=== PATIENT | male | born 1935 | race Caucasian/White ===

== ENCOUNTER → 2018-12-22 09:57 | Outpatient (CLI) | payer MEDICARE, SELFPAY ==
--- NOTE | 2018-12-22 10:14 | DI.CT.S_ITS ---
PROCEDURE: CT PEL WO CON INDICATIONS: Contusion of left hip, subsequent encounter TECHNIQUE: Noncontrast 3 mm axial sections acquired through the bony pelvis, with coronal and sagittal reformatting. COMPARISON: [facility], CR, XR PELVIS 1 OR 2 VIEWS, 12/15/2018, 11:18. FINDINGS: Image quality: Excellent. Bones: Lumbosacral fusion hardware is present. Periarticular osteophyte formation at the sacroiliac and hip joints bilaterally. Soft tissues: Bilateral scrotal hydroceles are present. Mildly distended fluid-filled loops of small bowel within the pelvis. IMPRESSION: 1. No fracture. 2. Bilateral sacroiliac and hip joint osteoarthritis. 3. Bilateral hydroceles. Dictated by: Elinor Parikh M.D. on 12/22/2018 at 10:34 Approved by: Elinor Parikh M.D. on 12/22/2018 at 10:38
== END ==
PROVIDERS: Family Provider Internal Medicine; PCP Internal Medicine; Visit Provider Internal Medicine
DX: S70.02XD Contusion of left hip, subsequent encounter (principal); M16.0 Bilateral primary osteoarthritis of hip; M47.898 Other spondylosis, sacral and sacrococcygeal region; N43.3 Hydrocele, unspecified; Z98.1 Arthrodesis status
CPT/HCPCS: 72192

== ENCOUNTER → 2022-01-01 10:55 | Outpatient (CLI) | payer MEDICARE, SELFPAY | PROVIDERS: Family Provider Internal Medicine; PCP Internal Medicine; Referring Provider Internal Medicine; Visit Provider Internal Medicine ==

== ENCOUNTER 2022-01-25 08:35 | Observation (INO) | payer OTHER, SELFPAY ==
[2022-01-25] VITALS (21 sets, daily range): BP systolic 126–225; BP diastolic 76–128; PULSE 40–74; RESP 12–22; TEMP 36–36.6; O2SAT 92–97; BMI 22.7; BMI 22.9
--- NOTE | 2022-01-25 08:39 | DI.RAD.S_ITS ---
PROCEDURE: XR CHEST 1V INDICATIONS: chest pain TECHNIQUE: One view of the chest was acquired. COMPARISON: [facility], , CHEST 1 VIEW, 02/19/2015, 10:54. FINDINGS: Surgical changes and devices: Left shoulder arthroplasty. Partially visualized thoracic neurostimulator leads. Partially visualized cervical thoracic spine fixation hardware. Lungs and pleura: Lungs are clear. No pleural effusions or pneumothorax. Mediastinum: Mediastinal contours appear normal. Heart size is normal. Bones and chest wall: No suspicious bony lesions. Overlying soft tissues appear unremarkable. IMPRESSION: No acute cardiopulmonary disease process. Dictated by: Shweta Mccarty MD, PhD on 01/25/2022 at 8:33 Approved by: Shweta Mccarty MD, PhD on 01/25/2022 at 8:38
--- NOTE | 2022-01-25 08:40 | ED.ARRPALP ---
HPI - Arrhythmia/Palpitations General Chief Complaint: Arrhythmia/Palpitations Stated Complaint: Weakness Time Seen by Provider: 01/25/22 08:38 History of Present Illness HPI narrative: Patient is a 86-year-old male history of hypertension chronic back pain presenting today with weakness and dizziness. He says he woke up this morning felt very lightheaded did not feel quite right. He denies any chest pain or palpitations. No nausea vomiting. EMS was called and found him to be new onset atrial flutter. He denies any history of AFib or a flutter. He has no nausea vomiting. He states that yesterday he was in his normal state of health. 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 He complains of chronic bilateral double vision. He was seen by Ophthalmology after his cataract surgery he has special glasses to help with this. Was suggested by the painter assistant that he may have had a stroke. He has no numbness tingling or weakness certainly no neuro deficit complaints today. Related Data Home Medications Medication Instructions Recorded Confirmed OXYCODONE/ACET 5/325 (bulk)- 1 tab PO Q4HP ##0 01/29/11 01/25/22 (Endocet 5-325 Tablet) nitroglycerin 0.4 mg sublingual 0.4 mg sublingual Q5M PRN Chest 04/05/20 01/25/22 tablet Pain rosuvastatin 5 mg tablet (Crestor) 5 mg PO DAILY 01/25/22 01/25/22 Previous Rx's Medication Instructions Recorded pregabalin 200 mg capsule (Lyrica) 200 mg PO BID #28 caps 10/12/16 Allergies Allergy/AdvReac Type Severity Reaction Status Date / Time niacin [NIACIN] Allergy Unknown Verified 01/25/22 08:47 Review of Systems Review of Systems Narrative: GENERAL: + weakness HEENT: See HPI Denies sinus pain, ear pain, sore throat, difficulty swallowing, neck pain RESPIRATORY: Denies dyspnea, cough, wheezing, hemoptysis, sputum. CARDIOVASCULAR: Denies chest pain, palpitations, orthopnea, edema GASTROINTESTINAL: Denies nausea, vomiting, abdominal pain, diarrhea, constipation, melena. : Denies dysuria, frequency, incontinence, hematuria, urinary retention, flank pain. MUSCULOSKELETAL: Denies weakness, joint pain, or bony pain SKIN: No rash, no erythema, no pruritus NEUROLOGIC: see HPI PSYCHIATRIC: No concerning psychosocial issues. 12 point review of systems is negative except for those stated above and HPI Patient History Medical History BPH (benign prostatic hyperplasia) BPH NOS w/o ur obs/LUTS High blood pressure Hydrocele Nocturia Nocturia Peripheral vascular disease Surgical History History of back surgery S/P TURP Vasectomy status Social History household members: spouse Smoking Status: Never smoker alcohol intake: current Smoking Status: Never smoker Exam Initial Vital Signs Initial Vital Signs: Vital Signs Temperature 97.9 F 01/25/22 08:40 Pulse Rate 65 01/25/22 08:40 Respiratory Rate 22 01/25/22 08:40 Blood Pressure 216/128 H 01/25/22 08:40 Pulse Oximetry 96 01/25/22 08:40 Oxygen Delivery Method 01/25/22 08:40 GENERAL: Alert pleasant 86-year-old male and in no acute distress. HEENT: Head atraumatic,EOMI, pupils reactive, face symmetric, moist mucous membranes CARDIOVASCULAR: Regular no murmur RESPIRATORY: Breath sounds equal bilaterally, no wheezes rales or rhonchi. ABDOMEN: Soft, nontender. Normoactive bowel sounds all 4 quadrants. No guarding or rebound. EXTREMITIES: Normal range of motion, no clubbing or edema. Neurovascularly intact NEUROLOGICAL: Alert and oriented x4.Normal gait and speech. SKIN: Warm, dry, no laceration, no petechiae, no rashes or lesions. Course Orders Ordered: ED Orders 01/25/22 08:39 XR chest 1V Stat 01/25/22 08:44 EKG-12 Lead Stat 01/25/22 08:45 Complete Blood Count AUTO DIFF Stat Comprehensive Metabolic Panel Stat D Dimer Stat Lipase Stat NT-proBNP (BNP-Adult 18+) Stat Partial Thromboplastin Time Stat Prothrombin Time INR Stat Troponin & CK Cardiac Panel Stat 01/25/22 09:42 CT angio chest PE protocol Stat Acetaminophen (Acetaminophen 325 Mg Tablet) 650 mg PO Q6HR PRN PRN Reason: Fever/Mild Pain (1-3) Apixaban (Apixaban 5 Mg Tablet) 5 mg PO BID [facility] Metoprolol Tartrate (Metoprolol Ir 25 Mg Tablet) 25 mg PO BID [facility] Ondansetron HCl (Ondansetron 4 Mg/2 Ml Inj) 4 mg IV Q8HR PRN PRN Reason: Nausea And Vomiting Discontinued Medications Diltiazem HCl (Diltiazem 5 Mg/Ml Sdv) 10 mg IV NOW ONE Stop: 01/25/22 08:57 Last Admin: 01/25/22 09:11 Dose: 10 mg Documented By: ABDULLAHI Sodium Chloride (Normal Saline 0.9%) 1,000 mls @ 150 mls/hr IV CONT [facility] Last Infusion: 01/25/22 11:06 Dose: 0 mls/hr Documented By: Admin: 01/25/22 09:10 Dose: 150 mls/hr Documented By: ABDULLAHI Pregabalin (Pregabalin 50 Mg Capsule) 200 mg PO DAILY [facility] Last Admin: 01/25/22 11:06 Dose: 200 mg Documented By: CHELA Vital Signs Vital signs: Vital Signs - 8 hr 01/25/22 08:40 01/25/22 08:40 01/25/22 08:42 Temperature 97.9 F Pulse Rate 65 60 65 Respiratory Rate 22 Blood Pressure 216/128 H Pulse Oximetry 96 95 93 Oxygen Delivery Method Room Air 01/25/22 08:42 01/25/22 08:53 01/25/22 08:53 Temperature Pulse Rate 62 Respiratory Rate 16 Blood Pressure 216/128 H 225/103 H Pulse Oximetry 95 Oxygen Delivery Method 01/25/22 08:58 01/25/22 08:58 01/25/22 09:00 Temperature Pulse Rate 63 62 Respiratory Rate 21 18 Blood Pressure 197/111 H Pulse Oximetry 96 97 Oxygen Delivery Method 01/25/22 09:01 01/25/22 09:01 01/25/22 09:11 Temperature Pulse Rate 63 67 Respiratory Rate 19 Blood Pressure 201/119 H 201/119 H Pulse Oximetry 92 Oxygen Delivery Method 01/25/22 09:19 01/25/22 09:19 01/25/22 09:30 Temperature Pulse Rate 62 Respiratory Rate 14 Blood Pressure 156/84 H 162/85 H Pulse Oximetry 95 Oxygen Delivery Method 01/25/22 09:30 01/25/22 09:45 01/25/22 09:45 Temperature Pulse Rate 65 Respiratory Rate 16 20 Blood Pressure 186/101 H Pulse Oximetry 95 96 Oxygen Delivery Method 01/25/22 10:00 01/25/22 10:01 01/25/22 10:01 Temperature Pulse Rate 59 L 58 L Respiratory Rate 21 12 Blood Pressure 198/103 H Pulse Oximetry 97 92 Oxygen Delivery Method 01/25/22 10:15 01/25/22 10:15 01/25/22 10:30 Temperature Pulse Rate 59 L Respiratory Rate 20 Blood Pressure 184/86 H 174/95 H Pulse Oximetry 92 Oxygen Delivery Method 01/25/22 10:30 01/25/22 10:45 01/25/22 10:45 Temperature Pulse Rate 51 L 74 Respiratory Rate 15 21 Blood Pressure 192/114 H Pulse Oximetry 95 92 Oxygen Delivery Method 01/25/22 11:00 01/25/22 11:00 Temperature Pulse Rate 48 L Respiratory Rate 16 Blood Pressure 173/95 H Pulse Oximetry 92 Oxygen Delivery Method MDM - Arrhythmia/Palpitations Lab Data Result diagrams: 01/25/22 08:45 01/25/22 08:45 Labs: Lab Results 01/25/22 01/25/22 01/25/22 Range/Units 08:45 08:45 08:45 WBC 3.8 L (4.5-11.0) X10^3/uL RBC 4.52 (4.5-5.9) X10^6/uL Hgb 15.4 (13.5-17.5) g/dL Hct 43.9 (41-53) % MCV 97.2 (80-100) fL MCH 34.0 (26-34) PG MCHC 35.0 (30-36) % RDW 13.2 (11.6-14.8) % Plt Count 116 L (150-400) X10^3/uL Neut % (Auto) 57.0 (50-75) % Lymph % (Auto) 27.3 (25-40) % Daniels % (Auto) 12.1 (3-14) % Eos % (Auto) 2.8 (2-4) % Baso % (Auto) 0.8 (0-2) % Neut # (Auto) 2200 (7150-2874) /uL Lymph # (Auto) 1000 L (7436-6224) /uL Daniels # (Auto) 500 (0-900) /uL Eos # (Auto) 100 (0-450) /uL Baso # (Auto) 0 (0-100) /uL PT 11.8 (10.1-12.7) SECONDS INR 1.0 (0.9-1.3) APTT 34 (26.4-36.2) SECONDS D-Dimer 604 H (<500) ng/ml Sodium 138 (137-145) mmol/L Potassium 4.4 (3.4-5.1) mmol/L Chloride 101 (98-107) mmol/L Carbon Dioxide 32 (22-32) mmol/L BUN 12 (9-20) mg/dL Creatinine 0.77 (0.66-1.25) mg/dL Estimated GFR > 60 (>60) mL/min BUN/Creatinine Ratio 15.6 (6-22) Glucose 90 (80-110) mg/dL Calcium 8.8 (8.4-10.2) mg/dL Total Bilirubin 0.9 (0.2-1.3) mg/dL AST 36 (17-59) IU/L ALT 25 (<50) IU/L Alkaline Phosphatase 43 (38-126) U/L Total Creatine Kinase 103 (55-170) U/L CK-MB (CK-2) 3.10 H (<2.37) ng/mL CK-MB (CK-2) Rel Index 3.0 (1.5-5.0) % Troponin I 0.145 H* (0.01-0.034) ng/mL NT-Pro-B Natriuret Pep 426 (<450) pg/mL Total Protein 7.3 (6.3-8.2) g/dL Albumin 4.1 (3.5-5.0) g/dL Globulin 3.2 (1.7-4.1) g/dL Albumin/Globulin Ratio 1.3 (1.0-2.8) Lipase 72 (23-300) U/L Imaging Data Chest x-ray: Radiologist's Impresson: [address] [id number] XRay Report Signed Patient: Scotty Hester MR#: [id number] : 1935 Acct:[id number] Age/Sex: 86 / M Date of Service: 01/25/22 Loc: ED Accession Number: [id number] ?? Procedure: XR chest 1V Ordering Provider: Ana Epperson D.O. PROCEDURE:? XR CHEST 1V ? INDICATIONS:? chest pain ? TECHNIQUE:? One view of the chest was acquired.? ? COMPARISON:? [facility], CHEST 1 VIEW, 02/19/2015, 10:54. ? FINDINGS:? ? Surgical changes and devices:? Left shoulder arthroplasty.? Partially visualized thoracic neurostimulator leads.? Partially visualized cervical thoracic spine fixation hardware. ? Lungs and pleura:? Lungs are clear.? No pleural effusions or pneumothorax.? ? Mediastinum:? Mediastinal contours appear normal.? Heart size is normal.? ? Bones and chest wall:? No suspicious bony lesions.? Overlying soft tissues appear unremarkable.? ? IMPRESSION:? No acute cardiopulmonary disease process. ? ? Dictated by: Shweta Mccarty MD, PhD on 01/25/2022 at 8:33 ? ? CT scan - chest: Radiologist's Impresson: nt: Scotty Hester MR#: [id number] : 1935 Acct:[id number] Age/Sex: 86 / M Date of Service: 01/25/22 Loc: ED Accession Number: [id number] ?? Procedure: CT angio chest PE protocol Ordering Provider: Ana Epperson D.O. PROCEDURE:? CT ANGIO CHEST PE PROTOCOL ? INDICATIONS:? sob new onset a flutter high dimer ? TECHNIQUE:? After the administration of intravenous contrast, 2 mm thick sections acquired from the pulmonary apices to the posterior costophrenic angles.? 3-dimensional maximum intensity projection (MIP) coronal and sagittal reformats were then acquired through the thorax.? For radiation dose reduction, the following was used:? automated exposure control, adjustment of mA and/or kV according to patient size.? ? COMPARISON:? [facility], XR CHEST 1V, 01/25/2022, 9:11. ? FINDINGS:? Image quality:? Good.? Right shoulder beam hardening artifact.? ? Pulmonary arteries:? Pulmonary arteries are normal in size, and demonstrate no intraluminal filling defects to suggest central pulmonary embolism.? ? Lungs and pleura:? A few pulmonary nodules measuring 0.4 cm or less.? A few calcified granuloma.? Dependent reticular thickening which has the appearance of atelectasis.? No pleural effusions or pneumothorax.? Central and peripheral airways are patent.? ? Mediastinum:? Heart size is normal, without pericardial effusion.? [id number]-[id number] coronary artery calcifications.? No mediastinal or hilar adenopathy.? Thoracic aorta is normal in caliber and enhancement.? Retroesophageal right subclavian artery, variant anatomy.? Esophagus is normal in caliber, without hiatal hernia.? ? Bones and chest wall:? Spine fixation hardware partially visualized.? ACDF. Thecal spine leads.? No suspicious bony lesions.? Ribs and thoracic spine appear intact throughout.? Thyroid gland is unremarkable.? No axillary or supraclavicular adenopathy.? Gynecomastia. ? ? Abdomen:? Multiple low-density bilateral renal cysts.? No adrenal nodule. ? IMPRESSION:? 1. No pulmonary embolism. ? 2. Suspect bibasilar atelectasis.? No pleural effusion. ? ? ? Dictated by: Lanre Bruce M.D. on 01/25/2022 at 10:25? ECG Data Interpretation: Atrial flutter rate 63 and new from previous EKG no ST changes stimulator noted MDM Narrative Medical decision making narrative: Patient presents today complaining of a lightheadedness. Found to be extremely hypertensive and in atrial flutter. Rate seems to be controlled. No prior history of atrial flutter however patient really does not have chest pain shortness of breath or fluttering. His previous EKGs from 2015 difficult to tell if the lightheadedness is from hypertension versus atrial flutter. He is given 1 small dose of Cardizem 10 mg which brought his blood pressure down really did not do much for his rate which is fairly well controlled. He remains in atrial flutter. He overall is feeling better. Difficult to tell when he went into atrial flutter not a good candidate for cardioversion. Troponin is found to be elevated possibly hypertensive emergency versus atrial flutter. Dr. Hernandez cardiology consulted agrees no need for heparin drip for cardioversion. Recommend blood pressure control anticoagulation with Eliquis echocardiogram and follow-up as an outpatient. Discharge Plan Departure Patient Disposition: Admitted as Observation Clinical Impression: Hypertensive emergency, Atrial fibrillation/flutter Admit Date/Time: 01/25/22 11:05 Admit Provider: Vidya Wright
[2022-01-25 08:55] LABS: Add Manual Diff / Slide Review NO; Basophils Absolute Auto 0 /uL (0-100); Basophils Percent Auto 0.8 % (0-2); Eosinophils Absolute Auto 100 /uL (0-450); Eosinophils Percent Auto 2.8 % (2-4); Hematocrit 43.9 % (41-53); Hemoglobin 15.4 g/dL (13.5-17.5); Lymphocytes Absolute Auto 1000 /uL (1100-4500); Lymphocytes Percent Auto 27.3 % (25-40); Mean Corpuscular Volume 97.2 fL (80-100); Monocytes Absolute Auto 500 /uL (0-900); Monocytes Percent Auto 12.1 % (3-14); Neutrophils Absolute Auto 2200 /uL (1500-7000); Platelet Count 116 X10^3/uL (150-400); Red Blood Cell Count 4.52 X10^6/uL (4.5-5.9); Red Cell Distribution Width 13.2 % (11.6-14.8); White Blood Cell Count 3.8 X10^3/uL (4.5-11.0)
[2022-01-25 09:05] LABS: Prothrombin Time 11.8 SECONDS (10.1-12.7)
[2022-01-25 09:06] LABS: D Dimer 604 ng/ml (<500)
[2022-01-25 09:07] LABS: PTT Partial Thromboplastin Tim 34 SECONDS (26.4-36.2)
[2022-01-25 09:09] LABS: Alanine Aminotransferase 25 IU/L (<50); Albumin 4.1 g/dL (3.5-5.0); Albumin Globulin Ratio 1.3 (1.0-2.8); Alkaline Phosphatase 43 U/L (38-126); Aspartate Aminotransferase 36 IU/L (17-59); BUN Creatinine Ratio 15.6 (6-22); Bilirubin Total 0.9 mg/dL (0.2-1.3); Blood Urea Nitrogen 12 mg/dL (9-20); Calcium 8.8 mg/dL (8.4-10.2); Carbon Dioxide 32 mmol/L (22-32); Chloride 101 mmol/L (98-107); Creatine Kinase 103 U/L (55-170); Estimated Glomerular Filt Rate > 60 mL/min (>60); Globulin 3.2 g/dL (1.7-4.1); Glucose 90 mg/dL (80-110); Lipase 72 U/L (23-300); Potassium 4.4 mmol/L (3.4-5.1); Sodium 138 mmol/L (137-145); Total Protein 7.3 g/dL (6.3-8.2)
[2022-01-25] MEDS: SODIUM CHLORIDE 0.9% 1,000 ML 150 ML IV (09:10)
[2022-01-25] MEDS: dilTIAZem 5 MG/ML SDV 10 MG IV (09:11)
[2022-01-25 09:21] LABS: NT-proBNP (BNP-Adult 18+) 426 pg/mL (<450)
--- NOTE | 2022-01-25 09:42 | DI.CT.S_ITS ---
PROCEDURE: CT ANGIO CHEST PE PROTOCOL INDICATIONS: sob new onset a flutter high dimer TECHNIQUE: After the administration of intravenous contrast, 2 mm thick sections acquired from the pulmonary apices to the posterior costophrenic angles. 3-dimensional maximum intensity projection (MIP) coronal and sagittal reformats were then acquired through the thorax. For radiation dose reduction, the following was used: automated exposure control, adjustment of mA and/or kV according to patient size. COMPARISON: [facility], CR, XR CHEST 1V, 01/25/2022, 9:11. FINDINGS: Image quality: Good. Right shoulder beam hardening artifact. Pulmonary arteries: Pulmonary arteries are normal in size, and demonstrate no intraluminal filling defects to suggest central pulmonary embolism. Lungs and pleura: A few pulmonary nodules measuring 0.4 cm or less. A few calcified granuloma. Dependent reticular thickening which has the appearance of atelectasis. No pleural effusions or pneumothorax. Central and peripheral airways are patent. Mediastinum: Heart size is normal, without pericardial effusion. Gozl-cu-[id number] coronary artery calcifications. No mediastinal or hilar adenopathy. Thoracic aorta is normal in caliber and enhancement. Retroesophageal right subclavian artery, variant anatomy. Esophagus is normal in caliber, without hiatal hernia. Bones and chest wall: Spine fixation hardware partially visualized. ACDF. Thecal spine leads. No suspicious bony lesions. Ribs and thoracic spine appear intact throughout. Thyroid gland is unremarkable. No axillary or supraclavicular adenopathy. Gynecomastia. Abdomen: Multiple low-density bilateral renal cysts. No adrenal nodule. IMPRESSION: 1. No pulmonary embolism. 2. Suspect bibasilar atelectasis. No pleural effusion. Dictated by: Lanre Bruce M.D. on 01/25/2022 at 10:25 Approved by: Lanre Bruce M.D. on 01/25/2022 at 10:40
[2022-01-25 09:50] LABS: HEMOLYSIS 18 (0-50)
[2022-01-25 09:52] LABS: Troponin I 0.145 ng/mL (0.01-0.034)
--- NOTE | 2022-01-25 10:19 | PC.NURSE ---
Dr. Epperson aware of HR 43-63 and HTN
[2022-01-25] MEDS: PREGABALIN 50 MG CAPSULE 200 MG PO ×2 (11:06→20:28)
--- NOTE | 2022-01-25 11:51 | DI.ECHO.S_ITS ---
[facility] +---------+ : : [id number] : : : : [id number] : : : : Phone: [phone] Echocardiogram Report + + :Name: ANEL OLVERA Study Date: 01/25/2022 Height: 74 in : :[facility] ReadingLocation: Weight: 178 lb : : Gender: Male BSA: 2.1 m2 : :: 1935 Age: 86 yrs BP: 194/111 mmHg: :Reason For Study: AFLUTTER, ELEVATED TROPONIN : : Performed By: Jeffrey Anaya : :Referring: MANDI IBRAHIM : + + Interpretation Summary The left ventricle is normal in size. Left ventricular systolic function appears normal without focal wall motion abnormalities. The ejection fraction is estimated to be 60-65%.LVEF has not changed. The right ventricle is mildly dilated. The right ventricular systolic function is normal. The right ventricular systolic pressure is estimated to be at least 43 mmHg based on an estimated right atrial pressure of 8 mm Hg. The left atrium is mildly dilated. The right atrium is severely dilated. There is mild to moderate mitral regurgitation. There is no other significant valvular heart disease. The ascending aorta is mild-moderately enlarged. Procedure: A two-dimensional transthoracic echocardiogram with color flow and Doppler was performed. The study quality was technically good. Comparison is made with the echocardiogram of 01/30/17. The patient was in atrial fibrillation with controlled ventricular rate during the exam. The patient had occasional PACs during the exam. The patient had occasional PVCs during the exam. Left Ventricle: The left ventricle is normal in size. There is normal left ventricular wall thickness. Left ventricular systolic function appears normal without focal wall motion abnormalities. The ejection fraction is estimated to be 60-65%. Diastolic parameters suggest probable elevated filling pressures. Right Ventricle: The right ventricle is mildly dilated. The right ventricular systolic function is normal. Atria: The left atrium is mildly dilated. The right atrium is severely dilated. There is no Doppler evidence for an atrial septal defect. Mitral Valve: The mitral valve leaflets appear normal. There is no evidence of stenosis, fluttering, or prolapse. There is mild to moderate mitral regurgitation. Aortic Valve: The aortic valve is trileaflet. The aortic valve opens well. There is trace aortic regurgitation. Tricuspid Valve: The tricuspid valve is normal in structure and function. There is mild tricuspid regurgitation. The right ventricular systolic pressure is estimated to be at least 43 mmHg based on an estimated right atrial pressure of 8 mm Hg. Pulmonic Valve: The pulmonic valve is normal in structure and function. There is trace pulmonic regurgitation. There is no other significant valvular heart disease. Great Vessels: The aortic root is normal size. The ascending aorta is mild- moderately enlarged. The pulmonary artery is normal size. The IVC is dilated (diameter is greater than 2.1 cm) yet it collapses greater than 50% with a sniff. This suggests a right atrial pressure of 8 mm Hg. Pericardium/ Pleura There is no pericardial effusion. There is no pleural effusion. MMode/2D Measurements & Calculations LVIDd: 4.3 cm LVOT diam: 2.4 cm LVIDs: 2.8 cm Ao root diam: 3.9 cm FS: 34.4 % asc Aorta Diam: 4.1 cm EPSS: 0.25 cm Ao Arch Diam (Prox Trans): 3.1 cm IVSd: 1.00 cm LVPWd: 0.80 cm LV mahmood. diameter/BSA (cm/m^2): 2.1 LV sys. diameter/BSA (cm/m^2): 1.4 LA A2 area: 25.0 cm2 RA long axis: 6.0 cm LA A4 area: 26.5 cm2 RA area: 33.0 cm2 LA length (vol): 7.3 cm RA vol: 154.0 ml LA vol: 77.4 ml RA : 74.5 ml/m2 LA vol index: 37.4 ml/m2 IVC diam: 2.4 cm RVD1 (basal): 4.7 cm RVD2 (mid): 4.1 cm TAPSE: 1.8 cm Doppler Measurements & Calculations Ao V2 max: 115.5 cm/sec LVOT Max Lucio: 65.5 cm/sec Ao V2 mean: 92.1 cm/sec LV V1 max P.7 mmHg Ao max P.3 mmHg LV V1 VTI: 16.4 cm Ao mean P.5 mmHg COREY(I,D): 2.7 cm2 Ao V2 VTI: 27.0 cm COREY(V,D): 2.5 cm2 sev ratio: 0.61 COREY indexed to BSA (cm^2/m^2): 1.3 MV E max lucio: 97.4 cm/sec TR max lucio: 293.5 cm/sec MV A max lucio: 56.8 cm/sec TR max P.5 mmHg MV E/A: 1.7 PA V2 max: 76.6 cm/sec Med Peak E' Lucio: 5.7 cm/sec PA V2 mean: 56.4 cm/sec E/E' med: 17.0 PA mean P.4 mmHg Lat Peak E' Lucio: 7.9 cm/sec PA pr(Accel): 44.7 mmHg E/E' lat: 12.3 E/e' average: 14.6 MV dec time: 0.13 sec SV(LVOT): 71.7 ml Reading Physician:03:24 PM
[2022-01-25 11:55] LABS: COVID19 -Nasal RAPID Negative (Negative)
[2022-01-25] MEDS: METOPROLOL IR 25 MG TABLET PO (12:41)
--- NOTE | 2022-01-25 14:37 | P.HP_ITS ---
History of Present Illness History of Present Illness Date Patient Seen: 01/25/22 Chief complaint: Weakness Narrative: 86-year-old gentleman with hypertension, hyperlipidemia, peripheral neuropathy related to multiple previous back surgeries presented to the emergency department complaining of lightheadedness. Patient states he underwent bilateral cataract surgery earlier this year. He reports he had great results with the 1st 1, but 10 days after the 2nd 1 developed difficulties. He states he developed double vision. He followed up with an inspector eyeglass frames and follow-up surgery was not recommended. He states he was ultimately given glasses to correct his diplopia. He notes after going through that, he noticed he did have balance issues related to the double vision so he has been very attentive about the symptoms. He states due to his neuropathy he frequently gets up at night and walks around in his home and then will sit his recliner. This morning, when he got up he felt lightheaded. He thought it was related to his eyes, but even after putting his glasses on the s ymptoms persisted. He states he felt he was ?unsure footed. He reports multiple friends of his have had cardiac issues so he is aware potential symptoms. He subsequently presented to the emergency department for further evaluation. He denies any chest pain or tightness. Has no previous history of arrhythmia. He does report earlier in the morning between 3 and 5, he noted a little bit of difficulty catching his breath. Denies any recent no symptoms. No fevers, chills, nausea, vomiting, abdominal pain, has had normal urine output and normal bowel movements. He states he has been eating and drinking well. He does have chronic lower extremity edema. Patient History Medical History BPH (benign prostatic hyperplasia) BPH NOS w/o ur obs/LUTS High blood pressure Hydrocele Nocturia Nocturia Peripheral vascular disease Surgical History History of back surgery S/P TURP Vasectomy status Comment: Past medical history: In addition to the above, he reports previous back surgeries x5, he has an implanted neurostimulator Peripheral neuropathy Hyperlipidemia Family history: Father had coronary disease and strokes Mother at age 97 from advanced age Brother had heart disease and Parkinson's Family & Social History Social History: household members spouse Prior Living Arrangements House Safety & Behavioral: Feels Safe in Current Yes Environment Been Physically Hurt or No Threatened By a Person Tobacco & Substance use: Smoking Status Never smoker alcohol intake current alcohol intake frequency 0-2 drinks per day Substance Use Type does not use Comment: Social history: He is and lives in [place] with his Retired outdoor sports min Lifelong nonsmoker. He does drink a cocktail each evening Meds Home Medications and Allergies Home Medications Medication Instructions Recorded Confirmed Type OXYCODONE/ACET 5/325 (bulk)- 1 tab PO Q4HP ##0 01/29/11 01/25/22 History (Endocet 5-325 Tablet) pregabalin 200 mg capsule (Lyrica) 200 mg PO BID #28 caps 10/12/16 01/25/22 Rx nitroglycerin 0.4 mg sublingual 0.4 mg sublingual Q5M PRN Chest 04/05/20 01/25/22 History tablet Pain rosuvastatin 5 mg tablet (Crestor) 5 mg PO DAILY 01/25/22 01/25/22 History Allergies Allergy/AdvReac Type Severity Reaction Status Date / Time niacin [NIACIN] Allergy Unknown Verified 01/25/22 08:47 Review of Systems Review of Systems Narrative: All other systems were reviewed negative Exam Vital Signs (past 8 hours): - 01/25/22 08:40 01/25/22 08:40 01/25/22 08:42 Temperature 97.9 F Pulse Rate 65 60 65 Respiratory Rate 22 Blood Pressure 216/128 H Pulse Oximetry 96 95 93 Oxygen Delivery Method Room Air Oxygen Flow Rate 01/25/22 08:42 01/25/22 08:53 01/25/22 08:53 Temperature Pulse Rate 62 Respiratory Rate 16 Blood Pressure 216/128 H 225/103 H Pulse Oximetry 95 Oxygen Delivery Method Oxygen Flow Rate 01/25/22 08:58 01/25/22 08:58 01/25/22 09:00 Temperature Pulse Rate 63 62 Respiratory Rate 21 18 Blood Pressure 197/111 H Pulse Oximetry 96 97 Oxygen Delivery Method Oxygen Flow Rate 01/25/22 09:01 01/25/22 09:01 01/25/22 09:11 Temperature Pulse Rate 63 67 Respiratory Rate 19 Blood Pressure 201/119 H 201/119 H Pulse Oximetry 92 Oxygen Delivery Method Oxygen Flow Rate 01/25/22 09:19 01/25/22 09:19 01/25/22 09:30 Temperature Pulse Rate 62 Respiratory Rate 14 Blood Pressure 156/84 H 162/85 H Pulse Oximetry 95 Oxygen Delivery Method Oxygen Flow Rate 01/25/22 09:30 01/25/22 09:45 01/25/22 09:45 Temperature Pulse Rate 65 Respiratory Rate 16 20 Blood Pressure 186/101 H Pulse Oximetry 95 96 Oxygen Delivery Method Oxygen Flow Rate 01/25/22 10:00 01/25/22 10:01 01/25/22 10:01 Temperature Pulse Rate 59 L 58 L Respiratory Rate 21 12 Blood Pressure 198/103 H Pulse Oximetry 97 92 Oxygen Delivery Method Oxygen Flow Rate 01/25/22 10:15 01/25/22 10:15 01/25/22 10:30 Temperature Pulse Rate 59 L Respiratory Rate 20 Blood Pressure 184/86 H 174/95 H Pulse Oximetry 92 Oxygen Delivery Method Oxygen Flow Rate 01/25/22 10:30 01/25/22 10:45 01/25/22 10:45 Temperature Pulse Rate 51 L 74 Respiratory Rate 15 21 Blood Pressure 192/114 H Pulse Oximetry 95 92 Oxygen Delivery Method Oxygen Flow Rate 01/25/22 11:00 01/25/22 11:00 01/25/22 11:25 Temperature 96.9 F L Pulse Rate 48 L 57 L Respiratory Rate 16 20 Blood Pressure 173/95 H 194/111 H Pulse Oximetry 92 97 Oxygen Delivery Method Oxygen Flow Rate 0 01/25/22 12:00 Temperature 96.9 F L Pulse Rate 57 L Respiratory Rate 20 Blood Pressure 194/111 H Pulse Oximetry 97 Oxygen Delivery Method Oxygen Flow Rate 0 Oxygen Delivery Method Room Air Oxygen Flow Rate 0 Narrative Exam Narrative: GEN: Elderly male, very pleasant, Alert and oriented x3, no acute distress HEENT: Normocephalic, face symmetric, pupils equal round reactive to light, extraocular movements intact, sclerae anicteric, conjunctiva clear, nares patent , oropharynx reveals an intact soft and hard palate with moist mucous membranes, dentition is fair NECK: Supple, no lymphadenopathy, thyroid without enlargement or nodularity, carotids no bruits CHEST: Respiratory excursions symmetric, clear to auscultation bilaterally CV: Regularly irregular, no murmurs, rubs, gallops, PMI nondisplaced ABD: Soft, nontender, nondistended, bowel sounds present in all 4 quadrants, no organomegaly or masses appreciated EXTR: Warm, well perfused, no clubbing/cyanosis, 2+ bilateral lower extremity edema with venous stasis changes SKIN: Warm and dry, without rash NEURO: Alert and oriented x3, cranial nerves 2 through 12 are intact and symmetric bilaterally, motor strength 5/5 throughout, sensation intact throughout PSYCH: Mood and affect is within normal limits, judgment and insight are appropriate Objective Labs Result Diagrams: 01/25/22 08:45 01/25/22 08:45 Labs: Laboratory Results - last 24 hr 01/25/22 01/25/22 01/25/22 08:45 08:45 08:45 WBC 3.8 L RBC 4.52 Hgb 15.4 Hct 43.9 MCV 97.2 MCH 34.0 MCHC 35.0 RDW 13.2 Plt Count 116 L Neut % (Auto) 57.0 Lymph % (Auto) 27.3 [place] % (Auto) 12.1 Eos % (Auto) 2.8 Baso % (Auto) 0.8 Neut # (Auto) 2200 Lymph # (Auto) 1000 L [place] # (Auto) 500 Eos # (Auto) 100 Baso # (Auto) 0 PT 11.8 INR 1.0 APTT 34 D-Dimer 604 H Sodium 138 Potassium 4.4 Chloride 101 Carbon Dioxide 32 BUN 12 Creatinine 0.77 Estimated GFR > 60 BUN/Creatinine Ratio 15.6 Glucose 90 Calcium 8.8 Total Bilirubin 0.9 AST 36 ALT 25 Alkaline Phosphatase 43 Total Creatine Kinase 103 CK-MB (CK-2) 3.10 H CK-MB (CK-2) Rel Index 3.0 Troponin I 0.145 H* NT-Pro-B Natriuret Pep 426 Total Protein 7.3 Albumin 4.1 Globulin 3.2 Albumin/Globulin Ratio 1.3 Lipase 72 SARS-CoV-2 (PCR) 01/25/22 11:18 WBC RBC Hgb Hct MCV MCH MCHC RDW Plt Count Neut % (Auto) Lymph % (Auto) [place] % (Auto) Eos % (Auto) Baso % (Auto) Neut # (Auto) Lymph # (Auto) [place] # (Auto) Eos # (Auto) Baso # (Auto) PT INR APTT D-Dimer Sodium Potassium Chloride Carbon Dioxide BUN Creatinine Estimated GFR BUN/Creatinine Ratio Glucose Calcium Total Bilirubin AST ALT Alkaline Phosphatase Total Creatine Kinase CK-MB (CK-2) CK-MB (CK-2) Rel Index Troponin I NT-Pro-B Natriuret Pep Total Protein Albumin Globulin Albumin/Globulin Ratio Lipase SARS-CoV-2 (PCR) Negative Assessment & Plan Assessment & Plan narrative: 1. Atrial flutter, rate controlled Patient presented with rate controlled flutter with rates in the low 60s initially. Heart rates were in the 50s after IV diltiazem. Heart rate came back up to the 70s but again dropped down to the high 40s after metoprolol. Will give lower dose metoprolol at 12.5 mg twice daily. Will initiate Eliquis b.i.d.. Discussed risk and benefits with patient. Echocardiogram will be obtained as well. TSH will be checked. Patient has no hard awareness, sodas on certain how long he has had atrial flutter. 2. Hypertension On arrival in the emergency department, blood pressure was 216/128. After receiving 10 mg of diltiazem, it did come down to 156/84. Subsequently increased to the 190s over 114. Blood pressure did normalize with metoprolol 25 mg PO. Unfortunately, he developed some asymptomatic bradycardia. Will continue metoprolol 12.5 mg twice daily and monitor. 3. Lightheadedness Likely secondary to his atrial flutter and severe hypertension. Will continue to monitor. 4. Elevated troponin Patient has not had any chest pain or anginal equivalent symptoms. Initial troponin was 0.145. Follow-up is presently pending. Will monitor. Suspect this is related to his significant hypertension. 5. Leukopenia This also appears to be somewhat chronic. White blood cell count is 3.8 today. It was 4.2 on last check in 2017. 6. Thrombocytopenia Platelet count is 116. It appears he has had some chronic mild thrombocytopenia dating back to 2016. At that time, his platelets were 125. Since then platelet counts have ranged from [id number]. Last labs in our system is in 2017. 7. Elevated D-dimer No evidence of pneumonia or pulmonary emboli on CT PA. 8. Chronic peripheral neuropathy He has an implanted neurostimulator. Continue Lyrica. 9. 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 Code status DNR per patient Prophylaxis Will place on Eliquis Disposition Admit under observation status Time Spent With Patient Critical Care time: I spent a total of [] minutes of critical care time on this patient's care today; this time is exclusive of procedural time. Quality VTE Deep Vein Thrombosis/Pulmonary Embolism Present on Admission: No
[2022-01-25 15:33] LABS: Troponin I 0.107 ng/mL (0.01-0.034)
[2022-01-25 16:09] LABS: Thyroid Stimulating Hormone 0.584 uIU/mL (0.47-4.68)
[2022-01-25 18:26] LABS: Troponin I 0.098 ng/mL (0.01-0.034)
[2022-01-25] MEDS: APIXABAN 5 MG TABLET PO (20:28)
[2022-01-25] MEDS: OXYCODONE/ACETAMINOPHEN 5/325 TABLET 1 TAB PO (22:19)
[2022-01-26 00:54] VITALS: BP 153/97; PULSE 48; O2SAT 96
[2022-01-26 05:41] VITALS: BP 152/89; PULSE 58; RESP 18; TEMP 35.7; O2SAT 93
[2022-01-26 06:57] LABS: Add Manual Diff / Slide Review NO; Basophils Absolute Auto 0 /uL (0-100); Basophils Percent Auto 0.7 % (0-2); Eosinophils Absolute Auto 200 /uL (0-450); Hematocrit 40.2 % (41-53); Hemoglobin 13.9 g/dL (13.5-17.5); Lymphocytes Absolute Auto 1400 /uL (1100-4500); Lymphocytes Percent Auto 33.4 % (25-40); Mean Corpuscular HGB Conc 34.6 % (30-36); Mean Corpuscular Hemoglobin 33.6 PG (26-34); Mean Corpuscular Volume 97.2 fL (80-100); Monocytes Absolute Auto 600 /uL (0-900); Monocytes Percent Auto 13.6 % (3-14); Neutrophils Absolute Auto 2100 /uL (1500-7000); Neutrophils Percent Auto 48.3 % (50-75); Platelet Count 120 X10^3/uL (150-400); Red Blood Cell Count 4.13 X10^6/uL (4.5-5.9); Red Cell Distribution Width 13.4 % (11.6-14.8); White Blood Cell Count 4.3 X10^3/uL (4.5-11.0)
[2022-01-26 07:08] LABS: BUN Creatinine Ratio 17.9 (6-22); Blood Urea Nitrogen 15 mg/dL (9-20); Calcium 8.3 mg/dL (8.4-10.2); Carbon Dioxide 33 mmol/L (22-32); Chloride 105 mmol/L (98-107); Estimated Glomerular Filt Rate > 60 mL/min (>60); Glucose 82 mg/dL (80-110); HEMOLYSIS 18 (0-50); Potassium 4.2 mmol/L (3.4-5.1); Sodium 138 mmol/L (137-145)
[2022-01-26] MEDS: OXYCODONE/ACETAMINOPHEN 5/325 TABLET 1 TAB PO (07:50)
[2022-01-26] MEDS: ATORVASTATIN 20 MG TABLET 10 MG PO (08:04)
[2022-01-26] MEDS: APIXABAN 5 MG TABLET PO (08:06)
[2022-01-26] MEDS: PREGABALIN 50 MG CAPSULE 200 MG PO (08:06)
[2022-01-26 08:38] VITALS: BP 150/90; PULSE 47; RESP 17; TEMP 35.6; O2SAT 95
[2022-01-26] MEDS: SODIUM CHLORIDE 0.9% FLUSH 10 ML IV (08:42)
[2022-01-26 08:43] VITALS: O2SAT 95
--- NOTE | 2022-01-26 09:24 | CM.DANOTE ---
PETER Assessment: Payor: [employer] PCP: MD Edinson Pt is a 86 y.o. M who presented to the ED for weakness and dizziness. Pt has a history of hypertension and chronic back pain. Pt told the ED physician that he woke up yesterday morning and did not feel right. EMS found pt to be in new onset atrial flutter upon arrival to [facility] home. Pt recently had cataract surgery and it was suggested to pt by his Electronics Technician Apprentice that he may have had a stroke. Pt was admitted under observation for further management and evaluation of his symptoms. DCP met with pt this morning to discuss further discharge needs. Pt sitting up in bed. DCP introduced herself and role. Pt stated that he lives in [facility] with his spouse, Cathy, in a single story house. Pt states that he is normally independent at baseline but sometimes uses a walking stick to get around if there are hills or uneven surfaces. Pt states that he recently had cataract surgery and his vision was not quite right but his eye doctor provided him with specialized glasses to help. Pt states that he still drives POV but tries to only stay close to his home. Pt spouse also drives POV. Pt states that his vision does not impair his driving to the point where he needs to give up driving. Pt denies any home health use in the past. Pt denies any discharge resources at this time. WIP does not identify any needs for pt at this time. Whiteboard updated and instructed to call with any other questions that might arise. Pt thankful for the discussion. Spouse is on standby in case pt gets discharged today. P: Once pt is medically stable for discharge, pt to discharge home via spouse POV. Ashley Lowery RN/PETER Discharge Planning/Care Management CM Discharge Assessment Start: 01/26/22 09:22 Freq: Status: Active Protocol: Document 01/26/22 09:22 RAVI (Rec: 01/26/22 09:22 RAVI [id number]) Discharge Planning Assessment Assigned Direct Support Worker Ashley Lowery RN/PETER Advance Directives? Yes Advance Directives on File No History Provided By Patient,Medical Record Prior Living Arrangements House Household Members spouse Type of transporation used prior to Drives own vehicle admit Independent with ADL's Yes Is patient alert and oriented? Yes Caregiver for Another No DME Already Rented / Owned Other Comment walking stick Barriers to Discharge No Discharge Plan Home Referrals Initiated None needed Whiteboard Updated in Patient Room with Yes name and ext. # of Direct Support Worker Comment Instructed to call Review Status In Process Please Provide Date Initial DC 01/26/22 Assessment Was Performed Next Review Type Continued Stay Review
--- NOTE | 2022-01-26 18:11 | P.DS_ITS ---
History of Present Illness History of Present Illness Chief complaint: Weakness Narrative: 86-year-old gentleman with hypertension, hyperlipidemia, peripheral neuropathy related to multiple previous back surgeries presented to the emergency department complaining of lightheadedness. Patient states he underwent bilateral cataract surgery earlier this year. He reports he had great results with the 1st 1, but 10 days after the 2nd 1 developed difficulties. He states he developed double vision. He followed up with an strategic communications specialist and follow-up surgery was not recommended. He states he was ultimately given glasses to correct his diplopia. He notes after going through that, he noticed he did have balance issues related to the double vision so he has been very attentive about the symptoms. He states due to his neuropathy he frequently gets up at night and walks around in his home and then will sit his recliner. This morning, when he got up he felt lightheaded. He thought it was related to his eyes, but even after putting his glasses on the symptoms persisted. He states he felt he was ?unsure footed. He reports multiple friends of his have had cardiac issues so he is aware potential sympt oms. He subsequently presented to the emergency department for further evaluation. He denies any chest pain or tightness. Has no previous history of arrhythmia. He does report earlier in the morning between 3 and 5, he noted a little bit of difficulty catching his breath. Denies any recent no symptoms. No fevers, chills, nausea, vomiting, abdominal pain, has had normal urine output and normal bowel movements. He states he has been eating and drinking well. He does have chronic lower extremity edema. 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 This was unusual for him. He had also had some very mild shortness of breath earlier in the morning while in bed. He presented to the emergency department was found to have rate controlled atrial flutter. He had significant hypertension. Received IV diltiazem with good improvement. Mild elevation of his troponin but had no cardiac symptoms. Was admitted for further observation. Metoprolol 25 mg p.o. was ordered and given. Although his blood pressure had great improvement, he did become mildly bradycardic though was not symptomatic. Subsequently attempts were made to give a lower dose of metoprolol in the evening, 12.5 mg, but he again had a mildly bradycardic rate and the metoprolol was held. He remained bradycardic enough that even on the date of discharge, he did not meet criteria to give a 3.125 mg dose. Therefore he is being discharged with lisinopril 10 mg orally daily for hypertensive control. He was additionally placed on apixaban. TSH was within normal limits. Echocardiogram did reveal biatrial enlargement, normal ejection fraction, [id number] mitral regurgitation. He is encouraged to follow-up with his PCP, monitor his blood pressures, and to be evaluated by Cardiology on an outpatient basis. Patient is discharged in stable condition with complete resolution of his symptoms. Status at Discharge Cognitive/behavioral status at discharge: at baseline, oriented Exam Vital Signs (past 8 hours): Oxygen Delivery Method Room Air Oxygen Flow Rate 0 Narrative Exam Narrative: GEN: Very pleasant elderly gentleman, Alert and oriented x 3, NAD HEENT:NC, Face symmetric CHEST: Respiratory excursions symmetric, CTAB CV: Mildly bradycardic, regularly irregular, no M/R/G ABD: Soft, NT/ND, BT present in all 4 quadrants, no organomegaly or masses EXTR: warm, well perfused, no C/C/E SKIN: warm and dry, no rash NEURO: Alert and oriented x 3, nonfocal Objective Labs Result Diagrams: 01/26/22 06:29 01/26/22 06:29 Labs: Laboratory Results - last 24 hr 01/25/22 01/26/22 01/26/22 17:50 06:29 06:29 WBC 4.3 L RBC 4.13 L Hgb 13.9 Hct 40.2 L MCV 97.2 MCH 33.6 MCHC 34.6 RDW 13.4 Plt Count 120 L Neut % (Auto) 48.3 L Lymph % (Auto) 33.4 [place] % (Auto) 13.6 Eos % (Auto) 4.0 Baso % (Auto) 0.7 Neut # (Auto) 2100 Lymph # (Auto) 1400 [place] # (Auto) 600 Eos # (Auto) 200 Baso # (Auto) 0 Sodium 138 Potassium 4.2 Chloride 105 Carbon Dioxide 33 H BUN 15 Creatinine 0.84 Estimated GFR > 60 BUN/Creatinine Ratio 17.9 Glucose 82 Calcium 8.3 L Troponin I 0.098 H [facility] Medical History BPH (benign prostatic hyperplasia) BPH NOS w/o ur obs/LUTS High blood pressure Hydrocele Nocturia Nocturia Peripheral vascular disease Surgical History History of back surgery S/P TURP Vasectomy status Social History household members: spouse Smoking Status: Never smoker alcohol intake: current Discharge Plan Discharge Plan Patient Disposition: Home Provider Discharge Comment: You were found to have atrial flutter- although usually this is associated with a fast heart rate, yours is slightly slow to normal. As we discussed, this rhythm puts you at an increased risk for a stroke, which is why you were prescribed apixiban (Eliquis), which is an anticoagulant. As part of your evaluation, your thyroid was checked and was normal. Your blood pressure has been high during your hospital stay. You are being discharged on lisinopril 10 mg daily for better blood pressure control. Please monitor your blood pressures twice daily and bring the log to your next appointment with your primary care provider Your slower heart rate can cause lightheadedness/dizziness. If you have any recurrent dizziness or feeling your equilibrium is impaired, check your heart rate. If you have a heart rate less than 50 and you are dizzy, please return to the ER (call EMS, do not drive yourself) Your cardiac enzymes were slightly elevated, likely from the atrial flutter and elevated blood pressures, rather than a heart attack. As you will be on an anticoagulant, I do not recommend a baby aspirin at this time. Your chest CT showed no abnormalities. Your echocardiogram (heart ultrasound) showed a bit of dilation of your heart chambers, which is probably what caused the atrial flutter. You also have a bit of a leaky mitral valve. I recommend you call [facility] for a consultation Discharge orders & Medications Prescriptions: New Eliquis 5 mg Tablet 5 mg PO BID Qty: 60 0RF lisinopril 10 mg tablet 10 mg PO DAILY Qty: 30 0RF Continued OXYCODONE/ACET 5/325 (bulk)- (Endocet 5-325 Tablet) 1 tab PO Q4HP Qty: 0 pregabalin [Lyrica] 200 MG capsule 200 mg PO BID Qty: 28 0RF rosuvastatin [Crestor] 5 mg Tablet 5 mg PO DAILY nitroglycerin 0.4 mg tablet, sublingual 0.4 mg SL Q5M PRN (Reason: Chest Pain) Rx Instructions: do not exceed 3 doses per episode Follow up/Referrals: Scotty Neves MD [Primary Care Provider] - Diet/Activity/Treatments Diet: Regular Activity: As tolerated Visit Report/Discharge Packet Instructions: DI for Atrial Flutter, Direct Oral Anticoagulants (Alternative Therapy) Discharge Data Primary Care Provider: Scotty Neves Quality VTE Deep Vein Thrombosis/Pulmonary Embolism Present on Admission: No
== END 2022-01-26 11:55 | disposition home or self-care (01) ==
LOC: ED 10:39 → AC 11:53
PROVIDERS: Admitting Provider Family Medicine; Emergency Provider Emergency Medicine; Family Provider Internal Medicine; PCP Internal Medicine; Referring Provider Emergency Medicine; Visit Provider Family Medicine
DX: I48.92 Unspecified atrial flutter (principal); R53.1 Weakness; R42 Dizziness and giddiness; R06.02 Shortness of breath; R77.8 Other specified abnormalities of plasma proteins; D72.819 Decreased white blood cell count, unspecified; D69.6 Thrombocytopenia, unspecified; I10 Essential (primary) hypertension; G62.9 Polyneuropathy, unspecified; H53.2 Diplopia; Z20.822 Contact with and (suspected) exposure to COVID-19
CPT/HCPCS: 36415; 71045; 71275; 80048; 80053; 82550; 82553; 83690; 83880; 84443; 84484; 85025; 85379; 85610; 85730; 87635; 93005; 93010; 93306; 96361; 96374; 99284; C9803; G0378; Q9967

== ENCOUNTER → 2022-04-04 15:48 | Outpatient (CLI) | payer OTHER, SELFPAY ==
[2022-01-25 11:57] VITALS: BMI 22.9
--- NOTE | 2022-04-04 15:50 | DI.US.S_ITS ---
PROCEDURE: US PERIPH VENOUS LOW EXTREM BI INDICATIONS: SWELLING TECHNIQUE: Real-time imaging, as well as color and pulse Doppler interrogation, were performed of the deep veins of both legs from the inguinal ligament to the popliteal fossa. COMPARISON: None. FINDINGS: Right: The common femoral, femoral and popliteal veins are normally compressible, and free of intraluminal thrombus. Color and pulse Doppler demonstrate normal phasic intravascular flow. There is normal augmentation response to distal compression maneuver. Minor right calf subcutaneous edema. Left: The common femoral, femoral and popliteal veins are normally compressible, and free of intraluminal thrombus. Color and pulse Doppler demonstrate normal phasic intravascular flow. There is normal augmentation response to distal compression maneuver. IMPRESSION: 1. No DVT in either lower extremity. 2. Mild right calf subcutaneous edema. Dictated by: Radha Horton M.D. on 04/04/2022 at 17:59 Approved by: Radha Horton M.D. on 04/04/2022 at 18:00
== END ==
PROVIDERS: Family Provider Internal Medicine; PCP Internal Medicine; Referring Provider Physical Medicine & Rehabilitation; Visit Provider Physical Medicine & Rehabilitation
DX: R22.43 Localized swelling, mass and lump, lower limb, bilateral (principal)
CPT/HCPCS: 93970

== ENCOUNTER 2022-04-22 04:33 | Emergency (ER) | payer OTHER, SELFPAY ==
[2022-01-25 11:57] VITALS: BMI 22.9
[2022-04-22 04:45] VITALS: BP 171/92; PULSE 70; RESP 28; TEMP 36.5; O2SAT 97; BMI 24.1
--- NOTE | 2022-04-22 04:48 | DI.RAD.S_ITS ---
PROCEDURE: XR CHEST 1V INDICATIONS: SOB TECHNIQUE: One view of the chest was acquired. COMPARISON: [facility], CR, XR CHEST 1V, 01/25/2022, 9:11. FINDINGS: Surgical changes and devices: Post fusion changes in lower cervical spine are seen. Stimulator leads are seen projecting in mid thoracic spine. Lungs and pleura: Lungs are clear. No pleural effusions or pneumothorax. Mediastinum: Mediastinal contours appear normal. Heart size is normal. Bones and chest wall: No suspicious bony lesions. Overlying soft tissues appear unremarkable. IMPRESSION: No acute cardiopulmonary pathology. No discrepancies. Dictated by: Seamus Mejia M.D. on 04/22/2022 at 8:15 Approved by: Seamus Mejia M.D. on 04/22/2022 at 8:16
--- NOTE | 2022-04-22 04:48 | ED_ITS ---
HPI - SOB/Dyspnea General Chief Complaint: Shortness of Breath/Dyspnea Stated Complaint: SOB, leg pain Time Seen by Provider: 04/22/22 04:35 Source: patient Mode of arrival: Wheelchair History of Present Illness HPI Narrative: 87-year-old male nonsmoker with history of atrial fibrillation on Eliquis, hyperlipidemia, hypertension presents with his in the chief complaint of increasing shortness of breath over the course of the night. He states he went to bed in what he feels like was his normal state of health and has become incre asingly short of breath. He states it is unclear if exertion makes it more short of breath but he thinks laying flat probably does. He has increasing pain and swelling in both legs and thinks he is probably gained at least a few lb. He denies fever or chills. He is not dizzy nor weak or lightheaded. He denies any chest pain or palpitations. He is had no nausea, vomiting or diarrhea. He denies any recent medication changes or dietary indiscretions. Related Data Home Medications Medication Instructions Recorded Confirmed nitroglycerin 0.4 mg sublingual 0.4 mg sublingual Q5M PRN Chest 04/05/20 04/19/22 tablet Pain rosuvastatin 5 mg tablet (Crestor) 5 mg PO DAILY 01/25/22 04/19/22 Previous Rx's Medication Instructions Recorded pregabalin 200 mg capsule (Lyrica) 200 mg PO BID #28 caps 10/12/16 apixaban 5 mg tablet (Eliquis) 5 mg PO BID #60 tabs 01/26/22 lisinopril 10 mg tablet 10 mg PO DAILY #30 tabs 01/26/22 Allergies Allergy/AdvReac Type Severity Reaction Status Date / Time niacin [NIACIN] Allergy Unknown Verified 04/22/22 04:45 Review of Systems Review of Systems Narrative: GENERAL: Denies chills, fatigue, malaise, fever, sweats. HEENT: Denies sinus pain, ear pain, sore throat, difficulty swallowing, dizziness. RESPIRATORY: See HPI CARDIOVASCULAR: See HPI GASTROINTESTINAL: Denies nausea, vomiting, abdominal pain, diarrhea, cons tipation, melena. : Denies dysuria, frequency, incontinence, hematuria, urinary retention. MUSCULOSKELETAL: See HPI SKIN: Denies rash, skin lesions, or other NEUROLOGIC: Denies weakness, headache, numbness, change in speech, confusion, seizures, incoordination. PSYCHIATRIC: No concerning psychosocial issues. 12 point review of systems is negative except for those stated above Patient History Medical History Allergic rhinitis BPH (benign prostatic hyperplasia) BPH NOS w/o ur obs/LUTS Chronic anticoagulation Chronic low back pain Chronic, continuous use of opioids Coronary artery disease Do not resuscitate Essential hypertension High blood pressure Hydrocele Hypertrophy of breast Medicare annual wellness visit, initial Mixed hyperlipidemia Nocturia Peripheral arterial disease Peripheral vascular disease Polyneuropathy, unspecified Spinal stenosis, lumbar region without neurogenic claudication Umbilical hernia without obstruction or gangrene Venous (peripheral) insufficiency Surgical History History of back surgery S/P TURP Vasectomy status Social History Smoking Status: Never smoker alcohol intake: current Smoking Status: Never smoker alcohol intake frequency: 0-2 drinks per day Substance Use Type: does not use Exam Narrative Exam Narrative: GENERAL: [87] year old patient appears stated age. Well-developed patient, in mild distress. Appears uncomfortable, complaining of leg pain HEAD: Atraumatic. Normocephalic. EYES: Pupils equal round and reactive. Extraocular motions intact. No scleral icterus. No injection or drainage. ENT: Nose without bleeding, purulent drainage. Throat without erythema, tonsillar hypertrophy or exudate. Airway patent. NECK: Trachea midline. Non tender CARDIOVASCULAR: Regular rate and rhythm without murmurs, gallops, or rubs. RESPIRATORY: Faint crackles in bilateral bases, no significant work of breat guille though there is some suggestion of conversational dyspnea EXTREMITIES: 2+ pitting edema bilateral lower extremities up to at least the knees BACK: Nontender without deformity or crepitance. No flank tenderness. NEURO: AOx3. SKIN: No rash or erythema of visible areas Initial Vital Signs Initial Vital Signs: Vital Signs Temperature 97.7 F 04/22/22 04:45 Pulse Rate 70 04/22/22 04:45 Respiratory Rate 28 H 04/22/22 04:45 Blood Pressure 171/92 H 04/22/22 04:45 Pulse Oximetry 97 04/22/22 04:45 Oxygen Delivery Method 04/22/22 04:45 Course Course Course Narrative: Patient given Lasix through the IV and over the course of his visit makes 1200 mL of dilute urine. Orders Ordered: ED Orders 04/22/22 04:47 Comprehensive Metabolic Panel Stat 04/22/22 04:48 Chest [XR chest 1V] Stat Magnesium Stat NT-proBNP (BNP-Adult 18+) Stat Prothrombin Time INR Stat Troponin & CK Cardiac Panel Stat EKG-12 Lead Stat 04/22/22 04:52 Complete Blood Count AUTO DIFF Stat Covid-19 + FLU A/B + RSV - PCR Stat 04/22/22 05:26 Blood Culture Stat 04/22/22 05:34 D Dimer Stat Discontinued Medications Furosemide (Furosemide 40 Mg/4 Ml Vial) 40 mg IV NOW ONE Stop: 04/22/22 04:47 Last Admin: 04/22/22 05:03 Dose: 40 mg Vital Signs Vital signs: Vital Signs - 8 hr 04/22/22 04:45 04/22/22 05:11 04/22/22 05:30 Temperature 97.7 F Pulse Rate 70 62 90 Respiratory Rate 28 H 20 36 H Blood Pressure 171/92 H Pulse Oximetry 97 93 94 Oxygen Delivery Method Room Air 04/22/22 05:33 04/22/22 05:33 04/22/22 06:00 Temperature Pulse Rate 55 L Respiratory Rate 16 Blood Pressure 138/76 127/70 Pulse Oximetry 95 Oxygen Delivery Method 04/22/22 06:00 Temperature Pulse Rate 60 Respiratory Rate 23 Blood Pressure Pulse Oximetry 97 Oxygen Delivery Method MDM - SOB/Dyspnea Lab Data Result diagrams: 04/22/22 04:52 04/22/22 04:52 Labs: Lab Results 04/22/22 04/22/22 04/22/22 Range/Units 04:52 04:52 04:52 WBC 3.7 L (4.5-11.0) X10^3/uL RBC 4.03 L (4.5-5.9) X10^6/uL Hgb 13.3 L (13.5-17.5) g/dL Hct 38.8 L (41-53) % MCV 96.1 (80-100) fL MCH 33.1 (26-34) PG MCHC 34.4 (30-36) % RDW 13.7 (11.6-14.8) % Plt Count 106 L (150-400) X10^3/uL Neut % (Auto) Not Reportable Lymph % (Auto) Not Reportable [place] % (Auto) Not Reportable Eos % (Auto) Not Reportable Baso % (Auto) Not Reportable Lymph # (Auto) Not Reportable [place] # (Auto) Not Reportable Baso # (Auto) Not Reportable Total Counted 100 Seg Neutrophils % 51.0 (38-70) % Band Neutrophils % 4.0 (3-7) % Lymphocytes % (Manual) 23.0 L (25-45) % Atypical Lymphs % 6.0 H ( - 0) % Monocytes % (Manual) 15.0 H (2-11) % Eosinophils % (Manual) 1.0 L (2-4) % Neutrophils # (Manual) 2035 L (3437-8897) /uL Platelet Estimate Decreased on smear RBC Morphology Normal morphology PT 17.2 H (10.1-12.7) SECONDS INR 1.5 H (0.9-1.3) D-Dimer (<500) ng/ml Sodium 137 (137-145) mmol/L Potassium 3.9 (3.4-5.1) mmol/L Chloride 100 (98-107) mmol/L Carbon Dioxide 30 (22-32) mmol/L BUN 18 (9-20) mg/dL Creatinine 0.78 (0.66-1.25) mg/dL Estimated GFR > 60 (>60) mL/min BUN/Creatinine Ratio 23.1 H (6-22) Glucose 87 (80-110) mg/dL Calcium 8.8 (8.4-10.2) mg/dL Magnesium (1.6-2.3) mg/dL Total Bilirubin 1.2 (0.2-1.3) mg/dL AST 36 (17-59) IU/L ALT 32 (<50) IU/L Alkaline Phosphatase 46 (38-126) U/L Total Creatine Kinase (55-170) U/L CK-MB (CK-2) (<2.37) ng/mL CK-MB (CK-2) Rel Index (1.5-5.0) % Troponin I (0.01-0.034) ng/mL NT-Pro-B Natriuret Pep (<450) pg/mL Total Protein 6.6 (6.3-8.2) g/dL Albumin 3.7 (3.5-5.0) g/dL Globulin 2.9 (1.7-4.1) g/dL Albumin/Globulin Ratio 1.3 (1.0-2.8) SARS-CoV-2 (PCR) (Negative) Influenza A (RT-PCR) (NEGATIVE) Influenza B (RT-PCR) (NEGATIVE) RSV (PCR) (Negative) 04/22/22 04/22/22 04/22/22 Range/Units 04:52 04:52 04:52 WBC (4.5-11.0) X10^3/uL RBC (4.5-5.9) X10^6/uL Hgb (13.5-17.5) g/dL Hct (41-53) % MCV (80-100) fL MCH (26-34) PG MCHC (30-36) % RDW (11.6-14.8) % Plt Count (150-400) X10^3/uL Neut % (Auto) Lymph % (Auto) [place] % (Auto) Eos % (Auto) Baso % (Auto) Lymph # (Auto) [place] # (Auto) Baso # (Auto) Total Counted Seg Neutrophils % (38-70) % Band Neutrophils % (3-7) % Lymphocytes % (Manual) (25-45) % Atypical Lymphs % ( - 0) % Monocytes % (Manual) (2-11) % Eosinophils % (Manual) (2-4) % Neutrophils # (Manual) (3244-9063) /uL Platelet Estimate RBC Morphology PT (10.1-12.7) SECONDS INR (0.9-1.3) D-Dimer < 215 (<500) ng/ml Sodium (137-145) mmol/L Potassium (3.4-5.1) mmol/L Chloride (98-107) mmol/L Carbon Dioxide (22-32) mmol/L BUN (9-20) mg/dL Creatinine (0.66-1.25) mg/dL Estimated GFR (>60) mL/min BUN/Creatinine Ratio (6-22) Glucose (80-110) mg/dL Calcium (8.4-10.2) mg/dL Magnesium 2.0 (1.6-2.3) mg/dL Total Bilirubin (0.2-1.3) mg/dL AST (17-59) IU/L ALT (<50) IU/L Alkaline Phosphatase (38-126) U/L Total Creatine Kinase 225 H (55-170) U/L CK-MB (CK-2) 5.05 H (<2.37) ng/mL CK-MB (CK-2) Rel Index 2.2 (1.5-5.0) % Troponin I 0.028 (0.01-0.034) ng/mL NT-Pro-B Natriuret Pep 941 H (<450) pg/mL Total Protein (6.3-8.2) g/dL Albumin (3.5-5.0) g/dL Globulin (1.7-4.1) g/dL Albumin/Globulin Ratio (1.0-2.8) SARS-CoV-2 (PCR) Negative (Negative) Influenza A (RT-PCR) Flu a negative (NEGATIVE) Influenza B (RT-PCR) Flu b negative (NEGATIVE) RSV (PCR) Negative (Negative) Imaging Data Chest x-ray: Radiologist's Impression: No acute cardiopulmonary abnormality is identified MDM Narrative Medical decision making narrative: Multiple etiologies for patient's symptoms considered including: [CHF exacerbation versus pneumonia versus COVID versus] Patient's symptoms improved over duration of stay with above-stated therapies. Patient upright with nonlabored breathing, saturations in the mid to upper 90s on room air. History, physical exam and labs are consistent with CHF exacerbation, however he is not hypoxemic, demonstrates no conversational dyspnea and has no significant findings on imaging. There is no indication for hospitalization. No evidence of an infectious process. Pulmonary embolism cons idered to be unlikely, especially given his use of anticoagulants, however D- dimer came back well below the cutoff and there is no indication for advanced imaging to pursue a large central pulmonary embolus Findings and discharge diagnosis discussed with patient/family followed by verbalization of understanding Return precautions discussed with patient/family whom verbalize understanding. Discharge Plan Departure Patient Disposition: Home Clinical Impression: Congestive heart failure Instructions: DI for Heart Failure Activity Restrictions/Additional Instructions: *You have been diagnosed with [Acute CHF Exacerbation] *What to do: *Please increase your dose of Lasix (Furosemide) to 40mg dailiy on Friday, Friday, and and then resume previous dosing. *Please follow up with your primary care provider in 2-3 days, call for an appointment. Let them know you were seen in the Emergency Department and that we ask that you be seen in follow up. We will electronically transmit a record of today's note if your PCP is in our system *If you do not have a primary care provider please contact the [facility] Resource line at [phone]. They will ask some questions about your medical history and help get you set up with a doctor in the community. *Return to Emergency Department if you should have any new, worsening or concerning symptoms, such as [fever greater than 101 F, shaking chills, worsening pain, persistent vomiting or other bothersome symptoms] Prescriptions: No Action pregabalin [Lyrica] 200 MG capsule 200 mg PO BID Qty: 28 0RF rosuvastatin [Crestor] 5 mg Tablet 5 mg PO DAILY Eliquis 5 mg Tablet 5 mg PO BID Qty: 60 0RF lisinopril 10 mg tablet 10 mg PO DAILY Qty: 30 0RF nitroglycerin 0.4 mg tablet, sublingual 0.4 mg SL Q5M PRN (Reason: Chest Pain) Rx Instructions: do not exceed 3 doses per episode Referrals: Scotty Neves MD [Primary Care Provider] - Visit Report Forms: Patient Portal/API
[2022-04-22] MEDS: FUROSEMIDE 40 MG/4 ML VIAL IV (05:03)
[2022-04-22 05:10] LABS: INR 1.5 (0.9-1.3); Prothrombin Time 17.2 SECONDS (10.1-12.7)
[2022-04-22 05:11] VITALS: PULSE 62; RESP 20; O2SAT 93
[2022-04-22 05:11] LABS: Hematocrit 38.8 % (41-53); Hemoglobin 13.3 g/dL (13.5-17.5); Mean Corpuscular HGB Conc 34.4 % (30-36); Mean Corpuscular Hemoglobin 33.1 PG (26-34); Mean Corpuscular Volume 96.1 fL (80-100); Platelet Count 106 X10^3/uL (150-400); Red Blood Cell Count 4.03 X10^6/uL (4.5-5.9); Red Cell Distribution Width 13.7 % (11.6-14.8); White Blood Cell Count 3.7 X10^3/uL (4.5-11.0)
[2022-04-22 05:13] LABS: Add Manual Diff / Slide Review YES
[2022-04-22 05:16] LABS: Alanine Aminotransferase 32 IU/L (<50); Albumin 3.7 g/dL (3.5-5.0); Albumin Globulin Ratio 1.3 (1.0-2.8); Alkaline Phosphatase 46 U/L (38-126); Aspartate Aminotransferase 36 IU/L (17-59); BUN Creatinine Ratio 23.1 (6-22); Bilirubin Total 1.2 mg/dL (0.2-1.3); Blood Urea Nitrogen 18 mg/dL (9-20); Calcium 8.8 mg/dL (8.4-10.2); Carbon Dioxide 30 mmol/L (22-32); Chloride 100 mmol/L (98-107); Creatine Kinase 225 U/L (55-170); Estimated Glomerular Filt Rate > 60 mL/min (>60); Globulin 2.9 g/dL (1.7-4.1); Glucose 87 mg/dL (80-110); HEMOLYSIS < 15 (0-50); Potassium 3.9 mmol/L (3.4-5.1); Sodium 137 mmol/L (137-145); Total Protein 6.6 g/dL (6.3-8.2)
[2022-04-22 05:29] LABS: NT-proBNP (BNP-Adult 18+) 941 pg/mL (<450); Troponin I 0.028 ng/mL (0.01-0.034)
[2022-04-22 05:30] VITALS: PULSE 90; RESP 36; O2SAT 94
[2022-04-22 05:31] LABS: CKMB % Relative Index 2.2 % (1.5-5.0); Creatine Kinase MB 5.05 ng/mL (<2.37)
[2022-04-22 05:33] VITALS: BP 138/76; PULSE 55; RESP 16; O2SAT 95
[2022-04-22 05:42] LABS: Influenza A - CEPHEID Flu A NEGATIVE (NEGATIVE); Influenza B - CEPHEID Flu B NEGATIVE (NEGATIVE); Respiratory Syncytial Virus Negative (Negative)
[2022-04-22 05:44] LABS: D Dimer < 215 ng/ml (<500)
[2022-04-22 05:53] LABS: COVID-19 CEPHEID 4-PLEX PCR Negative (Negative)
[2022-04-22 06:00] VITALS: BP 127/70; PULSE 60; RESP 23; O2SAT 97
[2022-04-22 06:33] LABS: Neutrophils Absolute Manual 2035 /uL (3000-5900); Total Cells Counted 100
[2022-04-22 06:34] LABS: Platelet Estimate Decreased on smear; RBC Morphology Normal Morphology
[2022-04-22 19:27] LABS: Acinetobacter baumannii Not Detected (Not Detect); Candida albicans Not Detected (Not Detect); Candida glabrata Not Detected (Not Detect); Candida krusei Not Detected (Not Detect); Candida parapsilosis Not Detected (Not Detect); Candida tropicalis Not Detected (Not Detect); E. coli Detected (Not Detect); Enterobacter cloacae complex Not Detected (Not Detect); Enterobacteriaceae species Detected (Not Detect); Enterococcus species Not Detected (Not Detect); Haemophilus influenzae Not Detected (Not Detect); KPC (carbapenem-resist gene) Not Detected (Not Detect); Listeria monocytogenes Not Detected (Not Detect); Neisseria meningitidis Not Detected (Not Detect); Proteus species Not Detected (Not Detect); Pseudomonas aeruginosa Not Detected (Not Detect); Serratia marcescens Not Detected (Not Detect); Staphylococcus species Not Detected (Not Detect); Streptococcus agalactiae (Gr B Not Detected (Not Detect); Streptococcus pneumonia Not Detected (Not Detect); Streptococcus pyogenes (Gr A) Not Detected (Not Detect); Streptococcus species Not Detected (Not Detect)
== END 2022-04-22 06:32 | disposition home or self-care (01) ==
PROVIDERS: Emergency Provider Emergency Medicine; Family Provider Internal Medicine; PCP Internal Medicine
DX: I50.9 Heart failure, unspecified (principal); R06.02 Shortness of breath; Z20.822 Contact with and (suspected) exposure to COVID-19
CPT/HCPCS: 0241U; 36415; 71045; 80053; 82550; 82553; 83735; 83880; 84484; 85007; 85025; 85379; 85610; 87040; 87150; 87186; 93005; 93010; 96374; 99284; J1940

== ENCOUNTER 2022-04-24 12:37 | Emergency (ER) | payer OTHER, SELFPAY ==
[2022-01-25 11:57] VITALS: BMI 22.9
[2022-04-24] VITALS (9 sets, daily range): BP systolic 99–150; BP diastolic 55–71; PULSE 43–144; RESP 17–27; TEMP 36.2; O2SAT 95–100
--- NOTE | 2022-04-24 12:59 | DI.RAD.S_ITS ---
PROCEDURE: XR CHEST 1V INDICATIONS: eval for pna TECHNIQUE: One view of the chest was acquired. COMPARISON: [facility], CR, XR CHEST 1V, 04/22/2022, 4:46. FINDINGS: Surgical changes and devices: Presumed neurostimulator leads, cervical fusion hardware and partially visualized right shoulder arthroplasty are present. Lungs and pleura: Very minimal appearance of slight increased right basilar opacity. Mediastinum: Mediastinal contours appear normal. Heart size is enlarged. Bones and chest wall: No suspicious bony lesions. Overlying soft tissues appear unremarkable. IMPRESSION: Very minimal interval right basilar opacity. This could represent atelectasis versus developing pneumonia. Dictated by: Chani Sylvester M.D. on 04/24/2022 at 13:49 Approved by: Chani Sylvester M.D. on 04/24/2022 at 13:50
--- NOTE | 2022-04-24 13:07 | ED.RECABL ---
HPI - Recheck/Abnormal Lab/Rx General Chief Complaint: Recheck/Abnormal Lab/Rx Stated Complaint: recheck in Time Seen by Provider: 04/24/22 12:44 Source: patient and family Mode of arrival: Ambulatory Limitations: no limitations History of Present Illness HPI narrative: 87-year-old male. Was here in the emergency department a couple days ago for shortness of breath. Discharge with a diagnosis of congestive heart failure. During that visit he had lab performed and also blood cultures. One of the blood cultures which was isolated in the aerobic bottle only was positive for Enterobacter and E coli. The patient was contacted when the results were made known to the department however he did not call the emergency department back until today. He was instructed to come back to the ER. Here in the ER he states that he feels much better than what he did the other day. He is still having some shortness of breath but it is much improved. He denies chest pain. No abdominal pain. No skin rashes. No headaches. No urinary symptoms. Some issues with constipation but this is not new for him. No diarrhea. Related Data Home Medications Medication Instructions Recorded Confirmed nitroglycerin 0.4 mg sublingual 0.4 mg sublingual Q5M PRN Chest 04/05/20 04/19/22 tablet Pain rosuvastatin 5 mg tablet (Crestor) 5 mg PO DAILY 01/25/22 04/19/22 Previous Rx's Medication Instructions Recorded pregabalin 200 mg capsule (Lyrica) 200 mg PO BID #28 caps 10/12/16 apixaban 5 mg tablet (Eliquis) 5 mg PO BID #60 tabs 01/26/22 lisinopril 10 mg tablet 10 mg PO DAILY #30 tabs 01/26/22 levofloxacin 750 mg tablet 750 mg PO DAILY 5 days #5 tabs 04/24/22 Allergies Allergy/AdvReac Type Severity Reaction Status Date / Time niacin [NIACIN] Allergy Unknown Verified 04/22/22 04:45 Review of Systems Review of Systems ROS Unobtainable: All systems reviewed & are unremarkable except as noted in HPI and below Patient History Medical History Allergic rhinitis BPH (benign prostatic hyperplasia) BPH NOS w/o ur obs/LUTS Chronic anticoagulation Chronic low back pain Chronic, continuous use of opioids Coronary artery disease Do not resuscitate Essential hypertension High blood pressure Hydrocele Hypertrophy of breast Medicare annual wellness visit, initial Mixed hyperlipidemia Nocturia Peripheral arterial disease Peripheral vascular disease Polyneuropathy, unspecified Spinal stenosis, lumbar region without neurogenic claudication Umbilical hernia without obstruction or gangrene Venous (peripheral) insufficiency Surgical History History of back surgery S/P TURP Vasectomy status Social History Smoking Status: Never smoker alcohol intake: current Smoking Status: Never smoker alcohol intake frequency: 0-2 drinks per day Substance Use Type: does not use Exam Initial Vital Signs Initial Vital Signs: Vital Signs Temperature 97.1 F L 04/24/22 12:40 Pulse Rate 48 L 04/24/22 12:40 Respiratory Rate 20 04/24/22 12:40 Blood Pressure 150/71 H 04/24/22 12:40 Pulse Oximetry 99 04/24/22 12:40 Oxygen Delivery Method 04/24/22 12:40 Const General: cooperative, comfortable, well developed and No ill appearing HENVT Head: normal to inspection and normocephalic Resp Effort & Inspection: normal respiratory effort Auscultation: clear to auscultation bilaterally Cardio Rate: regular rate GI Inspection: normal to inspection and non-distended Back/Spine/Pelvis Back: normal to inspection Skin General: no rashes or lesions noted Lesions: no lesions Neuro General: patient alert, patient awake and moves all extremities Extrem General: normal to inspection and capillary refill normal Psych Appearance: grossly normal and well kempt Course Orders Ordered: ED Orders 04/24/22 12:58 Complete Blood Count AUTO DIFF Stat Comprehensive Metabolic Panel Stat Lactate (Lactic Acid) Stat Lipase Stat Procalcitonin Stat 04/24/22 12:59 XR chest 1V Stat 04/24/22 13:50 Blood Culture Stat Vital Signs Vital signs: Vital Signs - 8 hr 04/24/22 12:40 04/24/22 12:47 04/24/22 13:00 Temperature 97.1 F L Pulse Rate 48 L 52 L 43 L Respiratory Rate 20 22 24 Blood Pressure 150/71 H Pulse Oximetry 99 98 100 Oxygen Delivery Method Room Air 04/24/22 13:30 04/24/22 13:49 04/24/22 13:49 Temperature Pulse Rate 44 L 57 L Respiratory Rate 17 23 Blood Pressure 120/60 Pulse Oximetry 97 96 Oxygen Delivery Method 04/24/22 14:00 04/24/22 14:00 04/24/22 14:30 Temperature Pulse Rate 54 L Respiratory Rate 27 H Blood Pressure 99/55 L 110/59 L Pulse Oximetry 95 Oxygen Delivery Method 04/24/22 14:30 04/24/22 14:45 04/24/22 14:45 Temperature Pulse Rate 44 L 48 L Respiratory Rate 24 17 Blood Pressure 115/64 Pulse Oximetry 95 97 Oxygen Delivery Method 04/24/22 14:50 04/24/22 14:50 Temperature Pulse Rate 144 H Respiratory Rate 21 Blood Pressure 120/56 L Pulse Oximetry Oxygen Delivery Method MDM - Recheck/Abnormal Lab/Rx Lab Data Attestation: I reviewed the patient's lab results. Result diagrams: 04/24/22 12:58 04/24/22 12:58 Labs: Lab Results 04/24/22 04/24/22 04/24/22 Range/Units 12:58 12:58 12:58 WBC 4.6 (4.5-11.0) X10^3/uL RBC 4.18 L (4.5-5.9) X10^6/uL Hgb 13.9 (13.5-17.5) g/dL Hct 40.7 L (41-53) % MCV 97.5 (80-100) fL MCH 33.2 (26-34) PG MCHC 34.1 (30-36) % RDW 13.8 (11.6-14.8) % Plt Count 118 L (150-400) X10^3/uL Neut % (Auto) 55.7 (50-75) % Lymph % (Auto) 25.6 (25-40) % Carbon % (Auto) 15.4 H (3-14) % Eos % (Auto) 2.3 (2-4) % Baso % (Auto) 1.0 (0-2) % Neut # (Auto) 2600 (2324-9162) /uL Lymph # (Auto) 1200 (0504-3830) /uL Carbon # (Auto) 700 (0-900) /uL Eos # (Auto) 100 (0-450) /uL Baso # (Auto) 0 (0-100) /uL Sodium 138 (137-145) mmol/L Potassium 3.9 (3.4-5.1) mmol/L Chloride 98 (98-107) mmol/L Carbon Dioxide 33 H (22-32) mmol/L BUN 23 H (9-20) mg/dL Creatinine 0.96 (0.66-1.25) mg/dL Estimated GFR > 60 (>60) mL/min BUN/Creatinine Ratio 24.0 H (6-22) Glucose 65 L (80-110) mg/dL Lactate 1.2 (0.7-2.1) mmol/L Calcium 8.7 (8.4-10.2) mg/dL Total Bilirubin 1.3 (0.2-1.3) mg/dL AST 42 (17-59) IU/L ALT 32 (<50) IU/L Alkaline Phosphatase 43 (38-126) U/L Total Protein 7.1 (6.3-8.2) g/dL Albumin 4.0 (3.5-5.0) g/dL Globulin 3.1 (1.7-4.1) g/dL Albumin/Globulin Ratio 1.3 (1.0-2.8) Lipase (23-300) U/L Procalcitonin (<0.5) ng/mL 04/24/22 Range/Units 12:58 WBC (4.5-11.0) X10^3/uL RBC (4.5-5.9) X10^6/uL Hgb (13.5-17.5) g/dL Hct (41-53) % MCV (80-100) fL MCH (26-34) PG MCHC (30-36) % RDW (11.6-14.8) % Plt Count (150-400) X10^3/uL Neut % (Auto) (50-75) % Lymph % (Auto) (25-40) % Carbon % (Auto) (3-14) % Eos % (Auto) (2-4) % Baso % (Auto) (0-2) % Neut # (Auto) (9489-8451) /uL Lymph # (Auto) (4269-2216) /uL Carbon # (Auto) (0-900) /uL Eos # (Auto) (0-450) /uL Baso # (Auto) (0-100) /uL Sodium (137-145) mmol/L Potassium (3.4-5.1) mmol/L Chloride (98-107) mmol/L Carbon Dioxide (22-32) mmol/L BUN (9-20) mg/dL Creatinine (0.66-1.25) mg/dL Estimated GFR (>60) mL/min BUN/Creatinine Ratio (6-22) Glucose (80-110) mg/dL Lactate (0.7-2.1) mmol/L Calcium (8.4-10.2) mg/dL Total Bilirubin (0.2-1.3) mg/dL AST (17-59) IU/L ALT (<50) IU/L Alkaline Phosphatase (38-126) U/L Total Protein (6.3-8.2) g/dL Albumin (3.5-5.0) g/dL Globulin (1.7-4.1) g/dL Albumin/Globulin Ratio (1.0-2.8) Lipase 125 (23-300) U/L Procalcitonin 0.12 (<0.5) ng/mL Point of Care Testing Glucose POC 72 Imaging Data Chest x-ray: Radiologist's Impression: [address] [address] XRay Report Signed Patient: Scotty Hester MR#: [id number] : 1935 Acct:[id number] Age/Sex: 87 / M Date of Service: 04/24/22 Loc: ED Accession Number: [id number] ?? Procedure: XR chest 1V Ordering Provider: Abdoul Milan D.O. PROCEDURE:? XR CHEST 1V ? INDICATIONS:? eval for pna ? TECHNIQUE:? One view of the chest was acquired.? ? COMPARISON:? [facility], CR, XR CHEST 1V, 04/22/2022, 4:46. ? FINDINGS:? ? Surgical changes and devices:? Presumed neurostimulator leads, cervical fusion hardware and partially visualized right shoulder arthroplasty are present. ? Lungs and pleura:? Very minimal appearance of slight increased right basilar opacity. ? Mediastinum:? Mediastinal contours appear normal.? Heart size is enlarged. ? Bones and chest wall:? No suspicious bony lesions.? Overlying soft tissues appear unremarkable.? ? IMPRESSION:? Very minimal interval right basilar opacity.? This could represent atelectasis versus developing pneumonia. ? ? Dictated by: Chani Sylvester M.D. on 04/24/2022 at 13:49 ? ? Approved by: Chani Sylvester M.D. on 04/24/2022 at 13:50 MDM Narrative Medical decision making narrative: Patient states that he feels better today compared to 2 days ago. He is not been on any antibiotics. He is no skin changes concerning for cellulitis. He is no abdominal tenderness. No urinary symptoms. No change in bowel habits. No chest pain. No shortness of breath. He is afebrile. His blood cultures do show Gram-negative however it was only in 1 bottle. I do have a suspicion that this was not a contaminant however given his labs today his appearance his improvement of symptoms I would have suspected that he would be worse. His chest x-ray does have some concerning findings for pneumonia however clinically does not have pneumonia. His cultures were pansensitive. The plan will be is to discharge him home on Levaquin. This would cover any potential pneumonia and also the bacteremia. Repeat cultures were obtained today. Will discharge patient home. He was given strict return precautions. He expressed understanding and agreement. Discharge Plan Departure Patient Disposition: Home Clinical Impression: Bacteremia, Pneumonia Activity Restrictions/Additional Instructions: A prescription for some antibiotics was sent to the pharmacy of your choice. Please start taking them as directed. Take the rest of your medication as directed. Return to the emergency department for any new or worsening symptoms. Prescriptions: New levofloxacin 750 mg tablet 750 mg PO DAILY 5 Days Qty: 5 0RF No Action pregabalin [Lyrica] 200 MG capsule 200 mg PO BID Qty: 28 0RF rosuvastatin [Crestor] 5 mg Tablet 5 mg PO DAILY Eliquis 5 mg Tablet 5 mg PO BID Qty: 60 0RF lisinopril 10 mg tablet 10 mg PO DAILY Qty: 30 0RF nitroglycerin 0.4 mg tablet, sublingual 0.4 mg SL Q5M PRN (Reason: Chest Pain) Rx Instructions: do not exceed 3 doses per episode Referrals: Scotty Neves MD [Primary Care Provider] - Visit Report Forms: Patient Portal/API
[2022-04-24 13:12] LABS: Add Manual Diff / Slide Review NO; Basophils Absolute Auto 0 /uL (0-100); Eosinophils Absolute Auto 100 /uL (0-450); Eosinophils Percent Auto 2.3 % (2-4); Hematocrit 40.7 % (41-53); Hemoglobin 13.9 g/dL (13.5-17.5); Lymphocytes Absolute Auto 1200 /uL (1100-4500); Lymphocytes Percent Auto 25.6 % (25-40); Mean Corpuscular HGB Conc 34.1 % (30-36); Mean Corpuscular Hemoglobin 33.2 PG (26-34); Mean Corpuscular Volume 97.5 fL (80-100); Monocytes Absolute Auto 700 /uL (0-900); Monocytes Percent Auto 15.4 % (3-14); Neutrophils Absolute Auto 2600 /uL (1500-7000); Neutrophils Percent Auto 55.7 % (50-75); Platelet Count 118 X10^3/uL (150-400); Red Blood Cell Count 4.18 X10^6/uL (4.5-5.9); Red Cell Distribution Width 13.8 % (11.6-14.8); White Blood Cell Count 4.6 X10^3/uL (4.5-11.0)
[2022-04-24 13:23] LABS: Alanine Aminotransferase 32 IU/L (<50); Albumin Globulin Ratio 1.3 (1.0-2.8); Alkaline Phosphatase 43 U/L (38-126); Aspartate Aminotransferase 42 IU/L (17-59); Bilirubin Total 1.3 mg/dL (0.2-1.3); Blood Urea Nitrogen 23 mg/dL (9-20); Calcium 8.7 mg/dL (8.4-10.2); Carbon Dioxide 33 mmol/L (22-32); Chloride 98 mmol/L (98-107); Estimated Glomerular Filt Rate > 60 mL/min (>60); Globulin 3.1 g/dL (1.7-4.1); Glucose 65 mg/dL (80-110); HEMOLYSIS 23 (0-50); Lipase 125 U/L (23-300); Potassium 3.9 mmol/L (3.4-5.1); Sodium 138 mmol/L (137-145); Total Protein 7.1 g/dL (6.3-8.2)
[2022-04-24 13:24] LABS: Lactate (Lactic Acid) 1.2 mmol/L (0.7-2.1)
[2022-04-24 13:53] LABS: Procalcitonin 0.12 ng/mL (<0.5)
== END 2022-04-24 15:02 | disposition home or self-care (01) ==
PROVIDERS: Emergency Provider Emergency Medicine; Family Provider Internal Medicine; PCP Internal Medicine
DX: R78.81 Bacteremia (principal); J18.9 Pneumonia, unspecified organism; I50.9 Heart failure, unspecified
CPT/HCPCS: 36415; 71045; 80053; 82962; 83605; 83690; 84145; 85025; 87040; 99284

== ENCOUNTER → 2022-05-03 09:17 | Outpatient (CLI) | payer OTHER, SELFPAY ==
[2022-01-25 11:57] VITALS: BMI 22.9
--- NOTE | 2022-05-03 | DI.ECHO.S_ITS ---
[facility] +---------+ : : [address] : [address] : : : : [id number] : : : : Phone: [phone]---------+ Echocardiogram Report + + :Name: PHILLYANEL REDDY Study Date: 05/03/2022 Height: 74 in : :[facility] ReadingLocation: Weight: 178 lb : : Gender: Male BSA: 2.1 m2 : :: 1935 Age: 87 yrs BP: 119/66 mmHg: :Reason For Study: Congestive Heart Failure : :Ordering Physician: MARCELLA, : :ANEL Tang Performed By: Valerio John : :Referring: ANEL NARANJO : + + Interpretation Summary Afib with controlled rate. Normal LV size and wall thickness; normal wall motion and LV systolic function. EF is 60-65%. Borderline RV enlargement. Moderate biatrial enlargement. Aortic valve leaflets are mildly calcified with mild associated aortic regurgitation. Moderately dilated aortic root (4.1 cm diameter) and moderately dilated ascending aorta (4.4 cm diameter). Compared to prior study 01/25/2022 no significant changes have occurred. Previously ascending aorta was measured at 4.1 cm diameter. However, likely the reason for the discrepancy is better visualization of the ascending aorta on current study. Procedure: A two-dimensional transthoracic echocardiogram with color flow and Doppler was performed. The study quality was technically adequate. Comparison is made with the echocardiogram of 01/25/2022. Left Ventricle: The left ventricle is normal in size and wall thickness. Left ventricular systolic function is normal. The ejection fraction is estimated to be 60-65%. There are no focal wall motion abnormalities. Diastolic function could not be accurately assessed due to unobtainable data. Right Ventricle: The right ventricle is borderline dilated. The right ventricular systolic function is normal. Atria: Both atria are moderately dilated. The interatrial septum grossly appears intact with no obvious evidence for an atrial septal defect. Mitral Valve: The mitral valve is normal in structure and function. There is mild mitral regurgitation. Aortic Valve: There is mild aortic valve sclerosis. There is mild aortic regurgitation. Tricuspid Valve: The tricuspid valve is normal in structure and function. There is mild tricuspid regurgitation. The right ventricular systolic pressure is estimated to be at least 29 mmHg based on an estimated right atrial pressure of 3 mm Hg. Pulmonic Valve: The pulmonic valve is normal in structure and function. There is mild pulmonic regurgitation. Great Vessels: The aortic root is mildly dilated. The ascending aorta is moderately enlarged. The IVC is of normal diameter and collapses greater than 50% with a sniff. This suggests a low right atrial pressure of 3 mm Hg. Pericardium/ Pleura There is no pericardial effusion. There is no pleural effusion. MMode/2D Measurements & Calculations LVIDd: 4.7 cm LVOT diam: 2.4 cm LVIDs: 2.9 cm Ao root diam: 4.1 cm FS: 38.3 % asc Aorta Diam: 4.4 cm IVSd: 0.99 cm LVPWd: 0.94 cm LV mahmood. diameter/BSA (cm/m^2): 2.3 LV sys. diameter/BSA (cm/m^2): 1.4 LA A2 area: 28.3 cm2 RA long axis: 6.4 cm LA A4 area: 24.9 cm2 RA area: 22.4 cm2 LA length (vol): 6.4 cm RA vol: 66.3 ml LA vol: 92.8 ml RA : 32.1 ml/m2 LA vol index: 44.9 ml/m2 RVD1 (basal): 4.1 cm TAPSE: 1.8 cm Doppler Measurements & Calculations Ao V2 max: 125.1 cm/sec LVOT Max Lucio: 98.0 cm/sec Ao V2 mean: 93.9 cm/sec LV V1 max P.8 mmHg Ao max P.3 mmHg LV V1 VTI: 21.5 cm Ao mean P.8 mmHg COREY(I,D): 3.9 cm2 Ao V2 VTI: 25.0 cm COREY(V,D): 3.5 cm2 sev ratio: 0.86 COREY indexed to BSA (cm^2/m^2): 1.9 TR max lucio: 256.8 cm/sec SV(LVOT): 97.0 ml TR max P.4 mmHg Electronically signed by: Mitzy Nguyen M.D. on Reading Physician:05/04/2022 04:31 AM
== END ==
PROVIDERS: Family Provider Internal Medicine; PCP Internal Medicine; Referring Provider Internal Medicine; Visit Provider Internal Medicine
DX: I50.32 Chronic diastolic (congestive) heart failure (principal); I08.3 Combined rheumatic disorders of mitral, aortic and tricuspid valves; I77.810 Thoracic aortic ectasia; I77.89 Other specified disorders of arteries and arterioles
CPT/HCPCS: 93306

== ENCOUNTER → 2022-08-09 11:19 | Outpatient (CLI) | payer OTHER, SELFPAY ==
[2022-01-25 11:57] VITALS: BMI 22.9
--- NOTE | 2022-08-09 | DI.MRI.S_ITS ---
PROCEDURE: MR LUMBAR SPINE WO CON INDICATIONS: Radiculopathy, lumbar region TECHNIQUE: Noncontrast sagittal T1 spin echo and T2 fast echo, sagittal STIR, and T2 fast spin echo through the lumbar spine. In cases with scoliosis, additional coronal T2 fast spin echo may be performed. COMPARISON: , MR, L-SPINE W&WO CONTRAST, 02/01/2013, 17:24. [facility] , MR, LUMBAR SPINE W&W/O CONTRAST, 05/08/2011, 14:32. [facility] , MR, LUMBAR SPINE W/O CONTRAST, 12/28/2010, 13:09. , MR, L-SPINE WITHOUT CONTRAST, 09/08/2013, 17:27. [facility], CR, XR LUMBAR SPINE 2 OR 3 VIEWS, 04/04/2022, 11:26. FINDINGS: Image quality: There is artifact associated with the metallic hardware. Alignment and Curvature: There is minimal retrolisthesis seen at L1-L2 and L5-S1. Bone Marrow: Marrow is of normal overall signal. No acute vertebral body compression fractures. Spinal Cord: Conus medullaris terminates at the L1 level. Visualized cord demonstrates normal signal and size. Paraspinous Soft Tissues: No paravertebral masses. Bilateral renal cysts are incidentally noted. Extensive postoperative hardware is seen extending from L2 through S1. Disc spacers are seen at L2-L3, L3-L4, L4-L5, and L5-S1. The hardware itself is better seen on the recent prior plain film study. There has been removal of portions of the posterior elements. T12-L1: Mild loss of disc height is seen. Loss of disc signal is seen. Mild to moderate disc bulge is seen. Moderate facet joint hypertrophy is seen. To the limits of this study, no definite central canal or neural foraminal narrowing can be seen. When comparison is made with the prior images, these findings are similar. L1-L2: Moderate loss of disc height is seen. Loss of disc signal is seen. 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 Moderate disc bulge is seen, which is eccentric to the left. Mild to moderate facet hypertrophy is seen. There is at least moderate bilateral neural foraminal narrowing seen, left worse than right. There is a degree of compression seen upon the exiting nerve roots. Moderate central canal narrowing is seen. These imaging findings have progressed compared to the prior study. L2-L3: Mild loss of disc height is seen. Loss of disc signal is seen. Mild to moderate disc bulge is seen. Reactive marrow endplate changes are seen, which are hyperintense on T1-weighted and T2-weighted imaging and most consistent with fatty metaplasia (Modic type II changes). Moderate facet joint hypertrophy is seen. There is at least moderate bilateral neural foraminal narrowing seen, right worse than left. Moderate central canal narrowing is seen. There is slight progression of degenerative change compared to 2014. L3-L4: Mild loss of disc height is seen. Loss of disc signal is seen. Moderate generalized disc bulge is seen. Moderate facet joint hypertrophy is seen. Mild bilateral neural foraminal narrowing is seen. Mild central canal narrowing is seen. When comparison is made with the prior images, these findings are similar. L4-L5: Moderate loss of disc height is seen. Loss of disc signal is seen. Mild to moderate disc bulge is seen. Moderate facet joint hypertrophy is seen. There is mild right-sided and moderate left-sided neural foraminal narrowing. No significant central canal narrowing is seen. When comparison is made with the prior images, these findings are similar. L5-S1: Mild generalized disc bulge is seen. Mild facet joint hypertrophy is seen. Mild bilateral neural foraminal narrowing is seen. No central canal narrowing is seen. Stable from the prior study. IMPRESSION: Multiple levels of lumbar spine degenerative change are seen, which are mildly progressed compared to 2014 at the L1-L2 level. Otherwise, stable degenerative changes. Extensive postoperative change can be seen. Dictated by: Art Herzog M.D. on 08/09/2022 at 13:27 Approved by: Art Herzog M.D. on 08/09/2022 at 13:34
== END ==
PROVIDERS: Family Provider Internal Medicine; PCP Internal Medicine; Referring Provider Physical Medicine & Rehabilitation; Visit Provider Physical Medicine & Rehabilitation
DX: M47.26 Other spondylosis with radiculopathy, lumbar region (principal)
CPT/HCPCS: 72148

== ENCOUNTER 2022-08-14 16:11 | Inpatient (IN) | payer OTHER, SELFPAY ==
[2022-01-25 11:57] VITALS: BMI 22.9
[2022-08-14] VITALS (81 sets, daily range): BP systolic 107–179; BP diastolic 56–97; PULSE 61–109; RESP 14–26; TEMP 36.8–39.3; O2SAT 92–98; BMI 32.5; BMI 32.7
--- NOTE | 2022-08-14 16:17 | DI.RAD.S_ITS ---
PROCEDURE: XR CHEST 1V INDICATIONS: suspected sepsis TECHNIQUE: One view of the chest was acquired. COMPARISON: [facility], CR, XR CHEST 1V, 04/24/2022, 13:15. FINDINGS: Surgical changes and devices: Cervical fixation plate, right humeral arthroplasty in stimulator wires are again noted. Lungs and pleura: Mild appearance of retrocardiac as well as right basilar opacities. Mediastinum: Mediastinal contours appear normal. Heart size is enlarged. Bones and chest wall: No suspicious bony lesions. Overlying soft tissues appear unremarkable. IMPRESSION: Bibasilar opacities most suspicious for developing pneumonia. Dictated by: Chani Sylvester M.D. on 08/14/2022 at 16:37 Approved by: Chani Sylvester M.D. on 08/14/2022 at 16:38
[2022-08-14 16:30] LABS: Add Manual Diff / Slide Review NO; Basophils Absolute Auto 0 /uL (0-100); Basophils Percent Auto 0.2 % (0-2); Eosinophils Absolute Auto 0 /uL (0-450); Hematocrit 42.5 % (41-53); Hemoglobin 14.3 g/dL (13.5-17.5); Lymphocytes Absolute Auto 300 /uL (1100-4500); Lymphocytes Percent Auto 3.3 % (25-40); Mean Corpuscular HGB Conc 33.8 % (30-36); Mean Corpuscular Hemoglobin 33.1 PG (26-34); Mean Corpuscular Volume 97.9 fL (80-100); Monocytes Absolute Auto 700 /uL (0-900); Monocytes Percent Auto 7.8 % (3-14); Neutrophils Absolute Auto 8000 /uL (1500-7000); Neutrophils Percent Auto 88.7 % (50-75); Platelet Count 93 X10^3/uL (150-400); Red Blood Cell Count 4.34 X10^6/uL (4.5-5.9); Red Cell Distribution Width 13.5 % (11.6-14.8); White Blood Cell Count 9.1 X10^3/uL (4.5-11.0)
[2022-08-14] MEDS: SODIUM CHLORIDE 0.9% 1,000 ML 1000 ML IV ×2 (16:31→23:03)
[2022-08-14] MEDS: LIDOCAINE 2% (GLYDO) 6 ML GEL TOP (16:36)
[2022-08-14 16:40] LABS: INR 1.4 (0.9-1.3)
[2022-08-14 16:42] LABS: Creatine Kinase 138 U/L (55-170)
[2022-08-14 16:43] LABS: Alanine Aminotransferase 30 IU/L (<50); Albumin 3.9 g/dL (3.5-5.0); Albumin Globulin Ratio 1.2 (1.0-2.8); Alkaline Phosphatase 58 U/L (38-126); Aspartate Aminotransferase 39 IU/L (17-59); BUN Creatinine Ratio 18.4 (6-22); Bilirubin Total 2.7 mg/dL (0.2-1.3); Blood Urea Nitrogen 14 mg/dL (9-20); Calcium 8.5 mg/dL (8.4-10.2); Carbon Dioxide 29 mmol/L (22-32); Chloride 102 mmol/L (98-107); Estimated Glomerular Filt Rate > 60 mL/min (>60); Globulin 3.2 g/dL (1.7-4.1); Glucose 87 mg/dL (80-110); HEMOLYSIS < 15 (0-50); Lactate (Lactic Acid) 1.8 mmol/L (0.7-2.1); Lipase 57 U/L (23-300); PTT Partial Thromboplastin Tim 34 SECONDS (26-36); Potassium 3.6 mmol/L (3.4-5.1); Sodium 139 mmol/L (137-145); Total Protein 7.1 g/dL (6.3-8.2)
[2022-08-14 16:55] LABS: NT-proBNP (BNP-Adult 18+) 976 pg/mL (<450)
[2022-08-14 16:58] LABS: Creatine Kinase MB 1.44 ng/mL (<2.37)
[2022-08-14 16:59] LABS: Procalcitonin 0.75 ng/mL (<0.5)
[2022-08-14] MEDS: ACETAMINOPHEN 650 MG SUPP PR (17:36)
[2022-08-14 17:47] LABS: Adenovirus Not Detected (Not Detect); B. parapertussis Not Detected (Not Detecte); Bordetella pertussis Not Detected (Not Detecte); Chlamydophila pneumoniae Not Detected (Not Detect); Coronavirus 229E Not Detected (Not Detect); Coronavirus HKU1 Not Detected (Not Detect); Coronavirus NL 63 Not Detected (Not Detect); Coronavirus OC43 Not Detected (Not Detect); Human Metapneumovirus Not Detected (Not Detect); Human Rhinovirus/Enterovirus Not Detected (Not Detect); Influenza A Not Detected (Not Detect); Influenza B Not Detected (Not Detect); Mycoplasma pneumoniae Not Detected (Not Detect); Parainfluenza Virus 1 Not Detected (Not Detect); Parainfluenza Virus 2 Not Detected (Not Detect); Parainfluenza Virus 3 Not Detected (Not Detect); Parainfluenza Virus 4 Not Detected (Not Detect); Respiratory Syncytial Virus Not Detected (Not Detect); SARS- CoV-2 Not Detected (Not Detecte)
[2022-08-14] MEDS: SODIUM CHLORIDE 0.9% 1,000 ML 250 ML IV (18:00)
[2022-08-14 18:05] LABS: Troponin I 0.068 ng/mL (0.01-0.034)
--- NOTE | 2022-08-14 18:22 | ED_ITS ---
HPI - Altered Mental Status General Chief Complaint: Altered Mental Status Stated Complaint: Altered Mental Status Time Seen by Provider: 08/14/22 16:33 Source: patient and EMS Mode of arrival: EMS History of Present Illness HPI narrative: 87M nonsmoker is a DNR with history AFib on Eliquis and bilateral peripheral neuropathy presents by EMS for evaluation of altered mental status. is the primary historian and states that he had been in his normal state of health until this morning stating that he had been having increasing cough over the past few days but this morning was acting confused and not his self with less energy than normal. There is no report of any change in medications or diet. He is had no report of headache or blurred vision nor trouble with speech, he has had shaking chills. He is had trouble with swelling in his bilateral legs for quite some time and typically ambulates with a cane they have becoming increasingly red over the past few days. There are no obvious focal neurologic findings. Patient is hypoxemic on arrival and requires oxygen by nasal cannula. Related Data Home Medications Medication Instructions Recorded Confirmed nitroglycerin 0.4 mg sublingual 0.4 mg sublingual Q5M PRN Chest 04/05/20 08/14/22 tablet Pain rosuvastatin 5 mg tablet (Crestor) 5 mg PO DAILY 01/25/22 08/14/22 Previous Rx's Medication Instructions Recorded pregabalin 200 mg capsule (Lyrica) 200 mg PO BID #28 caps 10/12/16 apixaban 5 mg tablet (Eliquis) 5 mg PO BID #60 tabs 01/26/22 lisinopril 10 mg tablet 10 mg PO DAILY #30 tabs 01/26/22 Allergies Allergy/AdvReac Type Severity Reaction Status Date / Time niacin [NIACIN] Allergy Unknown Verified 04/22/22 04:45 Review of Systems Review of Systems ROS Unobtainable: Unobtainable due to mental status/LOC Patient History Medical History Allergic rhinitis BPH (benign prostatic hyperplasia) BPH NOS w/o ur obs/LUTS Chronic anticoagulation Chronic low back pain Chronic, continuous use of opioids Coronary artery disease Do not resuscitate Essential hypertension High blood pressure Hydrocele Hypertrophy of breast Medicare annual wellness visit, initial Mixed hyperlipidemia Nocturia Peripheral arterial disease Peripheral vascular disease Polyneuropathy, unspecified Spinal stenosis, lumbar region without neurogenic claudication Umbilical hernia without obstruction or gangrene Venous (peripheral) insufficiency Surgical History History of back surgery S/P TURP Vasectomy status Social History household members: spouse Smoking Status: Never smoker alcohol intake: current Smoking Status: Never smoker alcohol intake frequency: 0-2 drinks per day Substance Use Type: does not use Exam Narrative Exam Narrative: GENERAL: [87] year old patient appears stated age. Well-developed patient, in moderate distress, sleeping but easily arousable HEAD: Atraumatic. Normocephalic. EYES: Pupils equal round and reactive. Extraocular motions intact. No scleral icterus. No injection or drainage. ENT: Nose without bleeding, purulent drainage. Throat without erythema, tonsillar hypertrophy or exudate. Airway patent. NECK: Trachea midline. Non tender CARDIOVASCULAR: Irregular rhythm, regular rate rhythm without murmurs, gallops, or rubs. RESPIRATORY: Faint crackles in bilateral bases, no obvious or significant work of breathing GASTROINTESTINAL: Abdomen soft, non-tender, nondistended. EXTREMITIES: Bilateral lower extremity edema, mild erythema BACK: Nontender without deformity or crepitance. No flank tenderness. NEURO: AOx3. SKIN: No rash or erythema of visible areas Initial Vital Signs Initial Vital Signs: Vital Signs Blood Pressure 158/97 H 08/14/22 16:18 Course Orders Ordered: Acetaminophen (Acetaminophen 325 Mg Tablet) 650 mg PO Q6H PRN PRN Reason: Fever/Mild Pain (1-3) Last Admin: 08/15/22 16:15 Dose: 650 mg Documented By: Admin: 08/15/22 09:31 Dose: 650 mg Documented By: Admin: 08/15/22 00:28 Dose: 650 mg Documented By: FLORY Apixaban (Apixaban 5 Mg Tablet) 5 mg PO BID [facility] Last Admin: 08/15/22 09:23 Dose: 5 mg Documented By: CLARA Atorvastatin Calcium (Atorvastatin 20 Mg Tablet) 10 mg PO BEDTIME [facility] Ceftriaxone Sodium 1,000 mg/ (Sodium Chloride) 100 mls @ 200 mls/hr IV Q24H [facility] Last Admin: 08/15/22 17:16 Dose: 200 mls/hr Documented By: CLARA Azithromycin 500 mg/ Dextrose 250 mls @ 250 mls/hr IV Q24H [facility] Sodium Chloride (Normal Saline 0.9%) 250 mls @ 21 mls/hr IV Q24H PRN PRN Reason: Flush Naloxone HCl (Naloxone 0.4 Mg/Ml Vial) 0.2 mg IV Q2MIN PRN PRN Reason: Opiate Reversal Ondansetron HCl (Ondansetron 4 Mg/2 Ml Inj) 4 mg IV Q8HR PRN PRN Reason: Nausea And Vomiting Oxycodone HCl (Oxycodone Ir 5 Mg Tablet) 5 mg PO Q4HR PRN PRN Reason: Pain, Moderate (4-6) Pregabalin (Pregabalin 50 Mg Capsule) 200 mg PO BID [facility] Last Admin: 08/15/22 17:12 Dose: 200 mg Documented By: CLARA Sodium Chloride (Sodium Chloride 0.9% Flush) 10 ml IV PRN PRN PRN Reason: Flush Sodium Chloride (Sodium Chloride 0.9% Flush) 10 ml IV BID [facility] Last Admin: 08/15/22 09:23 Dose: 10 ml Documented By: CLARA Discontinued Medications Acetaminophen (Acetaminophen 650 Mg Supp) 650 mg CA NOW ONE Stop: 08/14/22 17:35 Last Admin: 08/14/22 17:36 Dose: 650 mg Documented By: RB Acetaminophen (Acetaminophen 325 Mg Tablet) 650 mg PO NOW ONE Stop: 08/14/22 17:49 Last Admin: 08/14/22 17:52 Dose: Not Given Documented By: RB Sodium Chloride (Normal Saline 0.9%) 1,000 mls @ 1,000 mls/hr IV BOLUS ONE Stop: 08/14/22 17:16 Last Infusion: 08/14/22 17:36 Dose: 0 mls/hr Documented By: Admin: 08/14/22 16:31 Dose: 1,000 mls/hr Documented By: RB Sodium Chloride (Normal Saline 0.9%) 1,000 mls @ 250 mls/hr IV CONT DEACON Last Infusion: 08/14/22 22:01 Dose: 0 mls/hr Documented By: Admin: 08/14/22 18:00 Dose: 250 mls/hr Documented By: DADA Ceftriaxone Sodium 2,000 mg/ (Sodium Chloride) 100 mls @ 200 mls/hr IV NOW ONE Stop: 08/14/22 18:24 Last Infusion: 08/14/22 19:54 Dose: 0 mls/hr Documented By: Admin: 08/14/22 19:15 Dose: 200 mls/hr Documented By: FANNIE Azithromycin 500 mg/ Dextrose 250 mls @ 250 mls/hr IV NOW ONE Stop: 08/14/22 18:24 Last Infusion: 08/14/22 21:06 Dose: 0 mls/hr Documented By: Admin: 08/14/22 19:54 Dose: 250 mls/hr Documented By: FANNIE Sodium Chloride (Normal Saline 0.9%) 1,914 mls @ 638 mls/hr 30 ml/kg infuse over 3 hr (1914 ml) IV NOW ONE Stop: 08/15/22 00:46 Last Admin: 08/14/22 22:54 Dose: Not Given Documented By: FLORY Sodium Chloride (Normal Saline 0.9%) 1,000 mls @ 1,000 mls/hr IV BOLUS ONE Stop: 08/14/22 23:48 Last Infusion: 08/15/22 00:03 Dose: 0 mls/hr Documented By: Admin: 08/14/22 23:03 Dose: 1,000 mls/hr Documented By: FLORY Lidocaine HCl (Lidocaine 2% (Glydo) 6 Ml Gel) 6 ml TOP NOW ONE Stop: 08/14/22 16:25 Last Admin: 08/14/22 16:36 Dose: 6 ml Documented By: FANNIE Ondansetron HCl (Ondansetron 4 Mg Odt) 4 mg SL NOW PRN PRN Reason: Nausea And Vomiting Ondansetron HCl (Ondansetron 4 Mg/2 Ml Inj) 4 mg IV NOW PRN PRN Reason: Nausea And Vomiting Vital Signs Vital signs: Vital Signs - 8 hr 08/14/22 16:22 08/14/22 16:18 08/14/22 16:19 Temperature 102.7 F H Pulse Rate 106 H 93 H Respiratory Rate 20 Blood Pressure 158/97 H 158/97 H Pulse Oximetry 96 98 Oxygen Delivery Method Room Air Nasal Cannula Oxygen Flow Rate 4 08/14/22 16:20 08/14/22 16:25 08/14/22 16:30 Temperature Pulse Rate 104 H 95 H Respiratory Rate Blood Pressure 165/82 H Pulse Oximetry 96 Oxygen Delivery Method Nasal Cannula Oxygen Flow Rate 4 08/14/22 16:30 08/14/22 16:35 08/14/22 16:40 Temperature Pulse Rate 92 H 98 H 86 Respiratory Rate 21 20 Blood Pressure Pulse Oximetry 95 Oxygen Delivery Method Nasal Cannula Oxygen Flow Rate 4 08/14/22 16:45 08/14/22 16:46 08/14/22 16:46 Temperature Pulse Rate 91 H 83 Respiratory Rate Blood Pressure 179/87 H Pulse Oximetry 95 Oxygen Delivery Method Nasal Cannula Oxygen Flow Rate 4 08/14/22 16:50 08/14/22 16:50 08/14/22 16:55 Temperature Pulse Rate 104 H Respiratory Rate Blood Pressure 169/89 H 149/78 H Pulse Oximetry Oxygen Delivery Method Oxygen Flow Rate 08/14/22 16:55 08/14/22 17:00 08/14/22 17:00 Temperature 101.8 F H 102.2 F H Pulse Rate 109 H 85 Respiratory Rate 19 20 Blood Pressure 152/73 H Pulse Oximetry 92 94 Oxygen Delivery Method Nasal Cannula Nasal Cannula Oxygen Flow Rate 4 3 08/14/22 17:05 08/14/22 17:05 08/14/22 17:10 Temperature 102.4 F H 102.6 F H Pulse Rate 80 81 Respiratory Rate 18 18 Blood Pressure 144/78 H Pulse Oximetry 94 93 Oxygen Delivery Method Room Air Nasal Cannula Oxygen Flow Rate 3 3 08/14/22 17:11 08/14/22 17:11 08/14/22 17:15 Temperature 102.6 F H Pulse Rate 81 Respiratory Rate 19 Blood Pressure 145/83 H 147/65 H Pulse Oximetry 92 Oxygen Delivery Method Nasal Cannula Oxygen Flow Rate 3 08/14/22 17:15 08/14/22 17:36 08/14/22 18:06 Temperature 102.6 F H 102.2 F H 102.0 F H Pulse Rate 85 Respiratory Rate 20 Blood Pressure Pulse Oximetry 93 Oxygen Delivery Method Nasal Cannula Oxygen Flow Rate 3 08/14/22 17:20 08/14/22 17:25 08/14/22 17:30 Temperature 102.6 F H 102.6 F H 102.6 F H Pulse Rate 87 86 98 H Respiratory Rate 18 17 18 Blood Pressure Pulse Oximetry 93 93 95 Oxygen Delivery Method Oxygen Flow Rate 08/14/22 17:35 08/14/22 17:35 08/14/22 17:40 Temperature 102.6 F H Pulse Rate 81 Respiratory Rate 20 Blood Pressure 153/70 H 148/66 H Pulse Oximetry 92 Oxygen Delivery Method Oxygen Flow Rate 08/14/22 17:40 08/14/22 17:45 08/14/22 17:45 Temperature 102.4 F H 102.4 F H Pulse Rate 91 H 93 H Respiratory Rate 19 18 Blood Pressure 135/65 Pulse Oximetry 94 95 Oxygen Delivery Method Oxygen Flow Rate 08/14/22 17:50 08/14/22 17:51 08/14/22 17:51 Temperature 102.2 F H 102.2 F H Pulse Rate 90 91 H Respiratory Rate 23 20 Blood Pressure 127/77 Pulse Oximetry 94 94 Oxygen Delivery Method Oxygen Flow Rate 08/14/22 17:55 08/14/22 17:55 08/14/22 18:00 Temperature 102.2 F H Pulse Rate 87 Respiratory Rate 20 Blood Pressure 119/75 133/71 Pulse Oximetry 94 Oxygen Delivery Method Oxygen Flow Rate 08/14/22 18:00 08/14/22 18:05 08/14/22 18:05 Temperature 102.2 F H 102.0 F H Pulse Rate 90 87 Respiratory Rate 18 18 Blood Pressure 125/72 Pulse Oximetry 94 94 Oxygen Delivery Method Oxygen Flow Rate 08/14/22 18:10 08/14/22 18:10 08/14/22 18:15 Temperature 102.0 F H Pulse Rate 83 Respiratory Rate 17 Blood Pressure 127/78 128/61 Pulse Oximetry 95 Oxygen Delivery Method Oxygen Flow Rate 08/14/22 18:15 08/14/22 18:20 08/14/22 18:20 Temperature 102.0 F H 102.0 F H Pulse Rate 84 77 Respiratory Rate 18 20 Blood Pressure 128/59 L Pulse Oximetry 94 94 Oxygen Delivery Method Oxygen Flow Rate 08/14/22 18:25 08/14/22 18:25 08/14/22 18:30 Temperature 102.0 F H Pulse Rate 78 Respiratory Rate 17 Blood Pressure 125/59 L 124/59 L Pulse Oximetry 94 Oxygen Delivery Method Oxygen Flow Rate 08/14/22 18:30 08/14/22 18:35 08/14/22 18:35 Temperature 102.0 F H 102.0 F H Pulse Rate 76 79 Respiratory Rate 17 14 Blood Pressure 126/60 Pulse Oximetry 95 95 Oxygen Delivery Method Oxygen Flow Rate 08/14/22 18:40 08/14/22 18:40 08/14/22 18:45 Temperature 102.0 F H Pulse Rate 76 Respiratory Rate 18 Blood Pressure 122/61 113/61 Pulse Oximetry 95 Oxygen Delivery Method Oxygen Flow Rate 08/14/22 18:45 08/14/22 18:50 08/14/22 18:50 Temperature 101.8 F H 101.8 F H Pulse Rate 80 83 Respiratory Rate 19 17 Blood Pressure 115/63 Pulse Oximetry 95 95 Oxygen Delivery Method Oxygen Flow Rate 08/14/22 18:55 08/14/22 18:55 08/14/22 19:00 Temperature 101.8 F H Pulse Rate 76 Respiratory Rate 17 Blood Pressure 122/62 124/60 Pulse Oximetry 95 Oxygen Delivery Method Oxygen Flow Rate 08/14/22 19:00 08/14/22 19:05 08/14/22 19:05 Temperature 101.8 F H 101.7 F H Pulse Rate 86 84 Respiratory Rate 20 18 Blood Pressure 125/63 Pulse Oximetry 93 95 Oxygen Delivery Method Oxygen Flow Rate 08/14/22 19:10 08/14/22 19:10 08/14/22 19:15 Temperature 101.7 F H Pulse Rate 76 Respiratory Rate 20 Blood Pressure 118/58 L 125/61 Pulse Oximetry 95 Oxygen Delivery Method Oxygen Flow Rate 08/14/22 19:15 Temperature 101.5 F H Pulse Rate 85 Respiratory Rate 18 Blood Pressure Pulse Oximetry 94 Oxygen Delivery Method Oxygen Flow Rate MDM - Altered Mental Status Lab Data 08/15/22 05:32 08/15/22 05:32 Labs: Lab Results 08/14/22 08/14/22 08/14/22 Range/Units 16:20 16:20 16:20 WBC 9.1 (4.5-11.0) X10^3/uL RBC 4.34 L (4.5-5.9) X10^6/uL Hgb 14.3 (13.5-17.5) g/dL Hct 42.5 (41-53) % MCV 97.9 (80-100) fL MCH 33.1 (26-34) PG MCHC 33.8 (30-36) % RDW 13.5 (11.6-14.8) % Plt Count 93 L (150-400) X10^3/uL Neut % (Auto) 88.7 H (50-75) % Lymph % (Auto) 3.3 L (25-40) % [place] % (Auto) 7.8 (3-14) % Eos % (Auto) 0.0 L (2-4) % Baso % (Auto) 0.2 (0-2) % Neut # (Auto) 8000 H (2470-5173) /uL Lymph # (Auto) 300 L (8851-0588) /uL [place] # (Auto) 700 (0-900) /uL Eos # (Auto) 0 (0-450) /uL Baso # (Auto) 0 (0-100) /uL PT 16.0 H (10.1-12.7) SECONDS INR 1.4 H (0.9-1.3) APTT 34 (26-36) SECONDS ABG pH (7.35-7.45) ABG pCO2 (35-45) mmHg ABG pO2 (80-100) mmHg ABG HCO3 (23-27) mmol/L ABG Total CO2 (23-27) mmol/L ABG O2 Saturation (95-100) % ABG Base Excess (-2-3) mmol/L FiO2 Sodium 139 (137-145) mmol/L Potassium 3.6 (3.4-5.1) mmol/L Chloride 102 (98-107) mmol/L Carbon Dioxide 29 (22-32) mmol/L BUN 14 (9-20) mg/dL Creatinine 0.76 (0.66-1.25) mg/dL Estimated GFR > 60 (>60) mL/min BUN/Creatinine Ratio 18.4 (6-22) Glucose 87 (80-110) mg/dL Lactate (0.7-2.1) mmol/L Calcium 8.5 (8.4-10.2) mg/dL Total Bilirubin 2.7 H (0.2-1.3) mg/dL AST 39 (17-59) IU/L ALT 30 (<50) IU/L Alkaline Phosphatase 58 (38-126) U/L Total Creatine Kinase (55-170) U/L CK-MB (CK-2) (<2.37) ng/mL CK-MB (CK-2) Rel Index (1.5-5.0) % Troponin I (0.01-0.034) ng/mL NT-Pro-B Natriuret Pep (<450) pg/mL Total Protein 7.1 (6.3-8.2) g/dL Albumin 3.9 (3.5-5.0) g/dL Globulin 3.2 (1.7-4.1) g/dL Albumin/Globulin Ratio 1.2 (1.0-2.8) Lipase 57 (23-300) U/L Procalcitonin 0.75 H (<0.5) ng/mL A. baumannii (PCR) (Not Detect) Chlamy pneumoniae PCR (Not Detect) Adenovirus (PCR) (Not Detect) B. pertussis DNA (PCR) (Not Detecte) B.parapertussis DNA PCR (Not Detecte) Denise albicans (PCR) (Not Detect) C. glabrata (PCR) (Not Detect) C. krusei (PCR) (Not Detect) C. parapsilosis (PCR) (Not Detect) C. tropicalis (PCR) (Not Detect) Coronavirus OC43 (PCR) (Not Detect) Coronavirus HKU1 (PCR) (Not Detect) Coronavirus 229E (PCR) (Not Detect) SARS-CoV-2 (PCR) (Not Detecte) Coronavirus NL63 (PCR) (Not Detect) Enterobacteriac sp PCR (Not Detect) E. cloacae complex PCR (Not Detect) Enterococcus sp PCR (Not Detect) E. coli (PCR) (Not Detect) H. influenzae (PCR) (Not Detect) Human Metapneumovir PCR (Not Detect) Influenza Type A (PCR) (Not Detect) Influenza Type B (PCR) (Not Detect) Klebsiella oxytoca PCR (Not Detect) Klebsiella pneumoniae (Not Detect) List. monocytogenes PCR (Not Detect) M. pneumoniae (PCR) (Not Detect) N. meningitidis (PCR) (Not Detect) Parainfluenza 1 (PCR) (Not Detect) Parainfluenza 2 (PCR) (Not Detect) Parainfluenza 3 (PCR) (Not Detect) Parainfluenza 4 (PCR) (Not Detect) Proteus species (PCR) (Not Detect) RSV (PCR) (Not Detect) Entero/Rhino (PCR) (Not Detect) Serratia marcescens PCR (Not Detect) Staphylococcus sp PCR (Not Detect) Staph aureus (PCR) (Not Detect) mecA-Methicil Res Gene Streptococcus sp PCR (Not Detect) Group A Strep (PCR) (Not Detect) Strep agalactiae (PCR) (Not Detect) Strep pneumoniae (PCR) (Not Detect) P. aeruginosa (PCR) (Not Detect) KPC-Carbap Res Gene PCR 08/14/22 08/14/22 08/14/22 Range/Units 16:20 16:20 16:20 WBC (4.5-11.0) X10^3/uL RBC (4.5-5.9) X10^6/uL Hgb (13.5-17.5) g/dL Hct (41-53) % MCV (80-100) fL MCH (26-34) PG MCHC (30-36) % RDW (11.6-14.8) % Plt Count (150-400) X10^3/uL Neut % (Auto) (50-75) % Lymph % (Auto) (25-40) % [place] % (Auto) (3-14) % Eos % (Auto) (2-4) % Baso % (Auto) (0-2) % Neut # (Auto) (2370-1473) /uL Lymph # (Auto) (3016-8982) /uL [place] # (Auto) (0-900) /uL Eos # (Auto) (0-450) /uL Baso # (Auto) (0-100) /uL PT (10.1-12.7) SECONDS INR (0.9-1.3) APTT (26-36) SECONDS ABG pH (7.35-7.45) ABG pCO2 (35-45) mmHg ABG pO2 (80-100) mmHg ABG HCO3 (23-27) mmol/L ABG Total CO2 (23-27) mmol/L ABG O2 Saturation (95-100) % ABG Base Excess (-2-3) mmol/L FiO2 Sodium (137-145) mmol/L Potassium (3.4-5.1) mmol/L Chloride (98-107) mmol/L Carbon Dioxide (22-32) mmol/L BUN (9-20) mg/dL Creatinine (0.66-1.25) mg/dL Estimated GFR (>60) mL/min BUN/Creatinine Ratio (6-22) Glucose (80-110) mg/dL Lactate 1.8 (0.7-2.1) mmol/L Calcium (8.4-10.2) mg/dL Total Bilirubin (0.2-1.3) mg/dL AST (17-59) IU/L ALT (<50) IU/L Alkaline Phosphatase (38-126) U/L Total Creatine Kinase 138 (55-170) U/L CK-MB (CK-2) 1.44 (<2.37) ng/mL CK-MB (CK-2) Rel Index 1.0 L (1.5-5.0) % Troponin I 0.070 H 0.068 H (0.01-0.034) ng/mL NT-Pro-B Natriuret Pep 976 H (<450) pg/mL Total Protein (6.3-8.2) g/dL Albumin (3.5-5.0) g/dL Globulin (1.7-4.1) g/dL Albumin/Globulin Ratio (1.0-2.8) Lipase (23-300) U/L Procalcitonin (<0.5) ng/mL A. baumannii (PCR) (Not Detect) Chlamy pneumoniae PCR (Not Detect) Adenovirus (PCR) (Not Detect) B. pertussis DNA (PCR) (Not Detecte) B.parapertussis DNA PCR (Not Detecte) Denise albicans (PCR) (Not Detect) C. glabrata (PCR) (Not Detect) C. krusei (PCR) (Not Detect) C. parapsilosis (PCR) (Not Detect) C. tropicalis (PCR) (Not Detect) Coronavirus OC43 (PCR) (Not Detect) Coronavirus HKU1 (PCR) (Not Detect) Coronavirus 229E (PCR) (Not Detect) SARS-CoV-2 (PCR) (Not Detecte) Coronavirus NL63 (PCR) (Not Detect) Enterobacteriac sp PCR (Not Detect) E. cloacae complex PCR (Not Detect) Enterococcus sp PCR (Not Detect) E. coli (PCR) (Not Detect) H. influenzae (PCR) (Not Detect) Human Metapneumovir PCR (Not Detect) Influenza Type A (PCR) (Not Detect) Influenza Type B (PCR) (Not Detect) Klebsiella oxytoca PCR (Not Detect) Klebsiella pneumoniae (Not Detect) List. monocytogenes PCR (Not Detect) M. pneumoniae (PCR) (Not Detect) N. meningitidis (PCR) (Not Detect) Parainfluenza 1 (PCR) (Not Detect) Parainfluenza 2 (PCR) (Not Detect) Parainfluenza 3 (PCR) (Not Detect) Parainfluenza 4 (PCR) (Not Detect) Proteus species (PCR) (Not Detect) RSV (PCR) (Not Detect) Entero/Rhino (PCR) (Not Detect) Serratia marcescens PCR (Not Detect) Staphylococcus sp PCR (Not Detect) Staph aureus (PCR) (Not Detect) mecA-Methicil Res Gene Streptococcus sp PCR (Not Detect) Group A Strep (PCR) (Not Detect) Strep agalactiae (PCR) (Not Detect) Strep pneumoniae (PCR) (Not Detect) P. aeruginosa (PCR) (Not Detect) KPC-Carbap Res Gene PCR 08/14/22 08/14/22 08/14/22 Range/Units 16:21 17:30 21:03 WBC (4.5-11.0) X10^3/uL RBC (4.5-5.9) X10^6/uL Hgb (13.5-17.5) g/dL Hct (41-53) % MCV (80-100) fL MCH (26-34) PG MCHC (30-36) % RDW (11.6-14.8) % Plt Count (150-400) X10^3/uL Neut % (Auto) (50-75) % Lymph % (Auto) (25-40) % [place] % (Auto) (3-14) % Eos % (Auto) (2-4) % Baso % (Auto) (0-2) % Neut # (Auto) (1039-3577) /uL Lymph # (Auto) (0101-8101) /uL [place] # (Auto) (0-900) /uL Eos # (Auto) (0-450) /uL Baso # (Auto) (0-100) /uL PT (10.1-12.7) SECONDS INR (0.9-1.3) APTT (26-36) SECONDS ABG pH 7.42 (7.35-7.45) ABG pCO2 35.3 (35-45) mmHg ABG pO2 69 L (80-100) mmHg ABG HCO3 23 (23-27) mmol/L ABG Total CO2 24 (23-27) mmol/L ABG O2 Saturation 94 L (95-100) % ABG Base Excess -1.0 (-2-3) mmol/L FiO2 32 Sodium (137-145) mmol/L Potassium (3.4-5.1) mmol/L Chloride (98-107) mmol/L Carbon Dioxide (22-32) mmol/L BUN (9-20) mg/dL Creatinine (0.66-1.25) mg/dL Estimated GFR (>60) mL/min BUN/Creatinine Ratio (6-22) Glucose (80-110) mg/dL Lactate (0.7-2.1) mmol/L Calcium (8.4-10.2) mg/dL Total Bilirubin (0.2-1.3) mg/dL AST (17-59) IU/L ALT (<50) IU/L Alkaline Phosphatase (38-126) U/L Total Creatine Kinase (55-170) U/L CK-MB (CK-2) (<2.37) ng/mL CK-MB (CK-2) Rel Index (1.5-5.0) % Troponin I (0.01-0.034) ng/mL NT-Pro-B Natriuret Pep (<450) pg/mL Total Protein (6.3-8.2) g/dL Albumin (3.5-5.0) g/dL Globulin (1.7-4.1) g/dL Albumin/Globulin Ratio (1.0-2.8) Lipase (23-300) U/L Procalcitonin (<0.5) ng/mL A. baumannii (PCR) Not detected (Not Detect) Chlamy pneumoniae PCR Not detected (Not Detect) Adenovirus (PCR) Not detected (Not Detect) B. pertussis DNA (PCR) Not detected (Not Detecte) B.parapertussis DNA PCR Not detected (Not Detecte) Denise albicans (PCR) Not detected (Not Detect) C. glabrata (PCR) Not detected (Not Detect) C. krusei (PCR) Not detected (Not Detect) C. parapsilosis (PCR) Not detected (Not Detect) C. tropicalis (PCR) Not detected (Not Detect) Coronavirus OC43 (PCR) Not detected (Not Detect) Coronavirus HKU1 (PCR) Not detected (Not Detect) Coronavirus 229E (PCR) Not detected (Not Detect) SARS-CoV-2 (PCR) Not detected (Not Detecte) Coronavirus NL63 (PCR) Not detected (Not Detect) Enterobacteriac sp PCR Not detected (Not Detect) E. cloacae complex PCR Not detected (Not Detect) Enterococcus sp PCR Not detected (Not Detect) E. coli (PCR) Not detected (Not Detect) H. influenzae (PCR) Not detected (Not Detect) Human Metapneumovir PCR Not detected (Not Detect) Influenza Type A (PCR) Not detected (Not Detect) Influenza Type B (PCR) Not detected (Not Detect) Klebsiella oxytoca PCR Not detected (Not Detect) Klebsiella pneumoniae Not detected (Not Detect) List. monocytogenes PCR Not detected (Not Detect) M. pneumoniae (PCR) Not detected (Not Detect) N. meningitidis (PCR) Not detected (Not Detect) Parainfluenza 1 (PCR) Not detected (Not Detect) Parainfluenza 2 (PCR) Not detected (Not Detect) Parainfluenza 3 (PCR) Not detected (Not Detect) Parainfluenza 4 (PCR) Not detected (Not Detect) Proteus species (PCR) Not detected (Not Detect) RSV (PCR) Not detected (Not Detect) Entero/Rhino (PCR) Not detected (Not Detect) Serratia marcescens PCR Not detected (Not Detect) Staphylococcus sp PCR Not detected (Not Detect) Staph aureus (PCR) Not detected (Not Detect) mecA-Methicil Res Gene Not Reportable Streptococcus sp PCR Detected H (Not Detect) Group A Strep (PCR) Not detected (Not Detect) Strep agalactiae (PCR) Detected H (Not Detect) Strep pneumoniae (PCR) Not detected (Not Detect) P. aeruginosa (PCR) Not detected (Not Detect) KPC-Carbap Res Gene PCR Not Reportable Imaging Data Chest x-ray: Radiologist's Impression: Bibasilar pneumonia [facility] Narrative Medical decision making narrative: [87] year old patient presents with generalized weakness, altered mental status and low oxygen Multiple etiologies for patient's symptoms considered including, but not limited to: [Sepsis due to pneumonia, urine infection versus other] Prior Charts reviewed in our EMR Primary Historian: Labs reviewed and interpreted by myself: No significant leukocytosis, there is left shift, H&H stable, electrolytes and renal function at baseline, troponin slightly increased at 0.068, BNP elevated at 9 7 6, procalcitonin elevated at 0.75 Imaging reviewed: Chest x-ray with bilateral pneumonia 87-year-old male with toxic or metabolic encephalopathy presents with fever and shaking chills, hypoxemia and altered mental status. Imaging demonstrates bilateral pneumonia, he is requiring 3-4 L by nasal cannula which is apart from his baseline. Patient requires hospitalization for further management and stabilization Discharge Plan Departure Patient Disposition: Admitted As Inpatient Clinical Impression: Acute metabolic encephalopathy, Community acquired pneumonia, bilateral, Acute hypoxemic respiratory failure Admit Date/Time: 08/14/22 21:18 Admit Provider: Fortunato Blake
[2022-08-14] MEDS: cefTRIAXone 2,000 MG in SODIUM CHLORIDE 0.9% 100 ML 200 MG IV (19:15)
[2022-08-14] MEDS: AZITHROMYCIN 500 MG in DEXTROSE 5% IN WATER 250 ML 250 MG IV (19:54)
[2022-08-14 21:28] LABS: PCO2 ABG 35.3 mmHg (35-45); PO2 ABG 69 mmHg (80-100); pH ABG 7.42 (7.35-7.45)
[2022-08-14 21:29] LABS: Fractionated Inspired Oxygen 32; HCO3 ABG 23 mmol/L (23-27); Oxygen Saturation ABG 94 % (95-100); TCO2 ABG 24 mmol/L (23-27)
--- NOTE | 2022-08-14 21:50 | PM.HP.1 ---
History of Present Illness History of Present Illness Date Patient Seen: 08/14/22 Time Patient Seen: 21:30 Chief complaint: Altered Mental Status Narrative: Mr. Hester is an 87M with PMH afib, peripheral neuropathy who presents to the hospital with confusion. Per history obtained by family the patient had been having cough for the last few days. Today he was noted to be confused. He was fatigued. He has chronic lower extremity edema. He was hypoxemic in the 80s on room air per EMS In the ED workup was done, vitals notable for fever 102.7, hr 106, bp 150s/90s, sat in the 90s on 4L. Labs notable for WBC 9.1, hgb 14.3, plts 93, creatinine 0.76. Bili 2.7. Procal 0.75. Lactate 1.8. Trop 0.07. BNP 976. Chest xray notable for bilateral consolidations. He was given IV fluids and antibiotics and admitted for further treatment. Patient History Medical History Allergic rhinitis BPH (benign prostatic hyperplasia) BPH NOS w/o ur obs/LUTS Chronic anticoagulation Chronic low back pain Chronic, continuous use of opioids Coronary artery disease Do not resuscitate Essential hypertension High blood pressure Hydrocele Hypertrophy of breast Medicare annual wellness visit, initial Mixed hyperlipidemia Nocturia Peripheral arterial disease Peripheral vascular disease Polyneuropathy, unspecified Spinal stenosis, lumbar region without neurogenic claudication Umbilical hernia without obstruction or gangrene Venous (peripheral) insufficiency Surgical History History of back surgery S/P TURP Vasectomy status Family & Social History Social History: household members Safety & Behavioral: Feels Safe in Current Yes Environment Been Physically Hurt or No Threatened By a Person Tobacco & Substance use: Smoking Status Never smoker alcohol intake frequency 0-2 drinks per day Substance Use Type does not use Meds Home Medications and Allergies Home Medications Medication Instructions Recorded Confirmed Type pregabalin 200 mg capsule (Lyrica) 200 mg PO BID #28 caps 10/12/16 04/19/22 Rx nitroglycerin 0.4 mg sublingual 0.4 mg sublingual Q5M PRN Chest 04/05/20 04/19/22 History tablet Pain rosuvastatin 5 mg tablet (Crestor) 5 mg PO DAILY 01/25/22 04/19/22 History apixaban 5 mg tablet (Eliquis) 5 mg PO BID #60 tabs 01/26/22 04/19/22 Rx lisinopril 10 mg tablet 10 mg PO DAILY #30 tabs 01/26/22 04/19/22 Rx Allergies Allergy/AdvReac Type Severity Reaction Status Date / Time niacin [NIACIN] Allergy Unknown Verified 04/22/22 04:45 Review of Systems Review of Systems Narrative: 14 systems reviewed and negative aside from what is noted in HPI Exam Vital Signs (past 8 hours): - 08/14/22 16:22 08/14/22 16:18 08/14/22 16:19 Temperature 102.7 F H Pulse Rate 106 H 93 H Respiratory Rate 20 Blood Pressure 158/97 H 158/97 H Pulse Oximetry 96 98 Oxygen Delivery Method Room Air Nasal Cannula Oxygen Flow Rate 4 08/14/22 16:20 08/14/22 16:25 08/14/22 16:30 Temperature Pulse Rate 104 H 95 H Respiratory Rate Blood Pressure 165/82 H Pulse Oximetry 96 Oxygen Delivery Method Nasal Cannula Oxygen Flow Rate 4 08/14/22 16:30 08/14/22 16:35 08/14/22 16:40 Temperature Pulse Rate 92 H 98 H 86 Respiratory Rate 21 20 Blood Pressure Pulse Oximetry 95 Oxygen Delivery Method Nasal Cannula Oxygen Flow Rate 4 08/14/22 16:45 08/14/22 16:46 08/14/22 16:46 Temperature Pulse Rate 91 H 83 Respiratory Rate Blood Pressure 179/87 H Pulse Oximetry 95 Oxygen Delivery Method Nasal Cannula Oxygen Flow Rate 4 08/14/22 16:50 08/14/22 16:50 08/14/22 16:55 Temperature Pulse Rate 104 H Respiratory Rate Blood Pressure 169/89 H 149/78 H Pulse Oximetry Oxygen Delivery Method Oxygen Flow Rate 08/14/22 16:55 08/14/22 17:00 08/14/22 17:00 Temperature 101.8 F H 102.2 F H Pulse Rate 109 H 85 Respiratory Rate 19 20 Blood Pressure 152/73 H Pulse Oximetry 92 94 Oxygen Delivery Method Nasal Cannula Nasal Cannula Oxygen Flow Rate 4 3 08/14/22 17:05 08/14/22 17:05 08/14/22 17:10 Temperature 102.4 F H 102.6 F H Pulse Rate 80 81 Respiratory Rate 18 18 Blood Pressure 144/78 H Pulse Oximetry 94 93 Oxygen Delivery Method Room Air Nasal Cannula Oxygen Flow Rate 3 3 08/14/22 17:11 08/14/22 17:11 08/14/22 17:15 Temperature 102.6 F H Pulse Rate 81 Respiratory Rate 19 Blood Pressure 145/83 H 147/65 H Pulse Oximetry 92 Oxygen Delivery Method Nasal Cannula Oxygen Flow Rate 3 08/14/22 17:15 08/14/22 17:36 08/14/22 18:06 Temperature 102.6 F H 102.2 F H 102.0 F H Pulse Rate 85 Respiratory Rate 20 Blood Pressure Pulse Oximetry 93 Oxygen Delivery Method Nasal Cannula Oxygen Flow Rate 3 08/14/22 17:20 08/14/22 17:25 08/14/22 17:30 Temperature 102.6 F H 102.6 F H 102.6 F H Pulse Rate 87 86 98 H Respiratory Rate 18 17 18 Blood Pressure Pulse Oximetry 93 93 95 Oxygen Delivery Method Oxygen Flow Rate 08/14/22 17:35 08/14/22 17:35 08/14/22 17:40 Temperature 102.6 F H Pulse Rate 81 Respiratory Rate 20 Blood Pressure 153/70 H 148/66 H Pulse Oximetry 92 Oxygen Delivery Method Oxygen Flow Rate 08/14/22 17:40 08/14/22 17:45 08/14/22 17:45 Temperature 102.4 F H 102.4 F H Pulse Rate 91 H 93 H Respiratory Rate 19 18 Blood Pressure 135/65 Pulse Oximetry 94 95 Oxygen Delivery Method Oxygen Flow Rate 08/14/22 17:50 08/14/22 17:51 08/14/22 17:51 Temperature 102.2 F H 102.2 F H Pulse Rate 90 91 H Respiratory Rate 23 20 Blood Pressure 127/77 Pulse Oximetry 94 94 Oxygen Delivery Method Oxygen Flow Rate 08/14/22 17:55 08/14/22 17:55 08/14/22 18:00 Temperature 102.2 F H Pulse Rate 87 Respiratory Rate 20 Blood Pressure 119/75 133/71 Pulse Oximetry 94 Oxygen Delivery Method Oxygen Flow Rate 08/14/22 18:00 08/14/22 18:05 08/14/22 18:05 Temperature 102.2 F H 102.0 F H Pulse Rate 90 87 Respiratory Rate 18 18 Blood Pressure 125/72 Pulse Oximetry 94 94 Oxygen Delivery Method Oxygen Flow Rate 08/14/22 18:10 08/14/22 18:10 08/14/22 18:15 Temperature 102.0 F H Pulse Rate 83 Respiratory Rate 17 Blood Pressure 127/78 128/61 Pulse Oximetry 95 Oxygen Delivery Method Oxygen Flow Rate 08/14/22 18:15 08/14/22 18:20 08/14/22 18:20 Temperature 102.0 F H 102.0 F H Pulse Rate 84 77 Respiratory Rate 18 20 Blood Pressure 128/59 L Pulse Oximetry 94 94 Oxygen Delivery Method Oxygen Flow Rate 08/14/22 18:25 08/14/22 18:25 08/14/22 18:30 Temperature 102.0 F H Pulse Rate 78 Respiratory Rate 17 Blood Pressure 125/59 L 124/59 L Pulse Oximetry 94 Oxygen Delivery Method Oxygen Flow Rate 08/14/22 18:30 08/14/22 18:35 08/14/22 18:35 Temperature 102.0 F H 102.0 F H Pulse Rate 76 79 Respiratory Rate 17 14 Blood Pressure 126/60 Pulse Oximetry 95 95 Oxygen Delivery Method Oxygen Flow Rate 08/14/22 18:40 08/14/22 18:40 08/14/22 18:45 Temperature 102.0 F H Pulse Rate 76 Respiratory Rate 18 Blood Pressure 122/61 113/61 Pulse Oximetry 95 Oxygen Delivery Method Oxygen Flow Rate 08/14/22 18:45 08/14/22 18:50 08/14/22 18:50 Temperature 101.8 F H 101.8 F H Pulse Rate 80 83 Respiratory Rate 19 17 Blood Pressure 115/63 Pulse Oximetry 95 95 Oxygen Delivery Method Oxygen Flow Rate 08/14/22 18:55 08/14/22 18:55 08/14/22 19:00 Temperature 101.8 F H Pulse Rate 76 Respiratory Rate 17 Blood Pressure 122/62 124/60 Pulse Oximetry 95 Oxygen Delivery Method Oxygen Flow Rate 08/14/22 19:00 08/14/22 19:05 08/14/22 19:05 Temperature 101.8 F H 101.7 F H Pulse Rate 86 84 Respiratory Rate 20 18 Blood Pressure 125/63 Pulse Oximetry 93 95 Oxygen Delivery Method Oxygen Flow Rate 08/14/22 19:10 08/14/22 19:10 08/14/22 19:15 Temperature 101.7 F H Pulse Rate 76 Respiratory Rate 20 Blood Pressure 118/58 L 125/61 Pulse Oximetry 95 Oxygen Delivery Method Oxygen Flow Rate 08/14/22 19:15 08/14/22 19:20 08/14/22 19:20 Temperature 101.5 F H 101.7 F H Pulse Rate 85 85 Respiratory Rate 18 18 Blood Pressure 118/61 Pulse Oximetry 94 94 Oxygen Delivery Method Oxygen Flow Rate 08/14/22 19:25 08/14/22 19:25 08/14/22 19:30 Temperature 101.5 F H Pulse Rate 85 Respiratory Rate 18 Blood Pressure 127/65 131/61 Pulse Oximetry 93 Oxygen Delivery Method Oxygen Flow Rate 08/14/22 19:30 08/14/22 19:35 08/14/22 19:35 Temperature 101.5 F H 101.5 F H Pulse Rate 88 81 Respiratory Rate 21 19 Blood Pressure 116/66 Pulse Oximetry 94 93 Oxygen Delivery Method Oxygen Flow Rate 08/14/22 19:40 08/14/22 19:40 08/14/22 19:45 Temperature 101.3 F H Pulse Rate 78 Respiratory Rate 18 Blood Pressure 132/62 118/62 Pulse Oximetry 94 Oxygen Delivery Method Oxygen Flow Rate 08/14/22 19:45 08/14/22 19:50 08/14/22 19:50 Temperature 101.3 F H 101.1 F H Pulse Rate 77 77 Respiratory Rate 19 17 Blood Pressure 125/67 Pulse Oximetry 94 94 Oxygen Delivery Method Oxygen Flow Rate 08/14/22 19:55 08/14/22 19:55 08/14/22 20:00 Temperature 100.9 F H Pulse Rate 75 Respiratory Rate 20 Blood Pressure 119/62 124/69 Pulse Oximetry 95 Oxygen Delivery Method Oxygen Flow Rate 08/14/22 20:00 08/14/22 20:05 08/14/22 20:05 Temperature 101.1 F H 100.9 F H Pulse Rate 75 84 Respiratory Rate 19 18 Blood Pressure 127/68 Pulse Oximetry 94 94 Oxygen Delivery Method Oxygen Flow Rate 08/14/22 20:10 08/14/22 20:10 08/14/22 20:15 Temperature 100.9 F H Pulse Rate 83 Respiratory Rate 17 Blood Pressure 115/56 L 107/63 Pulse Oximetry 94 Oxygen Delivery Method Oxygen Flow Rate 08/14/22 20:15 08/14/22 20:20 08/14/22 20:20 Temperature 100.9 F H 100.9 F H Pulse Rate 78 83 Respiratory Rate 23 23 Blood Pressure 117/71 Pulse Oximetry 93 92 Oxygen Delivery Method Oxygen Flow Rate 08/14/22 20:25 08/14/22 20:26 08/14/22 20:26 Temperature 100.8 F H 100.8 F H Pulse Rate 76 81 Respiratory Rate 25 H 24 Blood Pressure 128/76 Pulse Oximetry 93 92 Oxygen Delivery Method Oxygen Flow Rate 08/14/22 20:30 08/14/22 20:30 08/14/22 20:35 Temperature 100.8 F H 100.6 F H Pulse Rate 79 76 Respiratory Rate 26 H 21 Blood Pressure 145/66 H Pulse Oximetry 93 94 Oxygen Delivery Method Oxygen Flow Rate 08/14/22 20:36 08/14/22 20:36 08/14/22 20:40 Temperature 100.6 F H Pulse Rate 73 Respiratory Rate 21 Blood Pressure 112/56 L 129/66 Pulse Oximetry 93 Oxygen Delivery Method Oxygen Flow Rate 08/14/22 20:40 08/14/22 20:45 08/14/22 20:45 Temperature 100.6 F H 100.6 F H Pulse Rate 75 76 Respiratory Rate 16 17 Blood Pressure 145/68 H Pulse Oximetry 94 93 Oxygen Delivery Method Oxygen Flow Rate 08/14/22 20:50 08/14/22 20:50 08/14/22 20:55 Temperature 100.4 F H Pulse Rate 74 Respiratory Rate 17 Blood Pressure 139/72 121/76 Pulse Oximetry 95 Oxygen Delivery Method Oxygen Flow Rate 08/14/22 20:55 08/14/22 21:00 08/14/22 21:00 Temperature 100.4 F H 100.4 F H Pulse Rate 75 71 Respiratory Rate 16 22 Blood Pressure 117/69 Pulse Oximetry 94 96 Oxygen Delivery Method Oxygen Flow Rate 08/14/22 21:05 08/14/22 21:05 08/14/22 21:10 Temperature 100.4 F H Pulse Rate 72 Respiratory Rate 17 Blood Pressure 128/65 117/69 Pulse Oximetry 95 Oxygen Delivery Method Oxygen Flow Rate 08/14/22 21:10 08/14/22 21:15 08/14/22 21:15 Temperature 100.2 F H 100.2 F H Pulse Rate 72 75 Respiratory Rate 19 19 Blood Pressure 119/74 Pulse Oximetry 94 94 Oxygen Delivery Method Oxygen Flow Rate 08/14/22 21:20 08/14/22 21:20 08/14/22 21:25 Temperature 100.2 F H Pulse Rate 67 Respiratory Rate 15 Blood Pressure 114/69 118/70 Pulse Oximetry 93 Oxygen Delivery Method Oxygen Flow Rate 08/14/22 21:25 08/14/22 21:30 08/14/22 21:30 Temperature 100.2 F H 100.0 F H Pulse Rate 67 67 Respiratory Rate 20 19 Blood Pressure 117/72 Pulse Oximetry 96 96 Oxygen Delivery Method Oxygen Flow Rate 08/14/22 21:35 08/14/22 21:35 08/14/22 21:40 Temperature 100.0 F H Pulse Rate 61 Respiratory Rate 16 Blood Pressure 116/67 124/71 Pulse Oximetry 96 Oxygen Delivery Method Oxygen Flow Rate 08/14/22 21:40 Temperature 100.0 F H Pulse Rate 75 Respiratory Rate 26 H Blood Pressure Pulse Oximetry 94 Oxygen Delivery Method Oxygen Flow Rate Oxygen Delivery Method Nasal Cannula Oxygen Flow Rate 3 Narrative Exam Narrative: GEN: confused, in respiratory distress HEENT: moist mucous membranes, PERRL NECK: trachea midlne, no jvd PULM: coarse breath sounds bilaterally, no wheezes, rhonchi ABD: soft, nontender, nondistended, no organomegaly, normal bowel sounds CV: regular rate and rhythm, no murmurs EXT: warm and well perfused, 1+ edema, chronic venous stasis changes with no warmth NEURO: confused, sleepy, moving all extremities Objective Labs 08/14/22 16:20 08/14/22 16:20 Labs: Laboratory Results - last 24 hr 08/14/22 08/14/22 08/14/22 16:20 16:20 16:20 WBC 9.1 RBC 4.34 L Hgb 14.3 Hct 42.5 MCV 97.9 MCH 33.1 MCHC 33.8 RDW 13.5 Plt Count 93 L Neut % (Auto) 88.7 H Lymph % (Auto) 3.3 L [place] % (Auto) 7.8 Eos % (Auto) 0.0 L Baso % (Auto) 0.2 Neut # (Auto) 8000 H Lymph # (Auto) 300 L [place] # (Auto) 700 Eos # (Auto) 0 Baso # (Auto) 0 PT 16.0 H INR 1.4 H APTT 34 ABG pH ABG pCO2 ABG pO2 ABG HCO3 ABG Total CO2 ABG O2 Saturation ABG Base Excess FiO2 Sodium 139 Potassium 3.6 Chloride 102 Carbon Dioxide 29 BUN 14 Creatinine 0.76 Estimated GFR > 60 BUN/Creatinine Ratio 18.4 Glucose 87 Lactate Calcium 8.5 Total Bilirubin 2.7 H AST 39 ALT 30 Alkaline Phosphatase 58 Total Creatine Kinase CK-MB (CK-2) CK-MB (CK-2) Rel Index Troponin I NT-Pro-B Natriuret Pep Total Protein 7.1 Albumin 3.9 Globulin 3.2 Albumin/Globulin Ratio 1.2 Lipase 57 Procalcitonin 0.75 H Chlamy pneumoniae PCR Adenovirus (PCR) B. pertussis DNA (PCR) B.parapertussis DNA PCR Coronavirus OC43 (PCR) Coronavirus HKU1 (PCR) Coronavirus 229E (PCR) SARS-CoV-2 (PCR) Coronavirus NL63 (PCR) Human Metapneumovir PCR Influenza Type A (PCR) Influenza Type B (PCR) M. pneumoniae (PCR) Parainfluenza 1 (PCR) Parainfluenza 2 (PCR) Parainfluenza 3 (PCR) Parainfluenza 4 (PCR) RSV (PCR) Entero/Rhino (PCR) 08/14/22 08/14/22 08/14/22 16:20 16:20 16:20 WBC RBC Hgb Hct MCV MCH MCHC RDW Plt Count Neut % (Auto) Lymph % (Auto) [place] % (Auto) Eos % (Auto) Baso % (Auto) Neut # (Auto) Lymph # (Auto) [place] # (Auto) Eos # (Auto) Baso # (Auto) PT INR APTT ABG pH ABG pCO2 ABG pO2 ABG HCO3 ABG Total CO2 ABG O2 Saturation ABG Base Excess FiO2 Sodium Potassium Chloride Carbon Dioxide BUN Creatinine Estimated GFR BUN/Creatinine Ratio Glucose Lactate 1.8 Calcium Total Bilirubin AST ALT Alkaline Phosphatase Total Creatine Kinase 138 CK-MB (CK-2) 1.44 CK-MB (CK-2) Rel Index 1.0 L Troponin I 0.070 H 0.068 H NT-Pro-B Natriuret Pep 976 H Total Protein Albumin Globulin Albumin/Globulin Ratio Lipase Procalcitonin Chlamy pneumoniae PCR Adenovirus (PCR) B. pertussis DNA (PCR) B.parapertussis DNA PCR Coronavirus OC43 (PCR) Coronavirus HKU1 (PCR) Coronavirus 229E (PCR) SARS-CoV-2 (PCR) Coronavirus NL63 (PCR) Human Metapneumovir PCR Influenza Type A (PCR) Influenza Type B (PCR) M. pneumoniae (PCR) Parainfluenza 1 (PCR) Parainfluenza 2 (PCR) Parainfluenza 3 (PCR) Parainfluenza 4 (PCR) RSV (PCR) Entero/Rhino (PCR) 08/14/22 08/14/22 16:21 21:03 WBC RBC Hgb Hct MCV MCH MCHC RDW Plt Count Neut % (Auto) Lymph % (Auto) [place] % (Auto) Eos % (Auto) Baso % (Auto) Neut # (Auto) Lymph # (Auto) [place] # (Auto) Eos # (Auto) Baso # (Auto) PT INR APTT ABG pH 7.42 ABG pCO2 35.3 ABG pO2 69 L ABG HCO3 23 ABG Total CO2 24 ABG O2 Saturation 94 L ABG Base Excess -1.0 FiO2 32 Sodium Potassium Chloride Carbon Dioxide BUN Creatinine Estimated GFR BUN/Creatinine Ratio Glucose Lactate Calcium Total Bilirubin AST ALT Alkaline Phosphatase Total Creatine Kinase CK-MB (CK-2) CK-MB (CK-2) Rel Index Troponin I NT-Pro-B Natriuret Pep Total Protein Albumin Globulin Albumin/Globulin Ratio Lipase Procalcitonin Chlamy pneumoniae PCR Not detected Adenovirus (PCR) Not detected B. pertussis DNA (PCR) Not detected B.parapertussis DNA PCR Not detected Coronavirus OC43 (PCR) Not detected Coronavirus HKU1 (PCR) Not detected Coronavirus 229E (PCR) Not detected SARS-CoV-2 (PCR) Not detected Coronavirus NL63 (PCR) Not detected Human Metapneumovir PCR Not detected Influenza Type A (PCR) Not detected Influenza Type B (PCR) Not detected M. pneumoniae (PCR) Not detected Parainfluenza 1 (PCR) Not detected Parainfluenza 2 (PCR) Not detected Parainfluenza 3 (PCR) Not detected Parainfluenza 4 (PCR) Not detected RSV (PCR) Not detected Entero/Rhino (PCR) Not detected Assessment & Plan Assessment & Plan narrative: 1. Pneumonia causing sepsis and acute respiratory failure and acute metabolic encephalopathy -presented with tachycardia and fever -O2 sats in the 80s off oxygen initially -organ failure with new o2 requirement on 3-4L, and also bilirubin 2.7 consistent with severe sepsis -chest xray consistent with pneumonia -lactate normal, procal elevated -ordered for antibiotics with ceftriaxone and azithromycin, and ordered for 30cc/kg IVF adjusted for ideal body weight -improved fever and improved heart rate with fluids 2. Atrial fibrillation -continue eliquis 3. Peripheral neuropathy -hold home medications for now as he is confused and septic 4. Hypertension -hold anti-hypertensives due to sepsis I have discussed the plan with patient. I have discussed the plan of care with bedside nurse and ED physician. I have reviewed the labs and chest xray. CODE: DNR/DNI Time Spent With Patient Critical Care time: I spent a total of [] minutes of critical care time on this patient's care today; this time is exclusive of procedural time. Quality [facility] - Meds 'Current medications' to include all prescriptions, [id number] products, herbals, cannabis/cannabidiol products, and vitamin/mineral/dietary (nutritional) supplements. I have utilized all available resources to obtain, update, or review the patient?s current medications. [If Yes, STOP here]: Yes
--- NOTE | 2022-08-14 23:31 | PC.NURSE ---
Pt. admitted to room 205 from ER @ 2240. Alert & oriented to self, place & year,. Instructed not to get OOB with out any assistance. Call light with in reach & bed alarm activated. Bolus of 1 liter NS infusing, liang placed draining dark yellow urine. 3 liters of SPO2 96 %, will cont. POC & monitor.
--- NOTE | 2022-08-14 23:37 | PC.NURSE ---
Pt. reported [facility] Losartan not able to tell me how many mg. he's taking. States my know will ask her in the morning. Will report to day RN to follow up with patient's spouse in the morning.
[2022-08-15] VITALS (7 sets, daily range): BP systolic 107–127; BP diastolic 67–80; PULSE 56–74; RESP 16–20; TEMP 35.9–36.7; O2SAT 94–99
[2022-08-15] MEDS: ACETAMINOPHEN 325 MG TABLET 650 MG PO ×3 (00:28→16:15)
--- NOTE | 2022-08-15 03:52 | PC.NURSE ---
Pt. C/O penile pain & bladder spasms. States I want this thing out it's hurting me. Pt. referring to his liang catheter, Dr. Blake notified ordered to DC liang catheter. Will monitor.
[2022-08-15 05:52] LABS: Add Manual Diff / Slide Review NO; Basophils Absolute Auto 100 /uL (0-100); Basophils Percent Auto 0.7 % (0-2); Eosinophils Absolute Auto 0 /uL (0-450); Hematocrit 38.3 % (41-53); Lymphocytes Absolute Auto 400 /uL (1100-4500); Lymphocytes Percent Auto 4.4 % (25-40); Mean Corpuscular HGB Conc 33.8 % (30-36); Mean Corpuscular Hemoglobin 33.2 PG (26-34); Mean Corpuscular Volume 98.3 fL (80-100); Monocytes Absolute Auto 400 /uL (0-900); Monocytes Percent Auto 4.9 % (3-14); Neutrophils Absolute Auto 7700 /uL (1500-7000); Platelet Count 78 X10^3/uL (150-400); Red Cell Distribution Width 13.9 % (11.6-14.8); White Blood Cell Count 8.5 X10^3/uL (4.5-11.0)
[2022-08-15 06:04] LABS: Alanine Aminotransferase 27 IU/L (<50); Albumin 2.9 g/dL (3.5-5.0); Albumin Globulin Ratio 1.1 (1.0-2.8); Alkaline Phosphatase 41 U/L (38-126); Aspartate Aminotransferase 39 IU/L (17-59); BUN Creatinine Ratio 22.4 (6-22); Bilirubin Total 1.7 mg/dL (0.2-1.3); Blood Urea Nitrogen 19 mg/dL (9-20); Calcium 7.2 mg/dL (8.4-10.2); Carbon Dioxide 24 mmol/L (22-32); Chloride 105 mmol/L (98-107); Estimated Glomerular Filt Rate > 60 mL/min (>60); Globulin 2.7 g/dL (1.7-4.1); Glucose 96 mg/dL (80-110); HEMOLYSIS < 15 (0-50); Potassium 3.8 mmol/L (3.4-5.1); Sodium 136 mmol/L (137-145); Total Protein 5.6 g/dL (6.3-8.2)
--- NOTE | 2022-08-15 06:37 | PC.NURSE ---
Pt. finally quite down after liang catheter was discontinued. Stood up @ the bedside & voided 10 of bloody urine. Bladder scanned noted only 30 cc in the bladder. Will report to day RN.
[2022-08-15] MEDS: SODIUM CHLORIDE 0.9% FLUSH 10 ML IV ×2 (09:23→20:29)
[2022-08-15] MEDS: APIXABAN 5 MG TABLET PO ×2 (09:23→20:29)
[2022-08-15 09:43] LABS: Enterococcus species Not Detected (Not Detect); Listeria monocytogenes Not Detected (Not Detect); Staphylococcus species Not Detected (Not Detect)
[2022-08-15 09:44] LABS: Acinetobacter baumannii Not Detected (Not Detect); Candida albicans Not Detected (Not Detect); Candida glabrata Not Detected (Not Detect); Candida krusei Not Detected (Not Detect); Candida parapsilosis Not Detected (Not Detect); Candida tropicalis Not Detected (Not Detect); E. coli Not Detected (Not Detect); Enterobacter cloacae complex Not Detected (Not Detect); Enterobacteriaceae species Not Detected (Not Detect); Haemophilus influenzae Not Detected (Not Detect); Neisseria meningitidis Not Detected (Not Detect); Proteus species Not Detected (Not Detect); Pseudomonas aeruginosa Not Detected (Not Detect); Serratia marcescens Not Detected (Not Detect); Streptococcus agalactiae (Gr B Detected (Not Detect); Streptococcus pneumonia Not Detected (Not Detect); Streptococcus pyogenes (Gr A) Not Detected (Not Detect); Streptococcus species Detected (Not Detect)
--- NOTE | 2022-08-15 11:23 | OT.IP.EVAL ---
Current Diagnoses Sepsis, unspecified organism (08/14/22) Past Medical History (Last Reviewed 08/14/22 @ 22:36 by Fortunato Blake MD) Allergic rhinitis BPH (benign prostatic hyperplasia) BPH NOS w/o ur obs/LUTS Chronic anticoagulation Chronic low back pain Chronic, continuous use of opioids Coronary artery disease Do not resuscitate Essential hypertension High blood pressure Hydrocele Hypertrophy of breast Medicare annual wellness visit, initial Mixed hyperlipidemia Nocturia Peripheral arterial disease Peripheral vascular disease Polyneuropathy, unspecified Spinal stenosis, lumbar region without neurogenic claudication Umbilical hernia without obstruction or gangrene Venous (peripheral) insufficiency Surgical History (Last Reviewed 08/14/22 @ 22:36 by Fortunato Blake MD) History of back surgery S/P TURP Vasectomy status Occupational Therapy Inpatient Evaluation/Re-Eval M1 PT/OT-IP Prior Functional Status Start: 08/15/22 13:33 Freq: NEEDED Status: Active Protocol: Document 08/15/22 11:23 [facility] (Rec: 08/15/22 13:58 [facility] [id number]) Medical Review Prior Functional Status Communication independent Mobility and Gait Pt states just recently in the last month just stated using a walking stick due to being a little unsteady on his feet. Activities of Daily Living and IADL's Pt states is completely independent with all ADL and IADL needs. Social History Household Members spouse Living Arrangements House Number of Floors (Floors) One Floor Number of Stairs To Enter/Railing? 2 steps with left rail Home Environment Standard Height Toilet,Walk in Shower,Tub/Shower Home Equipment Straight Cane Additional Social History Comment Pt prior into [employer] 2 water sports. M2 OT-IP Current Condition Start: 08/15/22 13:33 Freq: Status: Active Protocol: Document 08/15/22 11:23 [facility] (Rec: 08/15/22 13:58 [facility] [id number]) Occupational Therapy Current Condition Current Condition Evaluation Date 08/15/22 Treatment Diagnosis Altered mental Status, PNA, acuter respiratory failure Diagnosis Onset Date M3 OT- IP Subjective and Pain Start: 08/15/22 13:33 Freq: Status: Active Protocol: Document 08/15/22 11:23 [facility] (Rec: 08/15/22 13:58 [facility] [id number]) OT- Subjective Occupational Therapy Visit Type Type Initial Evaluation Visit Start Time 11:23 Visit Stop Time 12:00 Total Visit Minutes 37 Occupational Therapy Visit Comments Patient Comments Pt agreed to get up to brush his teeth and sit up for lunch . Patient/Caregiver Goals TO go home. OT Pain Assessment Pain When Pain Assessed At Rest Pain Present Pain Present Pain Reported M4 OT- IP ADL's Start: 08/15/22 13:33 Freq: Status: Active Protocol: Document 08/15/22 11:23 [facility] (Rec: 08/15/22 13:58 [facility] [id number]) OT [id number] Comments OT Self-Feeding Comments not at meal time OT ADL-Grooming Comments OT Grooming Comments not performed OT ADL-Oral Care Comments Oral Care Comments not performed as too tired to try at this time OT ADL-Dressing General Eval Lower Body Dressing Ability Maximum Assistance Comments OT Dressing Comments Pt not able to bend over to joselyn/doff his socks in addition his right foot >left foot swelling making it difficulty for LB dressing needs. OT ADL-Toileting Comments OT Toileting Comments Pt not having to go at this time. OT ADL-Bathing Comments OT Bathing Comments Pt would benefit from use of a shower chair at home. M5 OT- IP IADL's Start: 08/15/22 13:33 Freq: Status: Active Protocol: Document 08/15/22 11:23 [facility] (Rec: 08/15/22 13:58 [facility] [id number]) OT-Instrumental Activities of Daily Living Deficits IADL Deficits Identified Deficits Home Safety Awareness Awareness of Need for Assistance at Home Good Awareness Ability to Problem Solve Emergency Able to Problem Solve Situations Home Safety Comments Pt needing slight increased time to answer home safety situations. Medication Management Medication Management Comments Pt states did prior. Money Management Money Management Comments Pt states did prior. Meal Preparation Meal Preparation Comments Pt states shares tasks with his . Java Security Engineer Java Security Engineer Comments Pt states shares task with his . M6 OT- IP Functional Cognition Start: 08/15/22 13:33 Freq: Status: Active Protocol: Document 08/15/22 11:23 [facility] (Rec: 08/15/22 13:58 [facility] [id number]) Cognitive Factors Limiting Selfcare Function Cognitive Ability Level of Alertness Alert Patient Orientation Name,Age,Birthday,Month,Date, Year,Day of Week,Place, Situation Attention Span Ability Capable of Focused Attention, Capable of Sustained Attention Ability to Follow Commands Able to Follow One Step Commands Cognitive Comments Cognitive Assessment Comments Pt usually wears hearing aid but not in place. Pt needing increased time to follow commands at times. Pt states did not sleep well which may also be affecting his thinking . OT- Vision and Hearing OT- Hearing Assessment OT- Hearing Assessment WFL OT- Vision Assessment Visual Acuity WFL Visual Attentiveness WFL Occular Pursuits WFL Visual Convergence WFL Visual Gibbs WFL M7 OT- IP Mobility and Balance Start: 08/15/22 13:33 Freq: Status: Active Protocol: Document 08/15/22 11:23 [facility] (Rec: 08/15/22 13:58 [facility] [id number]) OT- Bed Mobility Assessment Supine to Sit Supine to Sit Assist Standby Assistance OT-Transfer Assessment Sit to and From Stand Sit to and from Stand Standby Assistance Transfers Transfer Ability Standby Assistance Technique Transfer Destination Bed,Chair Transfer Technique Stand Step Pivot Devices Transfer Assistive Devices Gait Belt,Front Wheeled Walker Comments Mobility Comments Pt able to do bed mobility and transfer with close SBA and use of the FWW. O2 on 3L at 95 % and decreased to 85% after walking around the bed with the FWW and needing 30 seconds to get back to 95%. Pt a bit SOB and tired and just able to do OT- Balance Assessment Sitting Balance and Reactions Static Sitting Balance Ability Good Dynamic Sitting Balance Ability Fair Standing Balance and Reactions Static Standing Balance Ability Fair Dynamic Standing Balance Ability Fair M8 OT- IP Objective Assessments Start: 08/15/22 13:33 Freq: Status: Active Protocol: Document 08/15/22 11:23 [facility] (Rec: 08/15/22 13:58 [facility] [id number]) OT Gross Range of Motion Upper Extremity Range of Motion Assessment Right Impaired OT Strength Upper Extremity Strength Assessment Right Impaired OT- Coordination Assessment Upper Extremity Finger to Nose Test Bilateral UE Impaired Comments Coordination Comments Left hand a little more impaired that right hand. Pt has peripheral neuropathy. OT Sensation Assessment Comments Summary Comments Decreased proprioception and kinesthesia for bilateral arms from elbow to distal. Pt states he tends to bump into objects on the right side but attributes it to wearing a cap . M9 OT- IP Assessment and Plan Start: 08/15/22 13:33 Freq: Status: Active Protocol: Document 08/15/22 11:23 [facility] (Rec: 08/15/22 13:58 [facility] [id number]) OT Summary Assessment and Plan Potential Rehabilitation Potential Good Analytic Complexity at Evaluation Moderate Summary OT Impairments Pain,Strength,Balance, Sensation,Functional Cognition ,Functional Mobility,Dressing, Toileting,Bathing,Toilet Transfers,Shower Transfers, Activity Tolerance Progress Towards Goals Slow Progress due to Pain,Slow Progress due to Medical Issues,Slow Progress due to Activity Tolerance Assessment Summary Pt MOD complexity and main barriers are now new onset of O2, swelling and pain in LE, now needing assist for LB dressing needs, and use of FWW . Pt hoping to go home and would benefit from assist at home and pulmonary rehab. Goals Self-Feeding Goal Independent Grooming Goal Independent Dressing Goal Independent Toileting Goal Independent Bathing Goal Independent Toilet Transfer Goal Independent Shower Transfer Goal Independent Patient/Caregiver Education Goal Demonstrate Energy Conservation and Pacing Days to Meet Goals 15 Frequency of Treatment Frequency Of Treatment Once a Day Treatment Plan OT Treatment Plan ADL Training,Functional Mobility,Patient/Family Education,Discharge Planning Other Treatment Recommendations and Next Pt to be able to pot liner from Treatment Focus of the sink for ADL's with FWW Discharge Recommendations OT Discharge Recommendations Home with Assistance Other Discharge Recommendations Pt would benefit from possible pulmonary rehab Home Equipment Needs fww, shower chair Transportation Needs at Discharge Private Vehicle
--- NOTE | 2022-08-15 15:05 | PT.IIE ---
Current Diagnoses Sepsis, unspecified organism (08/14/22) Surgical History (Last Reviewed 08/14/22 @ 22:36 by Fortunato Blake MD) History of back surgery S/P TURP Vasectomy status Medical History (Last Reviewed 08/14/22 @ 22:36 by Fortunato Blake MD) Allergic rhinitis BPH (benign prostatic hyperplasia) BPH NOS w/o ur obs/LUTS Chronic anticoagulation Chronic low back pain Chronic, continuous use of opioids Coronary artery disease Do not resuscitate Essential hypertension High blood pressure Hydrocele Hypertrophy of breast Medicare annual wellness visit, initial Mixed hyperlipidemia Nocturia Peripheral arterial disease Peripheral vascular disease Polyneuropathy, unspecified Spinal stenosis, lumbar region without neurogenic claudication Umbilical hernia without obstruction or gangrene Venous (peripheral) insufficiency Physical Therapy Inpatient Evaluation/Re-Eval M1 PT/OT-IP Prior Functional Status Start: 08/15/22 13:33 Freq: NEEDED Status: Active Protocol: Document 08/15/22 14:35 [facility] (Rec: 08/15/22 15:16 [facility] [id number]) Medical Review Prior Functional Status Communication independent Mobility and Gait Pt states just recently in the last month just stated using a walking stick due to being a little unsteady on his feet. Activities of Daily Living and IADL's Pt states is completely independent with all ADL and IADL needs. Social History Household Members spouse Living Arrangements House Number of Floors (Floors) One Floor Number of Stairs To Enter/Railing? 2 steps with left rail Home Environment Standard Height Toilet,Walk in Shower,Tub/Shower Home Equipment Straight Cane Additional Social History Comment Pt prior into [employer] 2 water sports. M2 PT-IP Current Condition Start: 08/15/22 15:02 Freq: NEEDED Status: Active Protocol: Document 08/15/22 14:35 [facility] (Rec: 08/15/22 15:16 [facility] [id number]) Physical Therapy Current Condition Current Condition Evaluation Date 08/15/22 Treatment Diagnosis Fatigue, SOB Onset Date 08/14/22 M3 PT-IP Subjective Start: 08/15/22 15:02 Freq: NEEDED Status: Active Protocol: Document 08/15/22 14:35 [facility] (Rec: 08/15/22 15:16 [facility] [id number]) Subjective Physical Therapy Visit Type Type Initial Evaluation Visit Start Time 14:35 Visit Stop Time 15:05 Total Visit Minutes 30 Notes Pt presented to ED 08/14/22 with weakness, SOB, hypoxia, and altered mental state. O2 sats in 80s on RA, placed on 3L O2 via nc. Chest x-ray suggestive of bilateral pneumonia, placed on IV antibiotics. Pt feeling better today, although notes he had a terrible night last night due to discomfort from his Dixon cath. Has already been up multiple times today with nursing for restroom, notes he was up in recliner most of the day while his was visiting. Number of ELECTRIC BLANKET PACKER Visits 0 Physical Therapy Visit Comments Patient Comments I'm not having pain, its more discomfort. I really just feel wiped out. Therapy Pain Assessment Pain When Pain Assessed At Rest Pain Present Pain Present Denied Pain M4 PT-IP Mobility and Gait Start: 08/15/22 15:02 Freq: NEEDED Status: Active Protocol: Document 08/15/22 14:35 [facility] (Rec: 08/15/22 15:16 [facility] [id number]) PT-Bed Mobility Assessment Rolling Type of Rolling Roll to Left Level of Assist Standby Assistance Supine to Sit Supine to Sit Standby Assistance Sit to Supine Sit to Supine Standby Assistance Scooting Scooting to Edge of Bed Standby Assistance Scooting Up and Down in Bed Standby Assistance PT-Transfer Assessment Sit to and From Stand Sit to and from Stand Standby Assistance Equipment Transfer Assistive Device Bed Rail,Gait Belt,Front Wheeled Walker Transfer Ability Level of Assist Standby Assistance Gait Assessment Gait Gait Assistance Required: Standby Assistance Distance (Feet) 15 Able to Maintain Weight Bearing Status Yes During Gait Assistive Devices Assistive Device Gait Belt,Front Wheeled Walker Orthotic/Prosthetic Devices or Brace: No Gait Deviations General Gait Pattern Flexed Trunk Factors Limiting Gait Function Factors Limiting Gait Function Decreased Activity Tolerance Comments Gait Comments Pt performed bed mobility and transfers SBA on 3L O2, both supine and sitting EOB O2 sat remained 96%. Pt stood and ambulated around room 15' using FWW, SBA, O2 sat improved to 98% during walk. PT-Balance Assessment Sitting Balance and Reactions Static Sitting Balance Ability Normal Dynamic Sitting Balance Ability Normal Standing Balance and Reactions Static Standing Balance Ability Good Dynamic Standing Balance Ability Good Device Used FWW M5 PT-IP Objective Assessments Start: 08/15/22 15:02 Freq: NEEDED Status: Active Protocol: Document 08/15/22 14:35 [facility] (Rec: 08/15/22 15:16 [facility] [id number]) Orientation Orientation/Cognition Level of Alertness Alert Orientation Name,Birthday,Date,Place, Situation Language Function Ability No Deficits Noted Safety Awareness Understands Safety Issues Memory Description No Deficits Noted Gross Range of Motion Lower Extremity ROM Assessment Within Functional Limits Strength Lower Extremity Strength Assessment Within Functional Limits Comments Strength Comments Pt able to move limbs against gravity and did not struggle with any functional movements M7 PT-IP Assessment and Plan Start: 08/15/22 15:02 Freq: NEEDED Status: Active Protocol: Document 08/15/22 14:35 [facility] (Rec: 08/15/22 15:16 [facility] [id number]) PT Summary Assessment and Plan Potential Rehabilitation Potential Good Status of Condition at Evaluation Unstable Summary Impairments Strength,Gait,Activity Tolerance Assessment Summary Pt tolerated activity well on 3L O2, pt O2 sat improved from 96% at rest to 98% with ambulation. Pt reported no SOB , however felt very fatigued. Pt had been up earlier to recliner, requested return to bed after brief ambulation. Pt will likely do well with return home when medically cleared if pt can continue to do well after weaning back to room air. Pt will likely need to be tested on stairs tomorrow since he has 2 ARIANE. Goals Gait Goal Independent Gait Distance 100' Other Goals Ascend/descend 3 steps using left ascending rail Days to Meet Goals 2 Frequency of Treatment Frequency Of Treatment Once a Day Treatment Plan Physical Therapy Treatment Plan Gait Training,Therapeutic Exercise,Balance Retraining, Discharge Planning Recommendations To Nursing Amount of Assist Needed Standby Assistance Discharge Recommendations PT Discharge Recommendations Home with Assistance Transportation Needs at Discharge Private Vehicle
--- NOTE | 2022-08-15 15:21 | DI.US.S_ITS ---
PROCEDURE: [facility] VENOUS LOW EXTREM BI INDICATIONS: RULE OUT DVT TECHNIQUE: Real-time imaging, as well as color and pulse Doppler interrogation, were performed of the deep veins of both legs from the inguinal ligament to the popliteal fossa. COMPARISON: [facility], , [facility] VENOUS LOW EXTREM BI, 04/04/2022, 16:42. FINDINGS: Right: The common femoral, femoral and popliteal veins are normally compressible, and free of intraluminal thrombus. Color and pulse Doppler demonstrate normal phasic intravascular flow. There is normal augmentation response to distal compression maneuver. Left: The common femoral, femoral and popliteal veins are normally compressible, and free of intraluminal thrombus. Color and pulse Doppler demonstrate normal phasic intravascular flow. There is normal augmentation response to distal compression maneuver. IMPRESSION: Negative bilateral lower extremity duplex venous ultrasound for DVT. Dictated by: Yoseph Liao M.D. on 08/15/2022 at 17:02 Approved by: Yoseph Liao M.D. on 08/15/2022 at 17:03
[2022-08-15] MEDS: PREGABALIN 50 MG CAPSULE 200 MG PO (17:12)
[2022-08-15] MEDS: cefTRIAXone 1,000 MG in SODIUM CHLORIDE 0.9% 100 ML 200 MG IV (17:16)
--- NOTE | 2022-08-15 18:59 | P.PN_ITS ---
Subjective Subjective Interval history: 87 M admitted with sepsis secondary to pneumonia. He is feeling improved. Still a bit short of breath but no nausea or vomting, tolerating food well and improved confusion today per spouse at bedside. Exam Vital Signs (past 8 hours): - 08/15/22 14:00 Temperature 98.0 F Pulse Rate 56 L Respiratory Rate 16 Blood Pressure 127/67 Pulse Oximetry 99 Oxygen Flow Rate 3 Oxygen Delivery Method Room Air Oxygen Flow Rate 3 Narrative Exam Narrative: GEN: confused, in respiratory distress HEENT: moist mucous membranes, PERRL NECK: trachea midlne, no jvd PULM: coarse breath sounds bilaterally, no wheezes, rhonchi ABD: soft, nontender, nondistended, no organomegaly, normal bowel sounds CV: regular rate and rhythm, no murmurs EXT: warm and well perfused, 1+ edema, chronic venous stasis changes with no warmth NEURO: confused, sleepy, moving all extremities Objective Labs 08/15/22 05:32 08/15/22 05:32 Labs: Laboratory Results - last 24 hr 08/14/22 08/14/22 08/15/22 17:30 21:03 05:32 WBC 8.5 RBC 3.90 L Hgb 13.0 L Hct 38.3 L MCV 98.3 MCH 33.2 MCHC 33.8 RDW 13.9 Plt Count 78 L Neut % (Auto) 90.0 H Lymph % (Auto) 4.4 L [place] % (Auto) 4.9 Eos % (Auto) 0.0 L Baso % (Auto) 0.7 Neut # (Auto) 7700 H Lymph # (Auto) 400 L [place] # (Auto) 400 Eos # (Auto) 0 Baso # (Auto) 100 ABG pH 7.42 ABG pCO2 35.3 ABG pO2 69 L ABG HCO3 23 ABG Total CO2 24 ABG O2 Saturation 94 L ABG Base Excess -1.0 FiO2 32 Sodium Potassium Chloride Carbon Dioxide BUN Creatinine Estimated GFR BUN/Creatinine Ratio Glucose Calcium Total Bilirubin AST ALT Alkaline Phosphatase Total Protein Albumin Globulin Albumin/Globulin Ratio A. baumannii (PCR) Not detected Denies albicans (PCR) Not detected C. glabrata (PCR) Not detected C. krusei (PCR) Not detected C. parapsilosis (PCR) Not detected C. tropicalis (PCR) Not detected Enterobacteriac sp PCR Not detected E. cloacae complex PCR Not detected Enterococcus sp PCR Not detected E. coli (PCR) Not detected H. influenzae (PCR) Not detected Klebsiella oxytoca PCR Not detected Klebsiella pneumoniae Not detected List. monocytogenes PCR Not detected N. meningitidis (PCR) Not detected Proteus species (PCR) Not detected Serratia marcescens PCR Not detected Staphylococcus sp PCR Not detected Staph aureus (PCR) Not detected mecA-Methicil Res Gene Not Reportable Streptococcus sp PCR Detected H Group A Strep (PCR) Not detected Strep agalactiae (PCR) Detected H Strep pneumoniae (PCR) Not detected P. aeruginosa (PCR) Not detected KPC-Carbap Res Gene PCR Not Reportable 08/15/22 05:32 WBC RBC Hgb Hct MCV MCH MCHC RDW Plt Count Neut % (Auto) Lymph % (Auto) [place] % (Auto) Eos % (Auto) Baso % (Auto) Neut # (Auto) Lymph # (Auto) [place] # (Auto) Eos # (Auto) Baso # (Auto) ABG pH ABG pCO2 ABG pO2 ABG HCO3 ABG Total CO2 ABG O2 Saturation ABG Base Excess FiO2 Sodium 136 L Potassium 3.8 Chloride 105 Carbon Dioxide 24 BUN 19 Creatinine 0.85 Estimated GFR > 60 BUN/Creatinine Ratio 22.4 H Glucose 96 Calcium 7.2 L Total Bilirubin 1.7 H AST 39 ALT 27 Alkaline Phosphatase 41 Total Protein 5.6 L Albumin 2.9 L Globulin 2.7 Albumin/Globulin Ratio 1.1 A. baumannii (PCR) Denise albicans (PCR) C. glabrata (PCR) C. krusei (PCR) C. parapsilosis (PCR) C. tropicalis (PCR) Enterobacteriac sp PCR E. cloacae complex PCR Enterococcus sp PCR E. coli (PCR) H. influenzae (PCR) Klebsiella oxytoca PCR Klebsiella pneumoniae List. monocytogenes PCR N. meningitidis (PCR) Proteus species (PCR) Serratia marcescens PCR Staphylococcus sp PCR Staph aureus (PCR) mecA-Methicil Res Gene Streptococcus sp PCR Group A Strep (PCR) Strep agalactiae (PCR) Strep pneumoniae (PCR) P. aeruginosa (PCR) KPC-Carbap Res Gene PCR PFSH Medical History Allergic rhinitis BPH (benign prostatic hyperplasia) BPH NOS w/o ur obs/LUTS Chronic anticoagulation Chronic low back pain Chronic, continuous use of opioids Coronary artery disease Do not resuscitate Essential hypertension High blood pressure Hydrocele Hypertrophy of breast Medicare annual wellness visit, initial Mixed hyperlipidemia Nocturia Peripheral arterial disease Peripheral vascular disease Polyneuropathy, unspecified Spinal stenosis, lumbar region without neurogenic claudication Umbilical hernia without obstruction or gangrene Venous (peripheral) insufficiency Surgical History History of back surgery S/P TURP Vasectomy status Social History household members: spouse Smoking Status: Never smoker alcohol intake: current Assessment & Plan Assessment & Plan narrative: 1. Pneumonia causing sepsis and acute respiratory failure and acute metabolic encephalopathy -improving today, continue ceftriaxone and azithro -bilateral leg edema today, DVT study negative -BP to 127/67, will hold on diuretic at this time to avoid hypotension in the setting of sepsis. -wean from O2 as tolerated, goal O2 >90% 2. Atrial fibrillation -continue eliquis 3. Peripheral neuropathy -can resume home home lyrica today with improved confusion today. 4. Hypertension -hold anti-hypertensives due to sepsis I have discussed the plan with patient. I have discussed the plan of care with bedside nurse and spouse. I have reviewed the labs and chest xray. CODE: DNR/DNI Time Spent With Patient Critical Care time: I spent a total of [] minutes of critical care time on this patient's care today; this time is exclusive of procedural time. Quality VTE Deep Vein Thrombosis/Pulmonary Embolism Present on Admission: No
[2022-08-15] MEDS: AZITHROMYCIN 500 MG in DEXTROSE 5% IN WATER 250 ML 250 MG IV (20:15)
[2022-08-15] MEDS: OXYCODONE IR 5 MG TABLET PO (20:29)
[2022-08-15] MEDS: ATORVASTATIN 20 MG TABLET 10 MG PO (20:29)
[2022-08-16] VITALS (7 sets, daily range): BP systolic 110–154; BP diastolic 65–81; PULSE 57–73; RESP 16–18; TEMP 36–36.6; O2SAT 93–100
[2022-08-16 08:13] LABS: Add Manual Diff / Slide Review NO; Basophils Absolute Auto 0 /uL (0-100); Basophils Percent Auto 0.6 % (0-2); Eosinophils Absolute Auto 100 /uL (0-450); Eosinophils Percent Auto 2.1 % (2-4); Hematocrit 41.5 % (41-53); Hemoglobin 14.1 g/dL (13.5-17.5); Lymphocytes Absolute Auto 800 /uL (1100-4500); Lymphocytes Percent Auto 12.6 % (25-40); Mean Corpuscular HGB Conc 33.9 % (30-36); Mean Corpuscular Hemoglobin 33.2 PG (26-34); Mean Corpuscular Volume 97.8 fL (80-100); Monocytes Absolute Auto 700 /uL (0-900); Monocytes Percent Auto 10.2 % (3-14); Neutrophils Absolute Auto 4900 /uL (1500-7000); Neutrophils Percent Auto 74.5 % (50-75); Platelet Count 86 X10^3/uL (150-400); Red Blood Cell Count 4.24 X10^6/uL (4.5-5.9); Red Cell Distribution Width 13.8 % (11.6-14.8); White Blood Cell Count 6.6 X10^3/uL (4.5-11.0)
[2022-08-16 08:26] LABS: Alanine Aminotransferase 34 IU/L (<50); Albumin 3.1 g/dL (3.5-5.0); Alkaline Phosphatase 46 U/L (38-126); Aspartate Aminotransferase 60 IU/L (17-59); BUN Creatinine Ratio 24.4 (6-22); Blood Urea Nitrogen 20 mg/dL (9-20); Calcium 7.6 mg/dL (8.4-10.2); Carbon Dioxide 29 mmol/L (22-32); Chloride 103 mmol/L (98-107); Estimated Glomerular Filt Rate > 60 mL/min (>60); Glucose 92 mg/dL (80-110); HEMOLYSIS 16 (0-50); Potassium 3.8 mmol/L (3.4-5.1); Sodium 136 mmol/L (137-145); Total Protein 6.1 g/dL (6.3-8.2)
[2022-08-16] MEDS: APIXABAN 5 MG TABLET PO ×2 (08:50→20:09)
[2022-08-16] MEDS: PREGABALIN 50 MG CAPSULE 200 MG PO ×2 (08:58→20:11)
[2022-08-16] MEDS: SODIUM CHLORIDE 0.9% FLUSH 10 ML IV ×2 (09:01→20:11)
--- NOTE | 2022-08-16 10:21 | OT.IP.TRT ---
Current Diagnoses Sepsis, unspecified organism (08/14/22) Occupational Therapy Treatment Note M2 OT-IP Current Condition Start: 08/15/22 13:33 Freq: Status: Active Protocol: Document 08/15/22 11:23 [facility] (Rec: 08/15/22 13:58 [facility] [id number]) Occupational Therapy Current Condition Current Condition Evaluation Date 08/15/22 Treatment Diagnosis Altered mental Status, PNA, acuter respiratory failure Diagnosis Onset Date M3 OT- IP Subjective and Pain Start: 08/15/22 13:33 Freq: Status: Active Protocol: Document 08/16/22 09:32 [facility] (Rec: 08/16/22 09:47 [facility] [id number]) OT- Subjective Occupational Therapy Visit Type Type Treatment Note Visit Start Time 09:07 Visit Stop Time 09:33 Total Visit Minutes 26 Occupational Therapy Visit Comments Patient Comments Pt wanting to get up to brush his teeth. Patient/Caregiver Goals Pt on the fence of either going home or to rehab as pt does not want to burden his and also not close to his baseline on not O2 needs and did not use a FWW prior. OT Pain Assessment Pain When Pain Assessed At Rest Pain Present Pain Present Denied Pain M4 OT- IP ADL's Start: 08/15/22 13:33 Freq: Status: Active Protocol: Document 08/16/22 09:32 [facility] (Rec: 08/16/22 09:47 [facility] [id number]) OT [id number] Comments OT Self-Feeding Comments Pt states finally had a little appetite today OT ADL-Grooming General Evaluation Grooming Ability Independent Comments OT Grooming Comments Able to do while standing with FWW OT ADL-Oral Care General Eval Oral Care Ability Independent Comments Oral Care Comments Able t do while standing with FWW OT ADL-Dressing General Eval Lower Body Dressing Ability Maximum Assistance Comments OT Dressing Comments Pt able to reach his feet but unable to doff his socks at this time and and will need assist. OT ADL-Toileting Comments OT Toileting Comments Pt not having to go at this time. OT ADL-Bathing Comments OT Bathing Comments Pt would benefit from use of a shower chair at home. M5 OT- IP IADL's Start: 08/15/22 13:33 Freq: Status: Active Protocol: Document 08/15/22 11:23 [facility] (Rec: 08/15/22 13:58 [facility] [id number]) OT-Instrumental Activities of Daily Living Deficits IADL Deficits Identified Deficits Home Safety Awareness Awareness of Need for Assistance at Home Good Awareness Ability to Problem Solve Emergency Able to Problem Solve Situations Home Safety Comments Pt needing slight increased time to answer hoem safety situations. Medication Management Medication Management Comments Pt states did prior. Money Management Money Management Comments Pt states did prior. Meal Preparation Meal Preparation Comments Pt states shares tasks with his . Process Controller Process Controller Comments Pt states shares task with his . M6 OT- IP Functional Cognition Start: 08/15/22 13:33 Freq: Status: Active Protocol: Document 08/16/22 09:32 [facility] (Rec: 08/16/22 09:47 [facility] [id number]) Cognitive Factors Limiting Selfcare Function Cognitive Ability Level of Alertness Alert Patient Orientation Name,Age,Birthday,Month,Date, Year,Day of Week,Place, Situation Attention Span Ability Capable of Focused Attention, Capable of Sustained Attention Ability to Follow Commands Able to Follow Multi-Step Commands Cognitive Comments Cognitive Assessment Comments Pt able to follow commands well and able to make list of items needed at the hospital. M7 OT- IP Mobility and Balance Start: 08/15/22 13:33 Freq: Status: Active Protocol: Document 08/16/22 09:32 [facility] (Rec: 08/16/22 09:47 [facility] [id number]) OT-Transfer Assessment Sit to and From Stand Sit to and from Stand Standby Assistance Transfers Transfer Ability Standby Assistance Technique Transfer Destination Chair Transfer Technique Stand Step Pivot Devices Transfer Assistive Devices Gait Belt,Front Wheeled Walker Comments Mobility Comments Pt's O2 on RA as O2 tubing not on his nose and reading at 95 %. Able to walk to the sink and back and O2 dropped to 87% and needing several minutes to recover back to 95%. Able to do sit to stands x6 and O2 dropped to 89% and recovered after 1 minute and 45 seconds to 95%. Pt able to attempt LB dressing and dropped to 91% hovering there and O2 replace back on the pt. Spoke to RT regarding a spirometer would be beneficial for pt to work on in his room. OT- Balance Assessment Sitting Balance and Reactions Static Sitting Balance Ability Normal Dynamic Sitting Balance Ability Good Standing Balance and Reactions Static Standing Balance Ability Good Dynamic Standing Balance Ability Fair M8 OT- IP Objective Assessments Start: 03/02/23 13:33 Freq: Status: Active Protocol: Document 08/15/22 11:23 [facility] (Rec: 08/15/22 13:58 [facility] [id number]) OT Gross Range of Motion Upper Extremity Range of Motion Assessment Right Impaired OT Strength Upper Extremity Strength Assessment Right Impaired OT- Coordination Assessment Upper Extremity Finger to Nose Test Bilateral UE Impaired Comments Coordination Comments Left hand a little more impaired that right hand. Pt has peripheral neuropathy. OT Sensation Assessment Comments Summary Comments Decreased proprioception and kinesthesia for bilateral arms from elbow to distal. Pt states he tends to bump into objects on the right side but attributes it to wearing a cap . M9 OT- IP Assessment and Plan Start: 08/15/22 13:33 Freq: Status: Active Protocol: Document 08/16/22 09:32 [facility] (Rec: 08/16/22 09:47 [facility] [id number]) OT Summary Assessment and Plan Potential Rehabilitation Potential Good Analytic Complexity at Evaluation Moderate Summary OT Impairments Pain,Strength,Balance, Sensation,Functional Cognition ,Functional Mobility,Dressing, Toileting,Bathing,Toilet Transfers,Shower Transfers, Activity Tolerance Progress Towards Goals Progressing Toward Goals Assessment Summary Pt still having decreased activity tolerance and O2 on RA started on 95% and dropped to 87% and able to recover after several minutes to 95%. Pt at the end of the session at 91% and O2 replaced on and requested RT to look into giving pt a spirometer to work on in the room. Pt would benefit from short skilled rehab. Self-Feeding Goal Independent Grooming Goal Independent Dressing Goal Independent Toileting Goal Independent Bathing Goal Independent Toilet Transfer Goal Independent Shower Transfer Goal Independent Patient/Caregiver Education Goal Demonstrate Energy Conservation and Pacing Days to Meet Goals 14 Frequency of Treatment Frequency Of Treatment Once a Day Treatment Plan OT Treatment Plan ADL Training,Functional Mobility,Patient/Family Education,Discharge Planning Discharge Recommendations OT Discharge Recommendations Home with Assistance,Home Health,SNF Rehab,Home vs SNF Home Equipment Needs fww, shower chair Transportation Needs at Discharge Private Vehicle
--- NOTE | 2022-08-16 11:11 | CM.DANOTE ---
Initial DCP Assessment Note Pt is an 87 yo male, resident of [facility],arrive w/altered mental status and admitted for management of Pneumonia causing sepsis and acute respiratory failure and acute metabolic encephalopathy According to Dr Wong, patient has + blood cultures and will need two weeks of IV Ceftriaxone 2mg Q24 PT has been working w/patient, patient cleared for home, however according to conversation in multi disciplinary rounds- patient is still deconditioned w/labile blood pressure and would benefit from SNF stay PCP: Pooja Oliver Payer: [facility] Met with patient to introduce self and role; discussed dispo options. 1. Home w/spouse and home infusion- patient says that sounds too complicated and worried about his being able to assist with this 2. SNF stay for IV abx and therapies- patient agreeable to this, says the following would be his SNF choices: 1. [facility] 2. [facility] and [facility] Patient hopes to remain in [place] if possible Placed call to November at [facility]; reviewed this referral. [facility] is not in contract with patient's [employer] and so patient would have a higher out of pocket cost MAXIMILIANO Miller, kindly agreed to send SNF referrals to [facility], [facility] and [facility]. PASRR completed in anticipation of SNF stay Plan: Anticipate DC to SNF for IV abx course and additional time w/therapies, need to secure a SNF and then auth from [facility] needs to be obtained before patient can discharge. If the in network SNFs all deny, [facility] willing to review again Keep patient updated re plan and DC planning efforts HEAVENLY Robison Discharge Planning/Care Management CM Discharge Assessment Start: 08/15/22 12:43 Freq: Status: Active Protocol: Document 08/16/22 11:06 LUCY (Rec: 08/16/22 11:11 LUCY [id number]) Discharge Planning Assessment Assigned [employer] HEAVENLY Hollingsworth DPOA/Assigned Designee Name Cathy Hester, spouse Contact Information [phone] Advance Directives? Yes Advance Directives on File No History Provided By Patient,Medical Record Prior Living Arrangements House Household Members spouse Type of transporation used prior to Drives own vehicle admit Willing to Return to Facility? No Independent with ADL's Yes Is patient alert and oriented? Yes Comment walking stick Patient/Family Preference Custodial Facility Barriers to Discharge Yes Comment Patient needs two weeks IV Ceftrixone 2g Q24 Discharge Plan Custodial Facility Transportation Arrangement Likely w/c Referrals Initiated Custodial Additional Comment 1. [facility] 2. [facility] , [facility] 3. [facility] Medicare Choice List Provided Yes Medicare choice list reviewed on patient electronic tablet with SNF/HH Preference 1. [facility] 2. [facility] 3. [facility] Patient has [employer] Has Agency SNF been contacted Yes
--- NOTE | 2022-08-16 14:05 | CM.DPC ---
DCP SNF Planning Return call from Irina at [facility] confirming that she can accept pt at their facility for IV-Abx and will initiate submitting [employer] insurance auth today Friday08/16/22 but that [employer] can sometimes take a while to make determination and therefore she may not get auth until Friday but will keep SW updated once she receives auth. SW unable to update pt on acceptance yet at this time, will need to update them tomorrow. Kath Joseph MSW
--- NOTE | 2022-08-16 14:44 | P.PN_ITS ---
Subjective Subjective Interval history: 87 M admitted with sepsis secondary to pneumonia, 2/4 bottles positive for group B strep. Suspect this is real. repeat cultures pending. He is feeling improved. Still a bit short of breath but no nausea or vomiting and he is moving around much better today. Exam Vital Signs (past 8 hours): - 08/16/22 10:02 08/16/22 10:00 Temperature 97.4 F L Pulse Rate 58 L Respiratory Rate 16 Blood Pressure 131/65 Pulse Oximetry 96 99 Oxygen Delivery Method Room Air Oxygen Delivery Method Room Air Oxygen Flow Rate 3 Narrative Exam Narrative: GEN: confused, in respiratory distress HEENT: moist mucous membranes, PERRL NECK: trachea midlne, no jvd PULM: coarse breath sounds bilaterally, no wheezes, rhonchi ABD: soft, nontender, nondistended, no organomegaly, normal bowel sounds CV: regular rate and rhythm, no murmurs EXT: warm and well perfused, 1+ edema, chronic venous stasis changes with no warmth NEURO: confused, sleepy, moving all extremities Objective Labs 08/16/22 08:00 08/16/22 08:00 Labs: Laboratory Results - last 24 hr 08/16/22 08/16/22 08:00 08:00 WBC 6.6 RBC 4.24 L Hgb 14.1 Hct 41.5 MCV 97.8 MCH 33.2 MCHC 33.9 RDW 13.8 Plt Count 86 L Neut % (Auto) 74.5 Lymph % (Auto) 12.6 L [place] % (Auto) 10.2 Eos % (Auto) 2.1 Baso % (Auto) 0.6 Neut # (Auto) 4900 Lymph # (Auto) 800 L [place] # (Auto) 700 Eos # (Auto) 100 Baso # (Auto) 0 Sodium 136 L Potassium 3.8 Chloride 103 Carbon Dioxide 29 BUN 20 Creatinine 0.82 Estimated GFR > 60 BUN/Creatinine Ratio 24.4 H Glucose 92 Calcium 7.6 L Magnesium 2.0 Total Bilirubin 1.0 AST 60 H ALT 34 Alkaline Phosphatase 46 Total Protein 6.1 L Albumin 3.1 L Globulin 3.0 Albumin/Globulin Ratio 1.0 PFSH Medical History Allergic rhinitis BPH (benign prostatic hyperplasia) BPH NOS w/o ur obs/LUTS Chronic anticoagulation Chronic low back pain Chronic, continuous use of opioids Coronary artery disease Do not resuscitate Essential hypertension High blood pressure Hydrocele Hypertrophy of breast Medicare annual wellness visit, initial Mixed hyperlipidemia Nocturia Peripheral arterial disease Peripheral vascular disease Polyneuropathy, unspecified Spinal stenosis, lumbar region without neurogenic claudication Umbilical hernia without obstruction or gangrene Venous (peripheral) insufficiency Surgical History History of back surgery S/P TURP Vasectomy status Social History household members: spouse Smoking Status: Never smoker alcohol intake: current Assessment & Plan Assessment & Plan narrative: 1. Pneumonia with corresponding Group B strep bacteremia causing sepsis and acute respiratory failure and acute metabolic encephalopathy and th rombocytopenia -improving today, continued ceftriaxone and azithro for first 3 days. Can stop Azithro. Continue 2 g IV ceftriaxone for Group B strep bacteremia. Will need 2 weeks of IV therapy from 1st negative culture, which may be from 08/15/22 but yesterday's culture is pending. -bilateral leg edema today, likely from fluids, DVT study negative. Start furosemide with improvement in BP today. -wean from O2 as tolerated, goal O2 >90% 2. Atrial fibrillation -continue eliquis, rate controlled 3. Peripheral neuropathy -can resume home home lyrica today with improved confusion. It was held initia lly. 4. Hypertension -held anti-hypertensives due to sepsis, in favor of diuresis today will continue to hold home lisinopril. I have discussed the plan with patient. I have discussed the plan of care with bedside nurse and spouse. I have reviewed the labs and chest xray. CODE: DNR/DNI Dispo: Will need 2 weeks of IV antibiotics. Midline ordered today. Patient and spouse deciding between infusion clinic, home infusion, or SNF for remainder of antibiotic therapy. Still awaiting negative blood cultures from yesterday. Possible discharge in 1-2 days. Time Spent With Patient Critical Care time: I spent a total of [] minutes of critical care time on this patient's care today; this time is exclusive of procedural time. Quality VTE Deep Vein Thrombosis/Pulmonary Embolism Present on Admission: No
--- NOTE | 2022-08-16 15:28 | PT.IPTN ---
Current Diagnoses Sepsis, unspecified organism (08/14/22) Physical Therapy Treatment Note M2 PT-IP Current Condition Start: 08/15/22 15:02 Freq: NEEDED Status: Active Protocol: Document 08/15/22 14:35 DCW (Rec: 08/15/22 15:16 DC[facility] [id number]) Physical Therapy Current Condition Current Condition Evaluation Date 08/15/22 Treatment Diagnosis Fatigue, SOB Onset Date 08/14/22 M3 PT-IP Subjective Start: 08/15/22 15:02 Freq: NEEDED Status: Active Protocol: Document 08/16/22 14:59 LJ (Rec: 08/16/22 15:28 LJ [id number]) Subjective Physical Therapy Visit Type Type Treatment Note Visit Start Time 14:26 Visit Stop Time 14:51 Total Visit Minutes 25 Notes in room with pt. Initiating CGT Number of OUTPATIENT DIETITIAN Visits 1 M4 PT-IP Mobility and Gait Start: 08/15/22 15:02 Freq: NEEDED Status: Active Protocol: Document 08/16/22 14:59 LJ (Rec: 08/16/22 15:28 LJ [id number]) PT-Transfer Assessment Sit to and From Stand Sit to and from Stand Standby Assistance Equipment Transfer Assistive Device Gait Belt,Front Wheeled Walker Transfers Transfer Destination Chair,Toilet Transfer Technique ambulated Transfer Ability Level of Assist Standby Assistance Comments Mobility Comments SBA for transfer from sit> stand from chair. Independent in bathroom with all tioleting and pericare. Pt ambulated down hallway to stairs then returned to room to luse bathroom. SBA with cues for proximity to FWW x2. Flexed trunk. Pt states she can't stand all the way up due to nerve pain in neck and back. Good walker management after cues. Gait Assessment Gait Gait Assistance Required: Standby Assistance Distance (Feet) 100 Able to Maintain Weight Bearing Status Yes During Gait Assistive Devices Assistive Device Gait Belt,Front Wheeled Walker Orthotic/Prosthetic Devices or Brace: No Gait Deviations General Gait Pattern Flexed Trunk Factors Limiting Gait Function Factors Limiting Gait Function Decreased Activity Tolerance Comments Gait Comments Pt ambulated to stairs. Flexed trunk with FWW. Pt fatigued after stair training. WC back to room Stair Climbing Assessment Evaluation Level of Assist On Stairs Standby Assistance Devices Stair Climbing Assistive Devices Left Railing Technique/Endurance Stair Climbing Direction Ascend and Descend Stair Climbing Technique Step Over Step,Step to Step Number of Steps Climbed 3 Stair Climbing Set # Repetitions (reps) 1 Comments Stair Climbing Comments Pt safely able to complete stairs step-to ascending and step-thru descending. PT-Balance Assessment Sitting Balance and Reactions Static Sitting Balance Ability Normal Dynamic Sitting Balance Ability Good Standing Balance and Reactions Static Standing Balance Ability Good Dynamic Standing Balance Ability Fair Device Used FWW M5 PT-IP Objective Assessments Start: 08/15/22 15:02 Freq: NEEDED Status: Active Protocol: Document 08/15/22 14:35 DCW (Rec: 08/15/22 15:16 DCW [id number]) Orientation Orientation/Cognition Level of Alertness Alert Orientation Name,Birthday,Date,Place, Situation Language Function Ability No Deficits Noted Safety Awareness Understands Safety Issues Memory Description No Deficits Noted Gross Range of Motion Lower Extremity ROM Assessment Within Functional Limits Strength Lower Extremity Strength Assessment Within Functional Limits Comments Strength Comments Pt able to move limbs against gravity and did not struggle with any functional movements M6 PT-IP Treatment Start: 08/15/22 15:02 Freq: NEEDED Status: Active Protocol: Document 08/16/22 14:59 LJ (Rec: 08/16/22 15:28 LJ [id number]) Physical Therapy Treatment Education Education Provided Safety M7 PT-IP Assessment and Plan Start: 08/15/22 15:02 Freq: NEEDED Status: Active Protocol: Document 08/16/22 14:59 LJ (Rec: 08/16/22 15:28 LJ [id number]) PT Summary Assessment and Plan Potential Rehabilitation Potential Good Status of Condition at Evaluation Unstable Summary Impairments Strength,Gait,Activity Tolerance Progress Towards Goals Progressing Toward Goals,Slow Progress due to Activity Tolerance Assessment Summary Pt moving well. Tolerated limited activity but increased gait distance and completed stair training safely. Independent with toileting and transfers to/from toilet. SBA transfers and gait. Completed stairs safely. Pt will be safe for MT home with 24/7 assist from when medically stable. Goals Gait Goal Independent Gait Distance 100' Other Goals Ascend/descend 3 steps using left ascending rail Days to Meet Goals 2 Frequency of Treatment Frequency Of Treatment Once a Day Treatment Plan Physical Therapy Treatment Plan Gait Training,Therapeutic Exercise,Balance Retraining, Discharge Planning Recommendations To Nursing Amount of Assist Needed Standby Assistance Discharge Recommendations PT Discharge Recommendations Home with Assistance Transportation Needs at Discharge Private Vehicle
[2022-08-16] MEDS: FUROSEMIDE 20 MG TABLET PO (15:49)
[2022-08-16] MEDS: cefTRIAXone 1,000 MG in SODIUM CHLORIDE 0.9% 100 ML 200 MG IV (17:47)
[2022-08-16] MEDS: ATORVASTATIN 20 MG TABLET 10 MG PO (20:10)
--- NOTE | 2022-08-16 21:47 | PC.NURSE ---
Patient is alert and mostly oriented; off on date by 1 day and does not remember why he was brought to the ER. Breath sounds diminished and coarse with scattered late expiratory wheezes; RA sat is 97%. Denies SOB w/without activity. HR irregular; hx of afib. Denies nausea. BT present and abdomen is soft. Voiding without dysuria or incontinence. Is able to turn himself in bed although does not turn to right side related to chronic back issues. Is up to bathroom with walker and SBA. 2+ bilateral LE edema and also appears to have swelling in scrotum. Denied pain at time of assessment. SCD's not ordered. Fall risk score is high and bed alarm is activated.
[2022-08-17] VITALS (9 sets, daily range): BP systolic 123–151; BP diastolic 65–77; PULSE 57–70; RESP 15–19; TEMP 35.7–36.3; O2SAT 94–97
[2022-08-17] MEDS: OXYCODONE IR 5 MG TABLET PO ×4 (02:31→14:41)
[2022-08-17] MEDS: SODIUM CHLORIDE 0.9% FLUSH 10 ML IV ×3 (06:00→20:40)
[2022-08-17 07:05] LABS: Alanine Aminotransferase 36 IU/L (<50); Albumin 2.9 g/dL (3.5-5.0); Alkaline Phosphatase 46 U/L (38-126); Aspartate Aminotransferase 55 IU/L (17-59); BUN Creatinine Ratio 19.7 (6-22); Bilirubin Total 0.8 mg/dL (0.2-1.3); Blood Urea Nitrogen 15 mg/dL (9-20); Calcium 7.6 mg/dL (8.4-10.2); Carbon Dioxide 29 mmol/L (22-32); Chloride 103 mmol/L (98-107); Estimated Glomerular Filt Rate > 60 mL/min (>60); Globulin 2.8 g/dL (1.7-4.1); Glucose 89 mg/dL (80-110); HEMOLYSIS < 15 (0-50); Magnesium 1.9 mg/dL (1.6-2.3); Potassium 3.7 mmol/L (3.4-5.1); Sodium 136 mmol/L (137-145); Total Protein 5.7 g/dL (6.3-8.2)
[2022-08-17 07:13] LABS: Add Manual Diff / Slide Review NO; Basophils Absolute Auto 0 /uL (0-100); Basophils Percent Auto 0.5 % (0-2); Eosinophils Absolute Auto 300 /uL (0-450); Eosinophils Percent Auto 4.2 % (2-4); Hematocrit 39.3 % (41-53); Hemoglobin 13.4 g/dL (13.5-17.5); Lymphocytes Absolute Auto 1200 /uL (1100-4500); Lymphocytes Percent Auto 19.8 % (25-40); Mean Corpuscular HGB Conc 34.2 % (30-36); Mean Corpuscular Hemoglobin 33.5 PG (26-34); Mean Corpuscular Volume 97.8 fL (80-100); Monocytes Absolute Auto 900 /uL (0-900); Monocytes Percent Auto 13.9 % (3-14); Neutrophils Absolute Auto 3800 /uL (1500-7000); Neutrophils Percent Auto 61.6 % (50-75); Platelet Count 95 X10^3/uL (150-400); Red Blood Cell Count 4.01 X10^6/uL (4.5-5.9); Red Cell Distribution Width 13.7 % (11.6-14.8); White Blood Cell Count 6.2 X10^3/uL (4.5-11.0)
[2022-08-17] MEDS: FUROSEMIDE 20 MG TABLET PO (08:33)
[2022-08-17] MEDS: PREGABALIN 50 MG CAPSULE 200 MG PO ×2 (08:33→20:40)
[2022-08-17] MEDS: ACETAMINOPHEN 325 MG TABLET 650 MG PO ×2 (08:33→14:41)
[2022-08-17] MEDS: APIXABAN 5 MG TABLET PO ×2 (08:33→20:38)
--- NOTE | 2022-08-17 10:16 | P.PN_ITS ---
Subjective Subjective Interval history: 87 M admitted with sepsis secondary to pneumonia, 2/4 bottles positive for group B strep. Suspect this is real. repeat cultures are negative and plan is 2 weeks IV antibiotics post these negative results. He is feeling improved. He is moving around much better today. Eager to go home and have community IV antibiotics when stable enough. Exam Vital Signs (past 8 hours): - 08/17/22 05:37 08/17/22 05:37 08/17/22 08:48 Temperature 96.9 F L 96.7 F L Pulse Rate 62 59 L Respiratory Rate 15 19 Blood Pressure 134/65 128/70 Pulse Oximetry 94 94 94 Oxygen Delivery Method Room Air Oxygen Flow Rate 0 0 0 Oxygen Delivery Method Room Air Oxygen Flow Rate 0 Narrative Exam Narrative: GEN: Alert, in no distress. HEENT: moist mucous membranes, PERRL NECK: trachea midlne, no jvd PULM: coarse breath sounds bilaterally still a little course, no wheezes, rhonchi ABD: soft, nontender, nondistended, no organomegaly, normal bowel sounds CV: regular rate and rhythm, no murmurs EXT: warm and well perfused, 1+ edema, chronic venous stasis changes with no warmth NEURO: moving all extremities and normal sensation of extremities Objective Labs 08/17/22 06:08 08/17/22 06:08 Labs: Laboratory Results - last 24 hr 08/17/22 08/17/22 06:08 06:08 WBC 6.2 RBC 4.01 L Hgb 13.4 L Hct 39.3 L MCV 97.8 MCH 33.5 MCHC 34.2 RDW 13.7 Plt Count 95 L Neut % (Auto) 61.6 Lymph % (Auto) 19.8 L [place] % (Auto) 13.9 Eos % (Auto) 4.2 H Baso % (Auto) 0.5 Neut # (Auto) 3800 Lymph # (Auto) 1200 [place] # (Auto) 900 Eos # (Auto) 300 Baso # (Auto) 0 Sodium 136 L Potassium 3.7 Chloride 103 Carbon Dioxide 29 BUN 15 Creatinine 0.76 Estimated GFR > 60 BUN/Creatinine Ratio 19.7 Glucose 89 Calcium 7.6 L Magnesium 1.9 Total Bilirubin 0.8 AST 55 ALT 36 Alkaline Phosphatase 46 Total Protein 5.7 L Albumin 2.9 L Globulin 2.8 Albumin/Globulin Ratio 1.0 [facility] Medical History Allergic rhinitis BPH (benign prostatic hyperplasia) BPH NOS w/o ur obs/LUTS Chronic anticoagulation Chronic low back pain Chronic, continuous use of opioids Coronary artery disease Do not resuscitate Essential hypertension High blood pressure Hydrocele Hypertrophy of breast Medicare annual wellness visit, initial Mixed hyperlipidemia Nocturia Peripheral arterial disease Peripheral vascular disease Polyneuropathy, unspecified Spinal stenosis, lumbar region without neurogenic claudication Umbilical hernia without obstruction or gangrene Venous (peripheral) insufficiency Surgical History History of back surgery S/P TURP Vasectomy status Social History household members: spouse Smoking Status: Never smoker alcohol intake: current Assessment & Plan Assessment & Plan narrative: 1. Pneumonia with corresponding Group B strep bacteremia causing sepsis and acute respiratory failure and acute metabolic encephalopathy and thrombocytopenia. Encephalopathy clearing and thrombocytopenia improving, continue to follow both. -improving today, Continue 2 g IV ceftriaxone for Group B strep bacteremia. Will need 2 weeks of IV therapy from 1st negative culture, ordered today. -bilateral leg edema today, likely from fluids, DVT study negative. Start f urosemide with improvement in BP today. -wean from O2 as tolerated, goal O2 >90% - has been weaned to o2 sat of 94% room air. 2. Atrial fibrillation -continue eliquis, rate controlled 3. Peripheral neuropathy - resumed home home lyrica. It was held initially. 4. Hypertension -held anti-hypertensives due to sepsis, in favor of diuresis and on furosemide, will continue to hold home lisinopril and follow. I have discussed the plan with patient. CODE: DNR/DNI Dispo: Will need 2 weeks of IV antibiotics. Midline ordered yesterday.. Patient and spouse deciding between infusion clinic, home infusion, or SNF for remainder of antibiotic therapy. Possible discharge in 1-2 days once confirmed stability and community IV place established. Time Spent With Patient Critical Care time: I spent a total of [] minutes of critical care time on this patient's care today; this time is exclusive of procedural time. Quality VTE Deep Vein Thrombosis/Pulmonary Embolism Present on Admission: No
--- NOTE | 2022-08-17 10:45 | CM.DPNOTE ---
Discharge Planning Note: Received voicemail from [employer] from yesterday, 3/3 pm. His Auth is approved for [facility], [id number]. Called and spoke with Sanna at [facility] and provided the Auth number. She states they can accept Friday, possibly Friday. Plan: Contact [facility] tomorrow to verify acceptance date. Soni Small RN/DCP
--- NOTE | 2022-08-17 13:45 | PT.IPTN ---
Current Diagnoses Sepsis, unspecified organism (08/14/22) Physical Therapy Treatment Note M2 PT-IP Current Condition Start: 08/15/22 15:02 Freq: NEEDED Status: Active Protocol: Document 08/15/22 14:35 DCW (Rec: 08/15/22 15:16 DCW [id number]) Physical Therapy Current Condition Current Condition Evaluation Date 08/15/22 Treatment Diagnosis Fatigue, SOB Onset Date 08/14/22 M3 PT-IP Subjective Start: 08/15/22 15:02 Freq: NEEDED Status: Active Protocol: Document 08/17/22 13:30 LJ (Rec: 08/17/22 13:45 LJ [id number]) Subjective Physical Therapy Visit Type Type Treatment Note Visit Start Time 13:01 Visit Stop Time 13:16 Total Visit Minutes 15 Notes Pt asking about being able to go home when medically stable. Does not want to go to SNF. Physical Therapy Visit Comments Patient Goals Go home and arrange getting infusion antibiotics at a community center rather than go to SNF M4 PT-IP Mobility and Gait Start: 08/15/22 15:02 Freq: NEEDED Status: Active Protocol: Document 08/17/22 13:30 LJ (Rec: 08/17/22 13:45 LJ [id number]) PT-Bed Mobility Assessment Supine to Sit Supine to Sit Independent Sit to Supine Sit to Supine Independent Scooting Scooting to Edge of Bed Independent Scooting Up and Down in Bed Independent PT-Transfer Assessment Sit to and From Stand Sit to and from Stand Standby Assistance,1 Person Assistance Equipment Transfer Assistive Device Gait Belt,Front Wheeled Walker Transfers Transfer Destination Bed,Toilet Transfer Ability Level of Assist Standby Assistance Comments Mobility Comments Pt independent with bed mobility and SBA-independent transfers and gait. He does not normally use a FWW therefore not entirely back to baseline but very close. He ambulated around N nurse station with normal gait pattern and speed. Returned to room, used toilet independently and returned to bed independently. Gait Assessment Gait Gait Assistance Required: Standby Assistance Distance (Feet) 240 Able to Maintain Weight Bearing Status Yes During Gait Assistive Devices Assistive Device Gait Belt,Front Wheeled Walker Orthotic/Prosthetic Devices or Brace: No Gait Deviations General Gait Pattern Flexed Trunk Factors Limiting Gait Function Factors Limiting Gait Function Decreased Activity Tolerance Comments Gait Comments Pt ambulated around N nurse station SBA. Flexed trunk is baseline for pt due to neck pathology. No LOB or SOB PT-Balance Assessment Sitting Balance and Reactions Static Sitting Balance Ability Normal Dynamic Sitting Balance Ability Good Standing Balance and Reactions Static Standing Balance Ability Good Dynamic Standing Balance Ability Good Device Used FWW M5 PT-IP Objective Assessments Start: 08/15/22 15:02 Freq: NEEDED Status: Active Protocol: Document 08/15/22 14:35 DCW (Rec: 08/15/22 15:16 DCW [id number]) Orientation Orientation/Cognition Level of Alertness Alert Orientation Name,Birthday,Date,Place, Situation Language Function Ability No Deficits Noted Safety Awareness Understands Safety Issues Memory Description No Deficits Noted Gross Range of Motion Lower Extremity ROM Assessment Within Functional Limits Strength Lower Extremity Strength Assessment Within Functional Limits Comments Strength Comments Pt able to move limbs against gravity and did not struggle with any functional movements M6 PT-IP Treatment Start: 08/15/22 15:02 Freq: NEEDED Status: Active Protocol: Document 08/17/22 13:30 LJ (Rec: 08/17/22 13:45 LJ [id number]) Physical Therapy Treatment Education Education Provided Safety M7 PT-IP Assessment and Plan Start: 08/15/22 15:02 Freq: NEEDED Status: Active Protocol: Document 08/17/22 13:30 LJ (Rec: 08/17/22 13:45 LJ [id number]) PT Summary Assessment and Plan Potential Status of Condition at Evaluation Evolving Summary Impairments Strength,Gait,Activity Tolerance Progress Towards Goals Safe For Discharge Assessment Summary Pt has met goals of 100' gait and stairs. Will return to baseline of trekking pole for AD when home and able to practice safely using counter and/or table for support. Discussed transitioning to trekking pole when strength returns. Pt in agreement. Pt left in bed with all needs within reach. Safe for DC from PT Goals Gait Goal Independent Gait Distance 100' Other Goals Ascend/descend 3 steps using left ascending rail Days to Meet Goals 2 Frequency of Treatment Frequency Of Treatment Once a Day Treatment Plan Physical Therapy Treatment Plan Gait Training,Therapeutic Exercise,Balance Retraining, Discharge Planning Recommendations To Nursing Amount of Assist Needed Standby Assistance Discharge Recommendations PT Discharge Recommendations Home with Assistance Transportation Needs at Discharge Private Vehicle
[2022-08-17] MEDS: cefTRIAXone 2,000 MG in SODIUM CHLORIDE 0.9% 100 ML 200 MG IV (14:26)
[2022-08-17] MEDS: FUROSEMIDE 40 MG TABLET PO (16:19)
[2022-08-17] MEDS: ATORVASTATIN 20 MG TABLET 10 MG PO (20:38)
--- NOTE | 2022-08-17 23:12 | PC.NURSE ---
Patient is alert and oriented although states he still can't remember coming into the hospital. Breath sounds coarse but CTA with RA sat of 96%; denies SOB. Continues to have a harsh sounding non-productive cough which is exacerbated by cold. HRR w/BP of 144/76. Denied nausea. BT hyperactive and reports he had a BM earlier today. Is voiding frequency likely related to diuretic but denies dysuria. Is able to turn himself in bed. Up to bathroom with walker and SBA. 2+ bilateral LE edema right > left noted. Right LE appears erythemic and warm to touch with scattered abrasions on wahl. Neuropathy chronic in bilateral ankles. Denied pain at time of assessment. Fall risk score is high and bed alarm is activated.
[2022-08-18] VITALS (11 sets, daily range): BP systolic 133–161; BP diastolic 70–86; PULSE 54–103; RESP 16–19; TEMP 35.7–36.9; O2SAT 93–97
[2022-08-18] MEDS: OXYCODONE IR 5 MG TABLET PO ×2 (01:05→03:40)
[2022-08-18] MEDS: ACETAMINOPHEN 325 MG TABLET 650 MG PO (01:05)
[2022-08-18] MEDS: SODIUM CHLORIDE 0.9% FLUSH 10 ML IV ×3 (05:48→20:18)
[2022-08-18 08:33] LABS: Add Manual Diff / Slide Review NO; Basophils Absolute Auto 0 /uL (0-100); Basophils Percent Auto 0.8 % (0-2); Eosinophils Absolute Auto 300 /uL (0-450); Eosinophils Percent Auto 5.7 % (2-4); Hematocrit 42.8 % (41-53); Hemoglobin 14.6 g/dL (13.5-17.5); Lymphocytes Absolute Auto 1400 /uL (1100-4500); Lymphocytes Percent Auto 26.5 % (25-40); Mean Corpuscular Hemoglobin 33.3 PG (26-34); Mean Corpuscular Volume 97.9 fL (80-100); Monocytes Absolute Auto 700 /uL (0-900); Monocytes Percent Auto 12.7 % (3-14); Neutrophils Absolute Auto 2900 /uL (1500-7000); Neutrophils Percent Auto 54.3 % (50-75); Platelet Count 108 X10^3/uL (150-400); Red Blood Cell Count 4.37 X10^6/uL (4.5-5.9); Red Cell Distribution Width 13.8 % (11.6-14.8); White Blood Cell Count 5.4 X10^3/uL (4.5-11.0)
[2022-08-18 08:53] LABS: Alanine Aminotransferase 37 IU/L (<50); Albumin 3.1 g/dL (3.5-5.0); Alkaline Phosphatase 50 U/L (38-126); Aspartate Aminotransferase 50 IU/L (17-59); BUN Creatinine Ratio 14.9 (6-22); Bilirubin Total 1.1 mg/dL (0.2-1.3); Blood Urea Nitrogen 11 mg/dL (9-20); Calcium 7.8 mg/dL (8.4-10.2); Carbon Dioxide 31 mmol/L (22-32); Chloride 101 mmol/L (98-107); Estimated Glomerular Filt Rate > 60 mL/min (>60); Globulin 3.1 g/dL (1.7-4.1); Glucose 90 mg/dL (80-110); HEMOLYSIS < 15 (0-50); Magnesium 1.8 mg/dL (1.6-2.3); Potassium 3.9 mmol/L (3.4-5.1); Sodium 136 mmol/L (137-145); Total Protein 6.2 g/dL (6.3-8.2)
[2022-08-18] MEDS: PREGABALIN 50 MG CAPSULE 200 MG PO ×2 (09:25→20:13)
[2022-08-18] MEDS: APIXABAN 5 MG TABLET PO ×2 (09:25→20:19)
[2022-08-18] MEDS: FUROSEMIDE 40 MG TABLET PO (09:25)
--- NOTE | 2022-08-18 09:40 | PM.PN.1 ---
Subjective Subjective Interval history: 87 M admitted with sepsis secondary to pneumonia, 2/4 bottles positive for group B strep. Suspect this is real. repeat cultures are negative and plan is 2 weeks IV antibiotics post these negative results. Today the patient feels good other than cough and associated wheezing with sense of chest tightness when he coughs and wheezes. Exam Vital Signs (past 8 hours): - 08/18/22 05:13 08/18/22 05:13 08/18/22 08:40 Temperature 97.3 F L 96.2 F L Pulse Rate 78 54 L Respiratory Rate 16 19 Blood Pressure 151/84 H 144/70 H Pulse Oximetry 97 97 97 Oxygen Delivery Method Room Air Oxygen Flow Rate 0 0 0 Oxygen Delivery Method Room Air Oxygen Flow Rate 0 Narrative Exam Narrative: GEN: Alert, in no distress. HEENT: moist mucous membranes, PERRL NECK: trachea midlne, no jvd PULM: coarse breath sounds bilaterally still a little course, tight expiratory wheezes when coughs. ABD: soft, nontender, nondistended, no organomegaly, normal bowel sounds CV: regular rate and rhythm, no murmurs EXT: warm and well perfused, 1+ edema, chronic venous stasis changes with no warmth NEURO: moving all extremities and normal sensation of extremities Objective Labs 08/18/22 08:06 08/18/22 08:06 Labs: Laboratory Results - last 24 hr 08/18/22 08/18/22 08:06 08:06 WBC 5.4 RBC 4.37 L Hgb 14.6 Hct 42.8 MCV 97.9 MCH 33.3 MCHC 34.0 RDW 13.8 Plt Count 108 L Neut % (Auto) 54.3 Lymph % (Auto) 26.5 [place] % (Auto) 12.7 Eos % (Auto) 5.7 H Baso % (Auto) 0.8 Neut # (Auto) 2900 Lymph # (Auto) 1400 [place] # (Auto) 700 Eos # (Auto) 300 Baso # (Auto) 0 Sodium 136 L Potassium 3.9 Chloride 101 Carbon Dioxide 31 BUN 11 Creatinine 0.74 Estimated GFR > 60 BUN/Creatinine Ratio 14.9 Glucose 90 Calcium 7.8 L Magnesium 1.8 Total Bilirubin 1.1 AST 50 ALT 37 Alkaline Phosphatase 50 Total Protein 6.2 L Albumin 3.1 L Globulin 3.1 Albumin/Globulin Ratio 1.0 [facility] Medical History Allergic rhinitis BPH (benign prostatic hyperplasia) BPH NOS w/o ur obs/LUTS Chronic anticoagulation Chronic low back pain Chronic, continuous use of opioids Coronary artery disease Do not resuscitate Essential hypertension High blood pressure Hydrocele Hypertrophy of breast Medicare annual wellness visit, initial Mixed hyperlipidemia Nocturia Peripheral arterial disease Peripheral vascular disease Polyneuropathy, unspecified Spinal stenosis, lumbar region without neurogenic claudication Umbilical hernia without obstruction or gangrene Venous (peripheral) insufficiency Surgical History History of back surgery S/P TURP Vasectomy status Social History household members: spouse Smoking Status: Never smoker alcohol intake: current Assessment & Plan Assessment & Plan narrative: 1. Pneumonia with corresponding Group B strep bacteremia causing sepsis and acute respiratory failure and acute metabolic encephalopathy and thrombocytopenia. Encephalopathy clearing and thrombocytopenia improving, continue to follow both. -improving today,? Continue 2 g IV ceftriaxone for Group B strep bacteremia. Will need 2 weeks of IV therapy from 1st negative culture, ordered today. -bilateral leg edema today, likely from fluids, DVT study negative. Start furosemide with improvement in BP today. -wean from O2 as tolerated, goal O2 >90% - has been weaned to o2 sat of 94% room air. -labs are stable 2. Atrial fibrillation -continue eliquis, rate controlled 3. Peripheral neuropathy - resumed home home lyrica. It was held initially. 4. Hypertension -held anti-hypertensives due to sepsis, in favor of diuresis and on furosemide,? will continue to hold home lisinopril and follow. 5. Cough with expiratory wheezes. Consistent with reactive airway associated with the patient's underlying pneumonia. Patient possibly has underlying COPD as well and this is exacerbation. Will treat with prednisone 40 mg daily for 5 days. 6. Thrombocytopenia. Continues to improve. Platelets 108 today. I have discussed the plan with patient. CODE: DNR/DNI Dispo: Will need 2 weeks of IV antibiotics. Midline placed. Patient and spouse deciding between infusion clinic, home infusion, or SNF for remainder of antibiotic therapy.? Possible discharge in 1-2 days once confirmed stability and community IV place established. Time Spent With Patient Critical Care time: I spent a total of [] minutes of critical care time on this patient's care today; this time is exclusive of procedural time. Quality VTE Deep Vein Thrombosis/Pulmonary Embolism Present on Admission: No
[2022-08-18] MEDS: cefTRIAXone 2,000 MG in SODIUM CHLORIDE 0.9% 100 ML 200 MG IV (12:20)
[2022-08-18] MEDS: predniSONE 20 MG TABLET 40 MG PO (12:30)
--- NOTE | 2022-08-18 13:30 | CM.DPNOTE ---
Discharge Planning Note: Patient continues to refuse SNF even though had been accepted but insisting on going to Infusion Center at for his 2 weeks of IV antibiotics. He does not want home infusion due to doesn't want to have to administer antibiotics. He developed cough and wheezing yesterday, started on Prednisone. LM for to call for update. Spoke with Sanna at [facility] and informed that patient refusing SNF. Plan: When medically cleared, discharge home to care of spouse. Give Referral to Infusion Center, has [employer] insurance. Call spouse for update. Soni Small RN/DCP
--- NOTE | 2022-08-18 16:26 | PC.NURSE ---
Pt refused lunch.Daughter came in and persisted the patient eat. she feed pt while laying down and pt started vomiting.
[2022-08-18] MEDS: ATORVASTATIN 20 MG TABLET 10 MG PO (20:13)
[2022-08-19] VITALS: BP 133/73; PULSE 63; TEMP 36.4; O2SAT 94
[2022-08-19 02:00] VITALS: O2SAT 93
[2022-08-19 03:50] VITALS: BP 153/79; PULSE 70; RESP 19; TEMP 36.2; O2SAT 93
[2022-08-19 05:33] LABS: Add Manual Diff / Slide Review NO; Basophils Absolute Auto 0 /uL (0-100); Basophils Percent Auto 0.5 % (0-2); Eosinophils Absolute Auto 0 /uL (0-450); Eosinophils Percent Auto 0.6 % (2-4); Hemoglobin 13.1 g/dL (13.5-17.5); Lymphocytes Absolute Auto 900 /uL (1100-4500); Lymphocytes Percent Auto 17.8 % (25-40); Mean Corpuscular HGB Conc 34.5 % (30-36); Mean Corpuscular Hemoglobin 33.1 PG (26-34); Mean Corpuscular Volume 96.1 fL (80-100); Monocytes Absolute Auto 700 /uL (0-900); Monocytes Percent Auto 12.2 % (3-14); Neutrophils Absolute Auto 3700 /uL (1500-7000); Neutrophils Percent Auto 68.9 % (50-75); Platelet Count 119 X10^3/uL (150-400); Red Blood Cell Count 3.95 X10^6/uL (4.5-5.9); Red Cell Distribution Width 13.6 % (11.6-14.8); White Blood Cell Count 5.3 X10^3/uL (4.5-11.0)
[2022-08-19 05:55] VITALS: O2SAT 93
[2022-08-19 05:55] LABS: Alanine Aminotransferase 34 IU/L (<50); Albumin 2.9 g/dL (3.5-5.0); Alkaline Phosphatase 47 U/L (38-126); Aspartate Aminotransferase 42 IU/L (17-59); BUN Creatinine Ratio 17.2 (6-22); Bilirubin Total 0.8 mg/dL (0.2-1.3); Blood Urea Nitrogen 11 mg/dL (9-20); Calcium 7.9 mg/dL (8.4-10.2); Carbon Dioxide 31 mmol/L (22-32); Chloride 102 mmol/L (98-107); Estimated Glomerular Filt Rate > 60 mL/min (>60); Globulin 2.9 g/dL (1.7-4.1); Glucose 103 mg/dL (80-110); HEMOLYSIS 18 (0-50); Magnesium 1.9 mg/dL (1.6-2.3); Potassium 3.9 mmol/L (3.4-5.1); Sodium 135 mmol/L (137-145); Total Protein 5.8 g/dL (6.3-8.2)
[2022-08-19 08:00] VITALS: BP 152/92; PULSE 57; RESP 22; TEMP 36; O2SAT 95
--- NOTE | 2022-08-19 08:32 | CM.DPNOTE ---
Addendum entered by HEAVENLY Roman 08/19/22 12:35: ADD: LAZARO spoke to Xochilt at Infusion clinic and confirmed she received MD order form and confirms they have what they need to get pt set up for dose tomorrow and will call pt/spouse to set up time for tomorrow and MD can d/c pt today now that he has received his IV-Abx dose. LAZARO spoke to spouse who is so appreciative and confirms she can transport pt home today and to and from infusion clinic and does not feel HH needed and agreeable for pt to go home today. SW updated MD and she will work on discharge to home today. BF Original Note: DCP Outpt Infusion LAZARO faxed clinicals to [facility] to review for outpt infusion needs as pt currently refusing SNF and SW left [facility] [place] the facilities locator at the [facility]. LAZARO called [employer] insurance and provided MD NPI, infusion clinic information, and IV abx needs and they state no preauth needed and Infusion Clinic is in-network. Plan: LAZARO to follow for return call from [facility] to determine if they can accept pt for IV-Abx Q24 Ceftriaxone at d/c. HEAVENLY Roman
--- NOTE | 2022-08-19 09:29 | OT.IP.TRT ---
Current Diagnoses Sepsis, unspecified organism (08/14/22) Occupational Therapy Treatment Note M2 OT-IP Current Condition Start: 08/15/22 13:33 Freq: Status: Active Protocol: Document 08/15/22 11:23 [facility] (Rec: 08/15/22 13:58 [facility] [id number]) Occupational Therapy Current Condition Current Condition Evaluation Date 08/15/22 Treatment Diagnosis Altered mental Status, PNA, acuter respiratory failure Diagnosis Onset Date M3 OT- IP Subjective and Pain Start: 08/15/22 13:33 Freq: Status: Active Protocol: Document 08/19/22 10:24 [facility] (Rec: 08/19/22 10:29 [facility] [id number]) OT- Subjective Occupational Therapy Visit Type Type Treatment Note Visit Start Time 09:29 Visit Stop Time 09:45 Total Visit Minutes 16 Occupational Therapy Visit Comments Patient Comments Pt wanting to use the bathroom and do oral care needs. Patient/Caregiver Goals To go home OT Pain Assessment Pain When Pain Assessed At Rest Pain Present Pain Present Denied Pain M4 OT- IP ADL's Start: 08/15/22 13:33 Freq: Status: Active Protocol: Document 08/19/22 10:24 [facility] (Rec: 08/19/22 10:29 [facility] [id number]) OT ADL-Grooming General Evaluation Grooming Ability Independent Comments OT Grooming Comments Able to do while standing with FWW OT ADL-Oral Care General Eval Oral Care Ability Independent Comments Oral Care Comments Able t do while standing with FWW OT ADL-Dressing Comments OT Dressing Comments Pt still needing assist for socks due to swelling in his feet. OT ADL-Toileting General Evaluation Toileting Ability Independent Comments OT Toileting Comments Pt able to sit and urinate in the toilet on his own. OT ADL-Bathing Comments OT Bathing Comments Pt states to shower at home. M6 OT- IP Functional Cognition Start: 08/15/22 13:33 Freq: Status: Active Protocol: Document 08/19/22 10:24 [facility] (Rec: 08/19/22 10:29 [facility] [id number]) Cognitive Factors Limiting Selfcare Function Cognitive Comments Cognitive Assessment Comments Pt needing occasional reminders to keep the FWW in front of him at all times. M7 OT- IP Mobility and Balance Start: 08/15/22 13:33 Freq: Status: Active Protocol: Document 08/19/22 10:24 [facility] (Rec: 08/19/22 10:29 [facility] [id number]) OT-Transfer Assessment Sit to and From Stand Sit to and from Stand Independent Transfers Transfer Ability Independent,Standby Assistance Technique Transfer Destination Bed,Chair,Toilet Transfer Technique Stand Step Pivot Devices Transfer Assistive Devices Gait Belt,Front Wheeled Walker Comments Mobility Comments Pt's RA on RA 98% and after walking in the room and use of the toilet at 94%. Distant SBA to independent with the FWW. OT- Balance Assessment Sitting Balance and Reactions Static Sitting Balance Ability Normal Dynamic Sitting Balance Ability Good Standing Balance and Reactions Static Standing Balance Ability Good Dynamic Standing Balance Ability Fair M9 OT- IP Assessment and Plan Start: 08/15/22 13:33 Freq: Status: Active Protocol: Document 08/19/22 10:24 [facility] (Rec: 08/19/22 10:29 [facility] [id number]) OT Summary Assessment and Plan Potential Rehabilitation Potential Good Analytic Complexity at Evaluation Moderate Summary OT Impairments Pain,Strength,Balance, Sensation,Functional Cognition ,Functional Mobility,Dressing, Toileting,Bathing,Toilet Transfers,Shower Transfers, Activity Tolerance Progress Towards Goals Progressing Toward Goals Assessment Summary Pt now on RA and and 94% after moving in the room. Pt to go home today. Discharge Recommendations OT Discharge Recommendations Home with Assistance Home Equipment Needs shower chair Transportation Needs at Discharge Private Vehicle
[2022-08-19] MEDS: cefTRIAXone 2,000 MG in SODIUM CHLORIDE 0.9% 100 ML 200 MG IV (10:00)
[2022-08-19] MEDS: predniSONE 20 MG TABLET 40 MG PO (10:02)
[2022-08-19] MEDS: APIXABAN 5 MG TABLET PO (10:02)
[2022-08-19] MEDS: PREGABALIN 50 MG CAPSULE 200 MG PO (10:02)
[2022-08-19] MEDS: SODIUM CHLORIDE 0.9% FLUSH 10 ML IV ×2 (10:03→11:30)
[2022-08-19] MEDS: FUROSEMIDE 40 MG TABLET PO (10:03)
--- NOTE | 2022-08-19 10:14 | PM.PN.1 ---
Subjective Subjective Interval history: Feels fine. Able to do activities of daily living without distress. No new concerns. Still coughing up slight sputum with yellow-tinged color. Exam Vital Signs (past 8 hours): - 08/19/22 03:50 08/19/22 05:55 Temperature 97.1 F L Pulse Rate 70 Respiratory Rate 19 Blood Pressure 153/79 H Pulse Oximetry 93 93 Oxygen Delivery Method Room Air Oxygen Flow Rate 0 0 Oxygen Delivery Method Room Air Oxygen Flow Rate 0 Narrative Exam Narrative: GEN: Alert, in no distress. HEENT: moist mucous membranes, PERRL NECK: trachea midlne, no jvd PULM: Chest clear. No wheezes or crackles. Adequate air entry. ABD: soft, nontender, nondistended, no organomegaly, normal bowel sounds CV: regular rate and rhythm, no murmurs EXT: warm and well perfused, 1+ edema, chronic venous stasis changes with no warmth NEURO: moving all extremities and normal sensation of extremities Objective Labs 08/19/22 05:20 08/19/22 05:20 Labs: Laboratory Results - last 24 hr 08/19/22 08/19/22 05:20 05:20 WBC 5.3 RBC 3.95 L Hgb 13.1 L Hct 38.0 L MCV 96.1 MCH 33.1 MCHC 34.5 RDW 13.6 Plt Count 119 L Neut % (Auto) 68.9 Lymph % (Auto) 17.8 L [place] % (Auto) 12.2 Eos % (Auto) 0.6 L Baso % (Auto) 0.5 Neut # (Auto) 3700 Lymph # (Auto) 900 L [place] # (Auto) 700 Eos # (Auto) 0 Baso # (Auto) 0 Sodium 135 L Potassium 3.9 Chloride 102 Carbon Dioxide 31 BUN 11 Creatinine 0.64 L Estimated GFR > 60 BUN/Creatinine Ratio 17.2 Glucose 103 Calcium 7.9 L Magnesium 1.9 Total Bilirubin 0.8 AST 42 ALT 34 Alkaline Phosphatase 47 Total Protein 5.8 L Albumin 2.9 L Globulin 2.9 Albumin/Globulin Ratio 1.0 [facility] Medical History Allergic rhinitis BPH (benign prostatic hyperplasia) BPH NOS w/o ur obs/LUTS Chronic anticoagulation Chronic low back pain Chronic, continuous use of opioids Coronary artery disease Do not resuscitate Essential hypertension High blood pressure Hydrocele Hypertrophy of breast Medicare annual wellness visit, initial Mixed hyperlipidemia Nocturia Peripheral arterial disease Peripheral vascular disease Polyneuropathy, unspecified Spinal stenosis, lumbar region without neurogenic claudication Umbilical hernia without obstruction or gangrene Venous (peripheral) insufficiency Surgical History History of back surgery S/P TURP Vasectomy status Social History household members: spouse Smoking Status: Never smoker alcohol intake: current Assessment & Plan Assessment & Plan narrative: 1. Pneumonia with corresponding Group B strep bacteremia causing sepsis and acute respiratory failure and acute metabolic encephalopathy and thrombocytopenia. Encephalopathy clearing and thrombocytopenia improving, continue to follow both. -improving today,? Continue 2 g IV ceftriaxone for Group B strep bacteremia. Will need 2 weeks of IV therapy from 1st negative culture, ordered today. -bilateral leg edema today, likely from fluids, DVT study negative. Start furosemide with improvement in BP today. Continue furosemide in his patient with normal renal function and normal potassium level. -wean from O2 as tolerated, goal O2 >90% - has been weaned to o2 sat of 94% room air. -labs are stable, WBC normal 2. Atrial fibrillation -continue eliquis, rate controlled 3. Peripheral neuropathy - on home home lyrica. It was held initially. 4. Hypertension -held anti-hypertensives due to sepsis, in favor of diuresis and on furosemide,?home lisinopril has been held. Due to the blood pressure today of 153/79 will initiate this. 5. Cough with expiratory wheezes.? Consistent with reactive airway associated with the patient's underlying pneumonia.? Patient possibly has underlying COPD as well and this is exacerbation.? Will treat with prednisone 40 mg daily for 5 days. This is benefitting patient's since chest is clear today. 6. Thrombocytopenia.? Continues to improve.? Platelets 119 today. CODE: DNR/DNI Dispo: Will need 2 weeks of IV antibiotics. Midline placed. Patient and spouse deciding between infusion clinic, home infusion, or SNF for remainder of antibiotic therapy.? Possible discharge in 1-2 days once confirmed community IV place established. Time Spent With Patient Critical Care time: I spent a total of [] minutes of critical care time on this patient's care today; this time is exclusive of procedural time. Quality VTE Deep Vein Thrombosis/Pulmonary Embolism Present on Admission: No
--- NOTE | 2022-08-19 12:47 | P.DS_ITS ---
History of Present Illness History of Present Illness Date Patient Seen: 08/19/22 Chief complaint: Altered Mental Status Discharge Providers Provider Date of admission: 08/14/22 21:18 Discharge Date: 08/19/22 Primary care physician: Pooja Oliver PA-C Consults: 08/14/22 22:28 Consult to Occupational Therapy Evaluate & Treat Comment: Physician Instructions: Evaluate and treat Consult to Physical Therapy Evaluate & Treat Comment: Physician Instructions: Evaluate and Treat Discharge provider: Susanna Jaime MD Summary Hospital Course Discharge Diagnosis: Pneumonia with corresponding Group B strep Bacteremia concern for sepsis Acute respiratory failure Acute metabolic encephalopathy Thrombocytopenia Bilateral leg edema Atrial fibrillation Peripheral neuropathy Hypertension Cough with expiratory wheezes Reactive airway Concern for underlying COPD as well as exacerbation Allergic rhinitis BPH (benign prostatic hyperplasia) Chronic anticoagulation Chronic low back pain Chronic, continuous use of opioids history Coronary artery disease Hydrocele Hypertrophy of breast Mixed hyperlipidemia Nocturia Peripheral vascular disease Polyneuropathy Spinal stenosis, lumbar region without neurogenic claudication Umbilical hernia without obstruction or gangrene Venous (peripheral) insufficiency Hospital Course: Mr. Hester is an 87M with PMH afib, peripheral neuropathy who presents to the hospital with confusion. Per history obtained by family the patient had been hav ing cough for the last few days. Today he was noted to be confused. He was fatigued. He has chronic lower extremity edema. He was hypoxemic in the 80s on room air per EMS In the ED workup was done, vitals notable for fever 102.7, hr 106, bp 150s/90s, sat in the 90s on 4L. Labs notable for WBC 9.1, hgb 14.3, plts 93, creatinine 0.76. Bili 2.7. Procal 0.75. Lactate 1.8. Trop 0.07. BNP 976. Chest xray notable for bilateral consolidations. He was given IV fluids and antibiotics and admitted for further treatment. Chest x-ray was consistent with bibasilar pneumonia and blood cultures were positive for strep agalactiae Group B. Patient was treated with ceftriaxone 2 g IV every day as well as azithromycin 500 mg for the 1st 3 days and ceftriaxone will be continued with outpatient treatment until the end of August 31, 2022. Patient did have problems with reactive airway wheezing and possibly an exacerbation of an underlying COPD, this is treated with oral prednisone for course totally 5 days 40 mg. The course was not finish at the time of discharge and will be continued as an outpatient. To help with blood pressure control and any component of pulmonary edema into wheezing, the patient was initiated on furosemide 40 mg daily and this will be continued on discharge. At the time of discharge patient was on his regular medication as well of losartan 100 mg daily. Status at Discharge Cognitive/behavioral status at discharge: oriented Functional status at discharge: independent ambulation Overall status at discharge: patient is progressing back to baseline Exam Vital Signs (past 8 hours): - 08/19/22 05:55 08/19/22 08:00 Temperature 96.8 F L Pulse Rate 57 L Respiratory Rate 22 Blood Pressure 152/92 H Pulse Oximetry 93 95 Oxygen Delivery Method Room Air Oxygen Flow Rate 0 0 Oxygen Delivery Method Room Air Oxygen Flow Rate 0 Narrative Exam Narrative: GEN: Alert, in no distress. HEENT: moist mucous membranes, PERRL NECK: trachea midlne, no jvd PULM:? Chest clear.? No wheezes or crackles.? Adequate air entry. ABD: soft, nontender, nondistended, no organomegaly, normal bowel sounds CV: regular rate and rhythm, no murmurs EXT: warm and well perfused, 1+ edema, chronic venous stasis changes with no warmth NEURO: moving all extremities and normal sensation of extremities Objective Labs 08/19/22 05:20 08/19/22 05:20 Labs: Laboratory Results - last 24 hr 08/19/22 08/19/22 05:20 05:20 WBC 5.3 RBC 3.95 L Hgb 13.1 L Hct 38.0 L MCV 96.1 MCH 33.1 MCHC 34.5 RDW 13.6 Plt Count 119 L Neut % (Auto) 68.9 Lymph % (Auto) 17.8 L [place] % (Auto) 12.2 Eos % (Auto) 0.6 L Baso % (Auto) 0.5 Neut # (Auto) 3700 Lymph # (Auto) 900 L [place] # (Auto) 700 Eos # (Auto) 0 Baso # (Auto) 0 Sodium 135 L Potassium 3.9 Chloride 102 Carbon Dioxide 31 BUN 11 Creatinine 0.64 L Estimated GFR > 60 BUN/Creatinine Ratio 17.2 Glucose 103 Calcium 7.9 L Magnesium 1.9 Total Bilirubin 0.8 AST 42 ALT 34 Alkaline Phosphatase 47 Total Protein 5.8 L Albumin 2.9 L Globulin 2.9 Albumin/Globulin Ratio 1.0 PFSH Medical History Allergic rhinitis BPH (benign prostatic hyperplasia) BPH NOS w/o ur obs/LUTS Chronic anticoagulation Chronic low back pain Chronic, continuous use of opioids Coronary artery disease Do not resuscitate Essential hypertension High blood pressure Hydrocele Hypertrophy of breast Medicare annual wellness visit, initial Mixed hyperlipidemia Nocturia Peripheral arterial disease Peripheral vascular disease Polyneuropathy, unspecified Spinal stenosis, lumbar region without neurogenic claudication Umbilical hernia without obstruction or gangrene Venous (peripheral) insufficiency Surgical History History of back surgery S/P TURP Vasectomy status Social History household members: spouse Smoking Status: Never smoker alcohol intake: current Discharge Plan Discharge Plan Patient Disposition: Home Provider Discharge Comment: Patient has been set up for outpatient IV antibiotics of ceftriaxone 2 g daily and this should continue through the end of August 31, 2022. Discharge orders & Medications Prescriptions: New furosemide 40 mg Tablet 40 mg PO DAILY Qty: 30 0RF losartan 50 mg Tablet 100 mg PO DAILY Qty: 30 0RF Continued pregabalin [Lyrica] 200 MG capsule 200 mg PO BID Qty: 28 0RF rosuvastatin [Crestor] 5 mg Tablet 5 mg PO DAILY Eliquis 5 mg Tablet 5 mg PO BID Qty: 60 0RF losartan 100 mg Tablet 100 mg PO DAILY nitroglycerin 0.4 mg tablet, sublingual 0.4 mg SL Q5M PRN (Reason: Chest Pain) Rx Instructions: do not exceed 3 doses per episode Follow up/Referrals: Pooja Oliver PA-C [Primary Care Provider] - Visit Report/Discharge Packet Stand Alone Forms: Patient Portal/API, Stroke Signs & Symptoms Discharge Data Primary Care Provider: Pooja Oliver Quality VTE Deep Vein Thrombosis/Pulmonary Embolism Present on Admission: No
[2022-08-19 14:19] VITALS: BP 152/92
[2022-08-19] MEDS: LOSARTAN 50 MG TABLET 100 MG PO (14:19)
== END 2022-08-19 14:35 | disposition home or self-care (01) | DRG 871 ==
LOC: ED 20:17 → AC 21:19
PROVIDERS: Emergency Medicine; Internal Medicine; Admitting Provider Internal Medicine; Emergency Provider Emergency Medicine; Family Provider Internal Medicine; PCP Student in an Organized Health Care Education/Training Program; Referring Provider Emergency Medicine; Visit Provider Internal Medicine
DX: A41.9 Sepsis, unspecified organism (principal); G93.41 Metabolic encephalopathy; J18.9 Pneumonia, unspecified organism; J96.00 Acute respiratory failure, unspecified whether with hypoxia or hypercapnia; J44.1 Chronic obstructive pulmonary disease with (acute) exacerbation; I48.91 Unspecified atrial fibrillation; G62.9 Polyneuropathy, unspecified; I10 Essential (primary) hypertension; D69.6 Thrombocytopenia, unspecified; B95.1 Streptococcus, group B, as the cause of diseases classified elsewhere; Z66 Do not resuscitate; Z79.01 Long term (current) use of anticoagulants; Z20.822 Contact with and (suspected) exposure to COVID-19
CPT/HCPCS: 36415; 36592; 36600; 71045; 80053; 82550; 82553; 82805; 83605; 83690; 83735; 83880; 84145; 84484; 85025; 85610; 85730; 87040; 87077; 87147; 87150; 87186; 87633; 93005; 93970; 94760; 96365; 96367; 97116; 97161; 97166; 97530; 97535; 99285; J0696; J1642

== ENCOUNTER → 2022-09-02 13:01 | Outpatient (CLI) | payer OTHER, SELFPAY ==
[2022-08-14 22:19] VITALS: BMI 32.7
--- NOTE | 2022-09-02 | DI.RAD.S_ITS ---
PROCEDURE: XR CHEST 2V INDICATIONS: Pneumonia due to streptococcus, group B TECHNIQUE: 2 views of the chest were acquired. COMPARISON: [facility], CR, XR CHEST 1V, 04/24/2022, 13:15. [facility], CR, XR CHEST 1V, 08/14/2022, 16:17. FINDINGS: Surgical changes and devices: None. Lungs and pleura: Decreased bibasilar infiltrate. There is small left pleural effusion.. No pneumothorax. Mediastinum: Mediastinal contours are normal. Heart size is normal. Bones and chest wall: Lower cervical spine fusion. There is right shoulder arthroplasty. No suspicious bony abnormalities. Soft tissues appear unremarkable. IMPRESSION: 1. Decreased bibasilar infiltrates. 2. Small left pleural effusion. Dictated by: Lupe Gan M.D. on 09/02/2022 at 14:52 Approved by: Lupe Gan M.D. on 09/02/2022 at 14:54
== END ==
PROVIDERS: Family Provider Internal Medicine; PCP Student in an Organized Health Care Education/Training Program; Referring Provider Student in an Organized Health Care Education/Training Program; Visit Provider Student in an Organized Health Care Education/Training Program
DX: J15.3 Pneumonia due to streptococcus, group B (principal); R78.81 Bacteremia; J90 Pleural effusion, not elsewhere classified
CPT/HCPCS: 36415; 71046; 80048; 85025

== ENCOUNTER → 2022-09-02 13:06 | Outpatient (CLI) | payer OTHER, SELFPAY ==
[2022-08-14 22:19] VITALS: BMI 32.7
[2022-09-02 13:34] LABS: Add Manual Diff / Slide Review NO; Basophils Absolute Auto 0 /uL (0-100); Basophils Percent Auto 0.5 % (0-2); Eosinophils Absolute Auto 200 /uL (0-450); Eosinophils Percent Auto 3.8 % (2-4); Hematocrit 40.5 % (41-53); Hemoglobin 13.5 g/dL (13.5-17.5); Lymphocytes Absolute Auto 1300 /uL (1100-4500); Lymphocytes Percent Auto 31.8 % (25-40); Mean Corpuscular HGB Conc 33.3 % (30-36); Mean Corpuscular Hemoglobin 32.3 PG (26-34); Mean Corpuscular Volume 97.1 fL (80-100); Monocytes Absolute Auto 600 /uL (0-900); Monocytes Percent Auto 14.5 % (3-14); Neutrophils Absolute Auto 2100 /uL (1500-7000); Neutrophils Percent Auto 49.4 % (50-75); Platelet Count 128 X10^3/uL (150-400); Red Blood Cell Count 4.17 X10^6/uL (4.5-5.9); Red Cell Distribution Width 13.4 % (11.6-14.8); White Blood Cell Count 4.2 X10^3/uL (4.5-11.0)
[2022-09-02 13:39] LABS: BUN Creatinine Ratio 22.2 (6-22); Blood Urea Nitrogen 16 mg/dL (9-20); Calcium 8.5 mg/dL (8.4-10.2); Carbon Dioxide 33 mmol/L (22-32); Chloride 103 mmol/L (98-107); Estimated Glomerular Filt Rate > 60 mL/min (>60); Glucose 95 mg/dL (80-110); HEMOLYSIS 23 (0-50); Potassium 4.8 mmol/L (3.4-5.1); Sodium 140 mmol/L (137-145)
== END ==
PROVIDERS: Family Provider Internal Medicine; PCP Student in an Organized Health Care Education/Training Program; Referring Provider Neuromusculoskeletal Medicine, Sports Medicine; Visit Provider Neuromusculoskeletal Medicine, Sports Medicine
DX: J18.9 Pneumonia, unspecified organism (principal); R78.81 Bacteremia
CPT/HCPCS: 36415; 80048; 85025

== ENCOUNTER → 2022-09-09 09:11 | Outpatient (CLI) | payer OTHER, SELFPAY ==
[2022-08-14 22:19] VITALS: BMI 32.7
[2022-09-09 09:57] LABS: Add Manual Diff / Slide Review NO; Basophils Absolute Auto 0 /uL (0-100); Basophils Percent Auto 1.2 % (0-2); Eosinophils Absolute Auto 200 /uL (0-450); Eosinophils Percent Auto 6.5 % (2-4); Hematocrit 38.9 % (41-53); Hemoglobin 13.4 g/dL (13.5-17.5); Lymphocytes Absolute Auto 1700 /uL (1100-4500); Lymphocytes Percent Auto 43.8 % (25-40); Mean Corpuscular HGB Conc 34.4 % (30-36); Mean Corpuscular Hemoglobin 33.1 PG (26-34); Mean Corpuscular Volume 96.3 fL (80-100); Monocytes Absolute Auto 600 /uL (0-900); Monocytes Percent Auto 16.4 % (3-14); Neutrophils Absolute Auto 1200 /uL (1500-7000); Neutrophils Percent Auto 32.1 % (50-75); Platelet Count 118 X10^3/uL (150-400); Red Blood Cell Count 4.04 X10^6/uL (4.5-5.9); Red Cell Distribution Width 13.4 % (11.6-14.8); White Blood Cell Count 3.8 X10^3/uL (4.5-11.0)
[2022-09-09 11:01] LABS: BUN Creatinine Ratio 16.8 (6-22); Blood Urea Nitrogen 16 mg/dL (9-20); Calcium 8.5 mg/dL (8.4-10.2); Carbon Dioxide 35 mmol/L (22-32); Chloride 100 mmol/L (98-107); Estimated Glomerular Filt Rate > 60 mL/min (>60); Glucose 81 mg/dL (80-110); HEMOLYSIS < 15 (0-50); Potassium 4.3 mmol/L (3.4-5.1); Sodium 139 mmol/L (137-145)
== END ==
PROVIDERS: Family Provider Internal Medicine; PCP Student in an Organized Health Care Education/Training Program; Referring Provider Neuromusculoskeletal Medicine, Sports Medicine; Visit Provider Neuromusculoskeletal Medicine, Sports Medicine
DX: J18.9 Pneumonia, unspecified organism (principal); R78.81 Bacteremia
CPT/HCPCS: 36415; 80048; 85025

== ENCOUNTER 2022-11-22 17:16 | Inpatient (IN) | payer OTHER, SELFPAY ==
[2022-08-14 22:19] VITALS: BMI 32.7
[2022-11-22] VITALS (17 sets, daily range): BP systolic 102–161; BP diastolic 59–82; PULSE 52–77; RESP 15–29; TEMP 36.4–36.8; O2SAT 92–96; BMI 23.5; BMI 25.1
--- NOTE | 2022-11-22 17:58 | DI.RAD.S_ITS ---
PROCEDURE: XR CHEST 1V INDICATIONS: suspected sepsis TECHNIQUE: One view of the chest was acquired. COMPARISON: [facility], CR, XR CHEST 1V, 04/24/2022, 13:15. [facility], CR, XR CHEST 1V, 08/14/2022, 16:17. [facility], CR, XR CHEST 2V, 09/02/2022, 13:31. FINDINGS: Surgical changes and devices: Cervical spine fixation hardware is partially seen. There is right shoulder arthroplasty hardware. Thoracic spine stimulator leads are seen. Lungs and pleura: On this semiupright portable chest examination, no large pneumothorax or large pleural effusions are seen. No focal infiltrates are seen. Mediastinum: The cardiac contours are at the upper limits of normal. The aorta demonstrates calcification and tortuosity. Bones and chest wall: No suspicious bony lesions. Age-appropriate bony degenerative changes are seen. Overlying soft tissues appear unremarkable. IMPRESSION: No haley focal infiltrates are seen. Heart size at the upper limits of normal. Postoperative and degenerative changes are seen. Dictated by: Art Herzog M.D. on 11/22/2022 at 17:36 Approved by: Art Herzog M.D. on 11/22/2022 at 17:39
--- NOTE | 2022-11-22 18:20 | ED_ITS ---
HPI - General Adult General Chief complaint: Weakness Stated complaint: Legs giving out, Nosebleed Time Seen by Provider: 11/22/22 18:07 Source: patient and family Mode of arrival: Wheelchair History of Present Illness HPI narrative: 87-year-old gentleman who was discharged from the hospital in August of this year with a stay for group B strep pneumonia with bacteremia and sepsis, acute respiratory failure, history of atrial fibrillation, hypertension, congestive heart failure, COPD and chronic lower extremity edema presents with complaints home with fever to 104 ? yesterday increasing fatigue with 2 falls today secondary to ?legs just giving out?. Incidentally noted to also have episode of epistaxis lasting approximately 30 minutes, currently anticoagulated on Eliquis, self-resolved. He notes that he has chronic hoarseness secondary to his chronic cough. He also has lower extremity swelling intermittent typically not symmet rical. Related Data Home Medications Medication Instructions Recorded Confirmed nitroglycerin 0.4 mg sublingual 0.4 mg sublingual Q5M PRN Chest 04/05/20 08/14/22 tablet Pain rosuvastatin 5 mg tablet (Crestor) 5 mg PO DAILY 01/25/22 08/14/22 losartan 100 mg tablet 100 mg PO DAILY 08/19/22 11/22/22 Previous Rx's Medication Instructions Recorded pregabalin 200 mg capsule (Lyrica) 200 mg PO BID #28 caps 10/12/16 apixaban 5 mg tablet (Eliquis) 5 mg PO BID #60 tabs 01/26/22 furosemide 40 mg tablet 40 mg PO DAILY #30 tabs 08/19/22 losartan 50 mg tablet 100 mg PO DAILY #30 tabs 08/19/22 Allergies Allergy/AdvReac Type Severity Reaction Status Date / Time niacin [NIACIN] Allergy Unknown Verified 11/22/22 17:50 Review of Systems Review of Systems Narrative: Pertinent positive and negative findings as per HPI Patient History Medical History Allergic rhinitis BPH (benign prostatic hyperplasia) BPH NOS w/o ur obs/LUTS Chronic anticoagulation Chronic low back pain Chronic, continuous use of opioids Coronary artery disease Do not resuscitate Essential hypertension High blood pressure Hydrocele Hypertrophy of breast Medicare annual wellness visit, initial Mixed hyperlipidemia Nocturia Peripheral arterial disease Peripheral vascular disease Polyneuropathy, unspecified Spinal stenosis, lumbar region without neurogenic claudication Umbilical hernia without obstruction or gangrene Venous (peripheral) insufficiency Surgical History History of back surgery S/P TURP Vasectomy status Social History household members: spouse Smoking Status: Never smoker alcohol intake: current Smoking Status: Never smoker alcohol intake frequency: 0-2 drinks per day Substance Use Type: does not use Exam Initial Vital Signs Initial Vital Signs: Vital Signs Temperature 98.3 F 11/22/22 17:42 Pulse Rate 72 11/22/22 17:42 Respiratory Rate 16 11/22/22 17:42 Blood Pressure 137/78 11/22/22 17:42 Pulse Oximetry 95 11/22/22 17:42 Oxygen Delivery Method Room Air 11/22/22 17:42 General: Older appearing, fatigued able to participate fully with physical exam HEENT: Moist mucous membranes, normal sclera with reactive pupils, Neck: No JVD, supple, Respiratory: Lungs are clear to auscultation, no wheezing no rales no rhonchi. Full and symmetrical air movement, no respiratory distress Cardiac: Regular rate and rhythm no murmurs no bruits Abdomen: Soft, nontender, good bowel tones, no flank pain Skin: Warm and dry, no rashes, skin is warm to the touch suggesting fever is increasing again Neurologic: Globally weak but otherwise Grossly neurologically intact with no obvious asymmetries or abnormalities Extremities: No trauma, right lower extremity significantly more swollen than left. Patient feels that this is close to his baseline. He does have bilateral chronic venous stasis changes. Psych: Cooperative, appropriate insight and affect Course Orders Ordered: Acetaminophen (Acetaminophen 325 Mg Tablet) 975 mg PO Q6H PRN PRN Reason: Fever/Mild Pain 1-5 Hydrocodone Bitart/Acetaminophen (Hydrocodone/Acet 5/325 Tablet) 2 tab PO Q4H PRN PRN Reason: Pain, Severe (5-10) Al Hydrox/Mg Hydrox/Simethicone (Mag Hydrox/Alum/Simeth 30 Ml Udc) 30 ml PO Q6HR PRN PRN Reason: Dyspepsia Apixaban (Apixaban 5 Mg Tablet) 5 mg PO BID [facility] Atorvastatin Calcium (Atorvastatin 20 Mg Tablet) 10 mg PO DAILY DEACON Calcium Carbonate (Calcium Carbonate 500 Mg Tab) 1,000 mg PO Q4HR PRN PRN Reason: Dyspepsia Sodium Chloride (Normal Saline 0.9%) 1,000 mls @ 84 mls/hr IV CONT [facility] Last Admin: 11/22/22 21:54 Dose: 84 mls/hr Documented By: Cefepime HCl 1 gm/ Sodium (Chloride) 100 mls @ 200 mls/hr IV Q12H [facility] Last Admin: 11/23/22 03:24 Dose: 200 mls/hr Documented By: Vancomycin HCl/Dextrose (Vancomycin) 1,500 mg in 300 mls @ 200 mls/hr IV Q18H [facility] Naloxone HCl (Naloxone 0.4 Mg/Ml Vial) 0.2 mg IV Q2MIN PRN PRN Reason: Opiate Reversal Ondansetron HCl (Ondansetron 4 Mg/2 Ml Inj) 4 mg IV NOW PRN PRN Reason: Nausea And Vomiting Ondansetron HCl (Ondansetron 4 Mg Odt) 4 mg SL NOW PRN PRN Reason: Nausea And Vomiting Ondansetron HCl (Ondansetron 4 Mg Odt) 4 mg PO Q4HR PRN PRN Reason: Nausea And Vomiting Pregabalin (Pregabalin 50 Mg Capsule) 200 mg PO BID [facility] Last Admin: 11/22/22 23:25 Dose: 200 mg Documented By: VALERIA Sennosides (Sennosides 8.6 Mg Tablet) 17.2 mg PO BEDTIME [facility] Vancomycin HCl (Vancomycin Per Pharmacy) 1 request MISC NOW ONE Stop: 11/23/22 02:03 Discontinued Medications Acetaminophen (Acetaminophen 325 Mg Tablet) 975 mg PO NOW ONE Stop: 11/22/22 18:41 Last Admin: 11/22/22 19:01 Dose: 975 mg Documented By: KATHY Sodium Chloride (Normal Saline 0.9%) 1,000 mls @ 1,000 mls/hr IV BOLUS ONE Stop: 11/22/22 18:55 Last Infusion: 11/22/22 19:37 Dose: 0 mls/hr Documented By: Admin: 11/22/22 18:37 Dose: 1,000 mls/hr Documented By: KATHY Ceftriaxone Sodium 2,000 mg/ (Sodium Chloride) 100 mls @ 200 mls/hr IV NOW ONE Stop: 11/22/22 18:37 Last Infusion: 11/22/22 19:36 Dose: 0 mls/hr Documented By: Admin: 11/22/22 19:01 Dose: 200 mls/hr Documented By: KATHY Sodium Chloride (Normal Saline 0.9%) 500 mls @ 1,000 mls/hr IV BOLUS ONE Stop: 11/22/22 21:39 Last Admin: 11/22/22 21:54 Dose: Not Given Documented By: Ceftriaxone Sodium 1,000 mg/ (Sodium Chloride) 100 mls @ 200 mls/hr IV Q24H [facility] Vancomycin HCl/Dextrose (Vancomycin) 2,000 mg in 400 mls @ 200 mls/hr IV Q24H [facility] Stop: 11/23/22 05:14 Last Admin: 11/23/22 03:44 Dose: 200 mls/hr Documented By: Vital Signs Vital signs: Vital Signs - 8 hr 11/22/22 17:42 11/22/22 18:23 11/22/22 18:25 Temperature 98.3 F Pulse Rate 72 66 Respiratory Rate 16 15 Blood Pressure 137/78 153/79 H Pulse Oximetry 95 93 Oxygen Delivery Method Room Air 11/22/22 18:30 11/22/22 18:30 11/22/22 19:00 Temperature Pulse Rate 72 77 Respiratory Rate 20 18 Blood Pressure 161/82 H Pulse Oximetry 93 93 Oxygen Delivery Method 11/22/22 19:30 11/22/22 19:30 11/22/22 20:00 Temperature Pulse Rate 70 77 Respiratory Rate 19 22 Blood Pressure 136/75 Pulse Oximetry 94 94 Oxygen Delivery Method Medical Decision Making Lab Data 11/23/22 04:10 11/23/22 04:10 Labs: Lab Results 11/22/22 11/22/22 11/22/22 Range/Units 18:15 18:25 18:25 WBC 9.3 (4.5-11.0) X10^3/uL RBC 4.17 L (4.5-5.9) X10^6/uL Hgb 13.9 (13.5-17.5) g/dL Hct 40.5 L (41-53) % MCV 97.3 (80-100) fL MCH 33.4 (26-34) PG MCHC 34.4 (30-36) % RDW 14.9 H (11.6-14.8) % Plt Count 91 L (150-400) X10^3/uL Neut % (Auto) 88.5 H (50-75) % Lymph % (Auto) 5.8 L (25-40) % [place] % (Auto) 5.3 (3-14) % Eos % (Auto) 0.0 L (2-4) % Baso % (Auto) 0.4 (0-2) % Neut # (Auto) 8200 H (0104-8278) /uL Lymph # (Auto) 500 L (1844-4406) /uL [place] # (Auto) 500 (0-900) /uL Eos # (Auto) 0 (0-450) /uL Baso # (Auto) 0 (0-100) /uL PT 26.4 H (10.1-12.7) SECONDS INR 2.3 H (0.9-1.3) APTT 40 H (26-36) SECONDS D-Dimer (<500) ng/ml Sodium (137-145) mmol/L Potassium (3.4-5.1) mmol/L Chloride (98-107) mmol/L Carbon Dioxide (22-32) mmol/L BUN (9-20) mg/dL Creatinine (0.66-1.25) mg/dL Estimated GFR (>60) mL/min BUN/Creatinine Ratio (6-22) Glucose (80-110) mg/dL Lactate (0.7-2.1) mmol/L Calcium (8.4-10.2) mg/dL Magnesium (1.6-2.3) mg/dL Total Bilirubin (0.2-1.3) mg/dL AST (17-59) IU/L ALT (<50) IU/L Alkaline Phosphatase (38-126) U/L C-Reactive Protein (<1.0) mg/dL NT-Pro-B Natriuret Pep (<450) pg/mL Total Protein (6.3-8.2) g/dL Albumin (3.5-5.0) g/dL Globulin (1.7-4.1) g/dL Albumin/Globulin Ratio (1.0-2.8) Lipase (23-300) U/L Procalcitonin (<0.5) ng/mL Urine RBC (0-5/HPF) Urine WBC (0-5/HPF) Ur Squamous Epith Cells (0-5/HPF) Urine Bacteria (None) Ur Culture Indicated? Micro UA Comment Chlamy pneumoniae PCR (Not Detect) Adenovirus (PCR) (Not Detect) B. pertussis DNA (PCR) (Not Detecte) B.parapertussis DNA PCR (Not Detecte) Coronavirus OC43 (PCR) (Not Detect) Coronavirus HKU1 (PCR) (Not Detect) Coronavirus 229E (PCR) (Not Detect) SARS-CoV-2 (PCR) Negative (Negative) Coronavirus NL63 (PCR) (Not Detect) Human Metapneumovir PCR (Not Detect) Influenza Type A (PCR) (Not Detect) Influenza Type B (PCR) (Not Detect) M. pneumoniae (PCR) (Not Detect) Parainfluenza 1 (PCR) (Not Detect) Parainfluenza 2 (PCR) (Not Detect) Parainfluenza 3 (PCR) (Not Detect) Parainfluenza 4 (PCR) (Not Detect) RSV (PCR) (Not Detect) Entero/Rhino (PCR) (Not Detect) 11/22/22 11/22/22 11/22/22 Range/Units 18:25 18:25 18:25 WBC (4.5-11.0) X10^3/uL RBC (4.5-5.9) X10^6/uL Hgb (13.5-17.5) g/dL Hct (41-53) % MCV (80-100) fL MCH (26-34) PG MCHC (30-36) % RDW (11.6-14.8) % Plt Count (150-400) X10^3/uL Neut % (Auto) (50-75) % Lymph % (Auto) (25-40) % [place] % (Auto) (3-14) % Eos % (Auto) (2-4) % Baso % (Auto) (0-2) % Neut # (Auto) (5563-0758) /uL Lymph # (Auto) (2611-9553) /uL [place] # (Auto) (0-900) /uL Eos # (Auto) (0-450) /uL Baso # (Auto) (0-100) /uL PT (10.1-12.7) SECONDS INR (0.9-1.3) APTT (26-36) SECONDS D-Dimer 678 H (<500) ng/ml Sodium 131 L (137-145) mmol/L Potassium 3.8 (3.4-5.1) mmol/L Chloride 96 L (98-107) mmol/L Carbon Dioxide 30 (22-32) mmol/L BUN 26 H (9-20) mg/dL Creatinine 1.05 (0.66-1.25) mg/dL Estimated GFR > 60 (>60) mL/min BUN/Creatinine Ratio 24.8 H (6-22) Glucose 97 (80-110) mg/dL Lactate 1.4 (0.7-2.1) mmol/L Calcium 8.3 L (8.4-10.2) mg/dL Magnesium (1.6-2.3) mg/dL Total Bilirubin 1.8 H (0.2-1.3) mg/dL AST 42 (17-59) IU/L ALT 29 (<50) IU/L Alkaline Phosphatase 42 (38-126) U/L C-Reactive Protein (<1.0) mg/dL NT-Pro-B Natriuret Pep (<450) pg/mL Total Protein 6.7 (6.3-8.2) g/dL Albumin 3.6 (3.5-5.0) g/dL Globulin 3.1 (1.7-4.1) g/dL Albumin/Globulin Ratio 1.2 (1.0-2.8) Lipase 63 (23-300) U/L Procalcitonin 13.7 H (<0.5) ng/mL Urine RBC (0-5/HPF) Urine WBC (0-5/HPF) Ur Squamous Epith Cells (0-5/HPF) Urine Bacteria (None) Ur Culture Indicated? Micro UA Comment Chlamy pneumoniae PCR (Not Detect) Adenovirus (PCR) (Not Detect) B. pertussis DNA (PCR) (Not Detecte) B.parapertussis DNA PCR (Not Detecte) Coronavirus OC43 (PCR) (Not Detect) Coronavirus HKU1 (PCR) (Not Detect) Coronavirus 229E (PCR) (Not Detect) SARS-CoV-2 (PCR) (Negative) Coronavirus NL63 (PCR) (Not Detect) Human Metapneumovir PCR (Not Detect) Influenza Type A (PCR) (Not Detect) Influenza Type B (PCR) (Not Detect) M. pneumoniae (PCR) (Not Detect) Parainfluenza 1 (PCR) (Not Detect) Parainfluenza 2 (PCR) (Not Detect) Parainfluenza 3 (PCR) (Not Detect) Parainfluenza 4 (PCR) (Not Detect) RSV (PCR) (Not Detect) Entero/Rhino (PCR) (Not Detect) 11/22/22 11/22/22 11/22/22 Range/Units 18:25 18:25 18:25 WBC (4.5-11.0) X10^3/uL RBC (4.5-5.9) X10^6/uL Hgb (13.5-17.5) g/dL Hct (41-53) % MCV (80-100) fL MCH (26-34) PG MCHC (30-36) % RDW (11.6-14.8) % Plt Count (150-400) X10^3/uL Neut % (Auto) (50-75) % Lymph % (Auto) (25-40) % [place] % (Auto) (3-14) % Eos % (Auto) (2-4) % Baso % (Auto) (0-2) % Neut # (Auto) (7389-4239) /uL Lymph # (Auto) (9107-1449) /uL [place] # (Auto) (0-900) /uL Eos # (Auto) (0-450) /uL Baso # (Auto) (0-100) /uL PT (10.1-12.7) SECONDS INR (0.9-1.3) APTT (26-36) SECONDS D-Dimer (<500) ng/ml Sodium (137-145) mmol/L Potassium (3.4-5.1) mmol/L Chloride (98-107) mmol/L Carbon Dioxide (22-32) mmol/L BUN (9-20) mg/dL Creatinine (0.66-1.25) mg/dL Estimated GFR (>60) mL/min BUN/Creatinine Ratio (6-22) Glucose (80-110) mg/dL Lactate (0.7-2.1) mmol/L Calcium (8.4-10.2) mg/dL Magnesium 2.1 (1.6-2.3) mg/dL Total Bilirubin (0.2-1.3) mg/dL AST (17-59) IU/L ALT (<50) IU/L Alkaline Phosphatase (38-126) U/L C-Reactive Protein 15.9 H (<1.0) mg/dL NT-Pro-B Natriuret Pep 2360 H (<450) pg/mL Total Protein (6.3-8.2) g/dL Albumin (3.5-5.0) g/dL Globulin (1.7-4.1) g/dL Albumin/Globulin Ratio (1.0-2.8) Lipase (23-300) U/L Procalcitonin (<0.5) ng/mL Urine RBC (0-5/HPF) Urine WBC (0-5/HPF) Ur Squamous Epith Cells (0-5/HPF) Urine Bacteria (None) Ur Culture Indicated? Micro UA Comment Chlamy pneumoniae PCR (Not Detect) Adenovirus (PCR) (Not Detect) B. pertussis DNA (PCR) (Not Detecte) B.parapertussis DNA PCR (Not Detecte) Coronavirus OC43 (PCR) (Not Detect) Coronavirus HKU1 (PCR) (Not Detect) Coronavirus 229E (PCR) (Not Detect) SARS-CoV-2 (PCR) (Negative) Coronavirus NL63 (PCR) (Not Detect) Human Metapneumovir PCR (Not Detect) Influenza Type A (PCR) (Not Detect) Influenza Type B (PCR) (Not Detect) M. pneumoniae (PCR) (Not Detect) Parainfluenza 1 (PCR) (Not Detect) Parainfluenza 2 (PCR) (Not Detect) Parainfluenza 3 (PCR) (Not Detect) Parainfluenza 4 (PCR) (Not Detect) RSV (PCR) (Not Detect) Entero/Rhino (PCR) (Not Detect) 11/22/22 11/22/22 Range/Units 19:06 19:22 WBC (4.5-11.0) X10^3/uL RBC (4.5-5.9) X10^6/uL Hgb (13.5-17.5) g/dL Hct (41-53) % MCV (80-100) fL MCH (26-34) PG MCHC (30-36) % RDW (11.6-14.8) % Plt Count (150-400) X10^3/uL Neut % (Auto) (50-75) % Lymph % (Auto) (25-40) % [place] % (Auto) (3-14) % Eos % (Auto) (2-4) % Baso % (Auto) (0-2) % Neut # (Auto) (1115-0349) /uL Lymph # (Auto) (3103-5058) /uL [place] # (Auto) (0-900) /uL Eos # (Auto) (0-450) /uL Baso # (Auto) (0-100) /uL PT (10.1-12.7) SECONDS INR (0.9-1.3) APTT (26-36) SECONDS D-Dimer (<500) ng/ml Sodium (137-145) mmol/L Potassium (3.4-5.1) mmol/L Chloride (98-107) mmol/L Carbon Dioxide (22-32) mmol/L BUN (9-20) mg/dL Creatinine (0.66-1.25) mg/dL Estimated GFR (>60) mL/min BUN/Creatinine Ratio (6-22) Glucose (80-110) mg/dL Lactate (0.7-2.1) mmol/L Calcium (8.4-10.2) mg/dL Magnesium (1.6-2.3) mg/dL Total Bilirubin (0.2-1.3) mg/dL AST (17-59) IU/L ALT (<50) IU/L Alkaline Phosphatase (38-126) U/L C-Reactive Protein (<1.0) mg/dL NT-Pro-B Natriuret Pep (<450) pg/mL Total Protein (6.3-8.2) g/dL Albumin (3.5-5.0) g/dL Globulin (1.7-4.1) g/dL Albumin/Globulin Ratio (1.0-2.8) Lipase (23-300) U/L Procalcitonin (<0.5) ng/mL Urine RBC 0-1/hpf (0-5/HPF) Urine WBC 0-1/hpf (0-5/HPF) Ur Squamous Epith Cells 1-5 /hpf (0-5/HPF) Urine Bacteria Occasional (0-1) (None) Ur Culture Indicated? Cult not indicated Micro UA Comment Chlamy pneumoniae PCR Not detected (Not Detect) Adenovirus (PCR) Not detected (Not Detect) B. pertussis DNA (PCR) Not detected (Not Detecte) B.parapertussis DNA PCR Not detected (Not Detecte) Coronavirus OC43 (PCR) Not detected (Not Detect) Coronavirus HKU1 (PCR) Not detected (Not Detect) Coronavirus 229E (PCR) Not detected (Not Detect) SARS-CoV-2 (PCR) Not detected (Negative) Coronavirus NL63 (PCR) Not detected (Not Detect) Human Metapneumovir PCR Not detected (Not Detect) Influenza Type A (PCR) Not detected (Not Detect) Influenza Type B (PCR) Not detected (Not Detect) M. pneumoniae (PCR) Not detected (Not Detect) Parainfluenza 1 (PCR) Not detected (Not Detect) Parainfluenza 2 (PCR) Not detected (Not Detect) Parainfluenza 3 (PCR) Not detected (Not Detect) Parainfluenza 4 (PCR) Not detected (Not Detect) RSV (PCR) Not detected (Not Detect) Entero/Rhino (PCR) Not detected (Not Detect) Urine Dip Bedside Urine Glucose Negative Bedside Urine Bilirubin - Negative Bedside Urine Ketone - Negative Urine Specific [place] 1.025 Bedside Urine Occult Blood ++ Bedside Urine pH 6.0 Bedside Urine Protein + 30 Bedside Urine Urobilinogen - Negative Bedside Urine Nitrite - Negative Bedside Urine Leukocytes - Negative Esterase Point of care testing: Urine Dip Bedside Urine Glucose Negative Bedside Urine Bilirubin - Negative Bedside Urine Ketone - Negative Urine Specific [place] 1.025 Bedside Urine Occult Blood ++ Bedside Urine pH 6.0 Bedside Urine Protein + 30 Bedside Urine Urobilinogen - Negative Bedside Urine Nitrite - Negative Bedside Urine Leukocytes - Negative Esterase MDM Narrative Medical decision making narrative: CC: Fever to 104? within the last 24 hours with increasing weakness and 2 falls today. Complicating co-morbidities: Admitted with group B strep bacteremia in August, congestive heart failure, atrial fib flutter anticoagulated Data collected from: patient, Social determinants of health that may influence the patients condition: Age Medical records reviewed: Hospital admission from August of 2022 in January of 2022 are both reviewed Differential considered: Bacteremia, sepsis, viral syndrome, pneumonia, urinary tract infection, pulmonary embolism, DVT, acute coronary syndrome Exam documented above, pertinent findings include: Globally weak but exam is otherwise fairly benign. His right leg is significantly more swollen than the l eft but he feels that this is close to his baseline. He is not altered. His skin is warm to the touch. Lab Test results independently reviewed as above. Pertinent findings: CBC has a white count of 9.3 which is moderately higher than his baseline and associated with a left shift of 88.5. Mild thrombocytopenia that appears to be chronic. No acute anemia. INR is elevated at 2.3 D-dimer is 678 which is within normal range when corrected for age Chemistries are reassuring. Calcium is slightly low but appears at his baseline. Total bilirubin is slightly elevated which is similar to his prior presentation with bacteremia no other liver studies are abnormal ProBNP is elevated at 2360. Procalcitonin is significantly elevated at 13.7. Independently reviewed EKG shows chronic atrial fibrillation at a rate of 69. No significant ischemic changes. Leftward axis. Imaging studies independently reviewed: Chest x-ray shows no significant abnormalities or consolidated findings. Consultations: Hospitalist at 8:38pm, will admit Treatments: Patient is given Zofran, a L of fluid, started on ceftriaxone and given a g of Tylenol. Re-evaluations:830pm patient feels like he did when he came in. He is having no new findings. Blood pressure seems to be trending down slightly. It is curr ently 110/66 and this is after a L of fluid. Discussion: 87-year-old gentleman with fever to 104 yesterday and global weakness to the point that he is had 2 falls today. I am concerned for develo ping bacteremia. He is not currently meeting any criteria for sepsis. There is no respiratory distress, no pneumonia, no cellulitis, no evidence of altered mental status or concerns for meningitis, is minimal symptoms for congestive heart failure but will need to follow this closely as gentle rehydration continues due to concerns for blood pressure. Based on recent hospitalization with group B strep bacteremia he is started on ceftriaxone. Discussed with the hospital service. Patient and his were informed of concerns and reason for admission. Patient will be admitted for further evaluation of presumed bacteremia Discharge Plan Departure Patient Disposition: Admitted As Inpatient Clinical Impression: Bacteremia, Weakness Fall Qualifiers: Encounter type: initial encounter Qualified Code(s): W19.XXXA - Unspecified fall, initial encounter Admit Date/Time: 11/22/22 20:52 Admit Provider: Molly Stuart
[2022-11-22 18:32] LABS: Add Manual Diff / Slide Review NO; Basophils Absolute Auto 0 /uL (0-100); Basophils Percent Auto 0.4 % (0-2); Eosinophils Absolute Auto 0 /uL (0-450); Hematocrit 40.5 % (41-53); Hemoglobin 13.9 g/dL (13.5-17.5); Lymphocytes Absolute Auto 500 /uL (1100-4500); Lymphocytes Percent Auto 5.8 % (25-40); Mean Corpuscular HGB Conc 34.4 % (30-36); Mean Corpuscular Hemoglobin 33.4 PG (26-34); Mean Corpuscular Volume 97.3 fL (80-100); Monocytes Absolute Auto 500 /uL (0-900); Monocytes Percent Auto 5.3 % (3-14); Neutrophils Absolute Auto 8200 /uL (1500-7000); Neutrophils Percent Auto 88.5 % (50-75); Platelet Count 91 X10^3/uL (150-400); Red Blood Cell Count 4.17 X10^6/uL (4.5-5.9); Red Cell Distribution Width 14.9 % (11.6-14.8); White Blood Cell Count 9.3 X10^3/uL (4.5-11.0)
[2022-11-22] MEDS: SODIUM CHLORIDE 0.9% 1,000 ML 1000 ML IV (18:37)
[2022-11-22 18:40] LABS: INR 2.3 (0.9-1.3); Prothrombin Time 26.4 SECONDS (10.1-12.7)
[2022-11-22 18:43] LABS: Lactate (Lactic Acid) 1.4 mmol/L (0.7-2.1); PTT Partial Thromboplastin Tim 40 SECONDS (26-36)
[2022-11-22 18:44] LABS: Alanine Aminotransferase 29 IU/L (<50); Albumin 3.6 g/dL (3.5-5.0); Albumin Globulin Ratio 1.2 (1.0-2.8); Alkaline Phosphatase 42 U/L (38-126); Aspartate Aminotransferase 42 IU/L (17-59); BUN Creatinine Ratio 24.8 (6-22); Bilirubin Total 1.8 mg/dL (0.2-1.3); Blood Urea Nitrogen 26 mg/dL (9-20); Calcium 8.3 mg/dL (8.4-10.2); Carbon Dioxide 30 mmol/L (22-32); Chloride 96 mmol/L (98-107); Estimated Glomerular Filt Rate > 60 mL/min (>60); Globulin 3.1 g/dL (1.7-4.1); Glucose 97 mg/dL (80-110); HEMOLYSIS < 15 (0-50); Lipase 63 U/L (23-300); Potassium 3.8 mmol/L (3.4-5.1); Sodium 131 mmol/L (137-145); Total Protein 6.7 g/dL (6.3-8.2)
[2022-11-22 18:55] LABS: D Dimer 678 ng/ml (<500)
[2022-11-22 18:59] LABS: COVID19 -Nasal RAPID Negative (Negative)
[2022-11-22 19:01] LABS: Procalcitonin 13.7 ng/mL (<0.5)
[2022-11-22] MEDS: cefTRIAXone 2,000 MG in SODIUM CHLORIDE 0.9% 100 ML 200 MG IV (19:01)
[2022-11-22] MEDS: ACETAMINOPHEN 325 MG TABLET 975 MG PO (19:01)
[2022-11-22 19:19] LABS: NT-proBNP (BNP-Adult 18+) 2360 pg/mL (<450)
[2022-11-22 19:33] LABS: Bacteria Urine Occasional (0-1); Culture Indicated Urine Cult Not Indicated; RBC Urine 0-1/HPF (0-5/HPF); Squamous Epithelial Cell Urine 1-5 /HPF (0-5/HPF); WBC Urine 0-1/HPF (0-5/HPF)
[2022-11-22 20:24] LABS: Adenovirus Not Detected (Not Detect); B. parapertussis Not Detected (Not Detecte); Bordetella pertussis Not Detected (Not Detecte); Chlamydophila pneumoniae Not Detected (Not Detect); Coronavirus 229E Not Detected (Not Detect); Coronavirus HKU1 Not Detected (Not Detect); Coronavirus NL 63 Not Detected (Not Detect); Coronavirus OC43 Not Detected (Not Detect); Human Metapneumovirus Not Detected (Not Detect); Human Rhinovirus/Enterovirus Not Detected (Not Detect); Influenza A Not Detected (Not Detect); Influenza B Not Detected (Not Detect); Mycoplasma pneumoniae Not Detected (Not Detect); Parainfluenza Virus 1 Not Detected (Not Detect); Parainfluenza Virus 2 Not Detected (Not Detect); Parainfluenza Virus 3 Not Detected (Not Detect); Parainfluenza Virus 4 Not Detected (Not Detect); Respiratory Syncytial Virus Not Detected (Not Detect); SARS- CoV-2 Not Detected (Not Detecte)
--- NOTE | 2022-11-22 21:28 | P.HP_ITS ---
History of Present Illness History of Present Illness Date Patient Seen: 11/22/22 Time Patient Seen: 21:28 Chief complaint: Sepsis, fever, thrombocytopenia of unknown etiolog Narrative: Scotty Hester is 87-year-old male who recently was admitted on 08/2022 to [facility] for acute respiratory failure secondary to pneumonia group B strep, septic shock from bacteremia, HTN, mixed HLD, peripheral neuropathy, HX multiple back surgeries, with thoracic stimulator, AFib/flutter on Eliquis, CAD, PAD, and BPH patient was brought in today by his family due to 2 days of fevers of 104 at home to falls due to lower extremity weakness, global weakness and increasing fatigue. Patient denies chest pain, shortness in breath, headache, changes in vision, difficulty swallowing, speech impairment, weakness, numbness, tingling, difficulty with ambulation, recent falls, head injury, LOC, cough, recent exposure to illness, abdominal pain, nausea, vomiting, urinary incontinen ce/retention, dysuria, frequency, urgency, hematuria, bowel changes, constipation, incontinence, melena, rashes, recent changes to medication, illness, injury, or trauma. Patient is resting comfortably in no distress. Patient initially presented to the ED b/p 153/79, 161/82, at the time of admit p ressure dropped to 110/66, repeat 102/59. WBC 9.3 is normal, but this is elevated for the patient who is normally WBC:3.8-4.2, has a mild left shift 8200, platelets 91 (plt 118-186, sodium 131, chloride 96, BUN 26, lactate negative, bili 1.8, BNP 2360, procalcitonin 13.7, urinalysis negative, respi ratory panel negative, chest x-ray negative for any acute changes, PT 26.4, INR 2.3, PTT 40, EKG noted to be in AFib with a rate of [address] or T-wave changes. Sofa score: 4 patient admitted for sepsis without shock, hypotension, thrombocytopenia, of unknown etiology. [facility]LY [facility] Medical History Allergic rhinitis BPH (benign prostatic hyperplasia) BPH NOS w/o ur obs/LUTS Chronic anticoagulation Chronic low back pain Chronic, continuous use of opioids Coronary artery disease Do not resuscitate Essential hypertension High blood pressure Hydrocele Hypertrophy of breast Medicare annual wellness visit, initial Mixed hyperlipidemia Nocturia Peripheral arterial disease Peripheral vascular disease Polyneuropathy, unspecified Spinal stenosis, lumbar region without neurogenic claudication Umbilical hernia without obstruction or gangrene Venous (peripheral) insufficiency Surgical History History of back surgery S/P TURP Vasectomy status Social History household members: spouse Smoking Status: Never smoker alcohol intake: current Meds Home Medications and Allergies Home Medications Medication Instructions Recorded Confirmed Type pregabalin 200 mg capsule (Lyrica) 200 mg PO BID #28 caps 10/12/16 08/14/22 Rx nitroglycerin 0.4 mg sublingual 0.4 mg sublingual Q5M PRN Chest 04/05/20 08/14/22 History tablet Pain rosuvastatin 5 mg tablet (Crestor) 5 mg PO DAILY 01/25/22 08/14/22 History apixaban 5 mg tablet (Eliquis) 5 mg PO BID #60 tabs 01/26/22 11/22/22 Rx furosemide 40 mg tablet 40 mg PO DAILY #30 tabs 08/19/22 11/22/22 Rx losartan 100 mg tablet 100 mg PO DAILY 08/19/22 11/22/22 History losartan 50 mg tablet 100 mg PO DAILY #30 tabs 08/19/22 Rx Allergies Allergy/AdvReac Type Severity Reaction Status Date / Time niacin [NIACIN] Allergy Unknown Verified 11/22/22 17:50 Review of Systems Review of Systems Narrative: All 12 point systems reviewed with the patient and are negative except otherwise documented. Exam Vital Signs (past 8 hours): - 11/22/22 17:42 11/22/22 18:23 11/22/22 18:25 Temperature 98.3 F Pulse Rate 72 66 Respiratory Rate 16 15 Blood Pressure 137/78 153/79 H Pulse Oximetry 95 93 Oxygen Delivery Method Room Air 11/22/22 18:30 11/22/22 18:30 11/22/22 19:00 Temperature Pulse Rate 72 77 Respiratory Rate 20 18 Blood Pressure 161/82 H Pulse Oximetry 93 93 Oxygen Delivery Method 11/22/22 19:30 11/22/22 19:30 11/22/22 20:00 Temperature Pulse Rate 70 77 Respiratory Rate 19 22 Blood Pressure 136/75 Pulse Oximetry 94 94 Oxygen Delivery Method 11/22/22 20:01 11/22/22 20:01 11/22/22 20:30 Temperature Pulse Rate 71 72 Respiratory Rate 22 29 H Blood Pressure 124/79 Pulse Oximetry 94 93 Oxygen Delivery Method 11/22/22 20:31 11/22/22 20:31 11/22/22 20:34 Temperature Pulse Rate 74 70 Respiratory Rate 26 H 19 Blood Pressure 102/59 L Pulse Oximetry 94 94 Oxygen Delivery Method 11/22/22 20:34 Temperature Pulse Rate Respiratory Rate Blood Pressure 110/66 Pulse Oximetry Oxygen Delivery Method Oxygen Delivery Method Room Air Narrative Exam Narrative: General: Patient is a thin elderly male in no distress at this time. HEENT: Normocephalic, atraumatic, extraocular muscles intact, oral pharynx is clear and mucous membranes are dry. Neck is supple and symmetric, trachea is midline, no adenopathy, no thyroid enlargement, nontender, no masses palpated. Negative for JVD Chest: Equal chest rise without nasal flaring, retractions, tachypneic or l abored breathing. Lungs: Auscultation of all lung betts are clear without adventitious sounds, wheezes, rhonchi, or rales. Cardio: irregular rate and rhythm AFib without murmur, rubs, or gallops, no carotid bruit, no cardiac pulsations present. Patient appears euvolemic. Abdomen: Soft nontender, negative for organomegaly, or masses. Bowel sounds are present in all 4 quadrants without guarding or rebound, no CVA tenderness. Musculoskeletal: Muscle strength and tone are equal, no deformity, crepitus, effusions, cyanosis, clubbing present. Bilateral chronic venous stasis to lower extremities, +1 edema to left ankle/foot. Full range of motion intact radial and pedal pulses are normal. Patient has thoracic stimulator in place for pain management. Right lower extremity: Noted increased erythema, inflammation and warmth to touch extending all the way up to the knee +2 edema, cellulitis, no open wounds or drainage. Skin: Warm dry and intact without rashes, ulcerations or petechiae.- see above Neuro: Alert and orientated x3, moves all extremities, sensation to touch intact, no gross deficits noted of cranial nerves. Psych: Patient has a well-kept appearance, appropriate affect, mental status attitude thought context and judgment are appropriate for age. Objective Labs 11/22/22 18:25 11/22/22 18:25 Labs: Laboratory Results - last 24 hr 11/22/22 11/22/22 11/22/22 18:15 18:25 18:25 WBC 9.3 RBC 4.17 L Hgb 13.9 Hct 40.5 L MCV 97.3 MCH 33.4 MCHC 34.4 RDW 14.9 H Plt Count 91 L Neut % (Auto) 88.5 H Lymph % (Auto) 5.8 L Kingfisher % (Auto) 5.3 Eos % (Auto) 0.0 L Baso % (Auto) 0.4 Neut # (Auto) 8200 H Lymph # (Auto) 500 L Kingfisher # (Auto) 500 Eos # (Auto) 0 Baso # (Auto) 0 PT 26.4 H INR 2.3 H APTT 40 H D-Dimer Sodium Potassium Chloride Carbon Dioxide BUN Creatinine Estimated GFR BUN/Creatinine Ratio Glucose Lactate Calcium Total Bilirubin AST ALT Alkaline Phosphatase NT-Pro-B Natriuret Pep Total Protein Albumin Globulin Albumin/Globulin Ratio Lipase Procalcitonin Urine RBC Urine WBC Ur Squamous Epith Cells Urine Bacteria Ur Culture Indicated? Micro UA Comment Chlamy pneumoniae PCR Adenovirus (PCR) B. pertussis DNA (PCR) B.parapertussis DNA PCR Coronavirus OC43 (PCR) Coronavirus HKU1 (PCR) Coronavirus 229E (PCR) SARS-CoV-2 (PCR) Negative Coronavirus NL63 (PCR) Human Metapneumovir PCR Influenza Type A (PCR) Influenza Type B (PCR) M. pneumoniae (PCR) Parainfluenza 1 (PCR) Parainfluenza 2 (PCR) Parainfluenza 3 (PCR) Parainfluenza 4 (PCR) RSV (PCR) Entero/Rhino (PCR) 11/22/22 11/22/22 11/22/22 18:25 18:25 18:25 WBC RBC Hgb Hct MCV MCH MCHC RDW Plt Count Neut % (Auto) Lymph % (Auto) Kingfisher % (Auto) Eos % (Auto) Baso % (Auto) Neut # (Auto) Lymph # (Auto) Kingfisher # (Auto) Eos # (Auto) Baso # (Auto) PT INR APTT D-Dimer 678 H Sodium 131 L Potassium 3.8 Chloride 96 L Carbon Dioxide 30 BUN 26 H Creatinine 1.05 Estimated GFR > 60 BUN/Creatinine Ratio 24.8 H Glucose 97 Lactate 1.4 Calcium 8.3 L Total Bilirubin 1.8 H AST 42 ALT 29 Alkaline Phosphatase 42 NT-Pro-B Natriuret Pep Total Protein 6.7 Albumin 3.6 Globulin 3.1 Albumin/Globulin Ratio 1.2 Lipase 63 Procalcitonin 13.7 H Urine RBC Urine WBC Ur Squamous Epith Cells Urine Bacteria Ur Culture Indicated? Micro UA Comment Chlamy pneumoniae PCR Adenovirus (PCR) B. pertussis DNA (PCR) B.parapertussis DNA PCR Coronavirus OC43 (PCR) Coronavirus HKU1 (PCR) Coronavirus 229E (PCR) SARS-CoV-2 (PCR) Coronavirus NL63 (PCR) Human Metapneumovir PCR Influenza Type A (PCR) Influenza Type B (PCR) M. pneumoniae (PCR) Parainfluenza 1 (PCR) Parainfluenza 2 (PCR) Parainfluenza 3 (PCR) Parainfluenza 4 (PCR) RSV (PCR) Entero/Rhino (PCR) 11/22/22 11/22/22 11/22/22 18:25 19:06 19:22 WBC RBC Hgb Hct MCV MCH MCHC RDW Plt Count Neut % (Auto) Lymph % (Auto) Kingfisher % (Auto) Eos % (Auto) Baso % (Auto) Neut # (Auto) Lymph # (Auto) Kingfisher # (Auto) Eos # (Auto) Baso # (Auto) PT INR APTT D-Dimer Sodium Potassium Chloride Carbon Dioxide BUN Creatinine Estimated GFR BUN/Creatinine Ratio Glucose Lactate Calcium Total Bilirubin AST ALT Alkaline Phosphatase NT-Pro-B Natriuret Pep 2360 H Total Protein Albumin Globulin Albumin/Globulin Ratio Lipase Procalcitonin Urine RBC 0-1/hpf Urine WBC 0-1/hpf Ur Squamous Epith Cells 1-5 /hpf Urine Bacteria Occasional (0-1) Ur Culture Indicated? Cult not indicated Micro UA Comment Chlamy pneumoniae PCR Not detected Adenovirus (PCR) Not detected B. pertussis DNA (PCR) Not detected B.parapertussis DNA PCR Not detected Coronavirus OC43 (PCR) Not detected Coronavirus HKU1 (PCR) Not detected Coronavirus 229E (PCR) Not detected SARS-CoV-2 (PCR) Not detected Coronavirus NL63 (PCR) Not detected Human Metapneumovir PCR Not detected Influenza Type A (PCR) Not detected Influenza Type B (PCR) Not detected M. pneumoniae (PCR) Not detected Parainfluenza 1 (PCR) Not detected Parainfluenza 2 (PCR) Not detected Parainfluenza 3 (PCR) Not detected Parainfluenza 4 (PCR) Not detected RSV (PCR) Not detected Entero/Rhino (PCR) Not detected Assessment & Plan Assessment & Plan narrative: Scotty Hester is 87-year-old male who recently was admitted on 08/2022 to [place] for acute respiratory failure secondary to pneumonia group B strep, septic shock from bacteremia, HTN, mixed HLD, peripheral neuropathy, HX multiple back surgeries, with thoracic stimulator, AFib/flutter on Eliquis, CAD, PAD, chronic bilateral LE venous stasis, and BPH has been admitted for sepsis without shock, thrombocytopenia initially of unknown etiology, but on exam found right lower extremity cellulitis. Patient will require rehydration, IV antibiotics pending culture results. Sepsis, without septic shock, with hypotension, due to right lower extremity cellulitis, acute, present on admission * With global weakness, falls, thrombocytopenia, and hypotension * Sofa score: 4. Platelets 91, bili 1.8, BP 102/59 down from 153/79, 161/82, respiratory rate 26-29, patient has chronic leukopenia WBC 3.8-4.2, today 9.3, neutrophils 8200 demonstrating elevated WBCs with a slight left shift. Monitor for septic shock * Suspect the cause of sepsis to be right lower extremity cellulitis, did not observe any wounds or broken skin. * Recent history of hospitalization 08/2022 acute respiratory failure, pneum onia, bacteremia, group B strep. * Patient provided sepsis fluid bolus on admit, then to continue NS 84 cc/HR * Patient was given Rocephin in ED, with Tylenol- he felt warm to provider. * initiate vancomycin plus cefepime for broad-spectrum parenteral antibiotic coverage * Blood cultures pending * Right lower extremity Doppler to rule out DVT tomorrow * Vital sign check Q 30 minutes until BP stabilizes >110/80 x 30 min * Holding losartan and Lasix Thrombocytopenia, acute on chronic, present on admission * Platelet count is 91 today, It appears he has had some chronic mild thrombocytopenia dating back to 2016. Since then platelet counts have ranged from [id number] (5712-2720). ? Atrial Fib/flutter, chronic, rate controlled, present on admission * History of CAD, PAD * Continue Eliquis Hypertension, essential, chronic, present on admission * Holding losartan due to sepsis-bradycardia Peripheral neuropathy, chronic, with chronic venous stasis, present on admission * Hold Lasix, continue Lyrica * implanted thoracic neurostimulator. Code status: DNR/DNI Surrogate decision maker: Cathy DVT/VTE prophylaxis: Eliquis SCD left only Disposition: Patient admitted to acute care for sepsis secondary to right lower extremity cellulitis, expected length of stay to exceed 2 midnights. I have utilized all available immediate resources to obtain, update, or review the patient's current medications. I confirmed that the patient's advanced care plan is present, Code status is documented and/or surrogate decision maker is listed in the patient's medical record. I have personally reviewed patient's chart notes from PCP, specialists, diagnostic imaging, and laboratory results.
[2022-11-22 21:39] LABS: Magnesium 2.1 mg/dL (1.6-2.3)
[2022-11-22] MEDS: SODIUM CHLORIDE 0.9% 1,000 ML 84 ML IV (21:54)
[2022-11-22 22:26] LABS: C-Reactive Protein Quant 15.9 mg/dL (<1.0)
[2022-11-22] MEDS: PREGABALIN 50 MG CAPSULE 200 MG PO (23:25)
[2022-11-23] VITALS (28 sets, daily range): BP systolic 105–179; BP diastolic 63–103; PULSE 51–110; RESP 15–26; TEMP 36.2–36.3; O2SAT 86–97
--- NOTE | 2022-11-23 02:02 | PC.NURSE ---
Pt arrived to room #228 from ER at 2130. Ambulated from wheelchair to bed with steady gait. Pt drowsy but alert and oriented x4. Giving 1L NS bolus and continuous at 84/hr. Placed on monitor for ordered q30min vitals. Pt has been priscilla in the 40-50's. Narciso notified. Bilateral LE swollen, red and warm to the touch R>L.
--- NOTE | 2022-11-23 02:07 | DI.US.S_ITS ---
PROCEDURE: US PERIPH VENOUS LOW EXTREM RT INDICATIONS: CELLULITIS/SEPSIS. RULE OUT DEEP VEIN THROMBOSIS. TECHNIQUE: Real-time imaging, as well as color and pulse Doppler interrogation, were performed of the lower extremity deep veins from the inguinal ligament to the popliteal fossa. COMPARISON: None. FINDINGS: The common femoral, femoral and popliteal veins are normally compressible, and free of intraluminal thrombus. Color and pulse Doppler demonstrate normal phasic intraluminal flow. There is normal augmentation response to distal compression maneuver. IMPRESSION: No evidence of deep venous thrombosis, right lower extremity Approved by: Francesco Black M.D. on 11/23/2022 at 12:35
[2022-11-23] MEDS: CEFEPIME 1 GM in SODIUM CHLORIDE 0.9% 100 ML IV (03:24)
[2022-11-23] MEDS: VANCOMYCIN 2,000 MG/400 ML PIGGYBACK 200 MG IV (03:44)
[2022-11-23 04:57] LABS: INR 1.9 (0.9-1.3); Prothrombin Time 22.2 SECONDS (10.1-12.7)
[2022-11-23 05:03] LABS: Alanine Aminotransferase 24 IU/L (<50); Albumin 2.7 g/dL (3.5-5.0); Alkaline Phosphatase 34 U/L (38-126); Aspartate Aminotransferase 34 IU/L (17-59); BUN Creatinine Ratio 28.2 (6-22); Bilirubin Total 1.1 mg/dL (0.2-1.3); Blood Urea Nitrogen 24 mg/dL (9-20); Calcium 7.4 mg/dL (8.4-10.2); Carbon Dioxide 28 mmol/L (22-32); Chloride 103 mmol/L (98-107); Estimated Glomerular Filt Rate > 60 mL/min (>60); Globulin 2.7 g/dL (1.7-4.1); Glucose 77 mg/dL (80-110); HEMOLYSIS < 15 (0-50); Potassium 3.7 mmol/L (3.4-5.1); Sodium 133 mmol/L (137-145); Total Protein 5.4 g/dL (6.3-8.2)
[2022-11-23 05:05] LABS: Add Manual Diff / Slide Review NO; Basophils Absolute Auto 0 /uL (0-100); Basophils Percent Auto 0.3 % (0-2); Eosinophils Absolute Auto 0 /uL (0-450); Eosinophils Percent Auto 0.2 % (2-4); Hematocrit 36.3 % (41-53); Hemoglobin 12.6 g/dL (13.5-17.5); Lymphocytes Absolute Auto 700 /uL (1100-4500); Lymphocytes Percent Auto 9.5 % (25-40); Mean Corpuscular HGB Conc 34.7 % (30-36); Mean Corpuscular Hemoglobin 33.9 PG (26-34); Mean Corpuscular Volume 97.7 fL (80-100); Monocytes Absolute Auto 600 /uL (0-900); Monocytes Percent Auto 8.7 % (3-14); Neutrophils Absolute Auto 5800 /uL (1500-7000); Neutrophils Percent Auto 81.3 % (50-75); Red Blood Cell Count 3.71 X10^6/uL (4.5-5.9); Red Cell Distribution Width 14.8 % (11.6-14.8); White Blood Cell Count 7.1 X10^3/uL (4.5-11.0)
[2022-11-23 05:06] LABS: Platelet Count 77 X10^3/uL (150-400)
[2022-11-23 05:20] LABS: Procalcitonin 10.8 ng/mL (<0.5)
[2022-11-23 07:12] LABS: Acinetobacter calcoa-baumannii Not Detected (Not Detect); Bacteroides fragilis Not Detected (Not Detect); Candida albicans Not Detected (Not Detect); Candida auris Not Detected (Not Detect); Candida glabrata Not Detected (Not Detect); Candida krusei Not Detected (Not Detect); Candida parapsilosis Not Detected (Not Detect); Candida tropicalis Not Detected (Not Detect); Cryptococcus neoformans/gatti Not Detected (Not Detect); Enterobacter cloacae complex Not Detected (Not Detect); Enterobacterales Not Detected (Not Detect); Enterococcus faecalis Not Detected (Not Detect); Enterococcus faecium Not Detected (Not Detect); Haemophilus influenzae Not Detected (Not Detect); Klebsiella aerogenes Not Detected (Not Detect); Listeria monocytogenes Not Detected (Not Detect); Neisseria meningitidis Not Detected (Not Detect); Proteus species Not Detected (Not Detect); Pseudomonas aeruginosa Not Detected (Not Detect); Salmonella species Not Detected (Not Detect); Serratia marcescens Not Detected (Not Detect); Staphylococcus epidermidis Not Detected (Not Detect); Staphylococcus lugdunensis Not Detected (Not Detect); Staphylococcus species Not Detected (Not Detect); Stenotrophomonas maltophilia Not Detected (Not Detect); Streptococcus agalactiae (Gr B DETECTED (Not Detect); Streptococcus pneumonia Not Detected (Not Detect); Streptococcus pyogenes (Gr A) Not Detected (Not Detect); Streptococcus species DETECTED (Not Detect)
--- NOTE | 2022-11-23 08:49 | DI.ECHO.S_ITS ---
[facility] +---------+ : : [address] : : : : [id number] : : : : Phone: [phone]+ Echocardiogram Report + + :Name: ANEL OLVERA Study Date: 11/24/2022 Height: 73 in : :[facility] ReadingLocation: Weight: 190 lb : : Gender: Male BSA: 2.1 m2 : :: 1935 Age: 87 yrs BP: 135/71 mmHg: :Reason For Study: STREP BACTEREMIA, R/O ENDOCARDITIS : :Ordering Physician: KIMBERLY, : :SONU Dhillon Performed By: Nevaeh Weber : :Referring: SONU HARRIS : + + Interpretation Summary The patient was in atrial fibrillation with heart rates between 54-75 bpm during the exam. The left ventricle is normal in size and wall thickness. Left ventricular ejection fraction is estimated to be 60 +/- 5%. There has been no significant change in LV EF since the previous exam. The right ventricle is grossly normal size. Visually RV systolic function appears to be preserved. There is mild to moderate tricuspid regurgitation. Compared to the prior echo exam, there has been an increase in TR severity. The right ventricular systolic pressure is estimated to be at least 53 mmHg based on an estimated right atrial pressure of 15 mm Hg. Compared to the prior echo exam, there has been an increase in the severity of pulmonary hypertension. The ascending aorta is moderately enlarged. This is unchanged compared to the previous study. Mild atherosclerotic plaque(s) in the aortic arch. There is a small left-sided pleural effusion (New). No obvious valvular vegetation seen. Procedure: A two-dimensional transthoracic echocardiogram with color flow and Doppler was performed. The study quality was technically adequate. Comparison is made with the echocardiogram of 05/03/2022. The patient was in atrial fibrillation with heart rates between 54-75 bpm during the exam. Left Ventricle: The left ventricle is normal in size and wall thickness. There is no thrombus. Left ventricular ejection fraction is estimated to be 60 +/- 5%. There has been no significant change since the previous exam. There are no focal wall motion abnormalities. Diastolic function could not be accurately assessed due to atrial fibrillation. Right Ventricle: The right ventricle is grossly normal size. Visually RV systolic function appears to be preserved. Atria: The left atrium is moderately dilated. There has been no significant change since the previous study. The right atrium is severely dilated. The right atrium has remained unchanged in size since the prior echo exam. There is no Doppler evidence for an interatrial shunt. Mitral Valve: There is mild mitral annular calcification. The mitral valve chordae are thickened and/or calcified. There is mild mitral regurgitation. Compared to the prior echo study, there has been no change in the severity of mitral regurgitation. Aortic Valve: The aortic valve is trileaflet. The aortic valve opens well. There is mild aortic valve sclerosis. There is no aortic valve stenosis. There is mild aortic regurgitation. Compared to the prior echo study, there has been no change in the severity of aortic regurgitation. Tricuspid Valve: The tricuspid valve leaflets are thickened and/or calcified, but open well. There is mild to moderate tricuspid regurgitation. Compared to the prior echo exam, there has been an increase in TR severity. The right ventricular systolic pressure is estimated to be at least 53 mmHg based on an estimated right atrial pressure of 15 mm Hg. Compared to the prior echo exam, there has been an increase in the severity of pulmonary hypertension. Pulmonic Valve: The pulmonic valve is not well visualized. There is no pulmonic valvular regurgitation. Great Vessels: The aortic root is mildly dilated. The ascending aorta is moderately enlarged. Mild atherosclerotic plaque(s) in the aortic arch. This is unchanged compared to the previous study. The IVC is dilated (diameter is greater than 2.1 cm) and it collapses less than 50% with a sniff. This suggests a high right atrial pressure of 15 mm Hg. Pericardium/ Pleura There is no pericardial effusion. There is a small left- sided pleural effusion. MMode/2D Measurements & Calculations LVIDd: 4.1 cm LVOT diam: 2.0 cm LVIDs: 2.9 cm Ao root diam: 4.2 cm FS: 28.1 % asc Aorta Diam: 4.4 cm EPSS: 0.40 cm Ao Arch Diam (Prox Trans): 3.6 cm IVSd: 1.0 cm LVPWd: 0.96 cm LV mahmood. diameter/BSA (cm/m^2): 1.9 LV sys. diameter/BSA (cm/m^2): 1.4 LA A2 area: 26.4 cm2 RA long axis: 6.4 cm LA A4 area: 26.5 cm2 RA area: 28.9 cm2 LA length (vol): 6.4 cm RA vol: 111.2 ml LA vol: 92.8 ml RA : 52.8 ml/m2 LA vol index: 44.1 ml/m2 IVC diam: 2.7 cm RVD1 (basal): 3.6 cm RVD2 (mid): 3.0 cm TAPSE: 1.4 cm Doppler Measurements & Calculations Ao V2 max: 119.8 cm/sec LVOT Max Lucio: 80.1 cm/sec Ao V2 mean: 88.9 cm/sec LV V1 max P.6 mmHg Ao max P.8 mmHg LV V1 VTI: 15.5 cm Ao mean P.5 mmHg COREY(I,D): 2.1 cm2 Ao V2 VTI: 23.7 cm COREY(V,D): 2.2 cm2 sev ratio: 0.65 COREY indexed to BSA (cm^2/m^2): 1.0 MV E max lucio: 120.4 cm/sec TR max lucio: 309.3 cm/sec MV A max lucio: 2.4 cm/sec TR max P.3 mmHg MV E/A: 49.2 PA V2 max: 83.4 cm/sec Med Peak E' Lucio: 7.7 cm/sec PA V2 mean: 49.9 cm/sec E/E' med: 15.7 PA mean P.2 mmHg Lat Peak E' Lucio: 8.7 cm/sec PA pr(Accel): 32.8 mmHg E/E' lat: 13.8 E/e' average: 14.7 MV dec time: 0.14 sec SV(LVOT): 50.1 ml Reading Physician:02:24 PM
--- NOTE | 2022-11-23 08:51 | P.PN_ITS ---
Subjective Subjective Interval history: Patient had a persisent nosebleed this AM requiring ED physician to suction a large clot and place cotton balls with clamp. Eliquis was held. BCx growing GBS in 4/4 bottles. DVT US negative of RLE. Patient says he is feeling a little better today. Exam Vital Signs (past 8 hours): - 11/23/22 01:00 11/23/22 01:30 11/23/22 03:00 Pulse Rate 53 L 51 L 53 L Respiratory Rate 17 16 18 Blood Pressure 105/72 107/63 106/65 Pulse Oximetry 94 96 94 11/23/22 03:52 11/23/22 04:00 11/23/22 04:30 Pulse Rate 53 L 72 61 Respiratory Rate 18 22 18 Blood Pressure 108/66 138/96 H 146/79 H Pulse Oximetry 94 90 L 92 11/23/22 05:46 Pulse Rate 55 L Respiratory Rate 15 Blood Pressure 132/74 Pulse Oximetry 94 Oxygen Delivery Method Room Air Narrative Exam Narrative: General: Patient is a thin elderly male in no distress at this time. Nasal clamp in place with dried blood around nares. HEENT: Normocephalic, atraumatic, extraocular muscles intact, oral pharynx is clear and mucous membranes are dry. Neck is supple and symmetric, trachea is midline, no adenopathy, no thyroid enlargement, nontender, no masses palpated. Negative for JVD Chest: Equal chest rise without nasal flaring, retractions, tachypneic or labored breathing. Lungs: Auscultation of all lung betts are clear without adventitious sounds, wheezes, rhonchi, or rales. Cardio: irregular rate and rhythm AFib without murmur, rubs, or gallops, no carotid bruit, no cardiac pulsations present. Patient appears euvolemic. Abdomen: Soft nontender, negative for organomegaly, or masses. Bowel sounds are present in all 4 quadrants without guarding or rebound, no CVA tenderness. Musculoskeletal: Muscle strength and tone are equal, no deformity, crepitus, effusions, cyanosis, clubbing present. Bilateral chronic venous stasis to lower extremities, +1 edema to left ankle/foot. Full range of motion intact radial and pedal pulses are normal. Patient has thoracic stimulator in place for pain management. Right lower extremity: Noted increased erythema, inflammation and warmth to touch extending all the way up to the knee +2 edema, cellulitis, no open wounds or drainage. Skin: Warm dry and intact without rashes, ulcerations or petechiae.- see above Neuro: Alert and orientated x3, moves all extremities, sensation to touch intact, no gross deficits noted of cranial nerves. Psych: Patient has a well-kept appearance, appropriate affect, mental status attitude thought context and judgment are appropriate for age. Objective Labs 11/23/22 13:15 11/23/22 04:10 Labs: Laboratory Results - last 24 hr 11/22/22 11/22/22 11/22/22 18:15 18:25 18:25 WBC 9.3 RBC 4.17 L Hgb 13.9 Hct 40.5 L MCV 97.3 MCH 33.4 MCHC 34.4 RDW 14.9 H Plt Count 91 L Neut % (Auto) 88.5 H Lymph % (Auto) 5.8 L [place] % (Auto) 5.3 Eos % (Auto) 0.0 L Baso % (Auto) 0.4 Neut # (Auto) 8200 H Lymph # (Auto) 500 L [place] # (Auto) 500 Eos # (Auto) 0 Baso # (Auto) 0 PT 26.4 H INR 2.3 H APTT 40 H D-Dimer Sodium Potassium Chloride Carbon Dioxide BUN Creatinine Estimated GFR BUN/Creatinine Ratio Glucose Lactate Calcium Magnesium Total Bilirubin AST ALT Alkaline Phosphatase C-Reactive Protein NT-Pro-B Natriuret Pep Total Protein Albumin Globulin Albumin/Globulin Ratio Lipase Procalcitonin Urine RBC Urine WBC Ur Squamous Epith Cells Urine Bacteria Ur Culture Indicated? Micro UA Comment A.calcoaceticus-baumannii cmplx PCR Chlamy pneumoniae PCR Adenovirus (PCR) Bacteroides fragilis B. pertussis DNA (PCR) B.parapertussis DNA PCR Denise albicans (PCR) Denise auris (PCR) C. glabrata (PCR) C. krusei (PCR) C. parapsilosis (PCR) C. tropicalis (PCR) Coronavirus OC43 (PCR) Coronavirus HKU1 (PCR) Coronavirus 229E (PCR) SARS-CoV-2 (PCR) Negative Coronavirus NL63 (PCR) C. neoform/gattii (PCR) Enterobacterales (PCR) E. cloacae complex PCR Enterococc faecalis PCR Enterococc faecium PCR E. coli (PCR) H. influenzae (PCR) Human Metapneumovir PCR Influenza Type A (PCR) Influenza Type B (PCR) Klebsiella aerogenes (PCR) Klebsiella oxytoca PCR Klebsiella pneumoniae List. monocytogenes PCR M. pneumoniae (PCR) N. meningitidis (PCR) Parainfluenza 1 (PCR) Parainfluenza 2 (PCR) Parainfluenza 3 (PCR) Parainfluenza 4 (PCR) Proteus species (PCR) RSV (PCR) Entero/Rhino (PCR) Salmonella spp. (PCR) Serratia marcescens PCR Staphylococcus sp PCR Staph aureus (PCR) Staph epidermidis (PCR) Staph lugdunensis PCR S. maltophilia (PCR) Streptococcus sp PCR Group A Strep (PCR) Strep agalactiae (PCR) Strep pneumoniae (PCR) P. aeruginosa (PCR) 11/22/22 11/22/22 11/22/22 18:25 18:25 18:25 WBC RBC Hgb Hct MCV MCH MCHC RDW Plt Count Neut % (Auto) Lymph % (Auto) [place] % (Auto) Eos % (Auto) Baso % (Auto) Neut # (Auto) Lymph # (Auto) [place] # (Auto) Eos # (Auto) Baso # (Auto) PT INR APTT D-Dimer 678 H Sodium 131 L Potassium 3.8 Chloride 96 L Carbon Dioxide 30 BUN 26 H Creatinine 1.05 Estimated GFR > 60 BUN/Creatinine Ratio 24.8 H Glucose 97 Lactate 1.4 Calcium 8.3 L Magnesium Total Bilirubin 1.8 H AST 42 ALT 29 Alkaline Phosphatase 42 C-Reactive Protein NT-Pro-B Natriuret Pep Total Protein 6.7 Albumin 3.6 Globulin 3.1 Albumin/Globulin Ratio 1.2 Lipase 63 Procalcitonin 13.7 H Urine RBC Urine WBC Ur Squamous Epith Cells Urine Bacteria Ur Culture Indicated? Micro UA Comment A.calcoaceticus-baumannii cmplx PCR Chlamy pneumoniae PCR Adenovirus (PCR) Bacteroides fragilis B. pertussis DNA (PCR) B.parapertussis DNA PCR Denise albicans (PCR) Denise auris (PCR) C. glabrata (PCR) C. krusei (PCR) C. parapsilosis (PCR) C. tropicalis (PCR) Coronavirus OC43 (PCR) Coronavirus HKU1 (PCR) Coronavirus 229E (PCR) SARS-CoV-2 (PCR) Coronavirus NL63 (PCR) C. neoform/gattii (PCR) Enterobacterales (PCR) E. cloacae complex PCR Enterococc faecalis PCR Enterococc faecium PCR E. coli (PCR) H. influenzae (PCR) Human Metapneumovir PCR Influenza Type A (PCR) Influenza Type B (PCR) Klebsiella aerogenes (PCR) Klebsiella oxytoca PCR Klebsiella pneumoniae List. monocytogenes PCR M. pneumoniae (PCR) N. meningitidis (PCR) Parainfluenza 1 (PCR) Parainfluenza 2 (PCR) Parainfluenza 3 (PCR) Parainfluenza 4 (PCR) Proteus species (PCR) RSV (PCR) Entero/Rhino (PCR) Salmonella spp. (PCR) Serratia marcescens PCR Staphylococcus sp PCR Staph aureus (PCR) Staph epidermidis (PCR) Staph lugdunensis PCR S. maltophilia (PCR) Streptococcus sp PCR Group A Strep (PCR) Strep agalactiae (PCR) Strep pneumoniae (PCR) P. aeruginosa (PCR) 11/22/22 11/22/22 11/22/22 18:25 18:25 18:25 WBC RBC Hgb Hct MCV MCH MCHC RDW Plt Count Neut % (Auto) Lymph % (Auto) [place] % (Auto) Eos % (Auto) Baso % (Auto) Neut # (Auto) Lymph # (Auto) [place] # (Auto) Eos # (Auto) Baso # (Auto) PT INR APTT D-Dimer Sodium Potassium Chloride Carbon Dioxide BUN Creatinine Estimated GFR BUN/Creatinine Ratio Glucose Lactate Calcium Magnesium 2.1 Total Bilirubin AST ALT Alkaline Phosphatase C-Reactive Protein 15.9 H NT-Pro-B Natriuret Pep 2360 H Total Protein Albumin Globulin Albumin/Globulin Ratio Lipase Procalcitonin Urine RBC Urine WBC Ur Squamous Epith Cells Urine Bacteria Ur Culture Indicated? Micro UA Comment A.calcoaceticus-baumannii cmplx PCR Chlamy pneumoniae PCR Adenovirus (PCR) Bacteroides fragilis B. pertussis DNA (PCR) B.parapertussis DNA PCR Denise albicans (PCR) Denise auris (PCR) C. glabrata (PCR) C. krusei (PCR) C. parapsilosis (PCR) C. tropicalis (PCR) Coronavirus OC43 (PCR) Coronavirus HKU1 (PCR) Coronavirus 229E (PCR) SARS-CoV-2 (PCR) Coronavirus NL63 (PCR) C. neoform/gattii (PCR) Enterobacterales (PCR) E. cloacae complex PCR Enterococc faecalis PCR Enterococc faecium PCR E. coli (PCR) H. influenzae (PCR) Human Metapneumovir PCR Influenza Type A (PCR) Influenza Type B (PCR) Klebsiella aerogenes (PCR) Klebsiella oxytoca PCR Klebsiella pneumoniae List. monocytogenes PCR M. pneumoniae (PCR) N. meningitidis (PCR) Parainfluenza 1 (PCR) Parainfluenza 2 (PCR) Parainfluenza 3 (PCR) Parainfluenza 4 (PCR) Proteus species (PCR) RSV (PCR) Entero/Rhino (PCR) Salmonella spp. (PCR) Serratia marcescens PCR Staphylococcus sp PCR Staph aureus (PCR) Staph epidermidis (PCR) Staph lugdunensis PCR S. maltophilia (PCR) Streptococcus sp PCR Group A Strep (PCR) Strep agalactiae (PCR) Strep pneumoniae (PCR) P. aeruginosa (PCR) 11/22/22 11/22/22 11/23/22 19:06 19:22 04:10 WBC 7.1 RBC 3.71 L Hgb 12.6 L Hct 36.3 L MCV 97.7 MCH 33.9 MCHC 34.7 RDW 14.8 Plt Count 77 L Neut % (Auto) 81.3 H Lymph % (Auto) 9.5 L [place] % (Auto) 8.7 Eos % (Auto) 0.2 L Baso % (Auto) 0.3 Neut # (Auto) 5800 Lymph # (Auto) 700 L [place] # (Auto) 600 Eos # (Auto) 0 Baso # (Auto) 0 PT INR APTT D-Dimer Sodium Potassium Chloride Carbon Dioxide BUN Creatinine Estimated GFR BUN/Creatinine Ratio Glucose Lactate Calcium Magnesium Total Bilirubin AST ALT Alkaline Phosphatase C-Reactive Protein NT-Pro-B Natriuret Pep Total Protein Albumin Globulin Albumin/Globulin Ratio Lipase Procalcitonin Urine RBC 0-1/hpf Urine WBC 0-1/hpf Ur Squamous Epith Cells 1-5 /hpf Urine Bacteria Occasional (0-1) Ur Culture Indicated? Cult not indicated Micro UA Comment A.calcoaceticus-baumannii cmplx PCR Chlamy pneumoniae PCR Not detected Adenovirus (PCR) Not detected Bacteroides fragilis B. pertussis DNA (PCR) Not detected B.parapertussis DNA PCR Not detected Denise albicans (PCR) Denise auris (PCR) C. glabrata (PCR) C. krusei (PCR) C. parapsilosis (PCR) C. tropicalis (PCR) Coronavirus OC43 (PCR) Not detected Coronavirus HKU1 (PCR) Not detected Coronavirus 229E (PCR) Not detected SARS-CoV-2 (PCR) Not detected Coronavirus NL63 (PCR) Not detected C. neoform/gattii (PCR) Enterobacterales (PCR) E. cloacae complex PCR Enterococc faecalis PCR Enterococc faecium PCR E. coli (PCR) H. influenzae (PCR) Human Metapneumovir PCR Not detected Influenza Type A (PCR) Not detected Influenza Type B (PCR) Not detected Klebsiella aerogenes (PCR) Klebsiella oxytoca PCR Klebsiella pneumoniae List. monocytogenes PCR M. pneumoniae (PCR) Not detected N. meningitidis (PCR) Parainfluenza 1 (PCR) Not detected Parainfluenza 2 (PCR) Not detected Parainfluenza 3 (PCR) Not detected Parainfluenza 4 (PCR) Not detected Proteus species (PCR) RSV (PCR) Not detected Entero/Rhino (PCR) Not detected Salmonella spp. (PCR) Serratia marcescens PCR Staphylococcus sp PCR Staph aureus (PCR) Staph epidermidis (PCR) Staph lugdunensis PCR S. maltophilia (PCR) Streptococcus sp PCR Group A Strep (PCR) Strep agalactiae (PCR) Strep pneumoniae (PCR) P. aeruginosa (PCR) 11/23/22 11/23/22 11/23/22 04:10 04:10 06:03 WBC RBC Hgb Hct MCV MCH MCHC RDW Plt Count Neut % (Auto) Lymph % (Auto) [place] % (Auto) Eos % (Auto) Baso % (Auto) Neut # (Auto) Lymph # (Auto) [place] # (Auto) Eos # (Auto) Baso # (Auto) PT 22.2 H INR 1.9 H APTT D-Dimer Sodium 133 L Potassium 3.7 Chloride 103 Carbon Dioxide 28 BUN 24 H Creatinine 0.85 Estimated GFR > 60 BUN/Creatinine Ratio 28.2 H Glucose 77 L Lactate Calcium 7.4 L Magnesium Total Bilirubin 1.1 AST 34 ALT 24 Alkaline Phosphatase 34 L C-Reactive Protein NT-Pro-B Natriuret Pep Total Protein 5.4 L Albumin 2.7 L Globulin 2.7 Albumin/Globulin Ratio 1.0 Lipase Procalcitonin 10.8 H Urine RBC Urine WBC Ur Squamous Epith Cells Urine Bacteria Ur Culture Indicated? Micro UA Comment A.calcoaceticus-baumannii cmplx PCR Not detected Chlamy pneumoniae PCR Adenovirus (PCR) Bacteroides fragilis Not detected B. pertussis DNA (PCR) B.parapertussis DNA PCR Denise albicans (PCR) Not detected Denise auris (PCR) Not detected C. glabrata (PCR) Not detected C. krusei (PCR) Not detected C. parapsilosis (PCR) Not detected C. tropicalis (PCR) Not detected Coronavirus OC43 (PCR) Coronavirus HKU1 (PCR) Coronavirus 229E (PCR) SARS-CoV-2 (PCR) Coronavirus NL63 (PCR) C. neoform/gattii (PCR) Not detected Enterobacterales (PCR) Not detected E. cloacae complex PCR Not detected Enterococc faecalis PCR Not detected Enterococc faecium PCR Not detected E. coli (PCR) Not detected H. influenzae (PCR) Not detected Human Metapneumovir PCR Influenza Type A (PCR) Influenza Type B (PCR) Klebsiella aerogenes (PCR) Not detected Klebsiella oxytoca PCR Not detected Klebsiella pneumoniae Not detected List. monocytogenes PCR Not detected M. pneumoniae (PCR) N. meningitidis (PCR) Not detected Parainfluenza 1 (PCR) Parainfluenza 2 (PCR) Parainfluenza 3 (PCR) Parainfluenza 4 (PCR) Proteus species (PCR) Not detected RSV (PCR) Entero/Rhino (PCR) Salmonella spp. (PCR) Not detected Serratia marcescens PCR Not detected Staphylococcus sp PCR Not detected Staph aureus (PCR) Not detected Staph epidermidis (PCR) Not detected Staph lugdunensis PCR Not detected S. maltophilia (PCR) Not detected Streptococcus sp PCR Detected H Group A Strep (PCR) Not detected Strep agalactiae (PCR) Detected H Strep pneumoniae (PCR) Not detected P. aeruginosa (PCR) Not detected PFSH Medical History Allergic rhinitis BPH (benign prostatic hyperplasia) BPH NOS w/o ur obs/LUTS Chronic anticoagulation Chronic low back pain Chronic, continuous use of opioids Coronary artery disease Do not resuscitate Essential hypertension High blood pressure Hydrocele Hypertrophy of breast Medicare annual wellness visit, initial Mixed hyperlipidemia Nocturia Peripheral arterial disease Peripheral vascular disease Polyneuropathy, unspecified Spinal stenosis, lumbar region without neurogenic claudication Umbilical hernia without obstruction or gangrene Venous (peripheral) insufficiency Surgical History History of back surgery S/P TURP Vasectomy status Social History household members: spouse Smoking Status: Never smoker alcohol intake: current Assessment & Plan Assessment & Plan narrative: Scotty Hester is 87-year-old male who recently was admitted on 08/2022 to [place] for acute respiratory failure secondary to pneumonia group B strep, septic shock from bacteremia, HTN, mixed HLD, peripheral neuropathy, HX multiple back surgeries, with thoracic stimulator, AFib/flutter on Eliquis, CAD, PAD, chronic bilateral LE venous stasis, and BPH has been admitted for sepsis without shock, thrombocytopenia initially of unknown etiology, but on exam found right lower extremity cellulitis. Patient will require rehydration, IV antibiotics pending culture results. Sepsis, without septic shock secondary to GBS bacteremia due to right lower extremity cellulitis, acute, present on admission * Suspect the cause of sepsis to be right lower extremity cellulitis, did not observe any wounds or broken skin. * Recent history of hospitalization 08/2022 acute respiratory failure, pneumonia, bacteremia, group B strep. * Patient provided sepsis fluid bolus on admit, then to continue NS 84 cc/HR * continue rocephin 2g daily x2 weeks * GBS positive in 4/4 bottles, repeat blood cultures for 11/24 ordered * Right lower extremity doppler negative for DVT * Holding home Lasix for now Acute epistaxis, not present on admission, now resolved * had persistent nosebleed morning of 11/23 * Dr. 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 Since then platelet counts have ranged from 131-140k ([id number]). * transfuse platelets if <50k ? Atrial Fib/flutter, chronic, rate controlled, present on admission * History of CAD, PAD * Holding Eliquis due to epistaxis Hypertension, essential, chronic, present on admission * Holding losartan due to sepsis-bradycardia Peripheral neuropathy, chronic, with chronic venous stasis, present on admission * Hold Lasix, continue Lyrica * implanted thoracic neurostimulator. Code status: DNR/DNI Surrogate decision maker: Cathy DVT/VTE prophylaxis: Eliquis SCD left only Disposition: 2-3 days until repeat blood cultures negative and IV home infusions setup.
[2022-11-23 09:24] LABS: MRSA (Nasal) PCR Not Detected (Not Detect)
[2022-11-23] MEDS: cefTRIAXone 2,000 MG in SODIUM CHLORIDE 0.9% 100 ML 200 MG IV (10:21)
[2022-11-23] MEDS: ATORVASTATIN 20 MG TABLET 10 MG PO (10:22)
[2022-11-23] MEDS: PREGABALIN 50 MG CAPSULE 200 MG PO ×2 (10:22→20:45)
[2022-11-23] MEDS: OXYMETAZOLINE NASAL SPRAY 15 ML 2 SPRAYS NASAL (10:23)
[2022-11-23] MEDS: TRANEXAMIC ACID 1,000 MG VIAL 1000 MG (10:23)
[2022-11-23] MEDS: SILVER NITRATE STICK 1 EACH TOP (10:25)
--- NOTE | 2022-11-23 11:44 | PC.NURSE ---
pt had nosebleed at beginning of shift that we were able to stop w/ pressure and ice; pt had a more significant nosebleed and Dr Bolanos was notified at 0855 and orders rec'd to discontinue eliquis; nasal rocket to left nare did not stop the bleeding; Dr Islas came up from the ED and attempted a nasal rocket with TXA; unsuccessful; packed left side of nose w/ cotton ball and afrin; after bleeding slowed, he applied silver nitrate to a bleeding polyp; pt having further bleeding from higher in the nasal cavity; cotton soaked in TXA to left nostril; nose clamp applied; will leave on and recheck in 2 hours
[2022-11-23] MEDS: LOSARTAN 50 MG TABLET 100 MG PO (12:06)
--- NOTE | 2022-11-23 12:33 | CM.DANOTE ---
Initial Discharge Assessment Note: Case reviewed, met with patient. Introduced self and role. Payer: [employer] and self pay PCP: Pooja Oliver 87 year old with PMH of multiple spinal surgeries, peripheral neuropathy with neurostimulator. The previous few days prior to admission he was spiking fevers and had 2 falls due to weakness, legs collapsed he states. He is diagnosed with bacteremia and according to hospitalist will need 2 weeks of IV antibiotics. He has had these in the past and prefers to go for outpatient infusion center. He has [employer] insurance. He will be having an Echo tomorrow, 48 hour blood cultures tomorrow pm. LE U/S today. He will need a PICC on Friday. This morning he had a nose bleed and the ED doctor came up and treated, he currently has packing. He states he is normally active, independent and drives. He is marrried to spouse Cathy. PLAN: When medically cleared, return home to care of spouse. Patient prefers [facility] for outpatient infusion, call on Friday to give referral. He is declining possibility of home infusions. OZIEL Discharge Planning/Care Management CM Discharge Assessment Start: 11/23/22 12:22 Freq: Status: Active Protocol: Document 11/23/22 12:22 (Rec: 11/23/22 12:33 [id number]) Discharge Planning Assessment Assigned Jail Manager Soni Small RN/ERVINP Advance Directives? Yes Advance Directives on File No History Provided By Patient,Medical Record Prior Living Arrangements House Household Members spouse Type of transporation used prior to Drives own vehicle admit Independent with ADL's Yes Is patient alert and oriented? Yes Needs Assistance With Home Chores / Shopping Caregiver for Another No DME Already Rented / Owned FWW / Walker Comment walking stick Barriers to Discharge No Comment Patient needs two weeks IV Ceftriaxone Q24 Discharge Plan Home Community Services IV Therapy Transportation Arrangement Likely w/c Referrals Initiated Other Additional Comment Outpatient infusion center for 2 weeks Ceftriaxone q 24 hours. Possible could be home infusion. Review Status In Process Next Review Type Continued Stay Review
--- NOTE | 2022-11-23 12:35 | PC.NURSE ---
1225--nasal clamp removed; packing left in place; no bleeding noted at this time
--- NOTE | 2022-11-23 12:45 | PT.IIE ---
Current Diagnoses Sepsis, unspecified organism (11/22/22) Surgical History (Last Reviewed 11/23/22 @ 01:54 by NINA Brewster) History of back surgery S/P TURP Vasectomy status Medical History (Last Reviewed 11/23/22 @ 01:54 by NINA Brewster) Allergic rhinitis BPH (benign prostatic hyperplasia) BPH NOS w/o ur obs/LUTS Chronic anticoagulation Chronic low back pain Chronic, continuous use of opioids Coronary artery disease Do not resuscitate Essential hypertension High blood pressure Hydrocele Hypertrophy of breast Medicare annual wellness visit, initial Mixed hyperlipidemia Nocturia Peripheral arterial disease Peripheral vascular disease Polyneuropathy, unspecified Spinal stenosis, lumbar region without neurogenic claudication Umbilical hernia without obstruction or gangrene Venous (peripheral) insufficiency Physical Therapy Inpatient Evaluation/Re-Eval M1 PT/OT-IP Prior Functional Status Start: 11/23/22 17:22 Freq: NEEDED Status: Active Protocol: Document 11/23/22 12:45 AB (Rec: 11/23/22 17:35 AB [id number]) Medical Review Prior Functional Status Medical History Reviewed Yes Communication able to make needs known Mobility and Gait pt stated that he is modified independent with all mobilities and ambulation using 1 walking stick Social History Household Members spouse Living Arrangements House Number of Floors (Floors) One Floor Number of Stairs To Enter/Railing? 2 steps L rail to enter Home Environment Standard Height Toilet,Walk in Shower,Tub/Shower Home Equipment Front Wheel Walker,Shower Seat with Backrest,Grab Bars In Shower Additional Social History Comment stated that spouse will be able to assist him pt has a walking stick M2 PT-IP Current Condition Start: 11/23/22 17:22 Freq: NEEDED Status: Active Protocol: Document 11/23/22 12:45 AB (Rec: 11/23/22 17:35 AB [id number]) Physical Therapy Current Condition Current Condition Evaluation Date 11/23/22 Treatment Diagnosis sepsis; RLE cellulitis Onset Date 11/22/22 M3 PT-IP Subjective Start: 11/23/22 17:22 Freq: NEEDED Status: Active Protocol: Document 11/23/22 12:45 AB (Rec: 11/23/22 17:35 AB [id number]) Subjective Physical Therapy Visit Type Type Initial Evaluation Visit Start Time 12:45 Visit Stop Time 13:06 Total Visit Minutes 21 Number of HAND TENNIS BALL COVERER Visits 0 Physical Therapy Visit Comments Patient Comments agreeable to do PT Therapy Pain Assessment Pain When Pain Assessed At Rest Pain Present Pain Present Pain Reported Location Left Foot Intensity 4 Pain Management Techniques Modification of Treatment,Re- positioning,Timing of Activity with Medications Right Foot Intensity 6 Pain Management Techniques Modification of Treatment,Re- positioning,Timing of Activity with Medications M4 PT-IP Mobility and Gait Start: 11/23/22 17:22 Freq: NEEDED Status: Active Protocol: Document 11/23/22 12:45 AB (Rec: 11/23/22 17:35 AB [id number]) PT-Bed Mobility Assessment Supine to Sit Supine to Sit Standby Assistance,Bedrails Sit to Supine Sit to Supine Standby Assistance,Bedrails PT-Transfer Assessment Sit to and From Stand Sit to and from Stand Contact Guard Assistance,1 Person Assistance,Use of Upper Extremities Equipment Transfer Assistive Device Gait Belt,Front Wheeled Walker Orthotic/Prosthetic Devices or Brace: No Comments Mobility Comments completed supine to sit SBA. able to sit on EOB SBA. sit to stand CGA and ambulated in room using FWW ~ 15 ft SBA. pt unable to ambulate farther and wants to go back in bed. presents with unsteady guarded gait but without LOB. completed sit to supine SBA. positioned pt in bed. call light and table placed within reach. Gait Assessment Gait Gait Assistance Required: Standby Assistance Distance (Feet) 15 Able to Maintain Weight Bearing Status Yes During Gait Assistive Devices Assistive Device Gait Belt,Front Wheeled Walker Orthotic/Prosthetic Devices or Brace: No Gait Deviations General Gait Pattern Antalgic,Decreased Stride Length,Decreased Feet Clearance Factors Limiting Gait Function Factors Limiting Gait Function Decreased Activity Tolerance, Decreased Sensation,Decreased Strength,Limited Range of Motion,Pain,Poor Balance,Poor Safety Awareness PT-Balance Assessment Sitting Balance and Reactions Static Sitting Balance Ability Normal Dynamic Sitting Balance Ability Good Standing Balance and Reactions Static Standing Balance Ability Fair Dynamic Standing Balance Ability Fair Device Used FWW M5 PT-IP Objective Assessments Start: 11/23/22 17:22 Freq: NEEDED Status: Active Protocol: Document 11/23/22 12:45 AB (Rec: 11/23/22 17:35 AB [id number]) Orientation Orientation/Cognition Level of Alertness Alert Orientation Name,Place,Situation Language Function Ability No Deficits Noted Safety Awareness Decreased Safety Awareness Memory Description No Deficits Noted Gross Range of Motion Lower Extremity ROM Assessment Within Functional Limits Strength Lower Extremity Strength Hip 4-/5 Knee 4-/5 Sensation Assessment Sensation Sensation Description Numbness Comments Sensation Comments BLE peripheral neuropathy Muscle Tone Muscle Tone WNL Yes M6 PT-IP Treatment Start: 11/23/22 17:22 Freq: NEEDED Status: Active Protocol: Document 11/23/22 12:45 AB (Rec: 11/23/22 17:35 AB [id number]) Physical Therapy Treatment Education Education Provided Safety M7 PT-IP Assessment and Plan Start: 11/23/22 17:22 Freq: NEEDED Status: Active Protocol: Document 11/23/22 12:45 AB (Rec: 11/23/22 17:35 AB [id number]) PT Summary Assessment and Plan Potential Rehabilitation Potential Fair Status of Condition at Evaluation Evolving Summary Impairments Pain,ROM,Strength,Balance, Coordination,Sensation,Tone, Cognition,Bed Mobility, Transfers,Gait,Activity Tolerance Assessment Summary pt admitted for sepsis and RLE cellulitis. pt requiring SBA to CGA with mobility and was able to ambulate using a FWW but only tolerated ~ 15 ft. pt with decrease activity tolerance and has bilateral foot pain affecting mobility. pt stated that his spouse will be able to assist him at home if needed. will continue to assess progress. Goals Bed Mobility Goal Independent Transfer Goal Independent,Front Wheeled Walker Gait Goal Independent,Front Wheel Walker Gait Distance 200 Other Goals improve transfers and ambulation using SPC/walking stick ~ 200 ft SBA up/down 2 steps L rail SBA Days to Meet Goals 10 Frequency of Treatment Frequency Of Treatment Once a Day Treatment Plan Physical Therapy Treatment Plan Bed Mobility Training,Transfer Training,Gait Training, Therapeutic Exercise,Balance Retraining,Discharge Planning, Hot or Cold Pack,Neuromuscular Re-ed,Coordination Retraining Recommendations To Nursing Amount of Assist Needed 1 Person Assist Discharge Recommendations PT Discharge Recommendations Home with Assistance, Outpatient PT Transportation Needs at Discharge Private Vehicle,Wheelchair/ Cabulance
[2022-11-23 13:26] LABS: Add Manual Diff / Slide Review NO; Basophils Absolute Auto 0 /uL (0-100); Basophils Percent Auto 0.4 % (0-2); Eosinophils Absolute Auto 0 /uL (0-450); Eosinophils Percent Auto 0.1 % (2-4); Hematocrit 41.4 % (41-53); Hemoglobin 14.2 g/dL (13.5-17.5); Lymphocytes Absolute Auto 700 /uL (1100-4500); Lymphocytes Percent Auto 7.4 % (25-40); Mean Corpuscular HGB Conc 34.3 % (30-36); Mean Corpuscular Hemoglobin 33.9 PG (26-34); Mean Corpuscular Volume 98.8 fL (80-100); Monocytes Absolute Auto 700 /uL (0-900); Monocytes Percent Auto 7.3 % (3-14); Neutrophils Absolute Auto 8200 /uL (1500-7000); Neutrophils Percent Auto 84.8 % (50-75); Platelet Count 92 X10^3/uL (150-400); Red Blood Cell Count 4.19 X10^6/uL (4.5-5.9); Red Cell Distribution Width 15.1 % (11.6-14.8); White Blood Cell Count 9.7 X10^3/uL (4.5-11.0)
[2022-11-23 13:34] LABS: INR 1.5 (0.9-1.3); Prothrombin Time 17.1 SECONDS (10.1-12.7)
[2022-11-23 13:51] LABS: Lactate (Lactic Acid) 1.7 mmol/L (0.7-2.1)
[2022-11-23] MEDS: SODIUM CHLORIDE 0.9% 1,000 ML 84 ML IV (14:29)
[2022-11-23] MEDS: HYDROCODONE/ACET 5/325 TABLET 2 TAB PO (20:45)
[2022-11-24] VITALS (7 sets, daily range): BP systolic 114–135; BP diastolic 64–81; PULSE 57–79; RESP 18–24; TEMP 36–36.6; O2SAT 93–99
[2022-11-24 05:05] LABS: Add Manual Diff / Slide Review NO; Basophils Absolute Auto 0 /uL (0-100); Basophils Percent Auto 0.4 % (0-2); Eosinophils Absolute Auto 200 /uL (0-450); Eosinophils Percent Auto 3.3 % (2-4); Hematocrit 37.4 % (41-53); Hemoglobin 12.8 g/dL (13.5-17.5); Lymphocytes Absolute Auto 900 /uL (1100-4500); Lymphocytes Percent Auto 14.2 % (25-40); Mean Corpuscular HGB Conc 34.3 % (30-36); Mean Corpuscular Hemoglobin 33.5 PG (26-34); Mean Corpuscular Volume 97.8 fL (80-100); Monocytes Absolute Auto 700 /uL (0-900); Monocytes Percent Auto 11.7 % (3-14); Neutrophils Absolute Auto 4400 /uL (1500-7000); Neutrophils Percent Auto 70.4 % (50-75); Platelet Count 87 X10^3/uL (150-400); Red Blood Cell Count 3.83 X10^6/uL (4.5-5.9); Red Cell Distribution Width 15.1 % (11.6-14.8); White Blood Cell Count 6.3 X10^3/uL (4.5-11.0)
[2022-11-24 05:15] LABS: Alanine Aminotransferase 27 IU/L (<50); Albumin 2.7 g/dL (3.5-5.0); Alkaline Phosphatase 42 U/L (38-126); Aspartate Aminotransferase 36 IU/L (17-59); Blood Urea Nitrogen 19 mg/dL (9-20); Calcium 7.3 mg/dL (8.4-10.2); Carbon Dioxide 25 mmol/L (22-32); Chloride 103 mmol/L (98-107); Estimated Glomerular Filt Rate > 60 mL/min (>60); Globulin 2.8 g/dL (1.7-4.1); Glucose 80 mg/dL (80-110); HEMOLYSIS < 15 (0-50); Potassium 3.7 mmol/L (3.4-5.1); Sodium 133 mmol/L (137-145); Total Protein 5.5 g/dL (6.3-8.2)
[2022-11-24] MEDS: HYDROCODONE/ACET 5/325 TABLET 2 TAB PO ×2 (06:21→21:35)
--- NOTE | 2022-11-24 07:44 | PM.PN.1 ---
Subjective Subjective Interval history: Patient is feeling better. Exam Vital Signs (past 8 hours): - 11/24/22 00:03 11/24/22 03:53 Temperature 96.8 F L 97.4 F L Pulse Rate 65 79 Respiratory Rate 24 22 Blood Pressure 129/81 125/69 Pulse Oximetry 93 93 Oxygen Delivery Method Room Air Oxygen Flow Rate 0 Narrative Exam Narrative: General: Patient is a thin elderly male in no distress at this time. Nasal clamp in place with dried blood around nares. HEENT: Normocephalic, atraumatic, extraocular muscles intact, oral pharynx is clear and mucous membranes are dry. Neck is supple and symmetric, trachea is midline, no adenopathy, no thyroid enlargement, nontender, no masses palpated. Negative for JVD Chest: Equal chest rise without nasal flaring, retractions, tachypneic or labored breathing. Lungs: Auscultation of all lung betts are clear without adventitious sounds, wheezes, rhonchi, or rales. Cardio: irregular rate and rhythm AFib without murmur, rubs, or gallops, no carotid bruit, no cardiac pulsations present. Patient appears euvolemic. Abdomen: Soft nontender, negative for organomegaly, or masses. Bowel sounds are present in all 4 quadrants without guarding or rebound, no CVA tenderness. Musculoskeletal: Muscle strength and tone are equal, no deformity, crepitus, effusions, cyanosis, clubbing present. Bilateral chronic venous stasis to lower extremities, +1 edema to left ankle/foot. Full range of motion intact radial and pedal pulses are normal. Patient has thoracic stimulator in place for pain management. Right lower extremity: Noted increased erythema, inflammation and warmth to touch extending all the way up to the knee +2 edema, cellulitis, no open wounds or drainage. Skin: Warm dry and intact without rashes, ulcerations or petechiae.- see above Neuro: Alert and orientated x3, moves all extremities, sensation to touch intact, no gross deficits noted of cranial nerves. Psych: Patient has a well-kept appearance, appropriate affect, mental status attitude thought context and judgment are appropriate for age. Objective Labs 11/24/22 04:30 11/24/22 04:30 Labs: Laboratory Results - last 24 hr 11/23/22 11/23/22 11/23/22 08:00 13:15 13:15 WBC 9.7 RBC 4.19 L Hgb 14.2 Hct 41.4 MCV 98.8 MCH 33.9 MCHC 34.3 RDW 15.1 H Plt Count 92 L Neut % (Auto) 84.8 H Lymph % (Auto) 7.4 L [place] % (Auto) 7.3 Eos % (Auto) 0.1 L Baso % (Auto) 0.4 Neut # (Auto) 8200 H Lymph # (Auto) 700 L [place] # (Auto) 700 Eos # (Auto) 0 Baso # (Auto) 0 PT INR Sodium Potassium Chloride Carbon Dioxide BUN Creatinine Estimated GFR BUN/Creatinine Ratio Glucose Lactate 1.7 Calcium Total Bilirubin AST ALT Alkaline Phosphatase Total Protein Albumin Globulin Albumin/Globulin Ratio Nasal Screen MRSA (PCR) Not detected 11/23/22 11/24/22 11/24/22 13:15 04:30 04:30 WBC 6.3 RBC 3.83 L Hgb 12.8 L Hct 37.4 L MCV 97.8 MCH 33.5 MCHC 34.3 RDW 15.1 H Plt Count 87 L Neut % (Auto) 70.4 Lymph % (Auto) 14.2 L [place] % (Auto) 11.7 Eos % (Auto) 3.3 Baso % (Auto) 0.4 Neut # (Auto) 4400 Lymph # (Auto) 900 L [place] # (Auto) 700 Eos # (Auto) 200 Baso # (Auto) 0 PT 17.1 H D INR 1.5 H Sodium 133 L Potassium 3.7 Chloride 103 Carbon Dioxide 25 BUN 19 Creatinine 0.76 Estimated GFR > 60 BUN/Creatinine Ratio 25.0 H Glucose 80 Lactate Calcium 7.3 L Total Bilirubin 1.0 AST 36 ALT 27 Alkaline Phosphatase 42 Total Protein 5.5 L Albumin 2.7 L Globulin 2.8 Albumin/Globulin Ratio 1.0 Nasal Screen MRSA (PCR) [facility] Medical History Allergic rhinitis BPH (benign prostatic hyperplasia) BPH NOS w/o ur obs/LUTS Chronic anticoagulation Chronic low back pain Chronic, continuous use of opioids Coronary artery disease Do not resuscitate Essential hypertension High blood pressure Hydrocele Hypertrophy of breast Medicare annual wellness visit, initial Mixed hyperlipidemia Nocturia Peripheral arterial disease Peripheral vascular disease Polyneuropathy, unspecified Spinal stenosis, lumbar region without neurogenic claudication Umbilical hernia without obstruction or gangrene Venous (peripheral) insufficiency Surgical History History of back surgery S/P TURP Vasectomy status Social History household members: spouse Smoking Status: Never smoker alcohol intake: current Assessment & Plan Assessment & Plan narrative: Scotty Hester is 87-year-old male who recently was admitted on 08/2022 to [facility] for acute respiratory failure secondary to pneumonia group B strep, septic shock from bacteremia, HTN, mixed HLD, peripheral neuropathy, HX multiple back surgeries, with thoracic stimulator, AFib/flutter on Eliquis, CAD, PAD, chronic bilateral LE venous stasis, and BPH has been admitted for sepsis without shock, thrombocytopenia initially of unknown etiology, but on exam found right lower extremity cellulitis. Patient will require rehydration, IV antibiotics pending culture results. Sepsis, without septic shock secondary to GBS bacteremia due to right lower extremity cellulitis, acute, present on admission Suspect the cause of sepsis to be right lower extremity cellulitis, did not observe any wounds or broken skin. Recent history of hospitalization 08/2022 acute respiratory failure, pneumonia, bacteremia, group B strep. Patient provided sepsis fluid bolus on admit, currently neg 3L+ continue rocephin 2g daily GBS positive in 4/4 bottles, repeat blood cultures 11/24 also positive in 3/4 bottles Right lower extremity doppler negative for DVT start lasix 40 IV daily due to increased LE edema, hold IVF f/u TTE for endocarditis, if negative and blood cultures persistently positive will need to transfer for BAL Acute epistaxis, not present on admission, now resolved had persistent nosebleed morning of 11/23 Dr. Islas ED suctioned large clot and placed cotton balls with clamp for 2 hours bleeding now resolved holding home eliquis Thrombocytopenia, acute on chronic, present on admission Platelet count is 91 , It appears he has had some chronic mild thrombocytopenia dating back to 2016. Since then platelet counts have ranged from 131-140k ([id number]). transfuse platelets if <50k ? Atrial Fib/flutter, chronic, rate controlled, present on admission History of CAD, PAD Holding Eliquis due to epistaxis Hypertension, essential, chronic, present on admission continue home losartan Peripheral neuropathy, chronic, with chronic venous stasis, present on admission IV Lasix as above, continue Lyrica implanted thoracic neurostimulator. Code status: DNR/DNI Surrogate decision maker: Cathy DVT/VTE prophylaxis: Eliquelmer SCD left only Disposition: 2 days until repeat blood cultures negative and echo resulted.
[2022-11-24] MEDS: LOSARTAN 50 MG TABLET 100 MG PO (08:31)
[2022-11-24] MEDS: ATORVASTATIN 20 MG TABLET 10 MG PO (08:31)
[2022-11-24] MEDS: PREGABALIN 50 MG CAPSULE 200 MG PO ×2 (08:33→21:15)
[2022-11-24] MEDS: cefTRIAXone 2,000 MG in SODIUM CHLORIDE 0.9% 100 ML 200 MG IV (08:34)
--- NOTE | 2022-11-24 12:06 | PT.IPTN ---
Current Diagnoses Sepsis, unspecified organism (11/22/22) Physical Therapy Treatment Note M2 PT-IP Current Condition Start: 11/23/22 17:22 Freq: NEEDED Status: Active Protocol: Document 11/23/22 12:45 AB (Rec: 11/23/22 17:35 AB [id number]) Physical Therapy Current Condition Current Condition Evaluation Date 11/23/22 Treatment Diagnosis sepsis; RLE cellulitis Onset Date 11/22/22 M3 PT-IP Subjective Start: 11/23/22 17:22 Freq: NEEDED Status: Active Protocol: Document 11/24/22 11:47 KS (Rec: 11/24/22 13:42 KS [id number]) Subjective Physical Therapy Visit Type Type Treatment Note Visit Start Time 11:47 Visit Stop Time 12:06 Total Visit Minutes 19 Notes present Number of CASE REVIEWER Visits 1 Physical Therapy Visit Comments Patient Comments agreeable to do PT M4 PT-IP Mobility and Gait Start: 11/23/22 17:22 Freq: NEEDED Status: Active Protocol: Document 11/24/22 11:47 KS (Rec: 11/24/22 13:42 KS [id number]) PT-Bed Mobility Assessment Supine to Sit Supine to Sit Standby Assistance,Bedrails Scooting Scooting to Edge of Bed Standby Assistance PT-Transfer Assessment Sit to and From Stand Sit to and from Stand Contact Guard Assistance,1 Person Assistance,Use of Upper Extremities Equipment Transfer Assistive Device Gait Belt,Front Wheeled Walker Orthotic/Prosthetic Devices or Brace: No Transfers Transfer Destination Chair Transfer Technique ambulated Transfer Ability Level of Assist Contact Guard Assistance Comments Mobility Comments Pt in bed and agreeable to ambulate and transfer to chair for lunch. SBA for sup<>Sit and scooting EOB, CGA for sit< >stand w/ FWW. Pt ambulated ~ 10 ft to chair and sat down before agreeable to ambulate futher. He ambulated additional 35 ft in room w/ FWW and then went back to his chair CGA. Pt performed ankle pumps, quad sets, glute sets, and seated marching. Left w/ all needs in reach. Gait Assessment Gait Gait Assistance Required: Contact Guard Assist,1 Person Assist Distance (Feet) 35 Able to Maintain Weight Bearing Status Yes During Gait Assistive Devices Assistive Device Gait Belt,Front Wheeled Walker Orthotic/Prosthetic Devices or Brace: No Gait Deviations General Gait Pattern Antalgic,Decreased Stride Length,Decreased Feet Clearance Factors Limiting Gait Function Factors Limiting Gait Function Decreased Activity Tolerance, Decreased Sensation,Decreased Strength,Limited Range of Motion,Pain,Poor Balance,Poor Safety Awareness Comments Gait Comments Flexed posture, cues for FWW mgmt/safety. Stair Climbing Assessment Comments Stair Climbing Comments Did not assess. PT-Balance Assessment Sitting Balance and Reactions Static Sitting Balance Ability Normal Dynamic Sitting Balance Ability Good Standing Balance and Reactions Static Standing Balance Ability Fair Dynamic Standing Balance Ability Fair Device Used FWW M5 PT-IP Objective Assessments Start: 11/23/22 17:22 Freq: NEEDED Status: Active Protocol: Document 11/23/22 12:45 AB (Rec: 11/23/22 17:35 AB [id number]) Orientation Orientation/Cognition Level of Alertness Alert Orientation Name,Place,Situation Language Function Ability No Deficits Noted Safety Awareness Decreased Safety Awareness Memory Description No Deficits Noted Gross Range of Motion Lower Extremity ROM Assessment Within Functional Limits Strength Lower Extremity Strength Hip 4-/5 Knee 4-/5 Sensation Assessment Sensation Sensation Description Numbness Comments Sensation Comments BLE peripheral neuropathy Muscle Tone Muscle Tone WNL Yes M6 PT-IP Treatment Start: 11/23/22 17:22 Freq: NEEDED Status: Active Protocol: Document 11/24/22 11:47 KS (Rec: 11/24/22 13:42 KS [id number]) Physical Therapy Treatment Exercises Exercises Ankle Pumps,Gluteal Sets,Quad Sets Education Education Provided Safety Equipment Issued Equipment Type and Company Seated marching M7 PT-IP Assessment and Plan Start: 11/23/22 17:22 Freq: NEEDED Status: Active Protocol: Document 11/24/22 11:47 KS (Rec: 11/24/22 13:42 KS [id number]) PT Summary Assessment and Plan Potential Rehabilitation Potential Fair Summary Impairments Pain,ROM,Strength,Balance, Coordination,Sensation,Tone, Cognition,Bed Mobility, Transfers,Gait,Activity Tolerance Progress Towards Goals Progressing Toward Goals Assessment Summary Pt was able to increase his ambulation distance to 35 ft today, but does fatigue quickly. He requires SBA for med mobility, CGA for transfers and gait w/ FWW w/ cues for FWW mgmt/staying inside FWW. His foot pain and limited tolerance for activity are main barriers to progress , however has supportive spouse. Will continue to assess progress anticipate pt may be able to return home w/ home health if he continues to improve. Goals Bed Mobility Goal Independent Transfer Goal Independent,Front Wheeled Walker Gait Goal Independent,Front Wheel Walker Gait Distance 200 Other Goals improve transfers and ambulation using SPC/walking stick ~ 200 ft SBA up/down 2 steps L rail SBA Days to Meet Goals 10 Frequency of Treatment Frequency Of Treatment Once a Day Treatment Plan Physical Therapy Treatment Plan Bed Mobility Training,Transfer Training,Gait Training, Therapeutic Exercise,Balance Retraining,Discharge Planning, Hot or Cold Pack,Neuromuscular Re-ed,Coordination Retraining Recommendations To Nursing Amount of Assist Needed 1 Person Assist Discharge Recommendations PT Discharge Recommendations Home with Assistance,Home Health,Outpatient PT Transportation Needs at Discharge Private Vehicle,Wheelchair/ Cabulance
[2022-11-24] MEDS: FUROSEMIDE 40 MG/4 ML VIAL IV (14:15)
[2022-11-24] MEDS: SENNOSIDES 8.6 MG TABLET 17.2 MG PO (21:16)
[2022-11-24] MEDS: SODIUM CHLORIDE 0.9% FLUSH 10 ML IV (21:16)
[2022-11-25] VITALS (7 sets, daily range): BP systolic 111–158; BP diastolic 64–80; PULSE 50–68; RESP 17–19; TEMP 36.3–36.8; O2SAT 94–96
[2022-11-25 03:48] LABS: Add Manual Diff / Slide Review NO; Basophils Absolute Auto 0 /uL (0-100); Basophils Percent Auto 0.7 % (0-2); Eosinophils Absolute Auto 300 /uL (0-450); Eosinophils Percent Auto 6.4 % (2-4); Hematocrit 35.3 % (41-53); Hemoglobin 12.2 g/dL (13.5-17.5); Lymphocytes Absolute Auto 1200 /uL (1100-4500); Lymphocytes Percent Auto 23.7 % (25-40); Mean Corpuscular HGB Conc 34.6 % (30-36); Mean Corpuscular Hemoglobin 33.9 PG (26-34); Mean Corpuscular Volume 97.8 fL (80-100); Monocytes Absolute Auto 700 /uL (0-900); Monocytes Percent Auto 13.7 % (3-14); Neutrophils Absolute Auto 2700 /uL (1500-7000); Neutrophils Percent Auto 55.5 % (50-75); Platelet Count 97 X10^3/uL (150-400); Red Blood Cell Count 3.61 X10^6/uL (4.5-5.9); Red Cell Distribution Width 14.5 % (11.6-14.8); White Blood Cell Count 4.9 X10^3/uL (4.5-11.0)
[2022-11-25 04:06] LABS: Alanine Aminotransferase 26 IU/L (<50); Albumin 2.5 g/dL (3.5-5.0); Albumin Globulin Ratio 0.9 (1.0-2.8); Alkaline Phosphatase 40 U/L (38-126); Aspartate Aminotransferase 34 IU/L (17-59); BUN Creatinine Ratio 16.9 (6-22); Bilirubin Total 0.9 mg/dL (0.2-1.3); Blood Urea Nitrogen 14 mg/dL (9-20); Calcium 7.3 mg/dL (8.4-10.2); Carbon Dioxide 29 mmol/L (22-32); Chloride 102 mmol/L (98-107); Estimated Glomerular Filt Rate > 60 mL/min (>60); Globulin 2.9 g/dL (1.7-4.1); Glucose 86 mg/dL (80-110); HEMOLYSIS < 15 (0-50); Potassium 3.7 mmol/L (3.4-5.1); Sodium 134 mmol/L (137-145); Total Protein 5.4 g/dL (6.3-8.2)
[2022-11-25] MEDS: PREGABALIN 50 MG CAPSULE 200 MG PO ×2 (08:19→21:57)
[2022-11-25] MEDS: FUROSEMIDE 40 MG/4 ML VIAL IV (08:19)
[2022-11-25] MEDS: cefTRIAXone 2,000 MG in SODIUM CHLORIDE 0.9% 100 ML 200 MG IV (08:19)
[2022-11-25] MEDS: ATORVASTATIN 20 MG TABLET 10 MG PO (08:21)
[2022-11-25] MEDS: SODIUM CHLORIDE 0.9% FLUSH 10 ML IV ×2 (08:22→21:58)
--- NOTE | 2022-11-25 11:28 | CM.DPC ---
Addendum entered by HEAVENLY Horner 11/25/22 15:47: DCP Continued: Claritza called CM team to let us know she did not receive a fax with the order. BUSINESS RULES DEVELOPER sent fax again to main number. Claritza said she did not get it again. BUSINESS RULES DEVELOPER sent fax to new number, (#[phone]) in order to work on getting auth for IV antibiotics. Claritza called to let BUSINESS RULES DEVELOPER know she did not receive fax. BUSINESS RULES DEVELOPER and RN Maia Kaba walked provider order down to clinic. Claritza received it and said she would work on trying to frazier the auth and will let CM team know if auth approved. Claritza said they tentatively have a slot open for 1100 tomorrow, 11/26. BUSINESS RULES DEVELOPER let nursing staff know the plan. BUSINESS RULES DEVELOPER called Claritza (ext [phone]), she said she has not heard back from insurance regarding the auth. BUSINESS RULES DEVELOPER will follow up first thing in the morning. BUSINESS RULES DEVELOPER will update nursing staff. Plan: Plan A) if auth approved today, will d/c tonight home and start op iv antibiotics tomorrow, 11/26 at 1100. Plan B) if not approved today, will d/c tomorrow after iv antibiotic treatment and start op iv antibiotics 11/27. CM team will continue to follow. SL Original Note: DCP Continued: BUSINESS RULES DEVELOPER reviewed EMR. From provider, patient could potentially d/c today if cancer infusion clinic was set up for OP IV antibiotics. BUSINESS RULES DEVELOPER spoke with Claritza (ext [phone] or [phone]?) re: initial ref. Claritza was getting set up after weekend and will call back when she has more information. Claritza called back to say patient order form had incorrect . CM team faxed over provider order form with correct to [facility] (#[phone]) with face sheet and H&P. Currently waiting on insurance, [employer], auth at this time. Plan: home with infusion clinic. Waiting on Auth at this time. CM team will continue to follow closely. HEAVENLY Horner
--- NOTE | 2022-11-25 13:56 | OT.IPNOTE ---
OT eval and treat order received. Pt and nursing state that pt is getting up to the bathroom without assist. Pt states that he feels like he is at his baseline for ADLs. Will discharge orders. Per nurse, pt is planned for discharge home today.
--- NOTE | 2022-11-25 14:35 | PT.IPTN ---
Current Diagnoses Sepsis, unspecified organism (11/22/22) Physical Therapy Treatment Note M2 PT-IP Current Condition Start: 11/23/22 17:22 Freq: NEEDED Status: Active Protocol: Document 11/23/22 12:45 AB (Rec: 11/23/22 17:35 AB [id number]) Physical Therapy Current Condition Current Condition Evaluation Date 11/23/22 Treatment Diagnosis sepsis; RLE cellulitis Onset Date 11/22/22 M3 PT-IP Subjective Start: 11/23/22 17:22 Freq: NEEDED Status: Active Protocol: Document 11/25/22 15:05 TS (Rec: 11/25/22 15:17 TS [id number]) Subjective Physical Therapy Visit Type Type Treatment Note Visit Start Time 14:35 Visit Stop Time 14:52 Total Visit Minutes 17 Number of PACKAGE LINE OPERATOR Visits 2 Physical Therapy Visit Comments Patient Comments Pt reports wanting to get up to toilet, agreeable to do PT. M4 PT-IP Mobility and Gait Start: 11/23/22 17:22 Freq: NEEDED Status: Active Protocol: Document 11/25/22 15:05 TS (Rec: 11/25/22 15:17 TS [id number]) PT-Bed Mobility Assessment Supine to Sit Supine to Sit Standby Assistance,Bedrails Sit to Supine Sit to Supine Standby Assistance,Bedrails Scooting Scooting to Edge of Bed Standby Assistance Scooting Up and Down in Bed Independent PT-Transfer Assessment Sit to and From Stand Sit to and from Stand Standby Assistance,Use of Upper Extremities Equipment Transfer Assistive Device Gait Belt,Front Wheeled Walker Orthotic/Prosthetic Devices or Brace: No Comments Mobility Comments Pt SBA with supine to sit, use of BUEs for sitting EOB. Sit to stand x1 from SBA with FWW, SBa x1 from toilet with handrail assist. Pt ambulated ~200' SBA with FWW with quick pacing gait, no buckling or LOB. Performed steps x3 with L rail SBA step to step on small stool. Pt was left back in bed with call light in reach, all needs met. Gait Assessment Gait Gait Assistance Required: Standby Assistance,1 Person Assist Distance (Feet) 200 Able to Maintain Weight Bearing Status Yes During Gait Assistive Devices Assistive Device Gait Belt,Front Wheeled Walker Orthotic/Prosthetic Devices or Brace: No Gait Deviations General Gait Pattern Antalgic Factors Limiting Gait Function Factors Limiting Gait Function Decreased Activity Tolerance, Decreased Strength,Pain Comments Gait Comments See mobility comments. Stair Climbing Assessment Evaluation Level of Assist On Stairs Standby Assistance Devices Stair Climbing Assistive Devices Left Railing Technique/Endurance Stair Climbing Direction Ascend and Descend Stair Climbing Technique Step to Step Number of Steps Climbed 3 Comments Stair Climbing Comments See mobility comments. PT-Balance Assessment Sitting Balance and Reactions Static Sitting Balance Ability Normal Dynamic Sitting Balance Ability Good Standing Balance and Reactions Static Standing Balance Ability Fair Dynamic Standing Balance Ability Fair Device Used FWW M5 PT-IP Objective Assessments Start: 11/23/22 17:22 Freq: NEEDED Status: Active Protocol: Document 11/23/22 12:45 AB (Rec: 11/23/22 17:35 AB [id number]) Orientation Orientation/Cognition Level of Alertness Alert Orientation Name,Place,Situation Language Function Ability No Deficits Noted Safety Awareness Decreased Safety Awareness Memory Description No Deficits Noted Gross Range of Motion Lower Extremity ROM Assessment Within Functional Limits Strength Lower Extremity Strength Hip 4-/5 Knee 4-/5 Sensation Assessment Sensation Sensation Description Numbness Comments Sensation Comments BLE peripheral neuropathy Muscle Tone Muscle Tone WNL Yes M6 PT-IP Treatment Start: 11/23/22 17:22 Freq: NEEDED Status: Active Protocol: Document 11/24/22 11:47 KS (Rec: 11/24/22 13:42 KS [id number]) Physical Therapy Treatment Exercises Exercises Ankle Pumps,Gluteal Sets,Quad Sets Education Education Provided Safety Equipment Issued Equipment Type and Company Seated marching M7 PT-IP Assessment and Plan Start: 11/23/22 17:22 Freq: NEEDED Status: Active Protocol: Document 11/25/22 15:05 TS (Rec: 11/25/22 15:17 TS [id number]) PT Summary Assessment and Plan Potential Rehabilitation Potential Good Summary Impairments Pain,ROM,Strength,Balance, Coordination,Sensation,Tone, Cognition,Bed Mobility, Transfers,Gait,Activity Tolerance Progress Towards Goals Progressing Toward Goals Assessment Summary Pt is progressing well with mobility this session. He progressed his ambulation to ~ 200' SBA with FWW, some swaying but no buckling or LOB . He performed steps x3 SBA with L rail step to step, no LOB. PT is recommending return home with assist and HHPT for improving activity tolerance and balance. Goals Bed Mobility Goal Independent Transfer Goal Independent,Front Wheeled Walker Gait Goal Independent,Front Wheel Walker Gait Distance 200 Other Goals improve transfers and ambulation using SPC/walking stick ~ 200 ft SBA up/down 2 steps L rail SBA Days to Meet Goals 10 Frequency of Treatment Frequency Of Treatment Once a Day Treatment Plan Physical Therapy Treatment Plan Bed Mobility Training,Transfer Training,Gait Training, Therapeutic Exercise,Balance Retraining,Discharge Planning, Hot or Cold Pack,Neuromuscular Re-ed,Coordination Retraining Recommendations To Nursing Amount of Assist Needed Standby Assistance Discharge Recommendations PT Discharge Recommendations Home with Assistance,Home Health,Outpatient PT Transportation Needs at Discharge Private Vehicle,Wheelchair/ Cabulance
--- NOTE | 2022-11-25 18:34 | P.PN_ITS ---
Subjective Subjective Interval history: Patient feeling much better today. Blood cultures now negative at 24 hours. He is peeing alot with lasix he says. Midline ordered. Exam Vital Signs (past 8 hours): - 11/25/22 12:00 11/25/22 16:00 Temperature 98.2 F 98.0 F Pulse Rate 66 66 Respiratory Rate 17 19 Blood Pressure 111/66 158/80 H Pulse Oximetry 96 95 Oxygen Flow Rate 0 0 Oxygen Delivery Method Room Air Oxygen Flow Rate 0 Narrative Exam Narrative: General: Patient is a thin elderly male in no distress at this time. Nasal clamp in place with dried blood around nares. HEENT: Normocephalic, atraumatic, extraocular muscles intact, oral pharynx is clear and mucous membranes are dry. Neck is supple and symmetric, trachea is midline, no adenopathy, no thyroid enlargement, nontender, no masses palpated. Negative for JVD Chest: Equal chest rise without nasal flaring, retractions, tachypneic or labored breathing. Lungs: Auscultation of all lung betts are clear without adventitious sounds, wheezes, rhonchi, or rales. Cardio: irregular rate and rhythm AFib without murmur, rubs, or gallops, no carotid bruit, no cardiac pulsations present. Patient appears euvolemic. Abdomen: Soft nontender, negative for organomegaly, or masses. Bowel sounds are present in all 4 quadrants without guarding or rebound, no CVA tenderness. Musculoskeletal: Muscle strength and tone are equal, no deformity, crepitus, effusions, cyanosis, clubbing present. Bilateral chronic venous stasis to lower extremities, +1 edema to left ankle/foot. Full range of motion intact radial and pedal pulses are normal. Patient has thoracic stimulator in place for pain management. Right lower extremity: Noted increased erythema, inflammation and warmth to touch extending all the way up to the knee +2 edema, cellulitis, no open wounds or drainage. Skin: Warm dry and intact without rashes, ulcerations or petechiae.- see above Neuro: Alert and orientated x3, moves all extremities, sensation to touch intact, no gross deficits noted of cranial nerves. Psych: Patient has a well-kept appearance, appropriate affect, mental status attitude thought context and judgment are appropriate for age. Objective Labs 11/25/22 03:20 11/25/22 03:20 Labs: Laboratory Results - last 24 hr 11/25/22 11/25/22 03:20 03:20 WBC 4.9 RBC 3.61 L Hgb 12.2 L Hct 35.3 L MCV 97.8 MCH 33.9 MCHC 34.6 RDW 14.5 Plt Count 97 L Neut % (Auto) 55.5 Lymph % (Auto) 23.7 L [place] % (Auto) 13.7 Eos % (Auto) 6.4 H Baso % (Auto) 0.7 Neut # (Auto) 2700 Lymph # (Auto) 1200 [place] # (Auto) 700 Eos # (Auto) 300 Baso # (Auto) 0 Sodium 134 L Potassium 3.7 Chloride 102 Carbon Dioxide 29 BUN 14 Creatinine 0.83 Estimated GFR > 60 BUN/Creatinine Ratio 16.9 Glucose 86 Calcium 7.3 L Total Bilirubin 0.9 AST 34 ALT 26 Alkaline Phosphatase 40 Total Protein 5.4 L Albumin 2.5 L Globulin 2.9 Albumin/Globulin Ratio 0.9 L [facility] Medical History Allergic rhinitis BPH (benign prostatic hyperplasia) BPH NOS w/o ur obs/LUTS Chronic anticoagulation Chronic low back pain Chronic, continuous use of opioids Coronary artery disease Do not resuscitate Essential hypertension High blood pressure Hydrocele Hypertrophy of breast Medicare annual wellness visit, initial Mixed hyperlipidemia Nocturia Peripheral arterial disease Peripheral vascular disease Polyneuropathy, unspecified Spinal stenosis, lumbar region without neurogenic claudication Umbilical hernia without obstruction or gangrene Venous (peripheral) insufficiency Surgical History History of back surgery S/P TURP Vasectomy status Social History household members: spouse Smoking Status: Never smoker alcohol intake: current Assessment & Plan Assessment & Plan narrative: Scotty Hester is 87-year-old male who recently was admitted on 08/2022 to [place] for acute respiratory failure secondary to pneumonia group B strep, septic shock from bacteremia, HTN, mixed HLD, peripheral neuropathy, HX multiple back surgeries, with thoracic stimulator, AFib/flutter on Eliquis, CAD, PAD, chronic bilateral LE venous stasis, and BPH has been admitted for sepsis without shock, thrombocytopenia initially of unknown etiology, but on exam found right lower extremity cellulitis. Patient will require rehydration, IV antibiotics pending culture results. Sepsis, without septic shock secondary to GBS bacteremia due to right lower extremity cellulitis, acute, present on admission * Suspect the cause of sepsis to be right lower extremity cellulitis, did not observe any wounds or broken skin. * Recent history of hospitalization 08/2022 acute respiratory failure, pneumonia, bacteremia, group B strep. * Patient provided sepsis fluid bolus on admit, currently neg 3L+ * continue rocephin 2g daily * GBS positive in 3/4 bottles, repeat blood cultures 11/24 negative at 24 hours * Right lower extremity doppler negative for DVT * start lasix 40 IV daily due to increased LE edema, hold IVF * TTE negative for endocarditis * continue rocephin for 2 weeks * midline ordered for outpatient IV abx Acute epistaxis, not present on admission, now resolved * had persistent nosebleed morning of 11/23 * Dr. Islas ED suctioned large clot and placed cotton balls with clamp for 2 hours * bleeding now resolved * holding home eliquis Thrombocytopenia, acute on chronic, present on admission * Platelet count is 91 , It appears he has had some chronic mild thrombocytopenia dating back to 2016. Since then platelet counts have ranged from 131-140k (4497-1025). * transfuse platelets if <50k ? Atrial Fib/flutter, chronic, rate controlled, present on admission * History of CAD, PAD * Holding Eliquis due to epistaxis Hypertension, essential, chronic, present on admission * continue home losartan Peripheral neuropathy, chronic, with chronic venous stasis, present on admission * IV Lasix as above, continue Lyrica * implanted thoracic neurostimulator. Code status: DNR/DNI Surrogate decision maker: Cathy DVT/VTE prophylaxis: Eliquis SCD left only Disposition: Home with IV abx on 11/26.
[2022-11-25] MEDS: SENNOSIDES 8.6 MG TABLET 17.2 MG PO (21:57)
[2022-11-26 04:00] VITALS: BP 125/67; PULSE 55; RESP 17; TEMP 36.9; O2SAT 96
[2022-11-26 04:48] LABS: Add Manual Diff / Slide Review NO; Basophils Absolute Auto 100 /uL (0-100); Eosinophils Absolute Auto 300 /uL (0-450); Eosinophils Percent Auto 4.9 % (2-4); Hemoglobin 13.8 g/dL (13.5-17.5); Lymphocytes Absolute Auto 1500 /uL (1100-4500); Lymphocytes Percent Auto 25.8 % (25-40); Mean Corpuscular HGB Conc 34.4 % (30-36); Mean Corpuscular Hemoglobin 33.2 PG (26-34); Mean Corpuscular Volume 96.5 fL (80-100); Monocytes Absolute Auto 800 /uL (0-900); Monocytes Percent Auto 13.6 % (3-14); Neutrophils Absolute Auto 3100 /uL (1500-7000); Neutrophils Percent Auto 54.7 % (50-75); Platelet Count 108 X10^3/uL (150-400); Red Blood Cell Count 4.14 X10^6/uL (4.5-5.9); Red Cell Distribution Width 14.5 % (11.6-14.8); White Blood Cell Count 5.7 X10^3/uL (4.5-11.0)
[2022-11-26 04:58] LABS: Alanine Aminotransferase 28 IU/L (<50); Alkaline Phosphatase 50 U/L (38-126); Aspartate Aminotransferase 34 IU/L (17-59); BUN Creatinine Ratio 18.8 (6-22); Bilirubin Total 1.2 mg/dL (0.2-1.3); Blood Urea Nitrogen 12 mg/dL (9-20); Carbon Dioxide 27 mmol/L (22-32); Chloride 103 mmol/L (98-107); Estimated Glomerular Filt Rate > 60 mL/min (>60); Globulin 2.9 g/dL (1.7-4.1); Glucose 95 mg/dL (80-110); HEMOLYSIS < 15 (0-50); Potassium 3.8 mmol/L (3.4-5.1); Sodium 135 mmol/L (137-145); Total Protein 5.9 g/dL (6.3-8.2)
[2022-11-26 08:00] VITALS: BP 126/64; PULSE 61; RESP 16; TEMP 36.8; O2SAT 94
--- NOTE | 2022-11-26 09:01 | CM.DPC ---
Addendum entered by Sendy Dixon R.N. 11/26/22 15:13: Dr. Bolanos called and indicated that infection may be caused by prosthetic joint, and that Dr. Jenkins, infectious disease will follow, and will need about 4 weeks of IV ABO versus completion on 12/06. Patient will also need labs, Dr. Bolanos is updating oncology sheet. Spoke to nursing and Claritza over at [facility], nursing stated, should not be a problem. As soon as form is completed, will fax it over. Updated floor nurse that patient can go home if ready. He will still be seen at 11:00 tomorrow at oncology infusion clinic. Addendum entered by Sendy Dixon R.N. 11/26/22 12:39: Patient has an appointment at infusion clinic tomorrow, just spoke to Claritza at oncology. Appointment time is 11:00, updated patient and spouse. Let them know that other appointments will be set up at tomorrow's appointments. Original Note: DCP Cont: Spoke to Claritza over at the [facility], she has auth, they can see him for his IV ABO tomorrow, and patient will have his antibiotic here. Updated hospitalist. P: Patient will DC today home after receiving his IV ABO. Patient is set up for tomorrow at oncology Will need to get dose and refax over form to oncology. Sendy Dixon RN/Claim Investigator
[2022-11-26] MEDS: cefTRIAXone 2,000 MG in SODIUM CHLORIDE 0.9% 100 ML 200 MG IV (09:05)
[2022-11-26 09:06] VITALS: BP 124/64
[2022-11-26] MEDS: FUROSEMIDE 40 MG/4 ML VIAL IV (09:06)
[2022-11-26] MEDS: PREGABALIN 50 MG CAPSULE 200 MG PO (09:06)
[2022-11-26] MEDS: LOSARTAN 50 MG TABLET 100 MG PO (09:06)
[2022-11-26] MEDS: ATORVASTATIN 20 MG TABLET 10 MG PO (09:07)
[2022-11-26] MEDS: SODIUM CHLORIDE 0.9% FLUSH 10 ML IV (10:35)
[2022-11-26] MEDS: HYDROCODONE/ACET 5/325 TABLET 1 TAB PO (10:36)
--- NOTE | 2022-11-26 18:27 | P.DS_ITS ---
History of Present Illness History of Present Illness Date Patient Seen: 11/22/22 Time Patient Seen: 21:28 Chief complaint: Sepsis, fever, thrombocytopenia of unknown etiolog Narrative: Scotty Hester is 87-year-old male who recently was admitted on 08/2022 to [facility] for acute respiratory failure secondary to pneumonia group B strep, septic shock from bacteremia, HTN, mixed HLD, peripheral neuropathy, HX multiple back surgeries, with thoracic stimulator, AFib/flutter on Eliquis, CAD, PAD, and BPH patient was brought in today by his family due to 2 days of fevers of 104 at home to falls due to lower extremity weakness, global weakness and increasing fatigue. Patient denies chest pain, shortness in breath, headache, changes in vision, difficulty swallowing, speech impairment, weakness, numbness, tingling, difficulty with ambulation, recent falls, head injury, LOC, cough, recent exposure to illness, abdominal pain, nausea, vomiting, urinary incontinen ce/retention, dysuria, frequency, urgency, hematuria, bowel changes, constipation, incontinence, melena, rashes, recent changes to medication, illness, injury, or trauma. Patient is resting comfortably in no distress. Patient initially presented to the ED b/p 153/79, 161/82, at the time of admit p ressure dropped to 110/66, repeat 102/59. WBC 9.3 is normal, but this is elevated for the patient who is normally WBC:3.8-4.2, has a mild left shift 8200, platelets 91 (plt 118-186, sodium 131, chloride 96, BUN 26, lactate negative, bili 1.8, BNP 2360, procalcitonin 13.7, urinalysis negative, respi ratory panel negative, chest x-ray negative for any acute changes, PT 26.4, INR 2.3, PTT 40, EKG noted to be in AFib with a rate of [address] or T-wave changes. Sofa score: 4 patient admitted for sepsis without shock, hypotension, thrombocytopenia, of unknown etiology. Discharge Providers Provider Date of admission: 11/22/22 20:52 Discharge Date: 11/26/22 Primary care physician: Pooja Oliver PA-C Consults: 11/22/22 21:25 Consult to Dietitian, Adult Routine Comment: Reason For Exam: BMI 23.5 Consult to Occupational Therapy Evaluate & Treat Comment: recent falls/global weakness Physician Instructions: Evaluate and treat 11/22/22 21:26 Consult to Physical Therapy Evaluate & Treat Comment: recent falls/global weakness Physician Instructions: Evaluate and Treat 11/23/22 08:51 Consult to COMMISSIONED POLICE OFFICER - Roller [employer] Operator Routine Comment: needs 2 weeks IV abx Discharge provider: Immanuel Bolanos DO Summary Hospital Course Discharge Diagnosis: Recurrent GBS bacteremia, acute, present on admission * Recent history of hospitalization 08/2022 acute respiratory failure, pneumonia, group B strep bacteremia. 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 * Patient provided sepsis fluid bolus on admit, currently neg +3L * continue rocephin 2g daily * GBS positive in 3/4 bottles, repeat blood cultures 11/24 negative at 48 hours * Right lower extremity doppler negative for DVT * started lasix 40 IV daily due to increased LE edema, hold IVF * TTE negative for endocarditis * spoke with ID who recommended likely 6 week IV abx course due to patient's prosthetic right shoulder * midline ordered for outpatient IV abx, will need to change to a PICC as outpatient * patient will f/u with Dr. Johnson for ongoing management Acute epistaxis, not present on admission, now resolved * had persistent nosebleed morning of 11/23 * Dr. Islas ED suctioned large clot and placed cotton balls with clamp for 2 hours * bleeding now resolved * restarted home eliquis on dc at 2.5mg BID after discussion with patient Thrombocytopenia, acute on chronic, present on admission * Platelet count is 91 , It appears he has had some chronic mild thrombocytopenia dating back to 2016. Since then platelet counts have ranged from 131-140k (4791-1908). * transfuse platelets if <50k? Atrial Fib/flutter, chronic, rate controlled, present on admission * History of CAD, PAD * Holding Eliquis due to epistaxis, restarted on dc * patient decided to split eliquis into half to mitigate risk of bleeding but keep stroke prevention Hypertension, essential, chronic, present on admission * continue home losartan Peripheral neuropathy, chronic, with chronic venous stasis, present on admission * IV Lasix as above, continue Lyrica * implanted thoracic neurostimulator. Hospital Course: Admitted for recurrent GBS bacteremia of unclear source. Most likely cause is due to previous GBS bacteremia 3mo ago and after 2 weeks fo IV abx the infection never fully cleared due to patient's right prosthetic shoulder. Put on rocephin 2g daily and BC cleared in 1 day. TTE neg for endocarditis. Spoke with ID who recommended 6 weeks of IV abx as outpatient. He will f/u with Dr. Johnson in clinic for ongoing care. Time Spent with Patient Time spent: Greater than 30 minutes Exam Vital Signs (past 8 hours): Oxygen Delivery Method Room Air Oxygen Flow Rate 0 Narrative Exam Narrative: General: Patient is a thin elderly male in no distress at this time. HEENT: Normocephalic, atraumatic, extraocular muscles intact, oral pharynx is clear and mucous membranes are dry. Neck is supple and symmetric, trachea is midline, no adenopathy, no thyroid enlargement, nontender, no masses palpated. Negative for JVD Chest: Equal chest rise without nasal flaring, retractions, tachypneic or labored breathing. Lungs: Auscultation of all lung betts are clear without adventitious sounds, wheezes, rhonchi, or rales. Cardio: irregular rate and rhythm AFib without murmur, rubs, or gallops, no carotid bruit, no cardiac pulsations present. Patient appears euvolemic. Abdomen: Soft nontender, negative for organomegaly, or masses. Bowel sounds are present in all 4 quadrants without guarding or rebound, no CVA tenderness. Musculoskeletal: Muscle strength and tone are equal, no deformity, crepitus, effusions, cyanosis, clubbing present. Bilateral chronic venous stasis to lower extremities, +1 edema to left ankle/foot. Full range of motion intact radial and pedal pulses are normal. Patient has thoracic stimulator in place for pain management. Right lower extremity: RLE with +2 edema, no open wounds or drainage. Skin: Warm dry and intact without rashes, ulcerations or petechiae.- see above Neuro: Alert and orientated x3, moves all extremities, sensation to touch intact, no gross deficits noted of cranial nerves. Psych: Patient has a well-kept appearance, appropriate affect, mental status attitude thought context and judgment are appropriate for age. Objective Labs 11/26/22 04:35 11/26/22 04:35 Labs: Laboratory Results - last 24 hr 11/26/22 11/26/22 04:35 04:35 WBC 5.7 RBC 4.14 L Hgb 13.8 Hct 40.0 L MCV 96.5 MCH 33.2 MCHC 34.4 RDW 14.5 Plt Count 108 L Neut % (Auto) 54.7 Lymph % (Auto) 25.8 [place] % (Auto) 13.6 Eos % (Auto) 4.9 H Baso % (Auto) 1.0 Neut # (Auto) 3100 Lymph # (Auto) 1500 [place] # (Auto) 800 Eos # (Auto) 300 Baso # (Auto) 100 Sodium 135 L Potassium 3.8 Chloride 103 Carbon Dioxide 27 BUN 12 Creatinine 0.64 L Estimated GFR > 60 BUN/Creatinine Ratio 18.8 Glucose 95 Calcium 8.0 L Total Bilirubin 1.2 AST 34 ALT 28 Alkaline Phosphatase 50 Total Protein 5.9 L Albumin 3.0 L Globulin 2.9 Albumin/Globulin Ratio 1.0 PFSH Medical History Allergic rhinitis BPH (benign prostatic hyperplasia) BPH NOS w/o ur obs/LUTS Chronic anticoagulation Chronic low back pain Chronic, continuous use of opioids Coronary artery disease Do not resuscitate Essential hypertension High blood pressure Hydrocele Hypertrophy of breast Medicare annual wellness visit, initial Mixed hyperlipidemia Nocturia Peripheral arterial disease Peripheral vascular disease Polyneuropathy, unspecified Spinal stenosis, lumbar region without neurogenic claudication Umbilical hernia without obstruction or gangrene Venous (peripheral) insufficiency Surgical History History of back surgery S/P TURP Vasectomy status Social History household members: spouse Smoking Status: Never smoker alcohol intake: current Discharge Plan Discharge Plan Patient Disposition: Home Provider Discharge Comment: You were admitted and found to have a bloodstream infection from group B strep, which is the same bacteria that you had an infection with a few months ago. It is possible that you're infection recurred due to your prosthetic R shoulder. After speaking with infectious disease they recommended 6 weeks of IV antibiotics as outpatient. Please follow-up with Dr. Johnson in clinic. Discharge orders & Medications Prescriptions: Continued pregabalin [Lyrica] 200 MG capsule 200 mg PO BID Qty: 28 0RF losartan 50 mg tablet 50 mg PO DAILY rosuvastatin [Crestor] 5 mg Tablet 5 mg PO DAILY furosemide 40 mg Tablet 40 mg PO DAILY Qty: 30 0RF nitroglycerin 0.4 mg tablet, sublingual 0.4 mg SL Q5M PRN (Reason: Chest Pain) Rx Instructions: do not exceed 3 doses per episode Changed Eliquis 5 mg Tablet 2.5 mg PO BID Qty: 60 0RF Follow up/Referrals: Pooja Oliver PA-C [Primary Care Provider] - 12/02/22 4:30 pm (Appt:12/02 @ 4:[address] Kitty milan office-please arrive 15 minutes prior to scheduled appointment time ) Other Ambulatory Orders: Referral to: (Schedule) Timeframe: 1 Week Location: Outside Services Ordered By: Immanuel Bolanos Visit Report/Discharge Packet Instructions: Heart Failure, DI for Heart Failure, DI for Prescription Opioid Use Stand Alone Forms: Congestive Heart Failure, Patient Portal/API, Stroke Signs & Symptoms Discharge Data Primary Care Provider: Pooja Oliver Discharges patient from system. Discharge Date/Time: 11/26/22 15:31
== END 2022-11-26 15:31 | disposition home or self-care (01) | DRG 872 ==
LOC: ED 20:41 → AC 20:53 → ICU 21:23
PROVIDERS: Emergency Medicine; Internal Medicine; Admitting Provider Nurse Practitioner Family; Emergency Provider Emergency Medicine; Family Provider Internal Medicine; PCP Student in an Organized Health Care Education/Training Program; Referring Provider Emergency Medicine; Visit Provider Nurse Practitioner Family
DX: A41.9 Sepsis, unspecified organism (principal); L03.115 Cellulitis of right lower limb; I48.92 Unspecified atrial flutter; D69.6 Thrombocytopenia, unspecified; I48.91 Unspecified atrial fibrillation; I10 Essential (primary) hypertension; G62.9 Polyneuropathy, unspecified; I87.8 Other specified disorders of veins; R04.0 Epistaxis; B95.1 Streptococcus, group B, as the cause of diseases classified elsewhere; I25.10 Atherosclerotic heart disease of native coronary artery without angina pectoris; E78.2 Mixed hyperlipidemia; Z20.822 Contact with and (suspected) exposure to COVID-19; Z66 Do not resuscitate; Z79.01 Long term (current) use of anticoagulants
CPT/HCPCS: 36415; 71045; 80053; 81003; 81015; 83605; 83690; 83735; 83880; 84145; 85025; 85379; 85610; 85730; 86140; 87040; 87077; 87147; 87154; 87186; 87633; 87635; 87797; 93005; 93010; 93306; 93971; 96365; 97116; 97162; 99285; C9803; A9270; J0692; J0696; J1642; J1940

== ENCOUNTER → 2022-12-03 09:37 | Outpatient (CLI) | payer OTHER, SELFPAY ==
[2022-11-22 21:25] VITALS: BMI 25.1
--- NOTE | 2022-12-03 | DI.RAD.S_ITS ---
PROCEDURE: FL GUIDED PICC PLACEMENT INDICATIONS: Bacteremia COMPARISON: None. FINDINGS: PICC was placed by the intravenous therapy team from the left side. Fluoroscopic spot film demonstrates the tip of PICC projecting to the area of area of SVC. IMPRESSION: Tip of PICC projects to the area of SVC. Dictated by: Lupe Gan M.D. on 12/05/2022 at 15:05 Approved by: Lupe Gan M.D. on 12/05/2022 at 15:06
== END ==
LOC: RAD 09:38
PROVIDERS: Family Provider Internal Medicine; PCP Student in an Organized Health Care Education/Training Program; Referring Provider Internal Medicine Infectious Disease; Visit Provider Internal Medicine Infectious Disease
DX: Z45.2 Encounter for adjustment and management of vascular access device (principal); R78.81 Bacteremia
CPT/HCPCS: 36573

== ENCOUNTER → 2022-12-29 14:43 | Outpatient (ROUT) | payer OTHER, SELFPAY ==
[2022-11-22 21:25] VITALS: BMI 25.1
== END ==
PROVIDERS: Family Provider Internal Medicine; PCP Student in an Organized Health Care Education/Training Program; Visit Provider Internal Medicine Infectious Disease
DX: R78.81 Bacteremia (principal)
CPT/HCPCS: 80053; 82550; 85025; 86140

== ENCOUNTER 2023-02-22 17:22 | Emergency (ER) | payer OTHER, SELFPAY ==
[2022-11-22 21:25] VITALS: BMI 25.1
[2023-02-22 17:43] VITALS: BP 188/104; PULSE 49; RESP 18; TEMP 36.5; O2SAT 97; BMI 23.1
[2023-02-22 19:00] VITALS: BP 134/96; PULSE 55; O2SAT 94
--- NOTE | 2023-02-22 19:16 | ED_ITS ---
HPI - General Adult General Chief complaint: Nasal Problem Stated complaint: Nosebleeds Time Seen by Provider: 02/22/23 18:49 Source: patient Mode of arrival: Ambulatory History of Present Illness HPI narrative: 87-year-old male. He is on Eliquis secondary to a ?abnormal heart rhythm? has had multiple issues recently with nosebleeds. He was just seen recently by ear nose and throat and had cautery done to his left nostril. He states that earlier today he started to have bleeding. He is not currently bleeding. Denies any trauma. Related Data Home Medications Medication Instructions Recorded Confirmed nitroglycerin 0.4 mg sublingual 0.4 mg sublingual Q5M PRN Chest 04/05/20 11/24/22 tablet Pain rosuvastatin 5 mg tablet (Crestor) 5 mg PO DAILY 01/25/22 11/24/22 losartan 50 mg tablet 50 mg PO DAILY 11/24/22 11/24/22 Previous Rx's Medication Instructions Recorded pregabalin 200 mg capsule (Lyrica) 200 mg PO BID #28 caps 10/12/16 furosemide 40 mg tablet 40 mg PO DAILY #30 tabs 08/19/22 apixaban 5 mg tablet (Eliquis) 2.5 mg PO BID #60 tabs 11/29/22 Allergies Allergy/AdvReac Type Severity Reaction Status Date / Time niacin [NIACIN] Allergy Unknown Verified 02/22/23 17:48 ceftriaxone AdvReac Verified 02/22/23 17:48 Review of Systems ENT Ears, Nose, Mouth, and Throat: Reports system reviewed and no additional complaints, except as documented Integumentary/Breasts Skin/Breast: Reports system reviewed and no additional complaints, except as documented Hematologic/Lymphatic On Anticoagulants: Yes Patient History Medical History Allergic rhinitis BPH (benign prostatic hyperplasia) BPH NOS w/o ur obs/LUTS Chronic anticoagulation Chronic low back pain Chronic, continuous use of opioids Coronary artery disease Do not resuscitate Essential hypertension High blood pressure Hydrocele Hypertrophy of breast Medicare annual wellness visit, initial Mixed hyperlipidemia Nocturia Peripheral arterial disease Peripheral vascular disease Polyneuropathy, unspecified Spinal stenosis, lumbar region without neurogenic claudication Umbilical hernia without obstruction or gangrene Venous (peripheral) insufficiency Surgical History History of back surgery S/P TURP Vasectomy status Social History household members: spouse Smoking Status: Never smoker alcohol intake: current Smoking Status: Never smoker alcohol intake frequency: 0-2 drinks per day Substance Use Type: does not use Exam Initial Vital Signs Initial Vital Signs: Vital Signs Temperature 97.7 F 02/22/23 17:43 Pulse Rate 49 L 02/22/23 17:43 Respiratory Rate 18 02/22/23 17:43 Blood Pressure 188/104 H 02/22/23 17:43 Pulse Oximetry 97 02/22/23 17:43 Oxygen Delivery Method Room Air 02/22/23 17:43 Const General: cooperative and comfortable HENMT Nose: No epistaxis and other (Friable area noted on the left anterior nasal septum) Skin General: no rashes or lesions noted Neuro General: patient alert and patient awake Course Orders Ordered: Discontinued Medications Silver Nitrate/Potassium Nitrate (Silver Nitrate Stick) 2 each TOP NOW ONE Stop: 02/22/23 19:18 Last Admin: 02/22/23 19:26 Dose: 2 each Documented By: CARRIE Vital Signs Vital signs: Vital Signs - 8 hr 02/22/23 18:59 02/22/23 19:00 02/22/23 19:00 Pulse Rate 55 L Respiratory Rate Blood Pressure 134/96 H Pulse Oximetry 94 Oxygen Delivery Method Room Air 02/22/23 19:30 Pulse Rate 60 Respiratory Rate 16 Blood Pressure Pulse Oximetry 96 Oxygen Delivery Method Room Air Medical Decision Making MDM Narrative Medical decision making narrative: There was no active bleeding although there was a friable area noted on the left anterior nasal septum. I did put a small amount of cautery of this area. There was no indication for nasal packing. Had a discussion with the patient re garding this. We discussed how he could try to stop the bleeding at home and when to return to the emergency department. He was given return precautions and follow-up instructions. He expressed understanding and agreement. Discharge Plan Departure Patient Disposition: Home Clinical Impression: Epistaxis Instructions: DI for Nosebleed Activity Restrictions/Additional Instructions: Recommend that you continue to take all of your medications as directed. If your nose starts to bleed again do the process that we discussed with the nasal clamp and the Afrin spray. Return to the emergency department for new or worsening symptoms. Prescriptions: No Action pregabalin [Lyrica] 200 MG capsule 200 mg PO BID Qty: 28 0RF losartan 50 mg tablet 50 mg PO DAILY Eliquis 5 mg Tablet 2.5 mg PO BID Qty: 60 0RF rosuvastatin [Crestor] 5 mg Tablet 5 mg PO DAILY furosemide 40 mg Tablet 40 mg PO DAILY Qty: 30 0RF nitroglycerin 0.4 mg tablet, sublingual 0.4 mg SL Q5M PRN (Reason: Chest Pain) Rx Instructions: do not exceed 3 doses per episode Referrals: Pooja Oliver PA-C [Primary Care Provider] - Stand Alone Forms: Patient Portal/API
[2023-02-22] MEDS: SILVER NITRATE STICK 2 EACH TOP (19:26)
[2023-02-22 19:30] VITALS: PULSE 60; RESP 16; O2SAT 96
== END 2023-02-22 19:49 | disposition home or self-care (01) ==
PROVIDERS: Emergency Provider Emergency Medicine; Family Provider Internal Medicine; PCP Student in an Organized Health Care Education/Training Program
DX: R04.0 Epistaxis (principal); Z79.01 Long term (current) use of anticoagulants
CPT/HCPCS: 99282

== ENCOUNTER 2023-02-23 08:34 | Emergency (ER) | payer OTHER, SELFPAY ==
[2022-11-22 21:25] VITALS: BMI 25.1
[2023-02-23 08:38] VITALS: BP 186/86; PULSE 71; RESP 16; TEMP 36.2; O2SAT 97; BMI 23.7
--- NOTE | 2023-02-23 10:32 | ED.RECABL ---
HPI - Recheck/Abnormal Lab/Rx General Chief Complaint: Recheck/Abnormal Lab/Rx Stated Complaint: out of prescription and in alot of pain Time Seen by Provider: 02/23/23 10:32 History of Present Illness HPI narrative: Patient is a 87-year-old male history of chronic neuropathy secondary to multiple back issues on Lyrica and Percocet presenting today with increasing leg pain from knee to foot bilaterally. He has been out of Lyrica it is supposed to come by male but has not come by mail yet he has been out of his Percocet as well. Having increasing pain. Over past week or so he has had numerous nosebleeds requiring cauterization he was here last night for nose bleeding. 3 days ago he was seen by ENT for epistaxis and was cauterized by them as well. Reports that who last night he had nosebleed which finally was controlled by them at home. Not actively bleeding or having nosebleed now. Really just having bilateral leg pain and out of his medication lying medication refill. No fevers or chills. Related Data Home Medications Medication Instructions Recorded Confirmed nitroglycerin 0.4 mg sublingual 0.4 mg sublingual Q5M PRN Chest 04/05/20 11/24/22 tablet Pain rosuvastatin 5 mg tablet (Crestor) 5 mg PO DAILY 01/25/22 11/24/22 losartan 50 mg tablet 50 mg PO DAILY 11/24/22 11/24/22 Previous Rx's Medication Instructions Recorded pregabalin 200 mg capsule (Lyrica) 200 mg PO BID #28 caps 10/12/16 furosemide 40 mg tablet 40 mg PO DAILY #30 tabs 08/19/22 apixaban 5 mg tablet (Eliquis) 2.5 mg PO BID #60 tabs 11/29/22 oxycodone-acetaminophen 5 mg-325 1 tab PO Q6H PRN pain #20 tabs 02/23/23 mg tablet (Percocet) pregabalin 200 mg capsule (Lyrica) 200 mg PO BID #20 caps 02/23/23 Allergies Allergy/AdvReac Type Severity Reaction Status Date / Time niacin [NIACIN] Allergy Unknown Verified 02/22/23 17:48 ceftriaxone AdvReac Verified 02/22/23 17:48 Review of Systems Review of Systems ROS Unobtainable: All systems reviewed & are unremarkable except as noted in HPI and below Patient History Medical History Allergic rhinitis BPH (benign prostatic hyperplasia) BPH NOS w/o ur obs/LUTS Chronic anticoagulation Chronic low back pain Chronic, continuous use of opioids Coronary artery disease Do not resuscitate Essential hypertension High blood pressure Hydrocele Hypertrophy of breast Medicare annual wellness visit, initial Mixed hyperlipidemia Nocturia Peripheral arterial disease Peripheral vascular disease Polyneuropathy, unspecified Spinal stenosis, lumbar region without neurogenic claudication Umbilical hernia without obstruction or gangrene Venous (peripheral) insufficiency Surgical History History of back surgery S/P TURP Vasectomy status Social History household members: spouse Smoking Status: Never smoker alcohol intake: current Smoking Status: Never smoker alcohol intake frequency: 0-2 drinks per day Substance Use Type: does not use Exam Initial Vital Signs Initial Vital Signs: Vital Signs Temperature 97.1 F L 02/23/23 08:38 Pulse Rate 71 02/23/23 08:38 Respiratory Rate 16 02/23/23 08:38 Blood Pressure 186/86 H 02/23/23 08:38 Pulse Oximetry 97 02/23/23 08:38 Oxygen Delivery Method Room Air 02/23/23 08:38 GENERAL: Alert 87-year-old male appears uncomfortable sitting in wheelchair HEENT: Head atraumatic,EOMI, pupils reactive, face symmetric, moist mucous membranes CARDIOVASCULAR: No cyanosis peripheral pulses intact RESPIRATORY: No respiratory distress speaks in full sentences EXTREMITIES: Normal range of motion, no clubbing or edema. Neurovascularly intact NEUROLOGICAL: Alert and oriented x4 SKIN: Warm, dry, no laceration, no petechiae, no rashes or lesions. Lower extremities only erythematous but reports that happens occasionally Course Orders Ordered: Discontinued Medications Oxycodone/Acetaminophen (Oxycodone/Acetaminophen 5/325 Tablet) 1 tab PO NOW ONE Stop: 02/23/23 10:42 Last Admin: 02/23/23 10:52 Dose: 1 tab Documented By: SUSHIL Pregabalin (Pregabalin 50 Mg Capsule) 200 mg PO DAILY DEACON Last Admin: 02/23/23 10:52 Dose: 200 mg Documented By: CTS Vital Signs Vital signs: Vital Signs - 8 hr 02/23/23 08:38 Temperature 97.1 F L Pulse Rate 71 Respiratory Rate 16 Blood Pressure 186/86 H Pulse Oximetry 97 Oxygen Delivery Method Room Air MDM - Recheck/Abnormal Lab/Rx MDM Narrative Medical decision making narrative: Patient 87-year-old male here for medication refill of Lyrica and Percocet. Reports that having frequent nosebleeds is being seen by ENT no active nosebleeds at this time. Recommend follow-up with ENT at this time. Lower extremities are mildly erythematous he is afebrile thought to be out pain medication. reports that legs do get red at times. He is not hypotensive or tachycardic. Given medications in the ED and prescriptions sent. Discharge Plan Departure Patient Disposition: Home Clinical Impression: Neuropathy, Encounter for medication refill Instructions: Peripheral Neuropathy Activity Restrictions/Additional Instructions: *You have been diagnosed with neuropathy *What to do: At this time if you are still having nosebleeds please see ENT may need to talk with Cardiology and your doctors about risk and benefit of continuing Eliquis. *Continue to take medications as directed Lyrica 200 mg twice a day Percocet 5 mg every 6 hours if needed for [id number] pain *Follow up with your primary care provider in 2-3 days or call [phone] *Return to ER if you should have increasing pain fever redness or any new, worsening or concerning symptoms CONTROLLED SUBSTANCE DISCHARGE (Narcotoic/benzodiazepine/Flexeril/Phenergan) 1. You have been prescribed narcotic medications, it does have acetaminophen/Tylenol/paracetamol in it, DO NOT TAKE MORE THAN 4,00mg in 24 hours of Tylenol. TRAMADOL DOES NOT CONTAIN TYLENOL 2. Please understand that we cannot provide further refills of narcotics, benzodiazepines or controlled substances through the ED and her pain management will need to be through your provider. 3. While on these medications you cannot drive or operate heavy machinery. 4. You cannot sign legal documents or perform any duties such as this. 5. As long as you're taking opiate pain medications he should also be taking a stool softener such as Colace, Dulcolax, MiraLAX or prune juice, to help avoid constipation. Prescriptions: New pregabalin [Lyrica] 200 mg capsule 200 mg PO BID Qty: 20 0RF oxycodone-acetaminophen [Percocet] 5-325 mg tablet 1 tab PO Q6H PRN (Reason: pain) Qty: 20 0RF No Action pregabalin [Lyrica] 200 MG capsule 200 mg PO BID Qty: 28 0RF losartan 50 mg tablet 50 mg PO DAILY Eliquis 5 mg Tablet 2.5 mg PO BID Qty: 60 0RF rosuvastatin [Crestor] 5 mg Tablet 5 mg PO DAILY furosemide 40 mg Tablet 40 mg PO DAILY Qty: 30 0RF nitroglycerin 0.4 mg tablet, sublingual 0.4 mg SL Q5M PRN (Reason: Chest Pain) Rx Instructions: do not exceed 3 doses per episode Referrals: Pooja Oliver, [facility] [Primary Care Provider] - Stand Alone Forms: Patient Portal/API
[2023-02-23] MEDS: OXYCODONE/ACETAMINOPHEN 5/325 TABLET 1 TAB PO (10:52)
[2023-02-23] MEDS: PREGABALIN 50 MG CAPSULE 200 MG PO (10:52)
== END 2023-02-23 10:59 | disposition home or self-care (01) ==
PROVIDERS: Emergency Provider Emergency Medicine; Family Provider Internal Medicine; PCP Student in an Organized Health Care Education/Training Program
DX: G62.9 Polyneuropathy, unspecified (principal); Z76.0 Encounter for issue of repeat prescription
CPT/HCPCS: 99283

== ENCOUNTER 2024-08-02 10:34 | Emergency (ER) | payer OTHER, SELFPAY ==
[2024-06-23 22:50] VITALS: BMI 26.5
[2024-08-02 11:00] VITALS: BP 136/66; PULSE 67; RESP 18; TEMP 36.8; O2SAT 98; BMI 24.9
--- NOTE | 2024-08-02 11:09 | ED_ITS ---
<Statement entered by Siddharth Bañuelos DO - 08/02/24 12:51> Dr. Bañuelos: I was immediately available in the department for consultation. I did not actually see the patient. HPI - Recheck/Abnormal Lab/Rx General Chief Complaint: Recheck/Abnormal Lab/Rx Stated Complaint: Refill on Meds Time Seen by Provider: 08/02/24 11:09 Source: patient Mode of arrival: Ambulatory History of Present Illness HPI narrative: 89-year-old male with past medical history peripheral neuropathy presents to the ED for a medication refill for Lyrica. Patient received Lyrica from his doctor at the [facility], he saw his doctor on 07/30/24, and was given a prescription. However since the prescription is sent by mail order, patient has not received it yet, is slated to receive it at the end of this week. Meanwhile patient is out of his medications and requesting a short refill. Patient endorses bilateral lower extremity neuropathy, which is unchanged in character from prior. No other complaints at this time. Related Data Home Medications Medication Instructions Recorded Confirmed nitroglycerin 0.4 mg sublingual 0.4 mg sublingual Q5M PRN Chest 04/05/20 tablet Pain rosuvastatin 5 mg tablet (Crestor) 5 mg PO DAILY 01/25/22 06/24/24 losartan 50 mg tablet 50 mg PO DAILY 11/24/22 06/24/24 amoxicillin 500 mg tablet 500 mg PO TID 06/24/24 06/24/24 Previous Rx's Medication Instructions Recorded furosemide 40 mg tablet 40 mg PO DAILY #30 tabs 08/19/22 apixaban 5 mg tablet (Eliquis) 2.5 mg (1/2 x 5 mg) PO BID #60 tabs 11/29/22 oxycodone-acetaminophen 5 mg-325 1 tab PO Q6H PRN pain #20 tabs 02/23/23 mg tablet (Percocet) pregabalin 200 mg capsule (Lyrica) 200 mg PO BID #14 caps 04/15/24 doxycycline hyclate 100 mg tablet 100 mg PO BID #14 tabs 06/26/24 pregabalin 200 mg capsule (Lyrica) 200 mg PO BID 2 weeks #28 caps 08/02/24 Allergies Allergy/AdvReac Type Severity Reaction Status Date / Time niacin [NIACIN] Allergy Unknown Verified 02/22/23 17:48 Review of Systems Constitutional Constitutional: Denies chills, Denies fatigue, Denies fever(s), Denies frequent falls, Denies lethargy and Denies weakness Eyes Eyes: Denies change in vision, Denies eye discharge, Denies irritation and Denies loss of vision ENT Ears, Nose, Mouth, and Throat: Denies change in voice, Denies dizziness, Denies neck pain, Denies sore throat and Denies throat swelling Cardiovascular Cardiovascular: Denies chest pain, Denies irregular heart rhythm, Denies lightheadedness, Denies palpitations, Denies dyspnea, Denies dyspnea on exertion and Denies orthopnea Respiratory Respiratory: Denies cough, Denies dyspnea, Denies dyspnea on exertion and Denies wheezing Gastrointestinal Gastrointestinal: Denies abdominal pain, Denies change in bowel habits, Denies diarrhea, Denies nausea and Denies vomiting Musculoskeletal Musculoskeletal: Denies neck pain and Denies numbness Integumentary/Breasts Skin/Breast: Denies pruritus, Denies erythema, Denies rash and Denies wounds Neurologic Neurologic: Denies behavioral changes, Denies confusion, Denies dizziness, Denies frequent falls, Denies loss of vision, Denies numbness and Denies weakness Comments: Bilateral lower extremity nerve pain unchanged in character from prior neuropathy Psychiatric Psychiatric: Denies anxiety, Denies behavioral changes, Denies confusion, Denies depression, Denies homicidal ideation and Denies suicidal ideation Endocrine Endocrine: Denies fatigue, Denies flushing and Denies palpitations Hematologic/Lymphatic Hematologic/Lymphatic: Denies easy bruising Allergic/Immunologic Allergic/Immunologic: Denies urticaria, Denies throat swelling and Denies wheezing Patient History Medical History Do not resuscitate Umbilical hernia without obstruction or gangrene Hypertrophy of breast Spinal stenosis, lumbar region without neurogenic claudication Allergic rhinitis Venous (peripheral) insufficiency Chronic, continuous use of opioids Polyneuropathy, unspecified Chronic low back pain Mixed hyperlipidemia Essential hypertension Coronary artery disease Peripheral arterial disease Chronic anticoagulation Medicare annual wellness visit, initial BPH NOS w/o ur obs/LUTS Nocturia Hydrocele BPH (benign prostatic hyperplasia) Peripheral vascular disease High blood pressure Surgical History History of back surgery Vasectomy status S/P TURP Social History household members: spouse Smoking Status: Never smoker alcohol intake: current Smoking Status: Never smoker alcohol intake frequency: 0-2 drinks per day Exam Narrative Exam Narrative: Const General:?cooperative, healthy appearing and comfortable Eyes General:?appearance normal, both eyes and all related structures Resp Effort & Inspection:?normal respiratory effort Auscultation:?clear to auscultation bilaterally Cardio Rate:?regular rate Rhythm:?regular rhythm Neuro General:?patient alert, patient awake and patient oriented x3 Initial Vital Signs Initial Vital Signs: Vital Signs Temperature 98.2 F 08/02/24 11:00 Pulse Rate 67 08/02/24 11:00 Respiratory Rate 18 08/02/24 11:00 Blood Pressure 136/66 08/02/24 11:00 Pulse Oximetry 98 08/02/24 11:00 Oxygen Delivery Method Room Air 08/02/24 11:00 Course Orders Ordered: Discontinued Medications Pregabalin (Pregabalin 25 Mg Capsule) 200 mg PO NOW ONE Stop: 08/02/24 11:17 Vital Signs Vital signs: Vital Signs - 8 hr 08/02/24 11:00 Temperature 98.2 F Pulse Rate 67 Respiratory Rate 18 Blood Pressure 136/66 Pulse Oximetry 98 Oxygen Delivery Method Room Air MDM - Recheck/Abnormal Lab/Rx MDM Narrative Medical decision making narrative: 89-year-old male with past medical history peripheral neuropathy presents to the ED for a medication refill for Lyrica. Patient was given a dose of Lyrica in the ED. Prescription has been refilled for the next few days until he gets his prescription. ED return precautions discussed with patient. Patient verbalized understanding. Medical records reviewed: Yes Discharge Plan Departure Patient Disposition: Home Clinical Impression: Medication refill Instructions: DI for Peripheral Neuropathy Activity Restrictions/Additional Instructions: You were seen in the emergency department for a prescription refill for Lyrica. It appears that this is a prescription that your doctor at the [facility] prescribed regularly for you, and you are slated to receive this later in the week. You are being prescribed the medication for until you receive your prescription from the doctor. Return to the ED if you have any worsening symptoms. Prescriptions: New pregabalin [Lyrica] 200 mg capsule 200 mg PO BID 14 Days Qty: 28 0RF No Action losartan 50 mg tablet 50 mg PO DAILY Eliquis 5 mg Tablet 2.5 mg PO BID Qty: 60 0RF oxycodone-acetaminophen [Percocet] 5-325 mg tablet 1 tab PO Q6H PRN (Reason: pain) Qty: 20 0RF rosuvastatin [Crestor] 5 mg Tablet 5 mg PO DAILY furosemide 40 mg Tablet 40 mg PO DAILY Qty: 30 0RF pregabalin [Lyrica] 200 mg capsule 200 mg PO BID Qty: 14 1RF amoxicillin 500 mg Tablet 500 mg PO TID doxycycline hyclate 100 mg Tablet 100 mg PO BID Qty: 14 0RF nitroglycerin 0.4 mg tablet, sublingual 0.4 mg SL Q5M PRN (Reason: Chest Pain) Rx Instructions: do not exceed 3 doses per episode Referrals: Pooja Oliver PA-C [Primary Care Provider] - Stand Alone Forms: Patient Portal/API/Survey
[2024-08-02] MEDS: PREGABALIN 25 MG CAPSULE 200 MG PO (11:25)
== END 2024-08-02 11:47 | disposition home or self-care (01) ==
PROVIDERS: Emergency Provider Student in an Organized Health Care Education/Training Program; Family Provider Internal Medicine; PCP Student in an Organized Health Care Education/Training Program
DX: Z76.0 Encounter for issue of repeat prescription (principal)
CPT/HCPCS: 99283

== ENCOUNTER → 2024-08-30 12:35 | Outpatient (CLI) | payer MEDICARE, SELFPAY ==
[2024-08-04 18:04] VITALS: BMI 23.3
[2024-08-30 13:48] LABS: BUN Creatinine Ratio 23.3 (6-22); Blood Urea Nitrogen 30 mg/dL (9-20); Calcium 8.6 mg/dL (8.4-10.2); Carbon Dioxide 36 mmol/L (22-32); Chloride 98 mmol/L (98-107); Estimated Glomerular Filt Rate 53 mL/min (>60); Glucose 83 mg/dL (80-110); HEMOLYSIS < 15 (0-50); Potassium 3.3 mmol/L (3.4-5.1); Sodium 139 mmol/L (137-145)
== END ==
PROVIDERS: PCP Internal Medicine; Referring Provider Internal Medicine; Visit Provider Internal Medicine
DX: I10 Essential (primary) hypertension (principal); I87.2 Venous insufficiency (chronic) (peripheral)
CPT/HCPCS: 36415; 80048

== ENCOUNTER → 2024-10-28 14:55 | Outpatient (CLI) | payer MEDICARE, SELFPAY ==
[2024-10-12 10:12] VITALS: BMI 23.3
[2024-10-28 16:17] LABS: BUN Creatinine Ratio 41.6 (6-22); Blood Urea Nitrogen 52 mg/dL (9-20); Chloride 91 mmol/L (98-107); Estimated Glomerular Filt Rate 55 mL/min (>60); Glucose 92 mg/dL (70-99); Magnesium 2.1 mg/dL (1.6-2.3); Potassium 3.2 mmol/L (3.4-5.1); Sodium 139 mmol/L (137-145)
[2024-10-28 16:24] LABS: Carbon Dioxide 37 mmol/L (22-32); HEMOLYSIS 19 (0-50)
== END ==
PROVIDERS: PCP Internal Medicine; Referring Provider Internal Medicine; Visit Provider Internal Medicine
DX: I10 Essential (primary) hypertension (principal); I87.2 Venous insufficiency (chronic) (peripheral); E61.2 Magnesium deficiency
CPT/HCPCS: 36415; 80048; 83735

== ENCOUNTER → 2025-01-11 16:08 | Outpatient (CLI) | payer MEDICARE, SELFPAY ==
[2024-10-12 10:12] VITALS: BMI 23.3
--- NOTE | 2025-01-11 16:10 | DI.RAD.S_ITS ---
PROCEDURE: XR HIP W PEL IF DONE BILAT 2V INDICATIONS: right hip pain, fall TECHNIQUE: AP pelvis with lateral view(s) of the bilateral hip(s). COMPARISON: None. FINDINGS: Bones: No fractures or dislocations. 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 Pelvic ring appears intact. No suspicious bony lesions. Hardware noted within the lower lumbar spine. Soft tissues: The visualized bowel gas pattern is normal. No suspicious soft tissue calcifications. IMPRESSION: Degenerative change of the bilateral hips without evidence of acute bony abnormality. Dictated by: Jamari Mcnair M.D. on 01/13/2025 at 6:38 Approved by: Jamari Mncair M.D. on 01/13/2025 at 6:39
== END ==
PROVIDERS: PCP Internal Medicine; Referring Provider Internal Medicine; Visit Provider Internal Medicine
DX: M25.551 Pain in right hip (principal)
CPT/HCPCS: 73521

== ENCOUNTER → 2025-01-18 11:58 | Outpatient (CLI) | payer MEDICARE, SELFPAY ==
[2024-10-12 10:12] VITALS: BMI 23.3
[2025-01-18 13:28] LABS: Blood Urea Nitrogen 26 mg/dL (9-20); Calcium 8.8 mg/dL (8.4-10.2); Carbon Dioxide 30 mmol/L (22-32); Chloride 101 mmol/L (98-107); Estimated Glomerular Filt Rate > 60 mL/min (>60); Glucose 85 mg/dL (70-99); HEMOLYSIS 48 (0-50); Potassium 4.1 mmol/L (3.4-5.1); Sodium 139 mmol/L (137-145)
== END ==
PROVIDERS: PCP Internal Medicine; Referring Provider Internal Medicine; Visit Provider Internal Medicine
DX: I87.2 Venous insufficiency (chronic) (peripheral) (principal)
CPT/HCPCS: 36415; 80048